=== PATIENT | female | born 1940 | race Caucasian/White ===

== ENCOUNTER → 2016-03-21 | Outpatient (CLI) | payer MEDICARE ==
--- NOTE | 2016-03-22 07:05 | MM ---
Reason for exam: clinical finding. Last mammogram was performed 1 year ago. History: Patient is postmenopausal and has history of other cancer at age 60. Benign excisional biopsy of the right breast, 1988. Took estrogen for 11 years beginning at age 56. Indicated problem(s): large axillary lymph nodes in the left breast. Physical Findings: Nurse Summary: 0.5cm nodule in the left breast at 12:15 (nurse dw). MG 3D Diag Mammo W/Cad SHANTELL Bilateral CC and MLO view(s) were taken. Prior study comparison: March 13, 2015, left breast MG 3d work up w/cad LT. February 23, 2015, bilateral MG screening mammo w CAD. June 14, 2013, bilateral digital screening mammo w/CAD. January 15, 2012, CAD bilateral diagnostic mammogram. November 23, 2010, CAD bilateral diagnostic mammogram. The breast tissue is extremely dense which could obscure a lesion on mammography. Palpable marker posterior upper outer quadrant left breast. No significant new findings when compared with previous films. These results were verbally communicated with the patient and result sheet given to the patient on 03/21/16. ASSESSMENT: Incomplete: need additional imaging evaluation, BI-RAD 0 RECOMMENDATION: Ultrasound of both breasts. As ordered by the clinican.
--- NOTE | 2016-03-22 07:11 | USB ---
Reason for exam: clinical finding. History: Patient is postmenopausal and has history of other cancer at age 60. Benign excisional biopsy of the right breast, 1988. Took estrogen for 11 years beginning at age 56. Indicated problem(s): lump or thickening in the left breast. US Breast BILAT Right breast ultrasound including all four quadrants, the retroareolar region and axilla demonstrates a 0.7 x 0.3 x 0.6cm oval, cystic, benign lesion at 11 o'clock. Left breast ultrasound including all four quadrants, the retroareolar region and axilla demonstrates a 0.4 x 0.3 x 0.4cm oval, cystic, benign lesion at 12 o'clock at palpable, a 0.3 x 0.2 x 0.2cm oval lesion too small to characterize at 10 o'clock and a 0.7 x 0.3 x 0.6cm oval, cystic, benign lesion at 2 o'clock. These results were verbally communicated with the patient and result sheet given to the patient on 03/21/16. ASSESSMENT: Benign, BI-RAD 2 RECOMMENDATION: Routine screening mammogram of both breasts in 1 year. Manage on a clinical basis with regard to any suspicious palpable areas.
== END | disposition home or self-care (01) ==
LOC: RADMAMWWP 13:33
PROVIDERS: ATTEND Internal Medicine Hematology & Oncology
DX: N63 Unspecified lump in breast (principal)
CPT/HCPCS: 76641; G0204; G0279

== ENCOUNTER → 2016-04-11 | Outpatient (CLI) | payer MEDICARE ==
[2016-04-11 15:10] LABS: ALT 84 U/L (9-52); AST 42 U/L (14-36); Alkaline Phosphatase 110 U/L (38-126); Anion Gap 9 mmol/L; Blood Urea Nitrogen 16 mg/dL (7-17); Calcium 8.6 mg/dL (8.4-10.2); Carbon Dioxide 29 mmol/L (22-30); Chloride 103 mmol/L (98-107); Glucose 87 mg/dL (74-99); Non-African American GFR(MDRD) >60 (>60 ml/min/1.73 sqM); Sodium 141 mmol/L (137-145); Total Bilirubin 0.2 mg/dL (0.2-1.3); Total Protein 6.2 g/dL (6.3-8.2)
--- NOTE | 2016-04-11 15:26 | XR ---
EXAMINATION TYPE: XR lumbosacral spine min 4V DATE OF EXAM: 04/11/2016 3:12 PM CLINICAL HISTORY: Low back pain. TECHNIQUE: Frontal, lateral, and oblique images of the lumbar spine are obtained. COMPARISON: Lumbar spine x-ray June 07, 2008. CT abdomen and pelvis April 07, 2015 FINDINGS: Osseous structures are demineralized which is noted to lower radiographic sensitivity. Ther e are 5 lumbar type vertebral bodies identified. The lumbar spine redemonstrates subtle grade 1 ante rolisthesis of L4 on L5 without evidence of acute fracture or dislocation. Vertebral body heights are within normal limits. Metallic disc material lumbosacral junction is redemonstrated. Multilevel fac et arthropathy lower lumbar levels is seen. There is moderate to advanced disc space narrowing with e ndplate sclerosis anteriorly at L1-L2 level redemonstrated. The oblique images appear within normal l imits. Cholecystectomy clips and some vascular calcification is seen overlying soft tissue. IMPRESSION: Overall stable findings, demineralization and degenerative as well as surgical changes as detailed above.
== END | disposition home or self-care (01) ==
LOC: LABWHC1 14:35
PROVIDERS: ATTEND Family Medicine
DX: M47.26 Other spondylosis with radiculopathy, lumbar region (principal); M81.0 Age-related osteoporosis without current pathological fracture; Z98.890 Other specified postprocedural states
CPT/HCPCS: 36415; 72110; 80053

== ENCOUNTER → 2016-08-22 | Outpatient (CLI) | payer MEDICARE ==
--- NOTE | 2016-08-22 23:40 | MR ---
History abdominal pain. Comparison none. TECHNIQUE: Multiplanar multi echo imaging of the abdomen was performed with no contrast. FINDINGS: There is cholecystectomy. There is markedly dilated common bile duct that measures up to 2.2 cm. Ther e is smooth tapering of the distal common bile duct. I see no definite filling defect. There is ectas ia of the pancreatic duct that measures up to 7 mm. There is mild dilation of the intrahepatic bile d ucts. I see no sign of a pancreatic mass. The kidneys show no hydronephrosis. There is some loculated fluid adjacent to the lateral right lobe of the liver that measures 5 x 2.5 cm. Spleen appears wayne l. I see no discrete liver mass. CONCLUSION: Markedly dilated biliary tree. No filling defect seen. This more likely relates to a stricture of the distal common bile duct. The distal common bile duct shows smooth tapering consistent with a strictu re. Dilated pancreatic duct without a filling defect or pancreatic mass seen. This could relate to a stri cture. Distal pancreatic duct shows some tapering consistent with stricture. Irregular fluid signal lesion adjacent to the right lobe of the liver could be some loculated pleural fluid or unusual pericapsular hepatic cyst. I see no significant change compared to old CT scan of 04/07/2015.
== END | disposition home or self-care (01) ==
LOC: RADMRIMAIN 15:58
PROVIDERS: ATTEND Internal Medicine
DX: K83.8 Other specified diseases of biliary tract (principal); K86.89 Other specified diseases of pancreas; K76.89 Other specified diseases of liver
CPT/HCPCS: 74181

== ENCOUNTER → 2017-03-25 | Outpatient (CLI) | payer MEDICARE ==
--- NOTE | 2017-03-25 15:00 | MM ---
Reason for exam: additional evaluation requested from prior study. Last mammogram was performed 1 year ago. History: Patient is postmenopausal and has history of other cancer at age 60. Benign excisional biopsy of the right breast, 1988. Took estrogen for 11 years beginning at age 56. Physical Findings: Nurse Summary: 0.5 x 0.5cm nodule in the left breast at 12 o'clock (nurse ts). MG 3D Diag Mammo W/Cad SHANTELL Bilateral CC and MLO view(s) were taken. Prior study comparison: March 21, 2016, bilateral MG 3d diag mammo w/cad SHANTELL. March 13, 2015, left breast MG 3d work up w/cad LT. The breast tissue is heterogeneously dense. This may lower the sensitivity of mammography. Stable nodular density at left palpable site proven cyst. No significant new findings when compared with previous films. These results were verbally communicated with the patient and result sheet given to the patient on 03/25/17. ASSESSMENT: Benign, BI-RAD 2 RECOMMENDATION: Routine screening mammogram of both breasts in 1 year.
== END | disposition home or self-care (01) ==
LOC: RADMAMWWP 14:09
PROVIDERS: ATTEND Family Medicine
DX: R92.8 Other abnormal and inconclusive findings on diagnostic imaging of breast (principal)
CPT/HCPCS: 77066; G0279

== ENCOUNTER → 2018-01-07 | Outpatient (CLI) | payer MEDICARE ==
[2018-01-07 12:23] LABS: Basophils % (A) 0 %; Eosinophils % (A) 1 %; HCT 34.3 % (34.0-46.0); HGB 10.4 gm/dL (11.4-16.0); Hypochromasia Slight; Lymphocytes # (A) 0.7 k/uL (1.0-4.8); Lymphocytes % (A) 12 %; MCHC 30.3 g/dL (31.0-37.0); MCV 92.6 fL (80.0-100.0); Mean Platelet Volume 7.9; Monocytes # (A) 0.3 k/uL (0-1.0); Monocytes % (A) 5 %; Neutrophils # (A) 4.2 k/uL (1.3-7.7); Neutrophils % (A) 80 %; Platelet Count 180 k/uL (150-450); RBC 3.71 m/uL (3.80-5.40); RDW 13.9 % (11.5-15.5); WBC 5.3 k/uL (3.8-10.6)
[2018-01-07 17:21] LABS: Albumin 4.2 g/dL (3.80-4.90); Albumin/Globulin Ratio 2.63 (1.20-2.10); Anion Gap 8.9 mmol/L (4.00-12.00); Carbon Dioxide 28.1 mmol/L (21.6-31.8); Globulin 1.6 g/dL (2.1-3.7); LDL Cholesterol,Calculated 75.8 mg/dL (0.0-131.0); Potassium 3.5 mmol/L (3.5-5.5); Total Bilirubin 0.3 mg/dL (0.3-1.2); Total Protein 5.8 g/dL (6.2-8.2); VLDL Calculation 22.2 mg/dL (5.00-40.00)
== END ==
LOC: LABWHC1 11:00
PROVIDERS: ATTEND Family Medicine
DX: Z00.00 Encounter for general adult medical examination without abnormal findings (principal); E87.6 Hypokalemia; K75.4 Autoimmune hepatitis; Z79.899 Other long term (current) drug therapy
CPT/HCPCS: 36415; 80053; 80061; 85025

== ENCOUNTER → 2018-03-04 | Outpatient (CLI) | payer MEDICARE ==
--- NOTE | 2018-03-04 17:26 | BD ---
EXAMINATION TYPE: Axial Bone Density DATE OF EXAM: 03/04/2018 CLINICAL HISTORY: 77-year-old female screening for osteoporosis Height: 61 Weight: 96 FRAX RISK QUESTIONS: Alcohol (3 or more units per day): no Family History (Parent hip fracture): yes, mother Glucocorticoids (More than 3mos): no (Ex: prednisone, prednisolone, methylprednisolone, dexamethasone, and hydrocortisone). History of Fracture in Adulthood: shoulder Secondary Osteoporosis: 1. Type 1 Diabetes: no 2. Hyperthyroidism: unsure 3. Menopause before 45: Yes 4. Malnutrition: unsure 5. Chronic liver disease: unsure Rheumatoid Arthritis: no Current Tobacco Use: no RISK FACTORS HISTORY OF: Surgery to Spine: yes, sacrum/L5 area When: 1994 Family History of Osteoporosis: possibly mother Active: yes Diet low in dairy products/other sources of calcium: no Postmenopausal woman: yes Take estrogen and/or progesterone medications: not now How long: ag4 [age] Lost more than 2 inches in height since high school: no Frequent falls: no Poor Health: somewhat Hyperparathyroidism: unsure Adrenal Insufficiency: no MEDICATIONS: Prednisone or other steroids: no Thyroid Medications: yes Which medication: Levothyroxine How Long: over 10 years Osteoporosis Medications: Yes Which medication: Reclast How Long: last year had IV infusion Additional Medications: Budesonide, Clonazepam, Trazodone, Hydromorphone, Fluoxetine, Lansoprazole, C ellcept, Omeprazole, Celebrex, Gabapentin, Meloxicam, Linzess Additional History: osteoarthritis, hx rectal CA, part of thyroid removed; currently has "Hep- C" EXAM MEASUREMENTS: Bone mineral densitometry was performed using the [employer] System. Bone mineral density as measured about the Lumbar spine is: ----- L1-L4(G/cm2): 0.883 T Score Values are as follows: ----- L2: -2.6 ----- L3: -2.8 ----- L4: -3.2 ----- L1-L4: -2.9 Bone mineral density not previously done at this facility; previously done at physician office Bone mineral density about the R hip (g/cm2): 0.651 Bone mineral density about the L hip (g/cm2): 0.688 T Score values are as follows: -----R Neck: -2.8 -----L Neck: -2.5 -----R Total: -2.5 -----L Total: -2.2 Bone mineral density not previously done at this facility; done previously in physician office Bone mineral density about the L Wrist (g/cm2): 0.402 T Score values are as follows: -----Dist. RDU: -5.5 -----Prox. R+U: -3.0 -----Radius total: -4.5 Bone mineral density not previously done at this facility IMPRESSION: Osteoporosis (T Score less than -2.5). There is increased fracture risk and therapy is usually indicated based on age. Re-Screen 1-2 years. NOTE: T-SCORE=SD OF THE YOUNG ADULT MEAN.
== END | disposition home or self-care (01) ==
LOC: RADBDWWP 12:29
PROVIDERS: ATTEND Family Medicine
DX: M81.0 Age-related osteoporosis without current pathological fracture (principal)
CPT/HCPCS: 77080

== ENCOUNTER → 2018-03-31 | Outpatient (CLI) | payer MEDICARE ==
[~2018-03-31] MED LIST: SODIUM CHLORIDE 0.9% 500 ML 500 ML in EMPTY BAG 1 BAG IV PRN; ZOLEDRONIC ACID 5 MG in SODIUM CHLORIDE 0.9% 100 ML IV NR
[2018-03-31 14:07] VITALS: BP 110/63; PULSE 77; RESP 16; TEMP 98.2
== END | disposition home or self-care (01) ==
LOC: PROCWHC3 13:45
PROVIDERS: ATTEND Nurse Practitioner Family
DX: M81.0 Age-related osteoporosis without current pathological fracture (principal)
CPT/HCPCS: 96365; J3489

== ENCOUNTER → 2018-04-30 | Outpatient (CLI) | payer MEDICARE ==
[2018-04-30 16:49] LABS: Basophils % (A) 0 %; Eosinophils % (A) 0 %; HCT 29.8 % (34.0-46.0); HGB 9.4 gm/dL (11.4-16.0); Hypochromasia Moderate; Lymphocytes # (A) 0.4 k/uL (1.0-4.8); Lymphocytes % (A) 5 %; MCH 29.5 pg (25.0-35.0); MCHC 31.5 g/dL (31.0-37.0); MCV 93.5 fL (80.0-100.0); Mean Platelet Volume 9.3; Monocytes # (A) 0.4 k/uL (0-1.0); Monocytes % (A) 6 %; Neutrophils # (A) 6.5 k/uL (1.3-7.7); Neutrophils % (A) 88 %; Platelet Count 173 k/uL (150-450); RBC 3.19 m/uL (3.80-5.40); RDW 14.3 % (11.5-15.5); WBC 7.4 k/uL (3.8-10.6)
--- NOTE | 2018-04-30 17:08 | XR ---
EXAMINATION TYPE: XR chest 2V DATE OF EXAM: 04/30/2018 COMPARISON: 01/07/2013 HISTORY: Short of breath TECHNIQUE: Frontal and lateral views of the chest are obtained. FINDINGS: There is no heart failure nor confluent pneumonic infiltrate. Costophrenic angles are taylor r. Thoracic aorta is atheromatous. Bony thorax is intact. IMPRESSION: No active cardiopulmonary disease. Atheromatous aorta. No change.
[2018-05-01 00:27] LABS: T4, Free (Free Thyroxine) 1.2 ng/dL (0.80-1.80)
[2018-05-01 00:29] LABS: Albumin/Globulin Ratio 2.67 (1.60-3.17); Anion Gap 10.2 mmol/L (4.00-12.00); Calcium 8.2 mg/dL (8.7-10.3); Carbon Dioxide 26.8 mmol/L (21.6-31.8); Globulin 1.5 g/dL (1.6-3.3); Potassium 3.7 mmol/L (3.5-5.5); Total Bilirubin 0.2 mg/dL (0.2-1.2); Total Protein 5.5 g/dL (6.2-8.2)
== END | disposition home or self-care (01) ==
LOC: LABWHC1 16:32
PROVIDERS: ATTEND Family Medicine
DX: I70.0 Atherosclerosis of aorta (principal); R06.02 Shortness of breath; R19.7 Diarrhea, unspecified; R63.4 Abnormal weight loss; R53.83 Other fatigue; Z51.81 Encounter for therapeutic drug level monitoring
CPT/HCPCS: 36415; 71046; 80053; 84134; 84439; 84443; 85025

== ENCOUNTER → 2018-05-12 | Outpatient (CLI) | payer MEDICARE ==
--- NOTE | 2018-05-13 13:30 | MM ---
Reason for exam: screening (asymptomatic). Last mammogram was performed 1 year and 2 months ago. History: Patient is postmenopausal and has history of other cancer at age 60. Benign excisional biopsy of the right breast, 1988. Took estrogen for 11 years beginning at age 56. Physical Findings: A clinical breast exam by your physician is recommended on an annual basis and results should be correlated with mammographic findings. MG Screening Mammo w CAD Bilateral CC and MLO view(s) were taken. Prior study comparison: March 25, 2017, bilateral MG 3d diag mammo w/cad SHANTELL. March 21, 2016, bilateral MG 3d diag mammo w/cad SHANTELL. The breast tissue is extremely dense which could obscure a lesion on mammography. No suspicious abnormality. Diffuse haziness throughout both breasts suggests fluid overload of venous congestion. Correlate to CHF. No significant changes when compared with prior studies. ASSESSMENT: Negative, BI-RAD 1 RECOMMENDATION: Routine screening mammogram of both breasts in 1 year. Manage on a clinical basis. Clinical exam is recommended for left nipple skin change. Left ultrasound and surgical consult could be considered.
== END | disposition home or self-care (01) ==
LOC: RADMAMWWP 12:50
PROVIDERS: ATTEND Family Medicine
DX: Z12.31 Encounter for screening mammogram for malignant neoplasm of breast (principal)
CPT/HCPCS: 77067

== ENCOUNTER 2018-11-06 08:46 | Day surgery (SDC) | payer MEDICARE ==
[2018-11-06 09:13] VITALS: TEMP 98.1
[2018-11-06] MEDS ORDERED: ALPRAZolam 0.25 MG TAB PO ONE (09:19)
[2018-11-06 09:21] LABS: Mean Platelet Volume 7.8; Platelet Count 240 k/uL (150-450)
[2018-11-06 09:28] LABS: INR 0.9 (<1.2)
[2018-11-06 10:21] VITALS: PULSE 65; RESP 18
[2018-11-06 10:43] VITALS: BP 91/41
--- NOTE | 2018-11-06 11:07 | CT ---
EXAMINATION TYPE: CT limited or follow up study DATE OF EXAM: 11/06/2018 COMPARISON: 04/07/2015 HISTORY: Limited exam, d/c liver biopsy CT DLP: 417 mGycm Automated exposure control for dose reduction was used. FINDINGS: The patient presented for liver biopsy. However the patient's blood pressure was 90/40. Referring phy sician consulted. This was a lower blood pressure than the patient normally experiences by a signific ant amount. Due to the low blood pressure and was agreed that the procedure should not be attempted. IMPRESSION: DISCONTINUED CT BIOPSY SECONDARY TO THE PATIENT PRESENTING TO RADIOLOGY WITH A LOW BLOOD PRESSURE.
== END 2018-11-06 11:00 | disposition other institution (70) ==
LOC: RADPROMAIN 08:46
PROVIDERS: ATTEND Internal Medicine Gastroenterology
DX: K75.4 Autoimmune hepatitis (principal); Z53.8 Procedure and treatment not carried out for other reasons; I95.9 Hypotension, unspecified
CPT/HCPCS: 76380; 85049; 85610

== ENCOUNTER 2018-11-06 10:55 | Emergency (ER) | payer MEDICARE ==
[2018-11-06 11:12] VITALS: TEMP 97.7
[2018-11-06] MEDS ORDERED: SODIUM CHLORIDE 0.9% 500 ML 500 ML IV STA (11:48)
[2018-11-06] MEDS ORDERED: SODIUM CHLORIDE 0.9% 1,000 ML IV STA (11:48)
[2018-11-06 12:13] VITALS: RESP 18
[2018-11-06 12:30] LABS: Basophils % (A) 1 %; Eosinophils # (A) 0.1 k/uL (0-0.7); Eosinophils % (A) 2 %; HCT 28.9 % (34.0-46.0); HGB 9.3 gm/dL (11.4-16.0); Lymphocytes # (A) 0.7 k/uL (1.0-4.8); Lymphocytes % (A) 12 %; MCH 29.2 pg (25.0-35.0); MCHC 32.2 g/dL (31.0-37.0); MCV 90.9 fL (80.0-100.0); Mean Platelet Volume 7.9; Monocytes # (A) 0.3 k/uL (0-1.0); Monocytes % (A) 6 %; Neutrophils # (A) 4.3 k/uL (1.3-7.7); Neutrophils % (A) 76 %; Platelet Count 207 k/uL (150-450); RBC 3.18 m/uL (3.80-5.40); RDW 13.8 % (11.5-15.5); WBC 5.7 k/uL (3.8-10.6)
[2018-11-06 12:48] LABS: Albumin 3.1 g/dL (3.5-5.0); Calcium 8.4 mg/dL (8.4-10.2); Magnesium 1.6 mg/dL (1.6-2.3); Potassium 3.3 mmol/L (3.5-5.1); Total Bilirubin 0.2 mg/dL (0.2-1.3); Total Protein 5.4 g/dL (6.3-8.2)
--- NOTE | 2018-11-06 12:49 | ED ---
Recheck HPI - General Chief Complaint: Recheck/Abnormal Lab/Rx Stated Complaint: low blood pressure Time Seen by Provider: 11/06/18 11:10 Source: patient, RN notes reviewed Mode of arrival: wheelchair Limitations: no limitations - History of Present Illness Initial Comments: This is a 78-year-old female who was sent here from CAT scan after she was found have a diastolic blood pressure in the 40s. The patient was to have a liver biopsy today under CT guidance but her blood pressure on repeat examination was low with respective diastolic numbers. She was sent here for further evaluation she denies any fevers chills nausea vomiting sweats she states her pressure normally is higher he has not drank since yesterday. She denies any chest pain or other symptoms at this time. - Related Data Home Medications Medication Instructions Recorded Confirmed Budesonide [Budesonide EC] 9 mg PO DAILY 12/21/13 11/06/18 Levothyroxine Sodium [Synthroid] 125 mcg PO DAILY 12/21/13 11/06/18 Mycophenolate Mofetil [Cellcept] 1,000 mg PO BID 12/21/13 11/06/18 clonazePAM [KlonoPIN] 1 mg PO HS 12/21/13 11/06/18 traZODone HCL [Desyrel] 100 mg PO HS 12/21/13 11/06/18 Escitalopram [Lexapro] 15 mg PO DAILY 10/28/18 11/06/18 Hyoscyamine Sulfate [Levbid] 0.375 mg PO BID 10/28/18 11/06/18 Omeprazole 40 mg PO DAILY 10/28/18 11/06/18 Ondansetron [Zofran] 4 mg PO Q8HR PRN 10/28/18 11/06/18 Previous Rx's Medication Instructions Recorded Potassium Chloride ER [K-Dur 20] 20 meq PO BID #14 tab 11/06/18 Allergies Allergy/AdvReac Type Severity Reaction Status Date / Time No Known Allergies Allergy Verified 11/06/18 11:23 Review of Systems ROS Statement: Those systems with pertinent positive or pertinent negative responses have been documented in the HPI. ROS Other: All systems not noted in ROS Statement are negative. Past Medical History Past Medical History: Cancer, Fibromyalgia, GERD/Reflux, Liver Disease, Osteoarthritis (OA), Pneumonia, Sleep Apnea/CPAP/BIPAP, Thyroid Disorder Additional Past Medical History / Comment(s): hx migraines,elevated liver enzymes and hepatitis c, anemia, "elevated kidney blood tests", hx rectal cancer, IBD. History of Any Multi-Drug Resistant Organisms: None Reported Past Surgical History: Appendectomy, Breast Surgery, Cholecystectomy, Hysterectomy, Orthopedic Surgery, Tonsillectomy Additional Past Surgical History / Comment(s): tatiana arthroscopic knee, liver biopsy, cataracts, partial thyroidectomy,breast biopsy, rectal surgery for cancer, pancreatic biopsy "-" for CA (Oct 2018) 2 pancreatic stents left in at time of biopsy Past Anesthesia/Blood Transfusion Reactions: No Reported Reaction Past Psychological History: Depression Smoking Status: Never smoker Past Alcohol Use History: None Reported Past Drug Use History: None Reported - Past Family History Mother Family Medical History: Cancer, Deep Vein Thrombosis (DVT) General Exam - General Exam Comments Initial Comments: Is a well-developed asthenic appearing female who is awake alert oriented 3 Limitations: no limitations General appearance: alert, in no apparent distress Head exam: Present: atraumatic, normocephalic, normal inspection Eye exam: Present: normal appearance, PERRL, EOMI. Absent: scleral icterus, conjunctival injection, periorbital swelling ENT exam: Present: mucous membranes dry Neck exam: Present: normal inspection. Absent: tenderness, meningismus, lymphadenopathy Respiratory exam: Present: normal lung sounds bilaterally. Absent: respiratory distress, wheezes, rales, rhonchi, stridor Cardiovascular Exam: Present: regular rate, normal rhythm, normal heart sounds. Absent: systolic murmur, diastolic murmur, rubs, gallop, clicks GI/Abdominal exam: Present: soft, normal bowel sounds. Absent: distended, tenderness, guarding, rebound, rigid Extremities exam: Present: normal inspection, full ROM, normal capillary refill. Absent: tenderness, pedal edema, joint swelling, calf tenderness Back exam: Present: normal inspection Neurological exam: Present: alert, oriented X3, CN II-XII intact Psychiatric exam: Present: normal affect, normal mood Skin exam: Present: warm, dry, intact, normal color. Absent: rash Course Vital Signs 11/06/18 11/06/18 11/06/18 11:09 11:25 12:12 Temperature 97.7 F Pulse Rate 66 67 65 Respiratory 20 16 18 Rate Blood Pressure 93/47 110/56 110/56 O2 Sat by Pulse 97 98 96 Oximetry 11/06/18 13:27 Temperature Pulse Rate Respiratory Rate Blood Pressure 104/45 O2 Sat by Pulse Oximetry - Reevaluation(s) Reevaluation #1: 11/06/18 12:47 The patient has stated that she was diagnosed with hepatitis C she asked he was diagnosed with autoimmune hepatitis additionally blood pressures in the office for Dr. Umanzor are as follows on different visits: 90/60, 100/78 and 110/60 Medical Decision Making - Medical Decision Making Patient is feeling improved after IV fluids her pressure is improved he is receiving IV magnesium and oral potassium for the relative deficiencies. She wi ll be discharged with follow-up I did discuss the case previously with Dr. Umanzor. - Lab Data Result diagrams: 11/06/18 12:15 11/06/18 12:15 Lab Results 11/06/18 11/06/18 11/06/18 Range/Units 12:15 12:15 12:15 WBC 5.7 (3.8-10.6) k/uL RBC 3.18 L (3.80-5.40) m/uL Hgb 9.3 L (11.4-16.0) gm/dL Hct 28.9 L (34.0-46.0) % MCV 90.9 (80.0-100.0) fL MCH 29.2 (25.0-35.0) pg MCHC 32.2 (31.0-37.0) g/dL RDW 13.8 (11.5-15.5) % Plt Count 207 (150-450) k/uL Neutrophils % 76 % Lymphocytes % 12 % Monocytes % 6 % Eosinophils % 2 % Basophils % 1 % Neutrophils # 4.3 (1.3-7.7) k/uL Lymphocytes # 0.7 L (1.0-4.8) k/uL Monocytes # 0.3 (0-1.0) k/uL Eosinophils # 0.1 (0-0.7) k/uL Basophils # 0.0 (0-0.2) k/uL Sodium 137 (137-145) mmol/L Potassium 3.3 L (3.5-5.1) mmol/L Chloride 102 (98-107) mmol/L Carbon Dioxide 27 (22-30) mmol/L Anion Gap 8 mmol/L BUN 14 (7-17) mg/dL Creatinine 0.80 (0.52-1.04) mg/dL Est GFR (CKD-EPI)AfAm 83 (>60 ml/min/1.73 sqM) Est GFR (CKD-EPI)NonAf 72 (>60 ml/min/1.73 sqM) Glucose 89 (74-99) mg/dL Calcium 8.4 (8.4-10.2) mg/dL Magnesium 1.6 (1.6-2.3) mg/dL Total Bilirubin 0.2 (0.2-1.3) mg/dL AST 27 (14-36) U/L ALT 24 (9-52) U/L Alkaline Phosphatase 133 H (38-126) U/L Creatine Kinase 47 (30-135) U/L Troponin I <0.012 (0.000-0.034) ng/mL Total Protein 5.4 L (6.3-8.2) g/dL Albumin 3.1 L (3.5-5.0) g/dL - Radiology Data Radiology results: image reviewed Disposition Clinical Impression: Hypotensive episode, Hypokalemia, Dehydration Disposition: HOME SELF-CARE Condition: Good Instructions (If sedation given, give patient instructions): Hypotension (ED), Dehydration (ED), Hypomagnesemia (ED), Hypokalemia (ED) Additional Instructions: Prescription sent to [facility] pharmacy choice Prescriptions: Potassium Chloride ER [K-Dur 20] 20 meq PO BID #14 tab Is patient prescribed a controlled substance at d/c from ED?: No Referrals: Yash Umanzor MD [Primary Care Provider] - 1-2 days
[2018-11-06] MEDS ORDERED: MAGNESIUM SULFATE-D5W PMX 1 GM in DEXTROSE/WATER 1 100ML.BAG IVPB ONE (13:36)
[2018-11-06] MEDS ORDERED: POTASSIUM CHLORIDE ER 20 MEQ TAB.ER PO STA (13:37)
[2018-11-06] MEDS ORDERED: SODIUM CHLORIDE 0.9% 500 ML 500 ML IV ONE (15:42)
[2018-11-06 17:07] VITALS: BP 105/54; PULSE 82
== END 2018-11-06 17:09 | disposition home or self-care (01) ==
LOC: EC 10:55
DX: I95.9 Hypotension, unspecified (principal); E87.6 Hypokalemia; E86.0 Dehydration; K21.9 Gastro-esophageal reflux disease without esophagitis; E07.9 Disorder of thyroid, unspecified; F32.9 Major depressive disorder, single episode, unspecified; G47.30 Sleep apnea, unspecified; Z99.89 Dependence on other enabling machines and devices; Z85.048 Personal history of other malignant neoplasm of rectum, rectosigmoid junction, and anus; Z79.52 Long term (current) use of systemic steroids; Z79.890 Hormone replacement therapy; Z79.899 Other long term (current) drug therapy
CPT/HCPCS: 36415; 93005; 80053; 82550; 83735; 84484; 85025; 99285; 96365; 96361 ×4; J3475

== ENCOUNTER 2018-11-08 00:46 | Inpatient (IN) | payer MEDICARE ==
[2018-11-08 01:50] LABS: Basophils % (A) 0 %; Eosinophils % (A) 0 %; HCT 29.3 % (34.0-46.0); HGB 9.9 gm/dL (11.4-16.0); Lymphocytes # (A) 0.2 k/uL (1.0-4.8); Lymphocytes % (A) 2 %; MCH 30.2 pg (25.0-35.0); MCHC 33.9 g/dL (31.0-37.0); MCV 89.3 fL (80.0-100.0); Mean Platelet Volume 7.4; Monocytes # (A) 0.3 k/uL (0-1.0); Monocytes % (A) 4 %; Neutrophils # (A) 8.5 k/uL (1.3-7.7); Neutrophils % (A) 93 %; Platelet Count 188 k/uL (150-450); RBC 3.28 m/uL (3.80-5.40); RDW 13.4 % (11.5-15.5); WBC 9.2 k/uL (3.8-10.6)
--- NOTE | 2018-11-08 01:51 | XR ---
EXAM: XR Chest, 2 Views CLINICAL HISTORY: ITS.REASON XR Reason: Fever TECHNIQUE: Frontal and lateral views of the chest. COMPARISON: Chest radiograph on 04/30/2018 FINDINGS: Hardware: None. Lungs/pleura: Hyperinflation of the lungs is suggestive of COPD changes. No focal consolidation. No pleural effusion or pneumothorax. Heart/mediastinum: Atherosclerotic calcifications of the aorta. No cardiomegaly. Soft tissues: Unremarkable. Bones: No acute fracture. Resection changes of the distal right clavicle. Degenerative changes of the left acromioclavicular joint. Upper abdomen: Normal. IMPRESSION: No acute disease identified.
[2018-11-08 02:02] LABS: ALT 27 U/L (9-52); AST 22 U/L (14-36); African American GFR (CKD) >90 (>60 ml/min/1.73 sqM); Albumin 2.9 g/dL (3.5-5.0); Alkaline Phosphatase 156 U/L (38-126); Anion Gap 7 mmol/L; Blood Urea Nitrogen 12 mg/dL (7-17); Calcium 8.2 mg/dL (8.4-10.2); Carbon Dioxide 26 mmol/L (22-30); Chloride 99 mmol/L (98-107); Glucose 125 mg/dL (74-99); Potassium 3.3 mmol/L (3.5-5.1); Sodium 132 mmol/L (137-145); Total Bilirubin 0.4 mg/dL (0.2-1.3); Total Protein 5.1 g/dL (6.3-8.2)
[2018-11-08 02:09] LABS: INR 0.9 (<1.2); Partial Thromboplastin Time 22.2 sec (22.0-30.0); Prothrombin Time 10.1 sec (9.0-12.0)
[2018-11-08 02:23] LABS: Appearance,Urine Clear (Clear); Bilirubin,Urine Negative (Negative); Blood,Urine Negative (Negative); Color,Urine Light Yellow; Glucose,Urine (UA) Negative (Negative); Ketones,Urine Negative (Negative); Leukocyte Esterase,Urine Negative (Negative); Nitrite,Urine Negative (Negative); Protein,Urine Negative (Negative); Specific Gravity,Urine 1.005 (1.001-1.035); Urobilinogen,Urine <2.0 mg/dL (<2.0)
[2018-11-08] MEDS ORDERED: MORPHINE SULFATE 4 MG/ML SYRINGE IV STA ×2 (02:25→06:49)
--- NOTE | 2018-11-08 02:41 | ED ---
Abdominal Pain HPI - General Chief Complaint: Abdominal Pain Stated Complaint: weakness/abdominal pain Time Seen by Provider: 11/08/18 01:08 Source: patient, EMS Mode of arrival: EMS Limitations: no limitations - History of Present Illness MD Complaint: abdominal pain -: days(s) Location: diffuse Radiation: none Migration to: no migration Severity: severe Quality: aching Consistency: constant Improves With: nothing Worsens With: nothing Associated Symptoms: denies other symptoms - Related Data Home Medications Medication Instructions Recorded Confirmed Budesonide [Budesonide EC] 9 mg PO DAILY 12/21/13 11/08/18 Levothyroxine Sodium [Synthroid] 125 mcg PO DAILY 12/21/13 11/08/18 Mycophenolate Mofetil [Cellcept] 1,000 mg PO BID 12/21/13 11/08/18 clonazePAM [KlonoPIN] 1 mg PO HS 12/21/13 11/08/18 traZODone HCL [Desyrel] 100 mg PO HS 12/21/13 11/08/18 Escitalopram [Lexapro] 15 mg PO DAILY 10/28/18 11/08/18 Hyoscyamine Sulfate [Levbid] 0.375 mg PO BID 10/28/18 11/08/18 Omeprazole 40 mg PO DAILY 10/28/18 11/08/18 Ondansetron [Zofran] 4 mg PO Q8HR PRN 10/28/18 11/08/18 Previous Rx's Medication Instructions Recorded Potassium Chloride ER [K-Dur 20] 20 meq PO BID #14 tab 11/06/18 cefTRIAXone [Rocephin] 1 gm IVPB DAILY vial 11/08/18 Allergies Allergy/AdvReac Type Severity Reaction Status Date / Time No Known Allergies Allergy Verified 11/08/18 07:03 Review of Systems ROS Statement: Those systems with pertinent positive or pertinent negative responses have been documented in the HPI. ROS Other: All systems not noted in ROS Statement are negative. Constitutional: Reports: weakness. Denies: fever, chills Respiratory: Denies: cough, dyspnea Cardiovascular: Denies: chest pain, palpitations, edema Gastrointestinal: Reports: as per HPI, abdominal pain. Denies: vomiting, diarrhea, constipation, melena, hematochezia Genitourinary: Denies: dysuria, hematuria Musculoskeletal: Denies: back pain Skin: Denies: rash Neurological: Denies: headache, weakness, numbness Past Medical History Past Medical History: Cancer, Fibromyalgia, GERD/Reflux, Liver Disease, Osteoarthritis (OA), Pneumonia, Sleep Apnea/CPAP/BIPAP, Thyroid Disorder Additional Past Medical History / Comment(s): hx migraines,elevated liver enzymes and hepatitis c, anemia, "elevated kidney blood tests", hx rectal cancer, IBD. History of Any Multi-Drug Resistant Organisms: None Reported Past Surgical History: Appendectomy, Breast Surgery, Cholecystectomy, Hysterectomy, Orthopedic Surgery, Tonsillectomy Additional Past Surgical History / Comment(s): tatiana arthroscopic knee, liver biopsy, cataracts, partial thyroidectomy,breast biopsy, rectal surgery for cancer, pancreatic biopsy "-" for CA (Oct 2018) 2 pancreatic stents left in at time of biopsy Past Anesthesia/Blood Transfusion Reactions: No Reported Reaction Past Psychological History: Depression Smoking Status: Never smoker Past Alcohol Use History: None Reported Past Drug Use History: None Reported - Past Family History Mother Family Medical History: Cancer, Deep Vein Thrombosis (DVT) General Exam Limitations: no limitations General appearance: alert, in distress Head exam: Present: atraumatic, normocephalic Eye exam: Present: normal appearance. Absent: scleral icterus, conjunctival injection ENT exam: Present: mucous membranes dry Neck exam: Present: normal inspection Respiratory exam: Present: normal lung sounds bilaterally. Absent: respiratory distress, wheezes, rales, rhonchi, stridor Cardiovascular Exam: Present: regular rate, normal rhythm, normal heart sounds. Absent: systolic murmur, diastolic murmur, rubs, gallop GI/Abdominal exam: Present: soft, tenderness (Moderate diffuse abdominal tenderness without rebound or guarding). Absent: distended, guarding, rebound, rigid, mass, pulsatile mass, hernia Extremities exam: Present: normal inspection, normal capillary refill. Absent: pedal edema, calf tenderness Back exam: Present: normal inspection. Absent: CVA tenderness (R), CVA tenderness (L) Neurological exam: Present: alert Skin exam: Present: warm, dry, intact, normal color. Absent: rash Course Vital Signs 11/08/18 11/08/18 11/08/18 00:55 02:00 04:00 Temperature 103.3 F H 101.2 F H Pulse Rate 112 H 72 71 Pulse Rate [ Right Lateral] Respiratory 20 16 18 Rate Blood Pressure 124/55 116/59 94/72 Blood Pressure [Left Arm] O2 Sat by Pulse 97 98 97 Oximetry 11/08/18 11/08/18 11/08/18 06:22 07:00 07:11 Temperature 99.4 F 98.6 F Pulse Rate 73 Pulse Rate [ 76 Right Lateral] Respiratory 16 17 Rate Blood Pressure 95/41 Blood Pressure 103/57 [Left Arm] O2 Sat by Pulse 96 98 Oximetry - Reevaluation(s) Reevaluation #1: 11/08/18 06:32 Please note that the patient had refused antibiotic administration initially. This may have led to delivery outside of the target window. Medical Decision Making - Medical Decision Making This patient is 78-year-old woman with history of autoimmune hepatitis. The patient is having considerable abdominal pain and has not had much symptomatic improvement following medications. The patient be admitted for further evaluation and treatment to rule out peritonitis. - Lab Data Result diagrams: 11/08/18 01:16 11/08/18 01:16 Lab Results 11/08/18 11/08/18 11/08/18 Range/Units 01:16 01:16 01:16 WBC 9.2 (3.8-10.6) k/uL RBC 3.28 L (3.80-5.40) m/uL Hgb 9.9 L (11.4-16.0) gm/dL Hct 29.3 L (34.0-46.0) % MCV 89.3 (80.0-100.0) fL MCH 30.2 (25.0-35.0) pg MCHC 33.9 (31.0-37.0) g/dL RDW 13.4 (11.5-15.5) % Plt Count 188 (150-450) k/uL Neutrophils % 93 % Lymphocytes % 2 % Monocytes % 4 % Eosinophils % 0 % Basophils % 0 % Neutrophils # 8.5 H (1.3-7.7) k/uL Lymphocytes # 0.2 L (1.0-4.8) k/uL Monocytes # 0.3 (0-1.0) k/uL Eosinophils # 0.0 (0-0.7) k/uL Basophils # 0.0 (0-0.2) k/uL PT (9.0-12.0) sec INR (<1.2) APTT (22.0-30.0) sec Sodium 132 L (137-145) mmol/L Potassium 3.3 L (3.5-5.1) mmol/L Chloride 99 (98-107) mmol/L Carbon Dioxide 26 (22-30) mmol/L Anion Gap 7 mmol/L BUN 12 (7-17) mg/dL Creatinine 0.74 (0.52-1.04) mg/dL Est GFR (CKD-EPI)AfAm >90 (>60 ml/min/1.73 sqM) Est GFR (CKD-EPI)NonAf 80 (>60 ml/min/1.73 sqM) Glucose 125 H (74-99) mg/dL Plasma Lactic Acid Mason 0.8 (0.7-2.0) mmol/L Calcium 8.2 L (8.4-10.2) mg/dL Total Bilirubin 0.4 (0.2-1.3) mg/dL AST 22 (14-36) U/L ALT 27 (9-52) U/L Alkaline Phosphatase 156 H (38-126) U/L Troponin I (0.000-0.034) ng/mL Total Protein 5.1 L (6.3-8.2) g/dL Albumin 2.9 L (3.5-5.0) g/dL Amylase (30-110) U/L Lipase (23-300) U/L Urine Color Urine Appearance (Clear) Urine pH (5.0-8.0) Ur Specific [place] (1.001-1.035) Urine Protein (Negative) Urine Glucose (UA) (Negative) Urine Ketones (Negative) Urine Blood (Negative) Urine Nitrite (Negative) Urine Bilirubin (Negative) Urine Urobilinogen (<2.0) mg/dL Ur Leukocyte Esterase (Negative) 11/08/18 11/08/18 11/08/18 Range/Units 01:16 01:16 01:16 WBC (3.8-10.6) k/uL RBC (3.80-5.40) m/uL Hgb (11.4-16.0) gm/dL Hct (34.0-46.0) % MCV (80.0-100.0) fL MCH (25.0-35.0) pg MCHC (31.0-37.0) g/dL RDW (11.5-15.5) % Plt Count (150-450) k/uL Neutrophils % % Lymphocytes % % Monocytes % % Eosinophils % % Basophils % % Neutrophils # (1.3-7.7) k/uL Lymphocytes # (1.0-4.8) k/uL Monocytes # (0-1.0) k/uL Eosinophils # (0-0.7) k/uL Basophils # (0-0.2) k/uL PT 10.1 (9.0-12.0) sec INR 0.9 (<1.2) APTT 22.2 (22.0-30.0) sec Sodium (137-145) mmol/L Potassium (3.5-5.1) mmol/L Chloride (98-107) mmol/L Carbon Dioxide (22-30) mmol/L Anion Gap mmol/L BUN (7-17) mg/dL Creatinine (0.52-1.04) mg/dL Est GFR (CKD-EPI)AfAm (>60 ml/min/1.73 sqM) Est GFR (CKD-EPI)NonAf (>60 ml/min/1.73 sqM) Glucose (74-99) mg/dL Plasma Lactic Acid Mason (0.7-2.0) mmol/L Calcium (8.4-10.2) mg/dL Total Bilirubin (0.2-1.3) mg/dL AST (14-36) U/L ALT (9-52) U/L Alkaline Phosphatase (38-126) U/L Troponin I <0.012 (0.000-0.034) ng/mL Total Protein (6.3-8.2) g/dL Albumin (3.5-5.0) g/dL Amylase <30 L (30-110) U/L Lipase 11 L (23-300) U/L Urine Color Urine Appearance (Clear) Urine pH (5.0-8.0) Ur Specific [place] (1.001-1.035) Urine Protein (Negative) Urine Glucose (UA) (Negative) Urine Ketones (Negative) Urine Blood (Negative) Urine Nitrite (Negative) Urine Bilirubin (Negative) Urine Urobilinogen (<2.0) mg/dL Ur Leukocyte Esterase (Negative) 11/08/18 Range/Units 02:10 WBC (3.8-10.6) k/uL RBC (3.80-5.40) m/uL Hgb (11.4-16.0) gm/dL Hct (34.0-46.0) % MCV (80.0-100.0) fL MCH (25.0-35.0) pg MCHC (31.0-37.0) g/dL RDW (11.5-15.5) % Plt Count (150-450) k/uL Neutrophils % % Lymphocytes % % Monocytes % % Eosinophils % % Basophils % % Neutrophils # (1.3-7.7) k/uL Lymphocytes # (1.0-4.8) k/uL Monocytes # (0-1.0) k/uL Eosinophils # (0-0.7) k/uL Basophils # (0-0.2) k/uL PT (9.0-12.0) sec INR (<1.2) APTT (22.0-30.0) sec Sodium (137-145) mmol/L Potassium (3.5-5.1) mmol/L Chloride (98-107) mmol/L Carbon Dioxide (22-30) mmol/L Anion Gap mmol/L BUN (7-17) mg/dL Creatinine (0.52-1.04) mg/dL Est GFR (CKD-EPI)AfAm (>60 ml/min/1.73 sqM) Est GFR (CKD-EPI)NonAf (>60 ml/min/1.73 sqM) Glucose (74-99) mg/dL Plasma Lactic Acid Mason (0.7-2.0) mmol/L Calcium (8.4-10.2) mg/dL Total Bilirubin (0.2-1.3) mg/dL AST (14-36) U/L ALT (9-52) U/L Alkaline Phosphatase (38-126) U/L Troponin I (0.000-0.034) ng/mL Total Protein (6.3-8.2) g/dL Albumin (3.5-5.0) g/dL Amylase (30-110) U/L Lipase (23-300) U/L Urine Color Light Yellow Urine Appearance Clear (Clear) Urine pH 5.0 (5.0-8.0) Ur Specific [place] 1.005 (1.001-1.035) Urine Protein Negative (Negative) Urine Glucose (UA) Negative (Negative) Urine Ketones Negative (Negative) Urine Blood Negative (Negative) Urine Nitrite Negative (Negative) Urine Bilirubin Negative (Negative) Urine Urobilinogen <2.0 (<2.0) mg/dL Ur Leukocyte Esterase Negative (Negative) - EKG Data -: EKG Interpreted by Md EKG shows normal: sinus rhythm, axis (Normal), intervals (VA interval is 222 ms, prolonged consistent with first-degree AV block. QRS duration 94 ms, QTC 459 ms), QRS complexes (Incomplete right bundle branch block), ST-T waves (Normal) Rate: tachycardia (Rate 101 bpm) Interpretation: other (Similar to the previous ECG from 11/06/2018) Disposition Clinical Impression: Abdominal pain, Sepsis, Peritonitis (acute) generalized Disposition: ADMITTED IP TO THIS HOSP Condition: Serious
--- NOTE | 2018-11-08 04:56 | CT ---
EXAM: CT Abdomen and Pelvis Without Intravenous Contrast CLINICAL HISTORY: Abdominal pain. TECHNIQUE: Axial computed tomography images of the abdomen and pelvis without intravenous contrast. CTDI is 5.3 mGy and DLP is 255.1 mGy-cm. This CT exam was performed using one or more of the following dose reduction techniques: automated exposure control, adjustment of the mA and/or kV according to patient size, and/or use of iterative reconstruction technique. COMPARISON: 04/07/2015. 08/22/2016. FINDINGS: Limitations: Markedly limited study due to lack of intravenous contrast administration. Lung bases: Subsegmental atelectasis posteriorly at the lung bases, right more so than left. ABDOMEN: Liver: Best seen on series 201 was 26 is a 4.4 x 2.7 cm ovoid lesion at the periphery of the right lobe of the liver. Differential etiologies include metastatic lesion versus chronic hematoma. Gallbladder and bile ducts: Biliary stent is noted in place. There is pneumobilia. No calcified stones. No ductal dilation. Pancreas: Unremarkable. No ductal dilation. Spleen: Unremarkable. No splenomegaly. Adrenals: Unremarkable. No mass. Kidneys and ureters: No hydronephrosis is noted. 0.3 cm nonobstructing right renal calculus. Evaluation of the adrenal glands and the pancreas is markedly limited but grossly unremarkable. No hydronephrosis Stomach and bowel: There is marked diffuse thickening of the stomach wall of uncertain etiology. Clinical correlation is advised. Nonspecific bowel gas pattern. No obstruction. PELVIS: Appendix: No findings to suggest acute appendicitis. Bladder: Mild distention of the bladder. No stones. Reproductive: Unremarkable as visualized. ABDOMEN and PELVIS: Intraperitoneal space: Unremarkable. No free air. No significant fluid collection. Bones/joints: Moderate degenerative disc disease. Moderate osteoarthritic changes about the sacroiliac joints. Intervertebral disc spacer at the L5-S1 level. Dextroscoliosis of the lumbar spine. No acute fracture. No dislocation. Soft tissues: Mild edema of the mesentery in the subcutaneous tissue suggestive of anasarca. Vasculature: Atherosclerotic disease of the abdominal aorta is noted without aneurysmal dilatation Lymph nodes: Unremarkable. No enlarged lymph nodes. IMPRESSION: Markedly limited study due to lack of intravenous and oral contrast. Haziness of the mesentery in the sub-cutaneous tissue suggestive of anasarca. Biliary stent noted in place. Pneumobilia. Marked diffuse thickening of the stomach wall of uncertain etiology. Clinical correlation is necessary. Mildly distended bladder. There is a lesion at the periphery of the right lobe of the liver of uncertain etiology. Please see above discussion. 0.3 cm nonobstructing right renal calculus. Due to the limited nature of the current study, etiologies such as early bowel ischemia cannot be excluded based on the current study.
[2018-11-08] MEDS ORDERED: LEVOFLOXACIN 750MG-D5W PMX 750 MG in DEXTROSE/WATER 1 150ML.BAG IVPB STA (05:45)
[2018-11-08] MEDS ORDERED: metroNIDAZOLE 500 MG TAB PO STA (05:47)
[2018-11-08] MEDS ORDERED: ONDANSETRON 4 MG TAB PO PRN (06:39)
[2018-11-08] MEDS ORDERED: SODIUM CHLORIDE 0.9% 1,200 ML IV ONE (06:45)
[2018-11-08] MEDS ORDERED: LEVOTHYROXINE 125 MCG TAB PO SCH (07:00)
[2018-11-08 07:12] VITALS: RESP 17
[2018-11-08] MEDS ORDERED: PANTOPRAZOLE 40 MG TABLET PO SCH (07:30)
[2018-11-08 07:37] VITALS: BMI 15.7
[2018-11-08 08:35] LABS: Amylase <30 U/L (30-110)
[2018-11-08] MEDS ORDERED: FAMOTIDINE 20 MG/2 ML VIAL IV SCH (09:00)
[2018-11-08] MEDS ORDERED: ESCITALOPRAM 5 MG TAB PO SCH (09:00)
[2018-11-08] MEDS ORDERED: BUDESONIDE 9 MG PO SCH (09:00)
[2018-11-08] MEDS ORDERED: MYCOPHENOLATE MOFETIL 500 MG TAB PO SCH (09:00)
[2018-11-08] MEDS ORDERED: HYOSCYAMINE SULFATE 0.375 MG TAB.ER.12H PO SCH (09:00)
[2018-11-08] MEDS ORDERED: POTASSIUM CHLORIDE ER 20 MEQ TAB.ER PO SCH (09:00)
[2018-11-08] MEDS ORDERED: MORPHINE SULFATE 4 MG/ML SYRINGE IVP STA (13:10)
[2018-11-08] MEDS ORDERED: ONDANSETRON 4 MG/2 ML VIAL IVP PRN (13:14)
[2018-11-08 15:44] VITALS: BP 107/52; PULSE 74; TEMP 99.2
--- NOTE | 2018-11-08 16:37 | P.HPIM ---
History of Present Illness H&P Date: 11/08/18 Chief Complaint: Abdominal pain This is a 78-year-old white female well-known to me from the practice. She is autoimmune hepatitis controlled with desonide and CellCept. She's been experiencing abdominal pain or discomfort for lungs have increasing symptoms and failing to thrive, weight loss over the past 6 months. Last month she saw gastroenterology Escobar Pillai and underwent a pancreatic biopsy and biliary stents. She presented to [facility] increasing abdominal pain and nausea vomiting. She denies any fever or chills headaches, shortness breath, chest pain or pressure. Emergency room she was found to be febrile. She is ordinarily a low on her blood pressure due to her body habitus, pain medications, and recently lost her She is resting somewhat comfortably in hospital floor continue to complain of abdominal pain. Review of Systems All systems: negative Past Medical History Past Medical History: Cancer, Fibromyalgia, GERD/Reflux, Liver Disease, Osteoarthritis (OA), Pneumonia, Sleep Apnea/CPAP/BIPAP, Thyroid Disorder Additional Past Medical History / Comment(s): hx migraines, autoimmune hepatitis, anemia, "elevated kidney blood tests", hx rectal cancer, IBD. History of Any Multi-Drug Resistant Organisms: None Reported Past Surgical History: Appendectomy, Breast Surgery, Cholecystectomy, Hysterectomy, Orthopedic Surgery, Tonsillectomy Additional Past Surgical History / Comment(s): tatiana arthroscopic knee, liver biopsy, cataracts, partial thyroidectomy,breast biopsy, rectal surgery for cancer, pancreatic biopsy "-" for CA (Oct 2018) 2 pancreatic stents left in at time of biopsy, pancreatic biopsies negative for cancer, since biopsies patient has been having abdominal pain, n/v Past Anesthesia/Blood Transfusion Reactions: No Reported Reaction Past Psychological History: Depression Additional Psychological History / Comment(s): "on medication for it" Smoking Status: Never smoker Past Alcohol Use History: None Reported Past Drug Use History: None Reported - Past Family History Mother Family Medical History: Cancer, Deep Vein Thrombosis (DVT) Medications and Allergies Home Medications Medication Instructions Recorded Confirmed Type Budesonide [Budesonide EC] 9 mg PO DAILY 12/21/13 11/08/18 History Levothyroxine Sodium [Synthroid] 125 mcg PO DAILY 12/21/13 11/08/18 History Mycophenolate Mofetil [Cellcept] 1,000 mg PO BID 12/21/13 11/08/18 History clonazePAM [KlonoPIN] 1 mg PO HS 12/21/13 11/08/18 History traZODone HCL [Desyrel] 100 mg PO HS 12/21/13 11/08/18 History Escitalopram [Lexapro] 15 mg PO DAILY 10/28/18 11/08/18 History Hyoscyamine Sulfate [Levbid] 0.375 mg PO BID 10/28/18 11/08/18 History Omeprazole 40 mg PO DAILY 10/28/18 11/08/18 History Ondansetron [Zofran] 4 mg PO Q8HR PRN 10/28/18 11/08/18 History Potassium Chloride ER [K-Dur 20] 20 meq PO BID #14 tab 11/06/18 11/08/18 Rx Allergies Allergy/AdvReac Type Severity Reaction Status Date / Time No Known Allergies Allergy Verified 11/08/18 07:03 Physical Exam Vitals: Vital Signs Temp Pulse Pulse Resp BP BP Pulse Ox 11/08/18 15:00 99.2 F 74 17 107/52 96 11/08/18 07:11 73 17 95/41 98 11/08/18 07:00 98.6 F 76 16 103/57 96 11/08/18 06:22 99.4 F 11/08/18 04:00 71 18 94/72 97 11/08/18 02:00 101.2 F H 72 16 116/59 98 11/08/18 00:55 103.3 F H 112 H 20 124/55 97 Intake and Output 11/08/18 11/08/18 11/08/18 06:59 14:59 22:59 Intake Total 1200 Output Total 450 Balance 750 Intake: IV 1200 Sodium Chloride 0.9% 1, 1200 200 ml @ 999 mls/hr IV . Q1H13M ONE Rx#:[id number] Output: Urine 300 Urine/Stool Mix 150 Other: # Voids 1 Weight 37.648 kg 37.648 kg GENERAL: Fatigue, thin, somewhat distress from pain. HEAD: Atraumatic, normocephalic. EYES: Pupils equal round and reactive to light, extraocular movements intact, sclera anicteric, conjunctiva are normal. ENT:nares patent, oropharynx clear without exudates. Moist mucous membranes. NECK: Normal range of motion, supple without lymphadenopathy or JVD, no thyromegaly LUNGS: Breath sounds clear to auscultation bilaterally and equal. No wheezes rales or rhonchi. HEART: Regular rate and rhythm without murmurs, rubs or gallops.S1S2 Normal ABDOMEN: Soft, normoactive bowel sounds. No guarding, no rebound. No masses appreciated. There is abdominal pain greatest in the left upper quadrant with somewhat less the right upper quadrant. EXTREMITIES: Normal range of motion, no pitting or edema. No clubbing or cyanosis. NEUROLOGICAL: Cranial nerves II through XII grossly intact. Normal speech, normal gait. PSYCH: Normal mood, normal affect. SKIN: Warm, Dry, normal turgor, no rashes or lesions noted. Results CBC & Chem 7: 11/08/18 01:16 11/08/18 01:16 Labs: Abnormal Lab Results - Last 24 Hours (Table) 11/08/18 11/08/18 11/08/18 Range/Units 01:16 01:16 01:16 RBC 3.28 L (3.80-5.40) m/uL Hgb 9.9 L (11.4-16.0) gm/dL Hct 29.3 L (34.0-46.0) % Neutrophils # 8.5 H (1.3-7.7) k/uL Lymphocytes # 0.2 L (1.0-4.8) k/uL Sodium 132 L (137-145) mmol/L Potassium 3.3 L (3.5-5.1) mmol/L Glucose 125 H (74-99) mg/dL Calcium 8.2 L (8.4-10.2) mg/dL Alkaline Phosphatase 156 H (38-126) U/L Total Protein 5.1 L (6.3-8.2) g/dL Albumin 2.9 L (3.5-5.0) g/dL Amylase <30 L (30-110) U/L Lipase 11 L (23-300) U/L Microbiology - Last 24 Hours (Table) 11/08/18 01:16 Blood Culture Gram Stain - Preliminary Blood 11/08/18 01:16 Blood Culture - Final Blood 11/08/18 02:10 Urine Culture - Preliminary Urine,Clean Catch CT scan - abdomen: report reviewed Thrombosis Risk Factor Assmnt - DVT/VTE Prophylaxis DVT/VTE Prophylaxis: Mechanical Prophylaxis ordered - Choose All That Apply Any of the Below Risk Factors Present?: Yes Each Factor Represents 1 point: Hx of IBD Other Risk Factors: Yes Each Risk Factor Represents 3 Points: Age 75 years or older Other congenital or acquired thrombophilia - If yes, enter type in comment: Yes Thrombosis Risk Factor Assessment Total Risk Factor Score: 4 Thrombosis Risk Factor Assessment Level: Moderate Risk Assessment and Plan (1) Hyponatremia Current Visit: Yes Status: Acute Code(s): E87.1 - HYPO-OSMOLALITY AND HYPONATREMIA SNOMED Code(s): 44450773 (2) Immunosuppression due to drug therapy Current Visit: Yes Status: Acute Code(s): Z79.899 - OTHER PENITENTIARY (CURRENT) DRUG THERAPY SNOMED Code(s): 06111577 (3) Chronic use of opiate drug for therapeutic purpose Current Visit: Yes Status: Acute Code(s): Z79.891 - PENITENTIARY (CURRENT) USE OF OPIATE ANALGESIC SNOMED Code(s): 529870017 (4) Weight loss Current Visit: Yes Status: Acute Code(s): R63.4 - ABNORMAL WEIGHT LOSS SNOMED Code(s): 27156839 (5) Fatigue Current Visit: Yes Status: Acute Code(s): R53.83 - OTHER FATIGUE SNOMED Code(s): 14830444 (6) Abnormal liver diagnostic imaging Current Visit: Yes Status: Acute Code(s): R93.2 - ABNORMAL FINDINGS ON DX IMAGING OF LIVER AND BILIARY TRACT SNOMED Code(s): 526588019 (7) Abdominal pain Current Visit: Yes Status: Acute Code(s): R10.9 - UNSPECIFIED ABDOMINAL PAIN SNOMED Code(s): 79044499 (8) Dehydration Current Visit: No Status: Acute Code(s): E86.0 - DEHYDRATION SNOMED Code(s): 40067804 (9) Hypokalemia Current Visit: No Status: Acute Code(s): E87.6 - HYPOKALEMIA SNOMED Code(s): 53249835 (10) Hypotensive episode Current Visit: No Status: Acute Code(s): I95.9 - HYPOTENSION, UNSPECIFIED SNOMED Code(s): 23136218 Plan: She'll be admitted placed on her pain medications, GI be consult it for further evaluation. We'll order labs in a.m. reevaluate next 24 hours.
--- NOTE | 2018-11-08 16:43 | P.DS ---
Providers Date of admission: 11/08/18 06:35 Expected date of discharge: 11/08/18 Attending physician: Yash Umanzor Consults: 11/08/18 06:35 Consult Physician Stat Consulting Provider: Denilson Schulte Reason/Comments: Hepatitis Do you want consulting provider notified?: Yes Primary care physician: Yash Umanzor - Discharge Diagnosis(es) (1) Hyponatremia Current Visit: Yes Status: Acute (2) Immunosuppression due to drug therapy Current Visit: Yes Status: Acute (3) Chronic use of opiate drug for therapeutic purpose Current Visit: Yes Status: Acute (4) Weight loss Current Visit: Yes Status: Acute (5) Fatigue Current Visit: Yes Status: Acute (6) Abnormal liver diagnostic imaging Current Visit: Yes Status: Acute (7) Abdominal pain Current Visit: Yes Status: Acute (8) Dehydration Current Visit: No Status: Acute (9) Hypokalemia Current Visit: No Status: Acute (10) Hypotensive episode Current Visit: No Status: Acute Hospital Course: This is a 78-year-old white female well-known to me from the practice. She is autoimmune hepatitis controlled with desonide and CellCept. She's been experiencing abdominal pain or discomfort for lungs have increasing symptoms and failing to thrive, weight loss over the past 6 months. Last month she saw gastroenterology Escobar Pillai and underwent a pancreatic biopsy and biliary stents. She presented to [facility] increasing abdominal pain and nausea vomiting. She denies any fever or chills headaches, shortness breath, chest pain or pressure. Emergency room she was found to be febrile. She is ordinarily a low on her blood pressure due to her body habitus, pain medications, and recently lost her She is resting somewhat comfortably in hospital floor continue to complain of abdominal pain. Gastroenterology had seen the patient and recommended transfer to [facility] where most her workup for the autoimmune hepatitis been going on.. A a bed was obtained and I discussed her case with the on-call Dr. Escobar Pillai. She will be transferred there for further care. Before discharge, blood cultures 1 reported positive for gram-negative bacilli. She has had 1 dose of Rocephin. He is medically stable this time. She received Dilaudid for pain and be transferred there once arrangements can be made. Patient Condition at Discharge: Serious Plan - Discharge Summary New Discharge Prescriptions: New cefTRIAXone [Rocephin] 1 gm IVPB DAILY vial Continue Levothyroxine Sodium [Synthroid] 125 mcg PO DAILY Mycophenolate Mofetil [Cellcept] 1,000 mg PO BID traZODone HCL [Desyrel] 100 mg PO HS clonazePAM [KlonoPIN] 1 mg PO HS Budesonide [Budesonide EC] 9 mg PO DAILY Escitalopram [Lexapro] 15 mg PO DAILY Omeprazole 40 mg PO DAILY Hyoscyamine Sulfate [Levbid] 0.375 mg PO BID Ondansetron [Zofran] 4 mg PO Q8HR PRN PRN Reason: Nausea Potassium Chloride ER [K-Dur 20] 20 meq PO BID #14 tab Discharge Medication List Budesonide [Budesonide EC] 9 mg PO DAILY 12/21/13 [History] Levothyroxine Sodium [Synthroid] 125 mcg PO DAILY 12/21/13 [History] Mycophenolate Mofetil [Cellcept] 1,000 mg PO BID 12/21/13 [History] clonazePAM [KlonoPIN] 1 mg PO HS 12/21/13 [History] traZODone HCL [Desyrel] 100 mg PO HS 12/21/13 [History] Escitalopram [Lexapro] 15 mg PO DAILY 10/28/18 [History] Hyoscyamine Sulfate [Levbid] 0.375 mg PO BID 10/28/18 [History] Omeprazole 40 mg PO DAILY 10/28/18 [History] Ondansetron [Zofran] 4 mg PO Q8HR PRN 10/28/18 [History] Potassium Chloride ER [K-Dur 20] 20 meq PO BID #14 tab 11/06/18 [Rx] cefTRIAXone [Rocephin] 1 gm IVPB DAILY vial 11/08/18 [Rx] Follow up Appointment(s)/Referral(s): [facility] Vis[facility] Nurse, [NON-STAFF] - Yash Umanzor MD [Primary Care Provider] - 1 Week Discharge Disposition: OTHER INSTITUTION NOT DEFINED
[2018-11-08] MEDS ORDERED: HYDROmorphone 1 MG/ML 1 ML SYRINGE IVP PRN (17:49)
[2018-11-08] MEDS ORDERED: traZODone HCL 100 MG TAB PO SCH (21:00)
[2018-11-08] MEDS ORDERED: clonazePAM 1 MG TAB PO SCH (21:00)
--- NOTE | 2018-11-11 12:00 | CDI ---
Documentation Clarification Form Date: 11/11/18 From: Blanca Tran Phone: If you have a question regarding this query, please contact Lien Melo at [phone] between 8am and 5pm. Admit Date: 11/08/2018 6:35:00 AM Patient Name: Luba Kerr Visit Number: [id number] Discharge Date: 11/08/2018 6:50:00 PM ATTENTION: The Clinical Documentation Specialists (CDI) and [facility] Coding Staff appreciate your assistance in clarifying documentation. Please respond to the clarification below the line at the bottom and electronically sign. The CDI & [facility] Coding staff will review the response and follow-up if needed. Please note: Queries are made part of the Legal Health Record. If you have any questions, please contact the author of this message via ITS. Dr. Yash Umanzor The patient presented with abdominal pain and weakness. Documentation in the ED note states sepsis and acute generalized peritonitis. History/Risk Factors: Autoimmune hepatitis controlled with desonide and cellcept, failure to thrive, weight loss Clinical Indicators: Fever WBC: 9.2 Lactic acid: 0.8 Blood cultures: E. coli Vitals signs on admission: T. 103.3, P. 112, R. 20, BP 124/55 Treatment: Antibiotics: IV Ceftriaxone Sodium, IV Bolus: Sodium Chloride 1200 mls In your professional opinion, please clarify if these findings signify one of the following conditions, whether the condition is POA, and cause, if known: Condition Sepsis ruled out SIRS, without underlying infectious process Sepsis Severe Sepsis Septic Shock Other, please specify Unable to determine Identify the (suspected) organism Link or clarify if there is associated (due to/with): Organ failure Shock Sepsis organism unkown MTDD
--- NOTE | 2018-11-11 12:37 | CDI ---
Documentation Clarification Form Date: 11/11/18 From: Blanca Tran Phone: If you have a question regarding this query, please contact Lien Melo at [phone] between 8am and 5pm. Admit Date: 11/08/2018 6:35:00 AM Patient Name: Luba Kerr Visit Number: [id number] Discharge Date: 11/08/2018 6:50:00 PM ATTENTION: The Clinical Documentation Specialists (CDI) and [facility] Coding Staff appreciate your assistance in clarifying documentation. The CDI & [facility] Coding staff will review the response and follow-up if needed. Please note: Queries are made part of the Legal Health Record. If you have any questions, please contact the author of this message via ITS. Dr. Yash Umanzor Malnutrition is documented in the Dietary Consult note. 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 Mild Protein-Calorie Malnutrition --->Moderate Protein-Calorie Malnutrition Severe Protein-Calorie Malnutrition Malnutrition, unspecified Malnutrition following GI surgery Other condition, please specify Unable to determine MTDD
--- NOTE | 2018-11-11 12:49 | CDI ---
Documentation Clarification Form Date: 11/11/18 From: Blanca Tran Phone: If you have a question regarding this query, please contact Lien Melo at [phone] between 8am and 5pm. Admit Date: 11/08/2018 6:35:00 AM Patient Name: Luba Kerr Visit Number: [id number] Discharge Date: 11/08/2018 6:50:00 PM ATTENTION: The Clinical Documentation Specialists (CDI) and [facility] Coding Staff appreciate your assistance in clarifying documentation. Please respond to the clarification below the line at the bottom and electronically sign. The CDI & [facility] Coding staff will review the response and follow-up if needed. Please note: Queries are made part of the Legal Health Record. If you have any questions, please contact the author of this message via ITS. Dr. Yash Umanzor The patient presented with abdominal pain, nausea and vomiting. Acute peritonitis generalized was documented in the ED note but not continued throughout the rest of the chart. History/Risk Factors: Autoimmune hepatitis, IBD Clinical Indicators: abdominal pain Lab findings: WBC 9.2 Radiology findings: Limited study due to lack of IV and oral contrast. Haziness of the mesentery in the subcutaneous tissue suggestive of anasarca. Pneumobilia. Marked diffuse thickening of the stomach wall of uncertain etiology. Due to the limited nature of the current study, etiologies such as early bowel ischemia cannot be excluded base on the current study. Vital Signs: T. 103.3, P. 112, R. 20, Bp 124/55 Treatment: IV Ceftriaxone Sodium In your professional opinion, can you please clarify if acute generalized peritonitis was? Ruled In Ruled Out Other, please specify ---->Unable to determine MTDD
== END 2018-11-08 18:50 | disposition short-term general hospital (02) | DRG 872 ==
LOC: EC 00:46 → 4SSUR 06:35
PROVIDERS: ADMIT Family Medicine; ATTEND Family Medicine
DX: A41.9 Sepsis, unspecified organism (principal); E87.1 Hypo-osmolality and hyponatremia; Z68.1 Body mass index [BMI] 19.9 or less, adult; E44.0 Moderate protein-calorie malnutrition; E86.0 Dehydration; I95.9 Hypotension, unspecified; K75.4 Autoimmune hepatitis; E87.6 Hypokalemia; F32.9 Major depressive disorder, single episode, unspecified; G47.30 Sleep apnea, unspecified; K21.9 Gastro-esophageal reflux disease without esophagitis; M79.7 Fibromyalgia; R62.7 Adult failure to thrive; G43.909 Migraine, unspecified, not intractable, without status migrainosus; R63.4 Abnormal weight loss; B19.20 Unspecified viral hepatitis C without hepatic coma; M19.90 Unspecified osteoarthritis, unspecified site; K58.9 Irritable bowel syndrome, unspecified; E89.0 Postprocedural hypothyroidism; Z79.51 Long term (current) use of inhaled steroids; Z79.890 Hormone replacement therapy; Z79.899 Other long term (current) drug therapy; Z85.048 Personal history of other malignant neoplasm of rectum, rectosigmoid junction, and anus; Z90.710 Acquired absence of both cervix and uterus; Z90.49 Acquired absence of other specified parts of digestive tract; Z98.42 Cataract extraction status, left eye; Z98.41 Cataract extraction status, right eye; Z96.1 Presence of intraocular lens; Z87.01 Personal history of pneumonia (recurrent); Z80.9 Family history of malignant neoplasm, unspecified; Z82.49 Family history of ischemic heart disease and other diseases of the circulatory system
CPT/HCPCS: 36415; 71046; 74176; 76380; 80053; 81003; 82150; 82550; 83605; 83690; 83735; 84484; 85025; 85049; 85610; 85730; 87040; 87077; 87086; 87186; 93005; 96361; 96365; 96374; 96375; 99285

== ENCOUNTER 2018-12-02 08:39 | Day surgery (SDC) | payer MEDICARE ==
[2018-12-02 09:17] VITALS: TEMP 98.5
[2018-12-02 09:17] LABS: Mean Platelet Volume 7.2; Platelet Count 212 k/uL (150-450)
[2018-12-02 09:23] LABS: INR 0.9 (<1.2)
[2018-12-02] MEDS ORDERED: HYDROmorphone 4 MG TABLET PO ONE (11:00)
[2018-12-02 11:23] VITALS: RESP 16
--- NOTE | 2018-12-02 11:36 | US ---
Limited ultrasound right upper quadrant DATE OF EXAM: 12/02/2018 CLINICAL HISTORY: Right perihepatic fluid collection Preliminary ultrasound demonstrated a fluid collection corresponding to the CT abnormality. However a rtifact limits complete assessment and therefore biopsy or FNA was to be performed with CT scan. IMPRESSION: 1. See above.
--- NOTE | 2018-12-02 11:50 | CT ---
EXAMINATION TYPE: CT guided FNA right perihepatic mass or fluid collection DATE OF EXAM: 12/02/2018 COMPARISON: CT 11/08/2018 HISTORY: Right perihepatic fluid collection CT DLP: 534 mGycm The procedure is discussed with the patient, the risks, complications, benefits and alternatives, wer e discussed and any questions were answered. Informed consent was obtained. The patient is placed p briana on the CT table, prepped and draped in the usual sterile fashion. Utilizing a 22-gauge Chiba needle access into the right perihepatic fluid collection was achieved and there is aspiration approximately 10 cc of cloudy serous fluid. Pathology pending. All elements of maximal barrier and sterile technique were utilized. The patient remained stable throughout the pro cedure with no immediate postprocedural complication. IMPRESSION: 1. Successful CT guided fine needle aspiration of perihepatic fluid collection as requested.
[2018-12-02 13:08] VITALS: BP 132/72; PULSE 72
[2018-12-02 13:56] LABS: Appearance,BF Cloudy; Nucleated Cells, Body Fluid 3500 /uL; RBC, Body Fluid 500 /uL
[2018-12-02 14:03] LABS: Mononuclear WBC,Body Fluid 90 %; Polynuclear WBC,Body Fluid 10 %; Total Cells Counted,Body Fluid 100
== END 2018-12-02 13:08 | disposition home or self-care (01) ==
LOC: RADPROMAIN 08:39
PROVIDERS: ATTEND Internal Medicine Gastroenterology
DX: K86.89 Other specified diseases of pancreas (principal)
CPT/HCPCS: 10009; 76705; 77012; 85049; 85610; 87070; 87075; 87205; 88173; 88305; 89050

== ENCOUNTER → 2019-03-04 | Outpatient (CLI) | payer MEDICARE ==
[2019-03-04 14:33] LABS: Basophils % (A) 0 %; Eosinophils % (A) 1 %; HCT 27.7 % (34.0-46.0); HGB 8.8 gm/dL (11.4-16.0); Hypochromasia Moderate; Lymphocytes # (A) 0.6 k/uL (1.0-4.8); Lymphocytes % (A) 14 %; MCH 30.7 pg (25.0-35.0); MCHC 31.8 g/dL (31.0-37.0); MCV 96.4 fL (80.0-100.0); Mean Platelet Volume 8.3; Monocytes # (A) 0.2 k/uL (0-1.0); Monocytes % (A) 5 %; Neutrophils # (A) 3.2 k/uL (1.3-7.7); Neutrophils % (A) 78 %; Platelet Count 197 k/uL (150-450); RBC 2.88 m/uL (3.80-5.40); RDW 14.3 % (11.5-15.5); WBC 4.1 k/uL (3.8-10.6)
[2019-03-04 16:42] LABS: Erythrocyte Sedimentation Rate 56 mm/hr (0-20)
== END | disposition home or self-care (01) ==
LOC: LABWHC1 13:33
PROVIDERS: ATTEND Physical Medicine & Rehabilitation
DX: M54.5 Low back pain (principal); M51.17 Intervertebral disc disorders with radiculopathy, lumbosacral region; M96.1 Postlaminectomy syndrome, not elsewhere classified; M48.062 Spinal stenosis, lumbar region with neurogenic claudication; M70.61 Trochanteric bursitis, right hip; M70.62 Trochanteric bursitis, left hip; R07.82 Intercostal pain; M47.814 Spondylosis without myelopathy or radiculopathy, thoracic region; M54.2 Cervicalgia; M25.512 Pain in left shoulder; M19.012 Primary osteoarthritis, left shoulder; M43.26 Fusion of spine, lumbar region; M43.28 Fusion of spine, sacral and sacrococcygeal region; M47.27 Other spondylosis with radiculopathy, lumbosacral region; M43.16 Spondylolisthesis, lumbar region; Z87.39 Personal history of other diseases of the musculoskeletal system and connective tissue
CPT/HCPCS: 36415; 85025; 85652; 86140

== ENCOUNTER → 2019-03-12 | Outpatient (CLI) | payer MEDICARE ==
--- NOTE | 2019-03-13 15:05 | XR ---
EXAMINATION TYPE: XR cervical spine comp DATE OF EXAM: 03/12/2019 TECHNIQUE: Frontal, lateral, oblique, swimmers, and open mouth view of the cervical spine are obtaine d. HISTORY: M54.2 neck pain COMPARISON: None FINDINGS: The cervical spine is visualized in its entirety from C1 thru the top of T1 level. There i s grade 1 anterolisthesis of C4 on C5, likely on a degenerative basis. Moderate multilevel degenerati ve changes of the cervical spine are seen with multilevel intervertebral disc space narrowing and ant erior osteophytes as well as uncovertebral hypertrophy and facet arthropathy. Oblique images demonstr ate mild neural foraminal narrowing at C5-6 and C6-7 on the right and at C3-4, C4-5, C5-6 and C6-7 on the left. The pre-vertebral soft tissue appears within normal limits. IMPRESSION: 1. No acute fracture of the cervical spine. 2. Grade 1 anterolisthesis of C4 and C5, likely on a degenerative basis. 3. Multilevel neural foraminal narrowing as detailed above. Overall moderate multilevel degenerative disc disease of the cervical spine.
== END | disposition home or self-care (01) ==
LOC: RADXRMAIN 16:25
PROVIDERS: ATTEND Family Medicine
DX: M48.02 Spinal stenosis, cervical region (principal); M43.12 Spondylolisthesis, cervical region; M50.30 Other cervical disc degeneration, unspecified cervical region
CPT/HCPCS: 72050

== ENCOUNTER → 2019-03-12 | Outpatient (CLI) | payer MEDICARE ==
[2019-03-12 16:52] LABS: Basophils % (A) 0 %; Eosinophils % (A) 0 %; HCT 31.4 % (34.0-46.0); HGB 9.9 gm/dL (11.4-16.0); Hypochromasia Moderate; Lymphocytes # (A) 0.3 k/uL (1.0-4.8); Lymphocytes % (A) 3 %; MCH 30.7 pg (25.0-35.0); MCHC 31.5 g/dL (31.0-37.0); MCV 97.3 fL (80.0-100.0); Mean Platelet Volume 8.5; Monocytes # (A) 0.3 k/uL (0-1.0); Monocytes % (A) 3 %; Neutrophils # (A) 8.8 k/uL (1.3-7.7); Neutrophils % (A) 93 %; Platelet Count 204 k/uL (150-450); RBC 3.23 m/uL (3.80-5.40); RDW 14.3 % (11.5-15.5); WBC 9.5 k/uL (3.8-10.6)
[2019-03-12 17:39] LABS: Erythrocyte Sedimentation Rate 31 mm/hr (0-20)
[2019-03-12 23:24] LABS: ALT 20 U/L (8-44); AST 24 U/L (13-35); Albumin/Globulin Ratio 2.73 (1.60-3.17); Alkaline Phosphatase 100 U/L (41-126); Bilirubin, Conjugated <0.20 mg/dL (0.20-0.40); C Reactive Protein 1.3 mg/dL (0.0-0.8); Globulin 1.5 g/dL (1.6-3.3); Rheumatoid Factor, Qnt 8 IU/mL (0-15); Total Bilirubin 0.2 mg/dL (0.3-1.2); Total Protein 5.6 g/dL (6.2-8.2)
[2019-03-13 13:27] LABS: HLA B27 POSITIVE
== END | disposition home or self-care (01) ==
LOC: LABWHC1 16:00
PROVIDERS: ATTEND Family Medicine
DX: R64 Cachexia (principal); K75.4 Autoimmune hepatitis; M13.0 Polyarthritis, unspecified; Z79.891 Long term (current) use of opiate analgesic
CPT/HCPCS: 36415; 80076; 85025; 85652; 86038; 86140; 86431; 86812

== ENCOUNTER 2019-04-26 14:00 | Observation (INO) | payer MEDICARE ==
[2019-04-26] MEDS ORDERED: SODIUM CHLORIDE 0.9% 1,000 ML IV STA ×2 (14:46→18:31)
[2019-04-26] MEDS ORDERED: MORPHINE SULFATE 4 MG/ML SYRINGE IV STA (14:46)
[2019-04-26] MEDS ORDERED: ONDANSETRON 4 MG/2 ML VIAL IVP STA (14:46)
[2019-04-26] MEDS ORDERED: ACETAMINOPHEN TAB 500 MG TAB PO STA (14:48)
[2019-04-26] MEDS: SODIUM CHLORIDE 0.9% 1,000 ML IV STA ×2 (15:30→22:41)
[2019-04-26 15:43] LABS: Basophils % (A) 0 %; Eosinophils % (A) 0 %; HCT 29.9 % (34.0-46.0); HGB 9.3 gm/dL (11.4-16.0); Lymphocytes # (A) 0.4 k/uL (1.0-4.8); Lymphocytes % (A) 3 %; MCH 29.1 pg (25.0-35.0); MCHC 31.3 g/dL (31.0-37.0); MCV 93.1 fL (80.0-100.0); Mean Platelet Volume 8.8; Monocytes # (A) 0.5 k/uL (0-1.0); Monocytes % (A) 4 %; Neutrophils % (A) 91 %; Platelet Count 135 k/uL (150-450); RBC 3.21 m/uL (3.80-5.40); RDW 13.7 % (11.5-15.5)
[2019-04-26 15:46] LABS: Albumin 3.3 g/dL (3.5-5.0); Calcium 8.2 mg/dL (8.4-10.2); Potassium 3.6 mmol/L (3.5-5.1); Total Bilirubin 0.4 mg/dL (0.2-1.3); Total Protein 5.6 g/dL (6.3-8.2)
[2019-04-26 15:48] LABS: INR 0.9 (<1.2); Partial Thromboplastin Time 22.4 sec (22.0-30.0); Prothrombin Time 9.8 sec (9.0-12.0)
--- NOTE | 2019-04-26 16:22 | ED ---
Abdominal Pain HPI - General Chief Complaint: Abdominal Pain Stated Complaint: rectal prolapse/fever Time Seen by Provider: 04/26/19 14:34 Source: patient Mode of arrival: wheelchair Limitations: no limitations - History of Present Illness Initial Comments: This 78-year-old white female presents with a complaint of some abdominal pain and rectal prolapse. She states that her rectum has been prolapsing for the past couple of weeks. She also has had the abdominal pain for the past week. It is primarily into the bilateral lower abdomen. She apparently has been feverish at home. She denies any measured temperature at home. She's had nausea and one episode of vomiting earlier today. She denies any blood in her stools and has been passing bowel movements but does state that she has had some slight bleeding from her prolapsed rectum. She states that her rectum has been out of her anal opening for the past one week however upon my examination it is not currently prolapsed. She denies any urinary symptoms. There has been no diarrhea. She was sent to the ER from her doctor's office. She apparently did have a slight fever there as well. No other complaints or modifying factors. Upon discussing disposition, and the patient now informs me that she has some midsternal chest pain which is described as a pressure-like sensation and is n onradiating. She denies any history of cardiac problems previously. - Related Data Home Medications Medication Instructions Recorded Confirmed Budesonide [Budesonide EC] 9 mg PO DAILY 12/21/13 12/02/18 Levothyroxine Sodium [Synthroid] 125 mcg PO DAILY 12/21/13 12/02/18 Mycophenolate Mofetil [Cellcept] 1,000 mg PO BID 12/21/13 12/02/18 clonazePAM [KlonoPIN] 1 mg PO HS 12/21/13 12/02/18 traZODone HCL [Desyrel] 100 mg PO HS 12/21/13 12/02/18 Escitalopram [Lexapro] 15 mg PO DAILY 10/28/18 12/02/18 Hyoscyamine Sulfate [Levbid] 0.375 mg PO BID 10/28/18 12/02/18 Omeprazole 40 mg PO DAILY 10/28/18 12/02/18 HYDROmorphone HCL [Hydromorphone 8 mg PO Q6HR 11/24/18 12/02/18 ER] Previous Rx's Medication Instructions Recorded Potassium Chloride ER [K-Dur 20] 20 meq PO BID #14 tab 11/06/18 Allergies Allergy/AdvReac Type Severity Reaction Status Date / Time No Known Allergies Allergy Verified 04/26/19 20:32 Review of Systems ROS Statement: Those systems with pertinent positive or pertinent negative responses have been documented in the HPI. ROS Other: All systems not noted in ROS Statement are negative. Past Medical History Past Medical History: Cancer, Fibromyalgia, GERD/Reflux, Liver Disease, Osteoarthritis (OA), Pneumonia, Sleep Apnea/CPAP/BIPAP, Thyroid Disorder Additional Past Medical History / Comment(s): hx migraines,elevated liver enzymes and hepatitis c, anemia, "elevated kidney blood tests", hx rectal cancer (in remission,) IBD. History of Any Multi-Drug Resistant Organisms: None Reported Past Surgical History: Appendectomy, Breast Surgery, Cholecystectomy, Hysterect blanca, Orthopedic Surgery, Tonsillectomy Additional Past Surgical History / Comment(s): tatiana arthroscopic knee, liver biopsy, cataracts, partial thyroidectomy,breast biopsy, rectal surgery for cancer, pancreatic biopsy "-" for CA (Oct 2018) 2 pancreatic stents left in at time of biopsy Past Anesthesia/Blood Transfusion Reactions: No Reported Reaction Past Psychological History: Depression Smoking Status: Never smoker Past Alcohol Use History: None Reported Past Drug Use History: None Reported - Past Family History Mother Family Medical History: Cancer, Deep Vein Thrombosis (DVT) General Exam - General Exam Comments Initial Comments: GENERAL: The patient is well nourished and well hydrated. VITAL SIGNS: Heart rate, blood pressure, respiratory rate reviewed as recorded in nurse's notes. EYES: Pupils are round and reactive. Extraocular movements are intact. No conjunctival / lid redness or swelling. ENT: No external evidence of injury, swelling, or ecchymosis. Airway is patent. Throat is clear. NECK: Nontender. No swelling or evidence of injury. No subcutaneous emphysema. Trachea is midline. No thyroid mass. HEART: Regular rate and rhythm. Good peripheral pulses. LUNGS/CHEST: Breath sounds clear and equal bilaterally. No rales, rhonchi, or wheezes. No ecchymosis, subcutaneous emphysema, or tenderness. ABDOMEN: Moderate tenderness noted to the bilateral lower abdomen. No palpable masses or organomegaly. No peritoneal signs. No abdominal wall swelling or ecchymosis. EXTREMITIES: No extremity tenderness. Normal muscle tone and function. No thoracolumbar tenderness. NEUROLOGIC: Sensation is grossly intact. Cranial nerve exam reveals face is symmetrical, tongue is midline, speech is clear. SKIN: No abrasions or ecchymosis is noted. No induration or masses noted. PSYCHIATRIC: Alert and oriented. Appropriate behavior and judgment. Rectal exam: There is no current rectal prolapse identified. Patient does have tenderness upon digital insertion. No gross blood is identified. Limitations: no limitations Course Vital Signs 04/26/19 04/26/19 04/26/19 14:05 18:32 20:00 Temperature 100.2 F H Pulse Rate 82 65 63 Respiratory 18 18 17 Rate Blood Pressure 115/56 88/37 96/45 O2 Sat by Pulse 95 97 97 Oximetry Medical Decision Making - Medical Decision Making The patient was seen and examined. All diagnostics are reviewed. The patient does have a slight temperature in the ER of 100.2. She does receive some Tylenol orally. She also receives morphine 4 mg IV. She is a chronic pain patient and she states that she has arthritis in her shoulders and knees. She receives some Zofran intravenously as well as some fluid hydration. The patient is placed on a monitor technician and no ectopy is identified. The laboratory is reviewed. There is mild leukocytosis noted. The patient also had a computed tomography scan of the abdomen and pelvis. There are multiple loops of fluid- filled bowels. There is dilation of the hepatobiliary system, please see report for details. The chest x-ray does not show any acute process. The patient initially does not relate any chest pain but does tell us this on recheck states that it has been there since the morning. Her disposition is delayed for additional testing. The patient is primarily concerned about her rectal prolapse although her rectum is not currently prolapsed. It doesn't sound as t nan this is a recurrent problem. She has seen Dr. Espinosa in the past and would like to see him again. The case is discussed with Dr. Umanzor and he is agreeable with admission with surgery to consult. The patient does receive morphine intravenously again and is in no significant distress. Her blood pressure does drop slightly and she is given additional fluid hydration. Additional pain medicine and nitro were held due to her blood pressure being low. It does come up with fluid hydration. The patient seems to keep changing her story in regard to her complaints. - Lab Data Result diagrams: 04/26/19 15:31 04/26/19 15:31 Lab Results 04/26/19 04/26/19 04/26/19 Range/Units 14:53 15:30 15:31 WBC (3.8-10.6) k/uL RBC (3.80-5.40) m/uL Hgb (11.4-16.0) gm/dL Hct (34.0-46.0) % MCV (80.0-100.0) fL MCH (25.0-35.0) pg MCHC (31.0-37.0) g/dL RDW (11.5-15.5) % Plt Count (150-450) k/uL Neutrophils % % Lymphocytes % % Monocytes % % Eosinophils % % Basophils % % Neutrophils # (1.3-7.7) k/uL Lymphocytes # (1.0-4.8) k/uL Monocytes # (0-1.0) k/uL Eosinophils # (0-0.7) k/uL Basophils # (0-0.2) k/uL PT (9.0-12.0) sec INR (<1.2) APTT (22.0-30.0) sec Sodium 130 L (137-145) mmol/L Potassium 3.6 (3.5-5.1) mmol/L Chloride 93 L (98-107) mmol/L Carbon Dioxide 32 H (22-30) mmol/L Anion Gap 5 mmol/L BUN 20 H (7-17) mg/dL Creatinine 0.75 (0.52-1.04) mg/dL Est GFR (CKD-EPI)AfAm 90 (>60 ml/min/1.73 sqM) Est GFR (CKD-EPI)NonAf 78 (>60 ml/min/1.73 sqM) Glucose 113 H (74-99) mg/dL Plasma Lactic Acid Mason (0.7-2.0) mmol/L Calcium 8.2 L (8.4-10.2) mg/dL Total Bilirubin 0.4 (0.2-1.3) mg/dL AST 24 (14-36) U/L ALT 15 (4-34) U/L Alkaline Phosphatase 90 (38-126) U/L Troponin I <0.012 (0.000-0.034) ng/mL Total Protein 5.6 L (6.3-8.2) g/dL Albumin 3.3 L (3.5-5.0) g/dL Amylase 45 (30-110) U/L Lipase 13 L (23-300) U/L Urine Color Urine Appearance (Clear) Urine pH (5.0-8.0) Ur Specific Hackberry (1.001-1.035) Urine Protein (Negative) Urine Glucose (UA) (Negative) Urine Ketones (Negative) Urine Blood (Negative) Urine Nitrite (Negative) Urine Bilirubin (Negative) Urine Urobilinogen (<2.0) mg/dL Ur Leukocyte Esterase (Negative) Stool Occult Blood Negative (Negative) 04/26/19 04/26/19 04/26/19 Range/Units 15:31 15:31 15:31 WBC 11.0 H (3.8-10.6) k/uL RBC 3.21 L (3.80-5.40) m/uL Hgb 9.3 L (11.4-16.0) gm/dL Hct 29.9 L (34.0-46.0) % MCV 93.1 (80.0-100.0) fL MCH 29.1 (25.0-35.0) pg MCHC 31.3 (31.0-37.0) g/dL RDW 13.7 (11.5-15.5) % Plt Count 135 L (150-450) k/uL Neutrophils % 91 % Lymphocytes % 3 % Monocytes % 4 % Eosinophils % 0 % Basophils % 0 % Neutrophils # 10.0 H (1.3-7.7) k/uL Lymphocytes # 0.4 L (1.0-4.8) k/uL Monocytes # 0.5 (0-1.0) k/uL Eosinophils # 0.0 (0-0.7) k/uL Basophils # 0.0 (0-0.2) k/uL PT 9.8 (9.0-12.0) sec INR 0.9 (<1.2) APTT 22.4 (22.0-30.0) sec Sodium (137-145) mmol/L Potassium (3.5-5.1) mmol/L Chloride (98-107) mmol/L Carbon Dioxide (22-30) mmol/L Anion Gap mmol/L BUN (7-17) mg/dL Creatinine (0.52-1.04) mg/dL Est GFR (CKD-EPI)AfAm (>60 ml/min/1.73 sqM) Est GFR (CKD-EPI)NonAf (>60 ml/min/1.73 sqM) Glucose (74-99) mg/dL Plasma Lactic Acid Mason 0.6 L (0.7-2.0) mmol/L Calcium (8.4-10.2) mg/dL Total Bilirubin (0.2-1.3) mg/dL AST (14-36) U/L ALT (4-34) U/L Alkaline Phosphatase (38-126) U/L Troponin I (0.000-0.034) ng/mL Total Protein (6.3-8.2) g/dL Albumin (3.5-5.0) g/dL Amylase (30-110) U/L Lipase (23-300) U/L Urine Color Urine Appearance (Clear) Urine pH (5.0-8.0) Ur Specific Hackberry (1.001-1.035) Urine Protein (Negative) Urine Glucose (UA) (Negative) Urine Ketones (Negative) Urine Blood (Negative) Urine Nitrite (Negative) Urine Bilirubin (Negative) Urine Urobilinogen (<2.0) mg/dL Ur Leukocyte Esterase (Negative) Stool Occult Blood (Negative) 04/26/19 Range/Units 16:30 WBC (3.8-10.6) k/uL RBC (3.80-5.40) m/uL Hgb (11.4-16.0) gm/dL Hct (34.0-46.0) % MCV (80.0-100.0) fL MCH (25.0-35.0) pg MCHC (31.0-37.0) g/dL RDW (11.5-15.5) % Plt Count (150-450) k/uL Neutrophils % % Lymphocytes % % Monocytes % % Eosinophils % % Basophils % % Neutrophils # (1.3-7.7) k/uL Lymphocytes # (1.0-4.8) k/uL Monocytes # (0-1.0) k/uL Eosinophils # (0-0.7) k/uL Basophils # (0-0.2) k/uL PT (9.0-12.0) sec INR (<1.2) APTT (22.0-30.0) sec Sodium (137-145) mmol/L Potassium (3.5-5.1) mmol/L Chloride (98-107) mmol/L Carbon Dioxide (22-30) mmol/L Anion Gap mmol/L BUN (7-17) mg/dL Creatinine (0.52-1.04) mg/dL Est GFR (CKD-EPI)AfAm (>60 ml/min/1.73 sqM) Est GFR (CKD-EPI)NonAf (>60 ml/min/1.73 sqM) Glucose (74-99) mg/dL Plasma Lactic Acid Mason (0.7-2.0) mmol/L Calcium (8.4-10.2) mg/dL Total Bilirubin (0.2-1.3) mg/dL AST (14-36) U/L ALT (4-34) U/L Alkaline Phosphatase (38-126) U/L Troponin I (0.000-0.034) ng/mL Total Protein (6.3-8.2) g/dL Albumin (3.5-5.0) g/dL Amylase (30-110) U/L Lipase (23-300) U/L Urine Color Light Yellow Urine Appearance Clear (Clear) Urine pH 5.5 (5.0-8.0) Ur Specific Hackberry 1.006 (1.001-1.035) Urine Protein Negative (Negative) Urine Glucose (UA) Negative (Negative) Urine Ketones Negative (Negative) Urine Blood Negative (Negative) Urine Nitrite Negative (Negative) Urine Bilirubin Negative (Negative) Urine Urobilinogen <2.0 (<2.0) mg/dL Ur Leukocyte Esterase Negative (Negative) Stool Occult Blood (Negative) Disposition Clinical Impression: Acute abdominal pain, Anemia, Rectal prolapse, Fever, Chest pain, Hypotension, Chronic pain, Dilated intrahepatic bile duct, Nausea and vomiting, Leukocytosis, Autoimmune hepatitis Disposition: ADMITTED IP TO THIS [facility] Condition: Fair Is patient prescribed a controlled substance at d/c from ED?: No Time of Disposition: 19:31 Decision Date: 04/26/19 Decision Time: 19:31
[2019-04-26 16:39] LABS: Appearance,Urine Clear (Clear); Bilirubin,Urine Negative (Negative); Blood,Urine Negative (Negative); Color,Urine Light Yellow; Glucose,Urine (UA) Negative (Negative); Ketones,Urine Negative (Negative); Leukocyte Esterase,Urine Negative (Negative); Nitrite,Urine Negative (Negative); PH, Urine 5.5 (5.0-8.0); Protein,Urine Negative (Negative); Specific Gravity,Urine 1.006 (1.001-1.035); Urobilinogen,Urine <2.0 mg/dL (<2.0)
--- NOTE | 2019-04-26 18:00 | CT ---
EXAMINATION TYPE: CT abdomen pelvis w con DATE OF EXAM: 04/26/2019 COMPARISON: 11/08/2018 HISTORY: 78-year-old female Prolapsed rectum, hx of rectal CA TECHNIQUE: Contiguous axial scanning of the abdomen and pelvis following administration of 100 ml Iso ignacia 300 IV contrast. Delayed images through the kidneys and coronal/sagittal reconstructions perform ed. CT DLP: 504.5 mGycm Automated exposure control for dose reduction was used. FINDINGS: Heart upper limits of normal in size without pericardial effusion. Lung bases clear without pleural e ffusion. Marked dilatation of the bile duct 2.0 cm with intrahepatic biliary ductal dilatation as well. Interv al removal of the patient's previous biliary stent. Portal venous system is patent. Cholecystectomy clips. 1.7 cm hypodense lesion inferior right liver lobe not clearly seen on the noncontrast 11/08/2018 CT. El liptical 3.1 x 1.0 cm hypodense area along the periphery of the right liver lobe has decreased in siz e from prior, possible chronic subcapsular collection slowly involuting. Adrenal glands and right kidney appear within normal limits. Dilatation of the main pancreatic duct u p to 5 mm. Extra renal pelvis on the left. Prominent fluid-filled small bowel loops in the central abdomen with stool within the cecum and lower ascending colon. Moderate to large stool throughout the remainder of the colon. Paucity of intra-abdominal fat limits evaluation for lymph nodes. No dilated small bowel, free fluid, or free air. The bladder is urine distended. No abnormal fluid collection in pelvis or pelvic lymphadenopathy seen . Bones: Interbody device at L5-S1. Grade 1 anterolisthesis at L4-L5. Degenerative disc disease lower t horacic and upper lumbar spine. Facet arthropathy throughout. IMPRESSION: 1. PROMINENT FLUID-FILLED SMALL BOWEL LOOPS IN THE CENTRAL ABDOMEN WITH LIQUID STOOL IN THE RIGHT ARIANA E OF THE COLON. CORRELATE FOR POSSIBLE ENTERITIS. THE REMAINDER OF THE COLON HAS A MODERATE TO LARGE STOOL BURDEN. 2. INTERVAL REMOVAL OF BILIARY STENT. THERE IS PRONOUNCED INTRAHEPATIC AND EXTRAHEPATIC BILIARY DUCTA L DILATATION WITH A BILE DUCT MEASURING 2 CM. CORRELATE TO ETIOLOGY, SUCH AMPULLARY STENOSIS OR DISLOCATION. NO DISCRETE MASS IS IDENTIFIED. THERE IS CORRESPONDING DILATATION OF THE MAIN PANCREATI C DUCT UP TO 5 MM. 3. MILD ANASARCA CHANGE.
[2019-04-26] MEDS ORDERED: MORPHINE SULFATE 4 MG/ML SYRINGE IVP STA (18:21)
[2019-04-26] MEDS ORDERED: NITROGLYCERIN OINT 1 INCH/GM PACKET TOPICAL STA (18:31)
[2019-04-26] MEDS ORDERED: ASPIRIN 81 MG PO STA (18:31)
--- NOTE | 2019-04-26 19:19 | XR ---
EXAMINATION TYPE: XR chest 1V portable DATE OF EXAM: 04/26/2019 COMPARISON: 11/08/2018 HISTORY: Chest pain TECHNIQUE: FINDINGS: IMPRESSION: There is no heart failure nor confluent pneumonic infiltrate. Thoracic aorta is atheromatous. There i s no pleural effusion. Bony thorax is intact. There is osteoarthritis left shoulder joint. IMPRESSION: No active cardiac pulmonary disease. No change.
[2019-04-26] MEDS ORDERED: ACETAMINOPHEN TAB 325 MG TAB PO PRN (20:42)
[2019-04-26] MEDS ORDERED: MORPHINE SULFATE 2 MG/ML SYRINGE IVP PRN (20:46)
[2019-04-26] MEDS ORDERED: FLUTICASONE 50MCG/SPRAY NASAL 16GM EA NOSTRIL PRN (21:12)
[2019-04-26 21:33] VITALS: RESP 18
[2019-04-26] MEDS ORDERED: clonazePAM 0.5 MG TAB PO SCH (22:32)
[2019-04-26] MEDS ORDERED: traZODone HCL 100 MG TAB PO SCH (22:45)
[2019-04-27] MEDS: HYDROmorphone 4 MG TABLET PO SCH ×2 (00:01→06:34)
[2019-04-27 04:06] LABS: Cholesterol 119 mg/dL (<200); HDL Cholesterol 48 mg/dL (40-60); LDL Cholesterol,Calculated 58 mg/dL (0-99); Triglycerides 65 mg/dL (<150)
[2019-04-27] MEDS ORDERED: HYDROmorphone 4 MG TABLET PO PRN (06:30)
[2019-04-27] MEDS ORDERED: LEVOTHYROXINE 125 MCG TAB PO SCH (06:30)
[2019-04-27] MEDS ORDERED: PANTOPRAZOLE 40 MG TABLET PO SCH (07:30)
--- NOTE | 2019-04-27 08:58 | P.CRDCN ---
History of Present Illness Consult date: 04/27/19 Requesting physician: Yash Umanzor Consult reason: chest pain Chief complaint: Abdominal pain and rectal prolapse History of present illness: This is a pleasant 78-year-old female who is presenting to the hospital with abdominal discomfort which she states that she's been having for the past one week or so. She also has been having episodes of nausea and vomiting. Patient came to the emergency room with abdominal discomfort, she also states that she had a rectal prolapse. While in the emergency room patient was experiencing some midepigastric discomfort for which a cardiology consultation was requested. Patient has a history of autoimmune hepatitis, GERD, sleep apnea, hypothyroidism, irritable bowel syndrome. Chest x-ray on presentation here did not reveal any active cardiopulmonary disease. EKG shows sinus bradycardia with no acute changes. CAT scan of the abdomen shows prominent fluid-filled small bowel loops in the central abdomen possible enteritis interval removal of biliary stent. Blood pressure 108/50 with a heart rate of 60, 98% on room air. White blood cell count 11.0, hemoglobin 9.3, platelet count 135. Sodium 1:30, potassium 3.6, BUN 20, creatinine 0.75. Troponins 0.0123. At the time of my examination this morning, patient is quite comfortable, she denies any chest discomfort at present. Past Medical History Past Medical History: Cancer, Fibromyalgia, GERD/Reflux, Liver Disease, Osteoarthritis (OA), Pneumonia, Sleep Apnea/CPAP/BIPAP, Thyroid Disorder Additional Past Medical History / Comment(s): hx migraines,elevated liver enzymes and hepatitis c, anemia, "elevated kidney blood tests", hx rectal cancer (in remission,) IBsD. History of Any Multi-Drug Resistant Organisms: None Reported Past Surgical History: Appendectomy, Breast Surgery, Cholecystectomy, Hysterectomy, Orthopedic Surgery, Tonsillectomy Additional Past Surgical History / Comment(s): tatiana arthroscopic knee, liver biopsy, cataracts, partial thyroidectomy,breast biopsy, rectal surgery for cancer, pancreatic biopsy "-" for CA (Oct 2018) 2 pancreatic stents left in at time of biopsy with removal Past Anesthesia/Blood Transfusion Reactions: No Reported Reaction Past Psychological History: Depression Additional Psychological History / Comment(s): "on medication for it" Smoking Status: Never smoker Past Alcohol Use History: None Reported Past Drug Use History: None Reported - Past Family History Mother Family Medical History: Cancer, Deep Vein Thrombosis (DVT) Medications and Allergies Home Medications Medication Instructions Recorded Confirmed Type Budesonide [Budesonide EC] 9 mg PO DAILY 12/21/13 04/26/19 History Levothyroxine Sodium [Synthroid] 125 mcg PO DAILY 12/21/13 04/26/19 History Mycophenolate Mofetil [Cellcept] 1,000 mg PO BID 12/21/13 04/26/19 History traZODone HCL [Desyrel] 100 mg PO HS 12/21/13 04/26/19 History Omeprazole 40 mg PO DAILY 10/28/18 04/26/19 History HYDROmorphone HCL [Hydromorphone 8 mg PO Q6HR 11/24/18 04/26/19 History ER] Escitalopram Oxalate [Lexapro] 20 mg PO DAILY 04/26/19 04/26/19 History Fluticasone Nasal [place] [Flonase 1 spray EA NOSTRIL DAILY PRN 04/26/19 04/26/19 History Nasal [place]] Propylene Glycol/Peg 400 [Systane 1 drop BOTH EYES BID 04/26/19 04/26/19 History Ultra 0.4-0.3% Eye Drp] clonazePAM [KlonoPIN] 0.5 mg PO HS 04/26/19 04/26/19 History Allergies Allergy/AdvReac Type Severity Reaction Status Date / Time No Known Allergies Allergy Verified 04/26/19 20:32 Physical Exam Vitals: Vital Signs Temp Pulse Pulse Resp BP BP Pulse Ox 04/27/19 04:00 97.7 F 60 18 107/53 98 04/26/19 23:33 72 18 04/26/19 23:22 98.0 F 72 18 116/54 98 04/26/19 22:20 98.2 F 70 18 113/54 98 04/26/19 22:15 72 18 04/26/19 21:32 97.9 F 69 18 103/54 97 04/26/19 20:00 63 17 96/45 97 04/26/19 18:32 65 18 88/37 97 04/26/19 14:05 100.2 F H 82 18 115/56 95 Intake and Output 04/26/19 04/27/19 04/27/19 22:59 06:59 14:59 Other: Voiding Method Toilet Toilet # Voids 2 Weight 41.277 kg 41 kg PHYSICAL EXAMINATION: GENERAL: 78-year-old female in no acute distress at the time of my exam HEENT: Head is atraumatic, normocephalic. Pupils equal, round. Sclera ani cteric. Conjunctiva are clear. Mucous membranes of the mouth are moist. Neck is supple. There is no elevated jugular venous pressure. No carotid bruit is heard. HEART EXAMINATION: Heart S1 and S2 systolic murmur. CHEST EXAMINATION: Lungs are clear to auscultation and precussion. No chest wall tenderness is noted on palpation or with deep breathing. ABDOMEN: Soft, mild generalized tenderness .Bowel sounds are heard. No organomegaly noted. EXTREMITIES: 2+ peripheral pulses with no evidence of peripheral edema and no calf tenderness noted. NEUROLOGIC patient is awake, alert and oriented 3 . . Results 04/26/19 15:31 04/26/19 15:31 Cardiac Enzymes 04/26/19 04/26/19 04/26/19 Range/Units 15:30 15:31 20:59 AST 24 (14-36) U/L Troponin I <0.012 <0.012 (0.000-0.034) ng/mL 04/27/19 Range/Units 03:20 AST (14-36) U/L Troponin I <0.012 (0.000-0.034) ng/mL Coagulation 04/26/19 Range/Units 15:31 PT 9.8 (9.0-12.0) sec APTT 22.4 (22.0-30.0) sec Lipids 04/27/19 Range/Units 03:20 Triglycerides 65 (<150) mg/dL Cholesterol 119 (<200) mg/dL HDL Cholesterol 48 (40-60) mg/dL CBC 04/26/19 Range/Units 15:31 WBC 11.0 H (3.8-10.6) k/uL RBC 3.21 L (3.80-5.40) m/uL Hgb 9.3 L (11.4-16.0) gm/dL Hct 29.9 L (34.0-46.0) % Plt Count 135 L (150-450) k/uL Comprehensive Metabolic Panel 04/26/19 Range/Units 15:31 Sodium 130 L (137-145) mmol/L Potassium 3.6 (3.5-5.1) mmol/L Chloride 93 L (98-107) mmol/L Carbon Dioxide 32 H (22-30) mmol/L BUN 20 H (7-17) mg/dL Creatinine 0.75 (0.52-1.04) mg/dL Glucose 113 H (74-99) mg/dL Calcium 8.2 L (8.4-10.2) mg/dL AST 24 (14-36) U/L ALT 15 (4-34) U/L Alkaline Phosphatase 90 (38-126) U/L Total Protein 5.6 L (6.3-8.2) g/dL Albumin 3.3 L (3.5-5.0) g/dL Current Medications Generic Name Dose Route Start Last Admin Trade Name Freq PRN Reason Stop Dose Admin Acetaminophen 650 mg 04/26/19 20:42 Tylenol Tab PO Q4HR PRN Pain Aspirin 325 mg 04/27/19 09:00 Aspirin PO DAILY [facility] Clonazepam 0.5 mg 04/26/19 22:32 04/26/19 22:40 Klonopin PO 0.5 mg HS [facility] Administration Enoxaparin Sodium 40 mg 04/27/19 09:00 Lovenox SQ DAILY [facility] Escitalopram Oxalate 20 mg 04/27/19 09:00 Lexapro PO DAILY [facility] Fluticasone Propionate 1 spray 04/26/19 21:12 Flonase Nasal [place] EA NOSTRIL DAILY PRN Allergy Symptoms Hydromorphone HCl 8 mg 04/27/19 06:30 Dilaudid PO Q6HR PRN Mild to Moderate Pain Levothyroxine Sodium 125 mcg 04/27/19 06:30 04/27/19 06:28 Synthroid PO 125 mcg DAILY@0630 [facility] Administration Morphine Sulfate 2 mg 04/26/19 20:46 Morphine Sulfate (Inj) IVP Q3H PRN Pain Mycophenolate Mofetil 1,000 mg 04/27/19 09:00 Cellcept PO BID [facility] Budesonide [ 9 mg 04/27/19 09:00 Budesonide Ec] 9 Mg PO DAILY [facility] Pantoprazole Sodium 40 mg 04/27/19 07:30 04/27/19 06:28 Protonix PO 40 mg DAILY@0730 [facility] Administration Trazodone HCl 100 mg 04/26/19 22:45 04/26/19 22:39 Desyrel PO 100 mg HS MELANIE Administration Intake and Output 04/26/19 04/27/19 04/27/19 22:59 06:59 14:59 Other: Voiding Method Toilet Toilet # Voids 2 Weight 41.277 kg 41 kg 04/26/19 15:31 04/26/19 15:31 EKG Interpretations (text) EKG shows sinus bradycardia with no acute changes. Assessment and Plan Plan: Assessment and plan #1 abdominal pain with possible rectal prolapse #2 chest pain, atypical for acute coronary syndrome. Troponins negative 3. EKG shows sinus bradycardia with no acute changes. #3 autoimmune hepatitis #4 GERD #5 sleep apnea #6 hypothyroidism Plan We will request an echocardiogram with Doppler study be performed. Once the patient is stable from a GI perspective we will recommend stress testing, p ossibly as an outpatient. Further recommendations to follow. DNP note has been reviewed, I agree with a documented findings and plan of care. Patient was seen and examined.
[2019-04-27] MEDS ORDERED: ESCITALOPRAM 20 MG TAB PO SCH (09:00)
[2019-04-27] MEDS ORDERED: BUDESONIDE 9 MG PO SCH (09:00)
[2019-04-27] MEDS ORDERED: PROPYLENE GLYCOL BOTH EYES SCH (09:00)
[2019-04-27] MEDS ORDERED: PEG BOTH EYES SCH (09:00)
[2019-04-27] MEDS ORDERED: ASPIRIN 325 MG TAB PO SCH (09:00)
[2019-04-27] MEDS ORDERED: MYCOPHENOLATE MOFETIL 500 MG TAB PO SCH (09:00)
[2019-04-27] MEDS ORDERED: ENOXAPARIN 40 MG/0.4 ML SYRINGE SQ SCH (09:00)
[2019-04-27 10:39] VITALS: BMI 17.0
[2019-04-27 12:17] VITALS: PULSE 61; TEMP 98
--- NOTE | 2019-04-27 13:31 | P.GSCN ---
History of Present Illness Consult date: 04/27/19 Reason for Consult: rectal prolapse Requesting physician: Jeet Moreno History of present illness: CHIEF COMPLAINT: Rectal prolapse HISTORY OF PRESENT ILLNESS: 78 year old female with a known history of rectal prolapse. Patient states this has been present for 2-3 months. She reports rectal bleeding occasionally as well. She denies abdominal pain at the time of examination. PAST MEDICAL HISTORY: See list. PAST SURGICAL HISTORY: See list. SOCIAL HISTORY: No illicit drug use. REVIEW OF SYSTEMS: CONSTITUTIONAL: Denies fever or chills. HEENT: Denies blurred vision, vision changes, or eye pain. Denies hemoptysis CARDIOVASCULAR: Denies chest pain or pressure. RESPIRATORY: No shortness of breath. GASTROINTESTINAL: Refer to HPI for pertinent findings HEMATOLOGIC: Denies bleeding disorders. GENITOURINARY: Denies any blood in urine. SKIN: Denies pruitis. Denies rash. PHYSICAL EXAM: VITAL SIGNS: Reviewed. GENERAL: Well-developed in no acute distress. HEENT: No sclera icterus. Extraocular movements grossly intact. Moist buccal mucosa. Head is atraumatic, normocephalic. ABDOMEN: Soft. Nondistended. Nontender. RECTAL EXAM: Evidence of rectal prolapse noted NEUROLOGIC: Alert and oriented. Cranial nerves II through XII grossly intact. LABORATORY DATA: WBC 11.0. Hemoglobin 9.3. Potassium 3.6. BUN 20. Creatinine 0.76. Lactic acid 0.6. IMAGING: CT abdomen and pelvis: Prominent fluid-filled small bowel loops in the central abdomen with liquid stool in the right side of the colon. Possible enteritis. Remainder of the colon is a moderate to large stool burden. ASSESSMENT: 1. Rectal prolapse PLAN: No inpatient intervention recommended. Patient may be discharged home from a surgical standpoint. She is to follow up with Dr. Espinosa outpatient for possible repair of rectal prolapse. Nurse practitioner note has been reviewed by physician. Signing provider agrees with the documented findings, assessment, and plan of care. Past Medical History Past Medical History: Cancer, Fibromyalgia, GERD/Reflux, Liver Disease, Osteoarthritis (OA), Pneumonia, Sleep Apnea/CPAP/BIPAP, Thyroid Disorder Additional Past Medical History / Comment(s): hx migraines,elevated liver enzymes and hepatitis c, anemia, "elevated kidney blood tests", hx rectal cancer (in remission,) IBsD. History of Any Multi-Drug Resistant Organisms: None Reported Past Surgical History: Appendectomy, Breast Surgery, Cholecystectomy, Hysterectomy, Orthopedic Surgery, Tonsillectomy Additional Past Surgical History / Comment(s): tatiana arthroscopic knee, liver biopsy, cataracts, partial thyroidectomy,breast biopsy, rectal surgery for cancer, pancreatic biopsy "-" for CA (Oct 2018) 2 pancreatic stents left in at time of biopsy with removal Past Anesthesia/Blood Transfusion Reactions: No Reported Reaction Past Psychological History: Depression Additional Psychological History / Comment(s): "on medication for it" Smoking Status: Never smoker Past Alcohol Use History: None Reported Past Drug Use History: None Reported - Past Family History Mother Family Medical History: Cancer, Deep Vein Thrombosis (DVT) Medications and Allergies Home Medications Medication Instructions Recorded Confirmed Type Budesonide [Budesonide EC] 9 mg PO DAILY 12/21/13 04/26/19 History Levothyroxine Sodium [Synthroid] 125 mcg PO DAILY 12/21/13 04/26/19 History Mycophenolate Mofetil [Cellcept] 1,000 mg PO BID 12/21/13 04/26/19 History traZODone HCL [Desyrel] 100 mg PO HS 12/21/13 04/26/19 History Omeprazole 40 mg PO DAILY 10/28/18 04/26/19 History HYDROmorphone HCL [Hydromorphone 8 mg PO Q6HR 11/24/18 04/26/19 History ER] Escitalopram Oxalate [Lexapro] 20 mg PO DAILY 04/26/19 04/26/19 History Fluticasone Nasal [place] [Flonase 1 spray EA NOSTRIL DAILY PRN 04/26/19 04/26/19 History Nasal [place]] Propylene Glycol/Peg 400 [Systane 1 drop BOTH EYES BID 04/26/19 04/26/19 History Ultra 0.4-0.3% Eye Drp] clonazePAM [KlonoPIN] 0.5 mg PO HS 04/26/19 04/26/19 History Allergies Allergy/AdvReac Type Severity Reaction Status Date / Time No Known Allergies Allergy Verified 04/26/19 20:32 Surgical - Exam Vital Signs Temp Pulse Resp BP Pulse Ox 100.2 F H 82 18 115/56 95 04/26/19 14:05 04/26/19 14:05 04/26/19 14:05 04/26/19 14:05 04/26/19 14:05 Results - Labs 04/26/19 15:31 04/26/19 15:31 Abnormal Lab Results - Last 24 Hours (Table) 04/26/19 04/26/19 04/26/19 Range/Units 15:31 15:31 15:31 WBC 11.0 H (3.8-10.6) k/uL RBC 3.21 L (3.80-5.40) m/uL Hgb 9.3 L (11.4-16.0) gm/dL Hct 29.9 L (34.0-46.0) % Plt Count 135 L (150-450) k/uL Neutrophils # 10.0 H (1.3-7.7) k/uL Lymphocytes # 0.4 L (1.0-4.8) k/uL Sodium 130 L (137-145) mmol/L Chloride 93 L (98-107) mmol/L Carbon Dioxide 32 H (22-30) mmol/L BUN 20 H (7-17) mg/dL Glucose 113 H (74-99) mg/dL Plasma Lactic Acid [place] 0.6 L (0.7-2.0) mmol/L Calcium 8.2 L (8.4-10.2) mg/dL Total Protein 5.6 L (6.3-8.2) g/dL Albumin 3.3 L (3.5-5.0) g/dL Lipase 13 L (23-300) U/L Diabetes panel 04/26/19 04/27/19 Range/Units 15:31 03:20 Sodium 130 L (137-145) mmol/L Potassium 3.6 (3.5-5.1) mmol/L Chloride 93 L (98-107) mmol/L Carbon Dioxide 32 H (22-30) mmol/L BUN 20 H (7-17) mg/dL Creatinine 0.75 (0.52-1.04) mg/dL Glucose 113 H (74-99) mg/dL Calcium 8.2 L (8.4-10.2) mg/dL AST 24 (14-36) U/L ALT 15 (4-34) U/L Alkaline Phosphatase 90 (38-126) U/L Total Protein 5.6 L (6.3-8.2) g/dL Albumin 3.3 L (3.5-5.0) g/dL Triglycerides 65 (<150) mg/dL HDL Cholesterol 48 (40-60) mg/dL Calcium panel 04/26/19 Range/Units 15:31 Calcium 8.2 L (8.4-10.2) mg/dL Albumin 3.3 L (3.5-5.0) g/dL Pituitary panel 04/26/19 Range/Units 15:31 Sodium 130 L (137-145) mmol/L Potassium 3.6 (3.5-5.1) mmol/L Chloride 93 L (98-107) mmol/L Carbon Dioxide 32 H (22-30) mmol/L BUN 20 H (7-17) mg/dL Creatinine 0.75 (0.52-1.04) mg/dL Glucose 113 H (74-99) mg/dL Calcium 8.2 L (8.4-10.2) mg/dL Adrenal panel 04/26/19 Range/Units 15:31 Sodium 130 L (137-145) mmol/L Potassium 3.6 (3.5-5.1) mmol/L Chloride 93 L (98-107) mmol/L Carbon Dioxide 32 H (22-30) mmol/L BUN 20 H (7-17) mg/dL Creatinine 0.75 (0.52-1.04) mg/dL Glucose 113 H (74-99) mg/dL Calcium 8.2 L (8.4-10.2) mg/dL Total Bilirubin 0.4 (0.2-1.3) mg/dL AST 24 (14-36) U/L ALT 15 (4-34) U/L Alkaline Phosphatase 90 (38-126) U/L Total Protein 5.6 L (6.3-8.2) g/dL Albumin 3.3 L (3.5-5.0) g/dL
[2019-04-27 15:20] VITALS: BP 112/70
--- NOTE | 2019-04-27 15:22 | ECHOF ---
Referral Reason:cp MEASUREMENTS -------- HEIGHT: 154.9 cm WEIGHT: 40.8 kg BP: 107/53 IVSd: 1.1 cm (0.6 - 1.1) LVIDd: 4.2 cm (3.9 - 5.3) LVPWd: 0.9 cm (0.6 - 1.1) IVSs: 1.3 cm LVIDs: 2.6 cm LVPWs: 1.3 cm RVIDd: 4.7 cm (< 3.3) LAESV Index (A-L): 38.30 ml/m Ao Diam: 3.1 cm (2.0 - 3.7) AV Cusp: 2.2 cm (1.5 - 2.6) EPSS: 0.2 cm MV E Misael: 1.25 m/s MV DecT: 95 ms MV A Misael: 0.56 m/s MV E/A Ratio: 2.25 RAP: 5.00 mmHg RVSP: 34.56 mmHg MV EF SLOPE: 192.21 mm/s (70 - 150) MV EXCURSION: 18.67 mm (> 18.000) FINDINGS -------- Sinus rhythm. This was a technically adequate study. The left ventricular size is normal. Left ventricular wall thickness is normal. Overall left vent ricular systolic function is normal with, an EF between 55 - 60 %. The diastolic filling pattern is normal for the age of the patient 10.42. The right ventricle is moderate to severely enlarged. LA is moderately dilated 34-39 ml/m2 The right atrium is mildly enlarged. Interatrial and interventricular septum intact. The aortic valve is trileaflet and appears structurally normal. There is mild aortic valve sclerosi s. There is no evidence of aortic regurgitation. There is no evidence of aortic stenosis. Moderate mitral regurgitation is present. Mild tricuspid regurgitation present. There is borderline pulmonary artery hypertension. The righ t ventricular systolic pressure, as measured by Doppler, is 34.56mmHg. There is no pulmonic regurgitation present. The aortic root size is normal. IVC Not well visulized. There is no pericardial effusion. CONCLUSIONS -------- 1. Sinus rhythm. 2. This was a technically adequate study. 3. The left ventricular size is normal. 4. Left ventricular wall thickness is normal. 5. Overall left ventricular systolic function is normal with, an EF between 55 - 60 %. 6. The diastolic filling pattern is normal for the age of the patient 10.42 7. The right ventricle is moderate to severely enlarged. 8. LA is moderately dilated 34-39 ml/m2 9. The right atrium is mildly enlarged. 10. Interatrial and interventricular septum intact. 11. The aortic valve is trileaflet and appears structurally normal. 12. There is mild aortic valve sclerosis. 13. There is no evidence of aortic regurgitation. 14. There is no evidence of aortic stenosis. 15. Moderate mitral regurgitation is present. 16. Mild tricuspid regurgitation present. 17. There is borderline pulmonary artery hypertension. 18. The right ventricular systolic pressure, as measured by Doppler, is 34.56mmHg. 19. There is no pulmonic regurgitation present. 20. The aortic root size is normal. 21. IVC Not well visulized. 22. There is no pericardial effusion. PROOF READER: Tameka Zapien RDCS
--- NOTE | 2019-04-27 18:24 | P.HPIM ---
History of Present Illness H&P Date: 04/27/19 Chief Complaint: Abdominal pain and rectal prolapse Early 8-year-old female presents to the emergency room last night with the complaint of abdominal pain and rectal prolapse she related to the emergency room that the rectal prolapse was new in fact a she had episodic rectal prolapse about 20 years ago and the abdominal pain was consistent with her ongoing histor y and issues with noninfectious diverticular disease as well as past history of laxative abuse. Patient has otherwise been experiencing relatively normal bowel movements normally urinating. She states that occasionally she has mild blood on the toilet tissue. No diarrhea, patient does state that she was experiencing her rectum projecting outside the anus and well and she stated this was new I c an't attest to the fact that this patient has had a rectal prolapse off and on for several years. Review of Systems Constitutional: Reports as per HPI Ears, nose, mouth and throat: Reports as per HPI Cardiovascular: Reports as per HPI Respiratory: Reports as per HPI Gastrointestinal: Reports abdominal pain Genitourinary: Reports as per HPI Menstruation: Reports postmenopausal Musculoskeletal: Reports as per HPI Integumentary: Reports as per HPI Neurological: Reports as per HPI Psychiatric: Reports anhedonia, Reports anxiety, Reports depression, Reports sadness/tearfulness, Reports sleep disturbances Endocrine: Reports as per HPI Hematologic/Lymphatic: Reports as per HPI Past Medical History Past Medical History: Cancer, Fibromyalgia, GERD/Reflux, Liver Disease, Osteoarthritis (OA), Pneumonia, Sleep Apnea/CPAP/BIPAP, Thyroid Disorder Additional Past Medical History / Comment(s): hx migraines,elevated liver enzymes and hepatitis c, anemia, "elevated kidney blood tests", hx rectal cancer (in remission,) IBsD. History of Any Multi-Drug Resistant Organisms: None Reported Past Surgical History: Appendectomy, Breast Surgery, Cholecystectomy, Hysterectomy, Orthopedic Surgery, Tonsillectomy Additional Past Surgical History / Comment(s): tatiana arthroscopic knee, liver biopsy, cataracts, partial thyroidectomy,breast biopsy, rectal surgery for cancer, pancreatic biopsy "-" for CA (Oct 2018) 2 pancreatic stents left in at time of biopsy with removal Past Anesthesia/Blood Transfusion Reactions: No Reported Reaction Past Psychological History: Depression Additional Psychological History / Comment(s): "on medication for it" Smoking Status: Never smoker Past Alcohol Use History: None Reported Past Drug Use History: None Reported - Past Family History Mother Family Medical History: Cancer, Deep Vein Thrombosis (DVT) Medications and Allergies Home Medications Medication Instructions Recorded Confirmed Type Budesonide [Budesonide EC] 9 mg PO DAILY 12/21/13 04/26/19 History Levothyroxine Sodium [Synthroid] 125 mcg PO DAILY 12/21/13 04/26/19 History Mycophenolate Mofetil [Cellcept] 1,000 mg PO BID 12/21/13 04/26/19 History traZODone HCL [Desyrel] 100 mg PO HS 12/21/13 04/26/19 History Omeprazole 40 mg PO DAILY 10/28/18 04/26/19 History HYDROmorphone HCL [Hydromorphone 8 mg PO Q6HR 11/24/18 04/26/19 History ER] Escitalopram Oxalate [Lexapro] 20 mg PO DAILY 04/26/19 04/26/19 History Fluticasone Nasal [place] [Flonase 1 spray EA NOSTRIL DAILY PRN 04/26/19 04/26/19 History Nasal [place]] Propylene Glycol/Peg 400 [Systane 1 drop BOTH EYES BID 04/26/19 04/26/19 History Ultra 0.4-0.3% Eye Drp] clonazePAM [KlonoPIN] 0.5 mg PO HS 04/26/19 04/26/19 History Allergies Allergy/AdvReac Type Severity Reaction Status Date / Time No Known Allergies Allergy Verified 04/26/19 20:32 Physical Exam Osteopathic Statement: *. No significant issues noted on an osteopathic structural exam other than those noted in the History and Physical/Consult. Vitals: Vital Signs Temp Pulse Pulse Resp BP BP Pulse Ox 04/27/19 15:16 98 F 61 18 112/70 97 04/27/19 12:00 98 F 61 18 107/53 95 04/27/19 08:00 98.3 F 70 18 124/66 97 04/27/19 04:00 97.7 F 60 18 107/53 98 04/26/19 23:33 72 18 04/26/19 23:22 98.0 F 72 18 116/54 98 04/26/19 22:20 98.2 F 70 18 113/54 98 04/26/19 22:15 72 18 04/26/19 21:32 97.9 F 69 18 103/54 97 04/26/19 20:00 63 17 96/45 97 04/26/19 18:32 65 18 88/37 97 Intake and Output 04/27/19 04/27/19 04/27/19 06:59 14:59 22:59 Intake Total 640 Balance 640 Intake: IV 160 Sodium Chloride 0.9% 1, 160 000 ml @ 100 mls/hr IV . Q10H STA Rx#:[id number] Oral 480 Other: Voiding Method Toilet Toilet # Voids 2 Weight 41 kg 41 kg General: [Patient awake, alert and oriented times 3. Patient in no acute d istress.] HEENT: [PERRL. EOMI. No pharyngeal erythema or exudate.] Neck: [No adenopathy.] Cardiac: [Heart regular in rate and rhythm. No S3. No S4. No clicks, rubs. No murmur.] Lungs: [Clear to auscultation bilaterally.] Abdomen: [No mass. No organomegaly. Bowel sounds presnt and normoactive in all 4 quadrants.] Extremes: [No edema no cyanosis no claudication normal pulses] : Normal female genitalia with mild or minimal rectal prolapse Musculoskeletal: [No joint erythema, edema or tenderness.] Skin: [No rash.] Neurologic: [No lateralizing deficits. CN II - XII grossly intact.] Lymphatic: [No adenopathy.] Results CBC & Chem 7: 04/26/19 15:31 04/26/19 15:31 Labs: Microbiology - Last 24 Hours (Table) 04/26/19 15:03 Blood Culture - Preliminary Blood No Growth after 24 hours Assessment and Plan (1) Acute abdominal pain Current Visit: Yes Status: Acute Code(s): R10.9 - UNSPECIFIED ABDOMINAL PAIN SNOMED Code(s): 569496786 (2) Rectal prolapse Narrative/Plan: Known history of rectal prolapse patient evaluated by general surgery will schedule up a minute appointment with Dr. Jose De La Rosa MD for outpatient follow-up Current Visit: Yes Status: Acute Code(s): K62.3 - RECTAL PROLAPSE SNOMED Code(s): 24987491 Plan: Patient has appointment with Dr. Umanzor tomorrow No evidence of cardiac-related chest pain troponins normal Patient wishes to go home Will discharge home now Time with Patient: Greater than 30
--- NOTE | 2019-04-27 18:33 | P.DS ---
Providers Date of admission: 04/26/19 20:42 Expected date of discharge: 04/27/19 Attending physician: Yash Umanzor Consults: 04/26/19 20:42 Consult Physician Routine Consulting Provider: Jose Espinosa Consult Reason/Comments: Abd pain, rectal prolapse Do you want consulting provider notified?: Yes Consult Physician Urgent Consulting Provider: Martha Freire Consult Reason/Comments: cp Do you want consulting provider notified?: Yes Primary care physician: Yash Umanzor - Discharge Diagnosis(es) (1) Acute abdominal pain Current Visit: Yes Status: Acute (2) Rectal prolapse Current Visit: Yes Status: Acute Hospital Course: Patient was admitted last night Evaluated by a general surgery today not a surgical candidate will be evaluated as outpatient Patient has appointment with Dr. Umanzor tomorrow See H&P from today Assessment: Discharge home in alert stable condition Patient Condition at Discharge: Fair Plan - Discharge Summary New Discharge Prescriptions: No Action Levothyroxine Sodium [Synthroid] 125 mcg PO DAILY Mycophenolate Mofetil [Cellcept] 1,000 mg PO BID traZODone HCL [Desyrel] 100 mg PO HS Budesonide [Budesonide EC] 9 mg PO DAILY Omeprazole 40 mg PO DAILY HYDROmorphone HCL [Hydromorphone ER] 8 mg PO Q6HR Fluticasone Nasal [place] [Flonase Nasal [place]] 1 spray EA NOSTRIL DAILY PRN PRN Reason: Allergy Symptoms clonazePAM [KlonoPIN] 0.5 mg PO HS Escitalopram Oxalate [Lexapro] 20 mg PO DAILY Propylene Glycol/Peg 400 [Systane Ultra 0.4-0.3% Eye Drp] 1 drop BOTH EYES BID Discharge Medication List Budesonide [Budesonide EC] 9 mg PO DAILY 12/21/13 [History] Levothyroxine Sodium [Synthroid] 125 mcg PO DAILY 12/21/13 [History] Mycophenolate Mofetil [Cellcept] 1,000 mg PO BID 12/21/13 [History] traZODone HCL [Desyrel] 100 mg PO HS 12/21/13 [History] Omeprazole 40 mg PO DAILY 10/28/18 [History] HYDROmorphone HCL [Hydromorphone ER] 8 mg PO Q6HR 11/24/18 [History] Escitalopram Oxalate [Lexapro] 20 mg PO DAILY 04/26/19 [History] Fluticasone Nasal [place] [Flonase Nasal [place]] 1 spray EA NOSTRIL DAILY PRN 04/26/19 [History] Propylene Glycol/Peg 400 [Systane Ultra 0.4-0.3% Eye Drp] 1 drop BOTH EYES BID 04/26/19 [History] clonazePAM [KlonoPIN] 0.5 mg PO HS 04/26/19 [History] Follow up Appointment(s)/Referral(s): [facility] [Provider Group] - 2 Weeks (Office is closed. Please call to schedule a follow up appointment) Yash Umanzor MD [Primary Care Provider] - 04/30/19 10:30 am (Friday with Rosalinda MARTEL ) Jose Espinosa MD [STAFF PHYSICIAN] - 05/04/19 2:45 pm (Friday) Patient Instructions/Handouts: Chest Pain (DC), Rectal Prolapse (GEN)
[2019-04-27] MEDS ORDERED: clonazePAM 0.5 MG TAB PO SCH (21:00)
[2019-04-27] MEDS ORDERED: traZODone HCL 100 MG TAB PO SCH (21:00)
== END 2019-04-27 19:12 | disposition home or self-care (01) ==
LOC: EC 14:00 → 3SCARD 20:42
PROVIDERS: ADMIT Family Medicine; ATTEND Family Medicine
DX: R10.13 Epigastric pain (principal); K62.3 Rectal prolapse; D64.9 Anemia, unspecified; R50.9 Fever, unspecified; R07.9 Chest pain, unspecified; I95.9 Hypotension, unspecified; G89.29 Other chronic pain; K83.8 Other specified diseases of biliary tract; R11.2 Nausea with vomiting, unspecified; D72.829 Elevated white blood cell count, unspecified; K75.4 Autoimmune hepatitis; M79.7 Fibromyalgia; R00.1 Bradycardia, unspecified; K21.9 Gastro-esophageal reflux disease without esophagitis; G47.30 Sleep apnea, unspecified; E89.0 Postprocedural hypothyroidism; F32.9 Major depressive disorder, single episode, unspecified; M19.012 Primary osteoarthritis, left shoulder; M19.011 Primary osteoarthritis, right shoulder; M17.0 Bilateral primary osteoarthritis of knee; K57.90 Diverticulosis of intestine, part unspecified, without perforation or abscess without bleeding; K58.0 Irritable bowel syndrome with diarrhea; R93.3 Abnormal findings on diagnostic imaging of other parts of digestive tract; R19.5 Other fecal abnormalities; R60.1 Generalized edema; I08.3 Combined rheumatic disorders of mitral, aortic and tricuspid valves; Z79.52 Long term (current) use of systemic steroids; Z79.899 Other long term (current) drug therapy; Z79.890 Hormone replacement therapy; Z79.891 Long term (current) use of opiate analgesic; Z85.048 Personal history of other malignant neoplasm of rectum, rectosigmoid junction, and anus; Z86.19 Personal history of other infectious and parasitic diseases; Z87.01 Personal history of pneumonia (recurrent); Z99.89 Dependence on other enabling machines and devices; Z86.69 Personal history of other diseases of the nervous system and sense organs; Z86.2 Personal history of diseases of the blood and blood-forming organs and certain disorders involving the immune mechanism; Z90.49 Acquired absence of other specified parts of digestive tract; Z98.890 Other specified postprocedural states; Z90.710 Acquired absence of both cervix and uterus; Z90.89 Acquired absence of other organs; Z98.41 Cataract extraction status, right eye; Z98.42 Cataract extraction status, left eye; Z96.89 Presence of other specified functional implants; Z86.59 Personal history of other mental and behavioral disorders; Z82.49 Family history of ischemic heart disease and other diseases of the circulatory system
CPT/HCPCS: 96361 ×3; 96374; 96375; 99285; 36415; 93005; 93306; 80061; 80053; 82150; 83605; 83690; 84484 ×2; 85025; 85610; 85730; 82272; 81003; 87040; 71045; 74177; G0378 ×2; J2270; J2405; J7517; Q9967

== ENCOUNTER → 2019-08-09 | Outpatient (CLI) | payer MEDICARE ==
--- NOTE | 2019-08-09 16:36 | US ---
EXAMINATION TYPE: US venous doppler duplex LE RT DATE OF EXAM: 08/09/2019 4:25 PM COMPARISON: NONE CLINICAL HISTORY: I80.9 Phlebitis and thrombophlebitis of Rt leg. Leg swelling. No redness. No hx DV T. Not on blood thinners. SIDE PERFORMED: Right TECHNIQUE: The lower extremity deep venous system is examined utilizing real time linear array sonog bryan with graded compression, doppler sonography and color-flow sonography. VESSELS IMAGED: External Iliac Vein (EIV) Common Femoral Vein Deep Femoral Vein Greater Saphenous Vein * Femoral Vein Popliteal Vein Small Saphenous Vein * Proximal Calf Veins (* superficial vessels) There is normal flow, compressibility, vascular waveforms. Right Leg: Negative for DVT IMPRESSION: No evident deep venous thrombosis at or above the right knee.
== END | disposition home or self-care (01) ==
LOC: RADUSWWP 16:03
PROVIDERS: ATTEND Physical Medicine & Rehabilitation
DX: M70.61 Trochanteric bursitis, right hip (principal); M19.012 Primary osteoarthritis, left shoulder; M19.011 Primary osteoarthritis, right shoulder; M51.17 Intervertebral disc disorders with radiculopathy, lumbosacral region; M43.16 Spondylolisthesis, lumbar region; M47.814 Spondylosis without myelopathy or radiculopathy, thoracic region; M47.817 Spondylosis without myelopathy or radiculopathy, lumbosacral region; M41.86 Other forms of scoliosis, lumbar region; R07.82 Intercostal pain; Z85.048 Personal history of other malignant neoplasm of rectum, rectosigmoid junction, and anus; Z87.891 Personal history of nicotine dependence

== ENCOUNTER → 2019-12-08 | Outpatient (CLI) | payer MEDICARE ==
[2019-12-08 14:18] VITALS: BP 123/67; PULSE 89; RESP 16; TEMP 99.1
== END | disposition home or self-care (01) ==
LOC: PROCWHC3 14:09
PROVIDERS: ATTEND Family Medicine
DX: M81.0 Age-related osteoporosis without current pathological fracture (principal)
CPT/HCPCS: 96365; J3489

== ENCOUNTER 2020-01-13 14:30 | Emergency (ER) | payer MEDICARE ==
[2020-01-13 14:38] VITALS: BP 135/63; PULSE 67; RESP 18
[2020-01-13 14:39] VITALS: TEMP 98
[2020-01-13] MEDS ORDERED: HYDROmorphone 1 MG/ML 1 ML SYRINGE IM STA (15:10)
--- NOTE | 2020-01-13 15:14 | ED ---
Fall HPI - General Chief Complaint: Fall Stated Complaint: Fall, Head Injury Time Seen by Provider: 01/13/20 14:53 Source: patient, EMS, RN notes reviewed Mode of arrival: EMS Limitations: no limitations - History of Present Illness Initial Comments: [id number] presents emergency Department chief of fall. Patient was going into her ENTs office states that she cut her foot on the rug and fell back striking her head. Patient did not lose consciousness does not take any blood thinners. Patient went of posterior head, neck discomfort. Patient was placed in a c-collar by EMS. patientn does have some mild low back pain but states she has chronic back pain which she's had surgery. She has some radicular symptoms in her right leg she denies any current bowel bladder incontinence or retention. No saddle anesthesias or lower extremity paresthesias. - Related Data Home Medications Medication Instructions Recorded Confirmed Budesonide [Budesonide EC] 9 mg PO DAILY 12/21/13 01/13/20 Levothyroxine Sodium [Synthroid] 125 mcg PO DAILY 12/21/13 01/13/20 mycophenolate mofetiL [Cellcept] 1,000 mg PO BID 12/21/13 01/13/20 Omeprazole 40 mg PO DAILY 10/28/18 01/13/20 Escitalopram Oxalate [Lexapro] 20 mg PO DAILY 04/26/19 01/13/20 Dicyclomine [Bentyl] 20 mg PO ACHS 01/13/20 01/13/20 HYDROmorphone HCL [Dilaudid] 8 mg PO Q6H PRN 01/13/20 01/13/20 clonazePAM [KlonoPIN] 1 mg PO HS 01/13/20 01/13/20 Allergies Allergy/AdvReac Type Severity Reaction Status Date / Time No Known Allergies Allergy Verified 01/13/20 16:50 Review of Systems ROS Statement: Those systems with pertinent positive or pertinent negative responses have been documented in the HPI. ROS Other: All systems not noted in ROS Statement are negative. Past Medical History Past Medical History: Cancer, Fibromyalgia, GERD/Reflux, Liver Disease, Osteoarthritis (OA), Pneumonia, Sleep Apnea/CPAP/BIPAP, Thyroid Disorder Additional Past Medical History / Comment(s): hx migraines,elevated liver enzymes and hepatitis c, anemia, "elevated kidney blood tests", hx rectal cancer (in remission,) IBsD. History of Any Multi-Drug Resistant Organisms: None Reported Past Surgical History: Appendectomy, Breast Surgery, Cholecystectomy, Hysterectomy, Orthopedic Surgery, Tonsillectomy Additional Past Surgical History / Comment(s): tatiana arthroscopic knee, liver biopsy, cataracts, partial thyroidectomy,breast biopsy, rectal surgery for cancer, pancreatic biopsy "-" for CA (Oct 2018) 2 pancreatic stents left in at time of biopsy with removal, dec 2019 surgery for prolasped large intestine. Past Anesthesia/Blood Transfusion Reactions: No Reported Reaction Past Psychological History: Depression Smoking Status: Never smoker - Past Family History Mother Family Medical History: Cancer, Deep Vein Thrombosis (DVT) General Exam Limitations: no limitations General appearance: alert, in no apparent distress Head exam: Present: atraumatic, normocephalic, normal inspection Eye exam: Present: normal appearance, PERRL, EOMI. Absent: scleral icterus, conjunctival injection, periorbital swelling ENT exam: Present: normal exam, normal oropharynx, mucous membranes moist Neck exam: Present: tenderness. Absent: normal inspection, meningismus, full ROM (in C-collar), lymphadenopathy Respiratory exam: Present: normal lung sounds bilaterally. Absent: respiratory distress, wheezes, rales, rhonchi, stridor Cardiovascular Exam: Present: regular rate, normal rhythm, normal heart sounds. Absent: systolic murmur, diastolic murmur, rubs, gallop, clicks Extremities exam: Present: normal inspection, full ROM, normal capillary refill. Absent: tenderness, pedal edema, joint swelling, calf tenderness Back exam: Present: full ROM, tenderness, vertebral tenderness. Absent: paraspinal tenderness Neurological exam: Present: alert, oriented X3, CN II-XII intact, reflexes normal. Absent: motor sensory deficit Skin exam: Present: warm, dry, intact, normal color. Absent: rash Course Vital Signs 01/13/20 14:33 Temperature 98.0 F Pulse Rate 67 Respiratory 18 Rate Blood Pressure 135/63 O2 Sat by Pulse 99 Oximetry Medical Decision Making - Medical Decision Making CT x-rays are unremarkable. Patient had mechanical fall. Patient will be discharged in stable condition patient has pain medication at home return parameters were discussed. Disposition Clinical Impression: Fall, Head injury Disposition: HOME SELF-CARE Condition: Stable Instructions (If sedation given, give patient instructions): Head Injury (ED) Additional Instructions: Please return to the Emergency Department if symptoms worsen or any other concerns. Is patient prescribed a controlled substance at d/c from ED?: No Referrals: Yash Umanzor MD [Primary Care Provider] - 1-2 days Time of Disposition: 17:30
--- NOTE | 2020-01-13 16:11 | CT ---
EXAMINATION TYPE: CT brain cspine wo con DATE OF EXAM: 01/13/2020 COMPARISON: MRI cervical spine August 19, 2012 HISTORY: Fall injury with headache and neck pain . CT DLP: 1187.8 mGycm. Automated Exposure Control for Dose Reduction was Utilized. TECHNIQUE: CT scan of the head and cervical spine are performed without contrast. FINDINGS: There is no acute intracranial hemorrhage or midline shift identified. Mild ventricular a nd sulcal prominence. Dependent air-fluid level in the left maxillary sinus. The calvarium is intact. Osseous structures are demineralized. Grade 1 anterolisthesis C4 on C5 and C7 on T1. Cervical spine i s visualized in its entirety from C1 through upper thoracic levels and shows no evidence of acute fra cture or dislocation. Prevertebral soft tissue appears within normal limits. The C1-C2 articulation is within normal limits on the coronal images. Vertebral body heights are maintained. Moderate to ad vanced disc space narrowing C5-C6 and C6-C7 level along with moderate disc space narrowing C7-T1 leve l. Moderate anterior spurring at these levels. Spinal canal grossly preserved. Axial images show mult ilevel uncovertebral facet degenerative changes greater on the left contributing to multilevel neural foraminal narrowing. No pneumothorax is noted in the lung apices. Small-sized left thyroid remnant i s present. Correlate clinically. IMPRESSION: 1. There is no acute fracture or dislocation evident in the cervical spine. 2. No acute intracranial hemorrhage or midline shift is seen.
--- NOTE | 2020-01-13 17:01 | XR ---
EXAMINATION TYPE: XR pelvis AP view DATE OF EXAM: 01/13/2020 COMPARISON: NONE HISTORY: Pain TECHNIQUE: Single view FINDINGS: The pelvic ring is intact. Proximal femurs are intact. Sacroiliac joints appear normal. The re is no evidence of a fracture. IMPRESSION: Negative pelvis exam.
--- NOTE | 2020-01-13 17:04 | XR ---
EXAMINATION TYPE: XR lumbosacral spine min 4V DATE OF EXAM: 01/13/2020 COMPARISON: 04/11/2016 HISTORY: Back pain TECHNIQUE: 04/11/2016 FINDINGS: The lumbar vertebra have fairly normal alignment. There is osteopenia. There is a few sam meter anterior subluxation of L4 in relation L5. There is disc prosthesis at L5-S1. There is narrowin g and spur formation at L1-2. There is no compression fracture. Sacroiliac joints are intact. IMPRESSION: There is a mild degenerative first-degree L4-5 spondylolisthesis unchanged. No fracture s een.
== END 2020-01-13 17:59 | disposition home or self-care (01) ==
LOC: EC 14:30
DX: S09.90XA Unspecified injury of head, initial encounter (principal); E07.9 Disorder of thyroid, unspecified; K21.9 Gastro-esophageal reflux disease without esophagitis; M79.7 Fibromyalgia; G47.30 Sleep apnea, unspecified; F32.9 Major depressive disorder, single episode, unspecified; Z79.899 Other long term (current) drug therapy; Z79.890 Hormone replacement therapy; Z99.89 Dependence on other enabling machines and devices; Z85.048 Personal history of other malignant neoplasm of rectum, rectosigmoid junction, and anus; Z86.19 Personal history of other infectious and parasitic diseases; W18.00XA Striking against unspecified object with subsequent fall, initial encounter; Y92.89 Other specified places as the place of occurrence of the external cause
CPT/HCPCS: 72110; 72170; 72125; 70450; 99284; 96372; J1170

== ENCOUNTER → 2020-05-09 | Outpatient (CLI) | payer MEDICARE ==
--- NOTE | 2020-05-09 15:49 | US ---
EXAMINATION TYPE: US kidneys/renal and bladder DATE OF EXAM: 05/09/2020 COMPARISON: CT abdomen and pelvis April 26, 2019 CLINICAL HISTORY: left flank pain. left flank pain EXAM MEASUREMENTS: Right Kidney: 9.1 x 3.3 x 3.4 cm Left Kidney: 10.1 x 4.5 x 3.3 cm Right Kidney: no evidence of hydronephrosis Left Kidney: no evidence of hydronephrosis Bladder: not fully distended Bilateral Jets seen: no There is no evidence for hydronephrosis at this point in time. The 2 mm tiny calculus lower pole righ t kidney on CT coronal image 46 not clearly seen on ultrasound images today. No masses are identifie d. The urinary bladder is collapsed and thuS cannot be evaluated. Bilateral ureteral jets are not s een. IMPRESSION: No hydronephrosis seen bilaterally on current study.
== END ==
LOC: RADUSWWP 14:58
PROVIDERS: ATTEND Urology
DX: R10.9 Unspecified abdominal pain (principal)
CPT/HCPCS: 76770

== ENCOUNTER 2020-08-21 12:51 | Inpatient (IN) | payer MEDICARE ==
[2020-08-21] MEDS ORDERED: SODIUM CHLORIDE 0.9% 1,000 ML IV STA ×2 (12:58)
--- NOTE | 2020-08-21 13:07 | ED ---
Abdominal Pain HPI - General Stated Complaint: Abd Pain Time Seen by Provider: 08/21/20 12:51 Source: patient, EMS, RN notes reviewed Mode of arrival: EMS - History of Present Illness Initial Comments: This is a 80-year-old female who was brought in by EMS today because of persistent nausea and vomiting decreased oral intake over last several days he purely is had intermittent episodes of black stool for about a week none today. He states the pain was rather severe she was given IV ketamine and route and does feel improved at this time. She does feel weak no overt chest pain no overt fevers chills or sweats reported this time no dysuria. MD Complaint: abdominal pain - Related Data Home Medications Medication Instructions Recorded Confirmed Budesonide [Budesonide EC] 9 mg PO DAILY 08/21/20 08/21/20 HYDROmorphone HCL 8 mg PO Q6H PRN 08/21/20 08/21/20 Mycophenolate Mofetil [Cellcept] 1,000 mg PO BID 08/21/20 08/21/20 Omeprazole 40 mg PO DAILY 08/21/20 08/21/20 Tamsulosin HCl [Flomax] 0.4 mg PO W/SUPPER 08/21/20 08/21/20 clonazePAM [KlonoPIN] 1 mg PO HS 08/21/20 08/21/20 traZODone HCL 100 mg PO HS 08/21/20 08/21/20 Allergies Allergy/AdvReac Type Severity Reaction Status Date / Time No Known Drug Allergies Allergy Unknown Verified 08/21/20 16:30 Review of Systems ROS Statement: Those systems with pertinent positive or pertinent negative responses have been documented in the HPI. ROS Other: All systems not noted in ROS Statement are negative. General Exam - General Exam Comments Initial Comments: This is a well-developed asthenic appearing female who is awake alert oriented 3 General appearance: alert, in no apparent distress Head exam: Present: atraumatic, normocephalic, normal inspection Eye exam: Present: normal appearance, PERRL, EOMI. Absent: scleral icterus, conjunctival injection, periorbital swelling ENT exam: Present: mucous membranes dry Neck exam: Present: normal inspection. Absent: tenderness, meningismus, lymphadenopathy Respiratory exam: Present: normal lung sounds bilaterally. Absent: respiratory distress, wheezes, rales, rhonchi, stridor Cardiovascular Exam: Present: regular rate, normal rhythm, normal heart sounds. Absent: systolic murmur, diastolic murmur, rubs, gallop, clicks GI/Abdominal exam: Present: soft, tenderness (Mild tenderness palpation no guarding rebound masses or bruitsspecific area of tenderness at this time), normal bowel sounds. Absent: distended, guarding, rebound, rigid Extremities exam: Present: normal inspection, full ROM, normal capillary refill. Absent: tenderness, pedal edema, joint swelling, calf tenderness Back exam: Present: normal inspection Neurological exam: Present: alert, oriented X3, CN II-XII intact Psychiatric exam: Present: normal affect, normal mood Skin exam: Present: warm, dry, intact, normal color. Absent: rash Course Vital Signs 08/21/20 08/21/20 08/21/20 13:04 14:52 15:34 Temperature 98.7 F Pulse Rate 62 89 60 Respiratory 18 18 18 Rate Blood Pressure 141/68 144/65 119/59 O2 Sat by Pulse 96 98 96 Oximetry 08/21/20 08/21/20 16:16 17:25 Temperature 98.3 F Pulse Rate 65 60 Respiratory 18 16 Rate Blood Pressure 115/46 131/70 O2 Sat by Pulse 98 98 Oximetry Medical Decision Making - Medical Decision Making I did discuss findings with the patient she has had chills and sweats recently along with a cough nonproductive in nature. He has chronic pain otherwise. I did discuss case Dr. Umanzor patient be admitted place an IV antibiotics and fluids - Lab Data Result diagrams: 08/21/20 13:22 08/21/20 13:22 Lab Results 08/21/20 08/21/20 08/21/20 Range/Units 13:22 13:22 13:22 WBC 15.7 H (3.8-10.6) k/uL RBC 3.71 L (3.80-5.40) m/uL Hgb 11.1 L (11.4-16.0) gm/dL Hct 32.6 L (34.0-46.0) % MCV 87.8 (80.0-100.0) fL MCH 29.9 (25.0-35.0) pg MCHC 34.1 (31.0-37.0) g/dL RDW 13.1 (11.5-15.5) % Plt Count 148 L (150-450) k/uL MPV 8.3 Neutrophils % 94 % Lymphocytes % 2 % Monocytes % 3 % Eosinophils % 1 % Basophils % 0 % Neutrophils # 14.8 H (1.3-7.7) k/uL Lymphocytes # 0.4 L (1.0-4.8) k/uL Monocytes # 0.5 (0-1.0) k/uL Eosinophils # 0.1 (0-0.7) k/uL Basophils # 0.0 (0-0.2) k/uL Sodium 131 L (137-145) mmol/L Potassium 3.1 L (3.5-5.1) mmol/L Chloride 99 (98-107) mmol/L Carbon Dioxide 26 (22-30) mmol/L Anion Gap 6 mmol/L BUN 15 (7-17) mg/dL Creatinine 0.45 L (0.52-1.04) mg/dL Est GFR (CKD-EPI)AfAm >90 (>60 ml/min/1.73 sqM) Est GFR (CKD-EPI)NonAf >90 (>60 ml/min/1.73 sqM) Glucose 112 H (74-99) mg/dL Plasma Lactic Acid Mason (0.7-2.0) mmol/L Calcium 8.0 L (8.4-10.2) mg/dL Total Bilirubin 0.5 (0.2-1.3) mg/dL AST 23 (14-36) U/L ALT 12 (4-34) U/L Alkaline Phosphatase 68 (38-126) U/L Creatine Kinase 52 (30-135) U/L Troponin I (0.000-0.034) ng/mL Total Protein 5.4 L (6.3-8.2) g/dL Albumin 3.2 L (3.5-5.0) g/dL Amylase 64 (30-110) U/L Lipase 101 (23-300) U/L Urine Color Colorless Urine Appearance Clear (Clear) Urine pH 7.5 (5.0-8.0) Ur Specific [place] 1.006 (1.001-1.035) Urine Protein Negative (Negative) Urine Glucose (UA) Negative (Negative) Urine Ketones Negative (Negative) Urine Blood Trace H (Negative) Urine Nitrite Negative (Negative) Urine Bilirubin Negative (Negative) Urine Urobilinogen <2.0 (<2.0) mg/dL Ur Leukocyte Esterase Negative (Negative) Urine RBC 2 (0-5) /hpf Urine WBC 1 (0-5) /hpf Stool Occult Blood (Negative) Coronavirus (PCR) (Not Detectd) 08/21/20 08/21/20 08/21/20 Range/Units 13:22 13:22 17:25 WBC (3.8-10.6) k/uL RBC (3.80-5.40) m/uL Hgb (11.4-16.0) gm/dL Hct (34.0-46.0) % MCV (80.0-100.0) fL MCH (25.0-35.0) pg MCHC (31.0-37.0) g/dL RDW (11.5-15.5) % Plt Count (150-450) k/uL MPV Neutrophils % % Lymphocytes % % Monocytes % % Eosinophils % % Basophils % % Neutrophils # (1.3-7.7) k/uL Lymphocytes # (1.0-4.8) k/uL Monocytes # (0-1.0) k/uL Eosinophils # (0-0.7) k/uL Basophils # (0-0.2) k/uL Sodium (137-145) mmol/L Potassium (3.5-5.1) mmol/L Chloride (98-107) mmol/L Carbon Dioxide (22-30) mmol/L Anion Gap mmol/L BUN (7-17) mg/dL Creatinine (0.52-1.04) mg/dL Est GFR (CKD-EPI)AfAm (>60 ml/min/1.73 sqM) Est GFR (CKD-EPI)NonAf (>60 ml/min/1.73 sqM) Glucose (74-99) mg/dL Plasma Lactic Acid Mason 1.4 (0.7-2.0) mmol/L Calcium (8.4-10.2) mg/dL Total Bilirubin (0.2-1.3) mg/dL AST (14-36) U/L ALT (4-34) U/L Alkaline Phosphatase (38-126) U/L Creatine Kinase (30-135) U/L Troponin I <0.012 (0.000-0.034) ng/mL Total Protein (6.3-8.2) g/dL Albumin (3.5-5.0) g/dL Amylase (30-110) U/L Lipase (23-300) U/L Urine Color Urine Appearance (Clear) Urine pH (5.0-8.0) Ur Specific [place] (1.001-1.035) Urine Protein (Negative) Urine Glucose (UA) (Negative) Urine Ketones (Negative) Urine Blood (Negative) Urine Nitrite (Negative) Urine Bilirubin (Negative) Urine Urobilinogen (<2.0) mg/dL Ur Leukocyte Esterase (Negative) Urine RBC (0-5) /hpf Urine WBC (0-5) /hpf Stool Occult Blood (Negative) Coronavirus (PCR) Not Detected (Not Detectd) 08/21/20 Range/Units 17:40 WBC (3.8-10.6) k/uL RBC (3.80-5.40) m/uL Hgb (11.4-16.0) gm/dL Hct (34.0-46.0) % MCV (80.0-100.0) fL MCH (25.0-35.0) pg MCHC (31.0-37.0) g/dL RDW (11.5-15.5) % Plt Count (150-450) k/uL MPV Neutrophils % % Lymphocytes % % Monocytes % % Eosinophils % % Basophils % % Neutrophils # (1.3-7.7) k/uL Lymphocytes # (1.0-4.8) k/uL Monocytes # (0-1.0) k/uL Eosinophils # (0-0.7) k/uL Basophils # (0-0.2) k/uL Sodium (137-145) mmol/L Potassium (3.5-5.1) mmol/L Chloride (98-107) mmol/L Carbon Dioxide (22-30) mmol/L Anion Gap mmol/L BUN (7-17) mg/dL Creatinine (0.52-1.04) mg/dL Est GFR (CKD-EPI)AfAm (>60 ml/min/1.73 sqM) Est GFR (CKD-EPI)NonAf (>60 ml/min/1.73 sqM) Glucose (74-99) mg/dL Plasma Lactic Acid Mason (0.7-2.0) mmol/L Calcium (8.4-10.2) mg/dL Total Bilirubin (0.2-1.3) mg/dL AST (14-36) U/L ALT (4-34) U/L Alkaline Phosphatase (38-126) U/L Creatine Kinase (30-135) U/L Troponin I (0.000-0.034) ng/mL Total Protein (6.3-8.2) g/dL Albumin (3.5-5.0) g/dL Amylase (30-110) U/L Lipase (23-300) U/L Urine Color Urine Appearance (Clear) Urine pH (5.0-8.0) Ur Specific [place] (1.001-1.035) Urine Protein (Negative) Urine Glucose (UA) (Negative) Urine Ketones (Negative) Urine Blood (Negative) Urine Nitrite (Negative) Urine Bilirubin (Negative) Urine Urobilinogen (<2.0) mg/dL Ur Leukocyte Esterase (Negative) Urine RBC (0-5) /hpf Urine WBC (0-5) /hpf Stool Occult Blood Negative (Negative) Coronavirus (PCR) (Not Detectd) - Radiology Data Radiology results: report reviewed (Is reviewed evidence of right-sided pneumonia), image reviewed Disposition Clinical Impression: Pneumonia, Dehydration, Chronic abdominal pain, Failure to thrive, Leukocytosis Disposition: ADMITTED IP TO THIS [facility] Condition: Fair Referrals: Yash Umanzor MD [Primary Care Provider] - 1-2 days
[2020-08-21 13:36] LABS: Basophils % (A) 0 %; Eosinophils # (A) 0.1 k/uL (0-0.7); Eosinophils % (A) 1 %; HCT 32.6 % (34.0-46.0); HGB 11.1 gm/dL (11.4-16.0); Lymphocytes # (A) 0.4 k/uL (1.0-4.8); Lymphocytes % (A) 2 %; MCH 29.9 pg (25.0-35.0); MCHC 34.1 g/dL (31.0-37.0); MCV 87.8 fL (80.0-100.0); Mean Platelet Volume 8.3; Monocytes # (A) 0.5 k/uL (0-1.0); Monocytes % (A) 3 %; Neutrophils # (A) 14.8 k/uL (1.3-7.7); Neutrophils % (A) 94 %; Platelet Count 148 k/uL (150-450); RBC 3.71 m/uL (3.80-5.40); RDW 13.1 % (11.5-15.5); WBC 15.7 k/uL (3.8-10.6)
--- NOTE | 2020-08-21 13:47 | XR ---
EXAMINATION TYPE: XR chest 2V DATE OF EXAM: 08/21/2020 COMPARISON: NONE HISTORY: Epigastric pain, nausea and vomiting TECHNIQUE: Frontal and lateral views of the chest are obtained. FINDINGS: Patchy airspace disease is seen throughout the right mid and lower lung zones. Left lung is grossly c lear. Cardiac silhouette is enlarged. IMPRESSION: Patchy airspace disease is seen throughout the right mid and lower lung zones. Left lung is grossly c lear.
[2020-08-21 13:48] LABS: ALT 12 U/L (4-34); AST 23 U/L (14-36); African American GFR (CKD) >90 (>60 ml/min/1.73 sqM); Albumin 3.2 g/dL (3.5-5.0); Alkaline Phosphatase 68 U/L (38-126); Amylase 64 U/L (30-110); Anion Gap 6 mmol/L; Blood Urea Nitrogen 15 mg/dL (7-17); Carbon Dioxide 26 mmol/L (22-30); Chloride 99 mmol/L (98-107); Creatine Kinase 52 U/L (30-135); Glucose 112 mg/dL (74-99); Lipase 101 U/L (23-300); Non-African American GFR(CKD) >90 (>60 ml/min/1.73 sqM); Potassium 3.1 mmol/L (3.5-5.1); Sodium 131 mmol/L (137-145); Total Bilirubin 0.5 mg/dL (0.2-1.3); Total Protein 5.4 g/dL (6.3-8.2)
--- NOTE | 2020-08-21 13:49 | XR ---
EXAMINATION TYPE: XR KUB DATE OF EXAM: 08/21/2020 1:43 PM CLINICAL HISTORY: Epigastric pain, nausea and vomiting TECHNIQUE: Single supine KUB image of the abdomen is obtained. COMPARISON: None. FINDINGS: Scattered gas is seen in non-distended small bowel loops. Gas and fecal material is seen in non-distended colon. There are surgical clips in the right upper abdomen. Degenerative changes are n oted in the bones. IMPRESSION: Overall nonobstructive bowel gas pattern.
[2020-08-21] MEDS ORDERED: fentaNYL (PF) 50 MCG/ML 2 ML AMP IVP STA (14:21)
[2020-08-21 14:49] LABS: Appearance,Urine Clear (Clear); Bilirubin,Urine Negative (Negative); Blood,Urine Trace (Negative); Color,Urine Colorless; Glucose,Urine (UA) Negative (Negative); Ketones,Urine Negative (Negative); Leukocyte Esterase,Urine Negative (Negative); Nitrite,Urine Negative (Negative); PH, Urine 7.5 (5.0-8.0); Protein,Urine Negative (Negative); RBC,Urine 2 /hpf (0-5); Specific Gravity,Urine 1.006 (1.001-1.035); Urobilinogen,Urine <2.0 mg/dL (<2.0); WBC,Urine 1 /hpf (0-5)
[2020-08-21] MEDS ORDERED: cefTRIAXone IN SWFI 1,000 MG/10 ML SYRINGE IVP STA (16:47)
[2020-08-21] MEDS ORDERED: HYDROmorphone 1 MG/ML 1 ML SYRINGE IVP STA (17:22)
[2020-08-21] MEDS ORDERED: PNEUMONIA PROTOCOL UTILIZED 1 EACH MISC PO PRN (19:02)
[2020-08-21] MEDS ORDERED: AZITHROMYCIN 500 MG in SODIUM CHLORIDE 0.9% 250 ML IVPB STA (19:02)
[2020-08-21] MEDS: SODIUM CHLORIDE 0.9% 1,000 ML IV SCH (19:25)
[2020-08-21] MEDS: ONDANSETRON 4 MG/2 ML VIAL IVP PRN (22:27)
[2020-08-21] MEDS: clonazePAM 1 MG TAB PO SCH (22:58)
[2020-08-21] MEDS: traZODone HCL 100 MG TAB PO SCH ×2 (22:58→22:59)
[2020-08-21] MEDS: HYDROmorphone 2 MG TAB PO PRN (22:58)
[2020-08-22] MEDS: SODIUM CHLORIDE 0.9% 1,000 ML IV SCH ×2 (05:44→19:37)
[2020-08-22] MEDS ORDERED: Potassium Replacement Protocol 1 EACH MISC MISCELLANE PRN ×2 (07:38→11:48)
[2020-08-22] MEDS: HYDROmorphone 2 MG TAB PO PRN ×3 (08:00→22:25)
[2020-08-22] MEDS: PANTOPRAZOLE 40 MG TABLET PO SCH (08:01)
[2020-08-22] MEDS: POTASSIUM CHLORIDE ER 20 MEQ TAB.ER PO SCH ×2 (08:01→11:35)
[2020-08-22] MEDS: AZITHROMYCIN 500 MG TAB PO SCH (08:01)
[2020-08-22] MEDS ORDERED: RX INFO: IV CONTRAST WAS GIVEN 1 EACH MISC MISCELLANE PRN (09:51)
--- NOTE | 2020-08-22 10:10 | XR ---
EXAMINATION TYPE: XR chest 1V portable DATE OF EXAM: 08/22/2020 COMPARISON: 08/21/2020 HISTORY: Pneumonia TECHNIQUE: Single frontal view of the chest is obtained. FINDINGS: Right-sided patchy airspace disease appears similar to the prior exam. Cardiac silhouette is unchanged. IMPRESSION: No significant change since the prior exam.
--- NOTE | 2020-08-22 10:53 | CT ---
EXAMINATION TYPE: CT chest w con DATE OF EXAM: 08/22/2020 COMPARISON: 01-13 HISTORY: pneumonia CT DLP: 182.8 mGycm Automated exposure control for dose reduction was used. CONTRAST: CT scan of the chest is performed with IV Contrast, patient injected with 85 mL of Isovue 300. FINDINGS: LUNGS: There is nodular infiltrate within the right upper lobe and more confluent infiltrate within t he right lower lobe and right middle lobe. Right-sided pleural effusion is noted measuring 1.3 cm AP dimension. No left-sided infiltrates are seen. Mild dependent right basilar atelectasis is noted. MEDIASTINUM: There are no greater than 1 cm hilar or mediastinal lymph nodes. No pericardial effusi on is seen. Thoracic aorta is of normal caliber. The heart is not enlarged. UPPER ABDOMEN: There is a subcapsular hepatic collection seen adjacent to the right hepatic lobe melissa uring approximately 3.6 x 2.8 cm. OTHER: No additional significant abnormality is seen. IMPRESSION: 1. Scattered areas of nodular and more confluent areas of infiltrate throughout the right upper and r ight lower lobes with small pleural effusion. Correlate for pneumonia. 2. Nonspecific subcapsular hepatic collection as discussed.
[2020-08-22] MEDS: guaiFENesin 600 MG TABLET.ER PO SCH ×2 (11:35→22:26)
[2020-08-22] MEDS: BUDESONIDE 3 MG PO SCH (11:39)
[2020-08-22 12:06] LABS: Basophils % (A) 0 %; Eosinophils # (A) 0.1 k/uL (0-0.7); Eosinophils % (A) 1 %; HCT 34.3 % (34.0-46.0); HGB 11.3 gm/dL (11.4-16.0); Lymphocytes # (A) 0.6 k/uL (1.0-4.8); Lymphocytes % (A) 5 %; MCH 29.9 pg (25.0-35.0); MCHC 32.9 g/dL (31.0-37.0); MCV 90.9 fL (80.0-100.0); Mean Platelet Volume 8.5; Monocytes # (A) 0.3 k/uL (0-1.0); Monocytes % (A) 3 %; Neutrophils # (A) 10.1 k/uL (1.3-7.7); Neutrophils % (A) 91 %; Platelet Count 139 k/uL (150-450); RBC 3.77 m/uL (3.80-5.40); RDW 13.2 % (11.5-15.5); WBC 11.2 k/uL (3.8-10.6)
[2020-08-22 12:25] LABS: African American GFR (CKD) >90 (>60 ml/min/1.73 sqM); Anion Gap 5 mmol/L; Blood Urea Nitrogen 10 mg/dL (7-17); Carbon Dioxide 29 mmol/L (22-30); Chloride 103 mmol/L (98-107); Glucose 91 mg/dL (74-99); Non-African American GFR(CKD) >90 (>60 ml/min/1.73 sqM); Potassium 3.2 mmol/L (3.5-5.1); Sodium 137 mmol/L (137-145)
--- NOTE | 2020-08-22 13:33 | P.HPIM ---
History of Present Illness H&P Date: 08/22/20 Chief Complaint: nausea/ vomiting/black stool This is a 80-year-old female with past medical history of autoimmune hepatitis C, IBS, follows regularly with Dr. Gianna Sanchez, presented to the ER with nausea, vomiting, occasional black stools 1 week. Reports decreased appetite, chronic left upper quadrant pain that radiates to right upper quadrant. Increased burping following food ingestion over the last 4 weeks. Denies fever, reports chills. KUB reported overall nonobstructive bowel gas pattern chest x- ray reporting patchy airspace disease throughout the right mid and lower lung zones. Repeat chest x-ray reported no significant change. Chest CT reported scattered areas of nodular more confluent areas of infiltrates of the right upper and right lower lobes with small pleural effusion, nonspecific subcapsular hepatic collection 3.6 x 2.8-adjacent to right hepatic lobe. LFTs within normal limits. Afebrile, WBC 15.7,hemoglobin 11.1, platelets 148. Stool for occult blood negative .Sodium 131, potassium 3.1. BUN 15, creatinine 0.45. Review of Systems ROS Statement: Those systems with pertinent positive or pertinent negative responses have been documented in the HPI. ROS Other: All systems not noted in ROS Statement are negative. Past Medical History Additional Past Medical History / Comment(s): Hepatitis C, Immune disorder, IBS History of Any Multi-Drug Resistant Organisms: None Reported Past Surgical History: No Surgical Hx Reported Additional Past Surgical History / Comment(s): Rectal prolapse Past Anesthesia/Blood Transfusion Reactions: No Reported Reaction Past Psychological History: No Psychological Hx Reported Smoking Status: Never smoker Past Alcohol Use History: None Reported Past Drug Use History: None Reported Medications and Allergies Home Medications Medication Instructions Recorded Confirmed Type Budesonide [Budesonide EC] 9 mg PO DAILY 08/21/20 08/21/20 History HYDROmorphone HCL 8 mg PO Q6H PRN 08/21/20 08/21/20 History Mycophenolate Mofetil [Cellcept] 1,000 mg PO BID 08/21/20 08/21/20 History Omeprazole 40 mg PO DAILY 08/21/20 08/21/20 History Tamsulosin HCl [Flomax] 0.4 mg PO W/SUPPER 08/21/20 08/21/20 History clonazePAM [KlonoPIN] 1 mg PO HS 08/21/20 08/21/20 History traZODone HCL 100 mg PO HS 08/21/20 08/21/20 History Allergies Allergy/AdvReac Type Severity Reaction Status Date / Time No Known Drug Allergies Allergy Unknown Verified 08/21/20 16:30 Physical Exam Vitals: Vital Signs Temp Pulse Pulse Resp BP BP Pulse Ox 08/22/20 08:05 62 17 08/22/20 07:35 98.4 F 62 17 120/61 96 08/22/20 02:31 98.4 F 68 14 112/51 96 08/21/20 21:10 98.7 F 59 L 18 132/57 96 08/21/20 19:58 98.6 F 83 18 134/59 96 08/21/20 17:25 98.3 F 60 16 131/70 98 08/21/20 16:16 65 18 115/46 98 08/21/20 15:34 60 18 119/59 96 08/21/20 14:52 89 18 144/65 98 08/21/20 13:04 98.7 F 62 18 141/68 96 Intake and Output 08/21/20 08/22/20 08/22/20 22:59 06:59 14:59 Other: Voiding Method External Catheter External Catheter # Voids 2 Weight 38.555 kg PHYSICAL EXAM: VITAL SIGNS: As above GENERAL: Cachectic,Sitting up in bed, no acute distress HEENT: Conjunctivae normal. eyes normal. NECK: No JVD. No thyroid enlargement. No LNs CARDIOVASCULAR: S1, S2 regular.. No murmur RESPIRATION: Breath sounds diminished in the bases. No rhonchi or crackles. No bronchial breathing. ABDOMEN: Soft, nondistended, bilateral upper quadrant tenderness, No guarding. no masses palpable. No ascites, No hepatosplenomegaly.Bowel sounds heard. LEGS: No edema. no swelling PSYCHIATRY: Alert and oriented X3, mood and affect normal. NERVOUS SYSTEM: Cranial N 2-12 grossly normal. Moves all 4 limbs. Diffuse weakness, No focal deficits. Strength and sensation grossly intact. Skin: Warm and dry, no rash Lymphatic system. No LN neck axilla. Results CBC & Chem 7: 08/22/20 11:52 08/22/20 11:52 Labs: Abnormal Lab Results - Last 24 Hours (Table) 08/21/20 08/21/20 08/21/20 Range/Units 13:22 13:22 13:22 WBC 15.7 H (3.8-10.6) k/uL RBC 3.71 L (3.80-5.40) m/uL Hgb 11.1 L (11.4-16.0) gm/dL Hct 32.6 L (34.0-46.0) % Plt Count 148 L (150-450) k/uL Neutrophils # 14.8 H (1.3-7.7) k/uL Lymphocytes # 0.4 L (1.0-4.8) k/uL Sodium 131 L (137-145) mmol/L Potassium 3.1 L (3.5-5.1) mmol/L Creatinine 0.45 L (0.52-1.04) mg/dL Glucose 112 H (74-99) mg/dL Calcium 8.0 L (8.4-10.2) mg/dL Total Protein 5.4 L (6.3-8.2) g/dL Albumin 3.2 L (3.5-5.0) g/dL Urine Blood Trace H (Negative) Thrombosis Risk Factor Assmnt - Choose All That Apply Any of the Below Risk Factors Present?: No Other Risk Factors: Yes Each Risk Factor Represents 3 Points: Age 75 years or older Other congenital or acquired thrombophilia - If yes, enter type in comment: No Thrombosis Risk Factor Assessment Total Risk Factor Score: 3 Thrombosis Risk Factor Assessment Level: Moderate Risk Assessment and Plan Assessment: Nausea and vomiting, black stools 1 week, negative stool for occult blood. Chronic left upper quadrant pain radiates to right upper quadrant,accompanied by increased burping after food ingested 4 weeks. Subcapsular hepatic collection 3.6 x 2.8-adjacent to right hepatic lobe. LFTs within normal limits. Acute Right mid and lower pneumonia, possibly atypical in a patient on CellCept Small right pleural effusion Autoimmune Hepatitis C Leukocytosis Hyponatremia Hypokalemia Dehydration History of IBS Plan: Continue on current medication regime ,monitoring and symptomatic treatment. Follow up labs pending. Maintain IV fluids, IV antibiotics. GI consulted. Close monitoring of hemoglobin, platelets, electrolytes, renal function with repeat labs ordered for a.m. prognosis guarded given multiple complex medical issues. The impression and plan of care has been dictated as directed. : I performed a history and examination of this patient, discussed the same with the dictator. I agree with the dictator's note ,documented as a scribe. Any additional findings or plans will be noted.
[2020-08-22 15:58] VITALS: BMI 16.0
[2020-08-22] MEDS: TAMSULOSIN 0.4 MG CAP.ER.24H PO SCH (16:10)
[2020-08-22] MEDS: ONDANSETRON 4 MG/2 ML VIAL IVP PRN (21:29)
[2020-08-22] MEDS: traZODone HCL 100 MG TAB PO SCH (22:20)
[2020-08-22] MEDS: clonazePAM 1 MG TAB PO SCH (22:59)
[2020-08-23] MEDS: traZODone HCL 100 MG TAB PO SCH ×2 (01:01→20:58)
[2020-08-23] MEDS: SODIUM CHLORIDE 0.9% 1,000 ML IV SCH ×3 (04:56→20:59)
[2020-08-23] MEDS ORDERED: bisacodyL 10 MG SUPP RECTAL STA (08:34)
--- NOTE | 2020-08-23 08:50 | P.PN ---
Subjective Progress Note Date: 08/23/20 Principal diagnosis: Subcapsular hepatic collection Seen and examined lying in bed. She states she did not eat her breakfast because she was nauseated. States she has not had a good bowel movement in over a week. States her last bowel movement was a couple days ago that was very small amounts and hard. States she has issues with constipation. She denies any diarrhea, vomiting, or abdominal pain at this time. States though she does get some abdominal pain after eating. Stool for occult blood was negative, ammonia level less than 9, and alpha-fetoprotein marker negative. Objective - Vital Signs Vital signs: Vital Signs Temp 98.0 F 08/23/20 07:41 Pulse 70 08/23/20 07:41 Resp 16 08/23/20 07:41 BP 118/70 08/23/20 07:41 Pulse Ox 95 08/23/20 07:41 Intake & Output 08/22/20 08/23/20 08/23/20 18:59 06:59 18:59 Intake Total 650 Output Total 1600 600 Balance -950 -600 Weight 38.555 kg Intake: Intake, IV Titration 650 Amount Sodium Chloride 0.9% 1, 600 000 ml @ 130 mls/hr IV . Q7H42M [facility] Rx#:[id number] cefTRIAXone 2 gm In 50 Sodium Chloride 0.9% 50 ml @ 100 mls/hr IVPB Q24HR [facility] Rx#:[id number] Output: Urine 1600 600 Other: Voiding Method External Catheter Incontinent External Catheter - Exam General appearance: The patient is alert, oriented, appears in no acute distress. HET: Head is normocephalic and atraumatic. Conjunctiva pink. Sclera anicteric. Neck: Supple without lymphadenopathy. Abdomen: Soft, left lower quadrant tenderness, nondistended with bowel sounds. No guarding or rigidity. Extremities: Normal skin color and turgor. No pedal edema Skin: No rashes, no jaundice Neurological: No focal deficits. Alert and oriented 3. - Labs CBC & Chem 7: 08/22/20 11:52 08/22/20 14:14 Labs: Abnormal Lab Results - Last 24 Hours (Table) 08/22/20 08/22/20 Range/Units 11:52 11:52 WBC 11.2 H (3.8-10.6) k/uL RBC 3.77 L (3.80-5.40) m/uL Hgb 11.3 L (11.4-16.0) gm/dL Plt Count 139 L (150-450) k/uL Neutrophils # 10.1 H (1.3-7.7) k/uL Lymphocytes # 0.6 L (1.0-4.8) k/uL Potassium 3.2 L (3.5-5.1) mmol/L Calcium 8.0 L (8.4-10.2) mg/dL Microbiology - Last 24 Hours (Table) 08/21/20 19:00 Blood Culture - Preliminary Blood No Growth after 24 hours Assessment and Plan (1) Abnormal CT of the abdomen Narrative/Plan: 80-year-old female with a history of autoimmune hepatitis currently on budesonide and CellCept who follows withDr. Sanchez who presented to the emergency department with complaints of nausea vomiting and decreased intake. Also reported intermittent black stools, denies any use of NSAIDs, or anticoagulation. Patient states she has become more confused recently, ammonia level less than 9. She is alert and oriented 3. She is not sure when he last had imaging of the abdomen. She has been seen at the [facility] approximately 5 years ago where she underwent a biopsy for diagnosis. She's also been seen at [facility] but continues to follow-up with Dr. Sanchez monthly. Patient underwent a CT of the chest which showed subcapsular hepatic collection seen adjacent to the right hepatic lobe measuring approximately 3.6 x 2.8 cm. At this point unsure what the collection consists of, therefore MRI of the liver has been ordered. Alpha-fetoprotein marker was ordered and negative. Current Visit: Yes Status: Acute Code(s): R93.5 - ABN FINDINGS ON DX IMAGING OF ABD REGIONS, INC RETROPERITON SNOMED Code(s): 29411038631413530 (2) Constipation Narrative/Plan: Patient has a history of constipation, last good bowel movement over a week ago. States his bowel movements have been small and hard. Dulcolax suppository and MiraLAX will be added. Current Visit: Yes Status: Acute Code(s): K59.00 - CONSTIPATION, UNSPECIFIED SNOMED Code(s): 23731490 (3) Nausea and vomiting Current Visit: Yes Status: Acute Code(s): R11.2 - NAUSEA WITH VOMITING, UNSPECIFIED SNOMED Code(s): 44805960 (4) Abdominal pain Narrative/Plan: KUB x-ray shows nonspecific gas pattern and fecal matter in the colon, nondistended colon. Current Visit: Yes Status: Acute Code(s): R10.9 - UNSPECIFIED ABDOMINAL PAIN SNOMED Code(s): 91202863 Plan: 1. Continue symptomatic and supportive care 2. Continue medical management 3. Await MRI of liver 4. Ammonia level ordered, less than 9 5. AFP tumor marker ordered, negative 6. Will add Dulcolax suppository 1 and MiraLAX daily for constipation 7. Continue Protonix daily Thank you for this consultation, we will continue to follow Dr. Schulte I agree with the dictator's note, documented as a scribe by Viv Boucher.
[2020-08-23] MEDS: BUDESONIDE 3 MG PO SCH (08:55)
[2020-08-23] MEDS: guaiFENesin 600 MG TABLET.ER PO SCH ×2 (09:05→20:58)
[2020-08-23] MEDS: polyethylene glycoL 3350 17 GM POWD.PACK PO SCH (09:05)
[2020-08-23] MEDS: PANTOPRAZOLE 40 MG TABLET PO SCH (09:05)
[2020-08-23] MEDS: AZITHROMYCIN 500 MG TAB PO SCH (09:06)
[2020-08-23 10:03] LABS: Basophils # (A) 0.05 X 10*3/uL (0.00-0.10); Basophils % (A) 0.8 %; Eosinophils # (A) 0.25 X 10*3/uL (0.04-0.35); Eosinophils % (A) 3.9 %; HCT 34.6 % (37.2-46.3); HGB 10.3 g/dL (12.0-15.0); Lymphocytes # (A) 0.65 X 10*3/uL (0.90-5.00); Lymphocytes % (A) 10.1 %; MCH 28.9 pg (27.0-32.0); MCHC 29.8 g/dL (32.0-37.0); MCV 96.9 fL (80.0-97.0); Monocytes # (A) 0.45 X 10*3/uL (0.20-1.00); Neutrophils # (A) 5.03 X 10*3/uL (1.80-7.70); Neutrophils % (A) 77.9 %; Platelet Count 140 X 10*3/uL (140-440); RBC 3.57 X 10*6/uL (4.10-5.20); RDW 13.2 % (11.5-14.5); WBC 6.45 X 10*3/uL (4.50-10.00)
[2020-08-23] MEDS: HYDROmorphone 2 MG TAB PO PRN ×3 (12:35→20:57)
[2020-08-23] MEDS ORDERED: NA PHOS,M-B/NA PHOS,DI-BA 133 ML ENEMA RECTAL ONE (13:30)
[2020-08-23] MEDS: LEVOTHYROXINE 125 MCG TAB PO SCH (14:51)
[2020-08-23] MEDS ORDERED: MAGNESIUM CITRATE 296 ML BOTTLE PO ONE (16:00)
[2020-08-23] MEDS: TAMSULOSIN 0.4 MG CAP.ER.24H PO SCH (16:01)
[2020-08-23 16:10] LABS: African American GFR (CKD) 107.4 (60.0-200.0); Anion Gap 8.6 mmol/L (4.00-12.00); Carbon Dioxide 22.4 mmol/L (21.6-31.8); Non-African American GFR(CKD) 92.7 (60.0-200.0); Potassium 3.5 mmol/L (3.5-5.5)
--- NOTE | 2020-08-23 16:19 | P.PN ---
Subjective Progress Note Date: 08/23/20 This is a 80-year-old female with past medical history of autoimmune hepatitis C, IBS, follows regularly with Dr. Gianna Sanchez, presented to the ER with nausea, vomiting, occasional black stools 1 week. Reports decreased appetite, chronic left upper quadrant pain that radiates to right upper quadrant. I ncreased burping following food ingestion over the last 4 weeks. Denies fever, reports chills. KUB reported overall nonobstructive bowel gas pattern chest x- ray reporting patchy airspace disease throughout the right mid and lower lung zones. Repeat chest x-ray reported no significant change. Chest CT reported scattered areas of nodular more confluent areas of infiltrates of the right upper and right lower lobes with small pleural effusion, nonspecific subcapsular hepatic collection 3.6 x 2.8-adjacent to right hepatic lobe. LFTs within normal limits. Afebrile, WBC 15.7,hemoglobin 11.1, platelets 148. Stool for occult blood negative .Sodium 131, potassium 3.1. BUN 15, creatinine 0.45. 08/23/2020 evaluated by GI with recommendations noted and appreciated. MRI of liver pending. Ammonia level less than 9. Alpha-fetoprotein marker negative. Reporting no bowel movement after Dulcolax suppository and MiraLAX. Complains of "food feeling stuck midepigastric, even with her boost supplements". Denies nausea or vomiting. Objective - Vital Signs Vital signs: Vital Signs Temp 98.0 F 08/23/20 07:41 Pulse 70 08/23/20 07:41 Resp 16 08/23/20 08:00 BP 118/70 08/23/20 07:41 Pulse Ox 95 08/23/20 07:41 Intake & Output 08/22/20 08/23/20 08/23/20 18:59 06:59 18:59 Intake Total 650 Output Total 1600 600 Balance -950 -600 Weight 38.555 kg Intake: Intake, IV Titration 650 Amount Sodium Chloride 0.9% 1, 600 000 ml @ 130 mls/hr IV . Q7H42M [facility] Rx#:[id number] cefTRIAXone 2 gm In 50 Sodium Chloride 0.9% 50 ml @ 100 mls/hr IVPB Q24HR [facility] Rx#:[id number] Output: Urine 1600 600 Other: Voiding Method External Catheter Incontinent Incontinent External Catheter External Catheter - Exam PHYSICAL EXAM: VITAL SIGNS: As above GENERAL: Cachectic,Sitting up in bed, no acute distress HEENT: Conjunctivae normal. eyes normal. Oral mucosa moist. NECK: No JVD. No thyroid enlargement. No LNs CARDIOVASCULAR: S1, S2 regular. No murmur RESPIRATION: Breath sounds diminished in the bases. No rhonchi or crackles. ABDOMEN: Soft, nondistended, mid epigastric, left lower quadrant tenderness, No guarding. no masses palpable.Bowel sounds heard. LEGS: No edema. no swelling PSYCHIATRY: Alert and oriented X3, mood and affect normal. NERVOUS SYSTEM: Cranial N 2-12 grossly normal. Moves all 4 limbs. No focal deficits. Strength and sensation grossly intact. Skin: Warm and dry, no rash - Labs CBC & Chem 7: 08/23/20 06:44 08/23/20 06:44 Labs: Abnormal Lab Results - Last 24 Hours (Table) 08/22/20 08/22/20 08/23/20 Range/Units 11:52 11:52 06:44 WBC 11.2 H (3.8-10.6) k/uL RBC 3.77 L 3.57 L (3.80-5.40) m/uL Hgb 11.3 L 10.3 L (11.4-16.0) gm/dL Hct 34.6 L (37.2-46.3) % MCHC 29.8 L (32.0-37.0) g/dL Plt Count 139 L (150-450) k/uL Neutrophils # 10.1 H (1.3-7.7) k/uL Lymphocytes # 0.6 L 0.65 L (1.0-4.8) k/uL Potassium 3.2 L (3.5-5.1) mmol/L Calcium 8.0 L (8.4-10.2) mg/dL Microbiology - Last 24 Hours (Table) 08/21/20 19:00 Blood Culture - Preliminary Blood No Growth after 24 hours Assessment and Plan Assessment: Nausea and vomiting, black stools 1 week, negative stool for occult blood. Chronic left upper quadrant pain radiates to right upper quadrant,accompanied by increased burping after food ingested 4 weeks. Subcapsular hepatic collection 3.6 x 2.8-adjacent to right hepatic lobe. LFTs within normal limits. Acute Right mid and lower pneumonia, possibly atypical in a patient on CellCept Small right pleural effusion Autoimmune Hepatitis C Leukocytosis Hyponatremia Hypokalemia Dehydration History of IBS Plan: Continue on current medication regime ,monitoring and symptomatic treatment. Liver MRI pending. Fleets enema ordered. Continue IV fluids, IV antibiotics. Close monitoring of hemoglobin, electrolytes with repeat labs ordered for a.m. prognosis guarded given multiple complex medical issues. The impression and plan of care has been dictated as directed. : I performed a history and examination of this patient, discussed the same with the dictator. I agree with the dictator's note ,documented as a scribe. Any additional findings or plans will be noted.
--- NOTE | 2020-08-23 17:25 | P.CONS ---
History of Present Illness - Reason for Consult Consult date: 08/22/[address] liver, Requesting physician: Yash Umanzor - Chief Complaint Nausea, vomiting, constipation - History of Present Illness 80-year-old female with a medical history significant for autoimmune hepatitis, irritable bowel syndrome with constipation who presents to the hospital with a constellation of symptoms including, nausea and vomiting, constipation and abd ominal discomfort. The patient reports that her last bowel movement was over one week ago. She does report using Senokot at home as needed for constipation. She reports symptoms of decreased oral intake, nausea and vomiting. No overt signs or symptoms of GI bleeding with the patient did report that some of her bowel movements appear darker than normal. The patient has known history of autoimmune hepatitis for which she is currently on oral therapy. She states this was diagnosed at the [facility] and she has also previously followed up at [facility] is currently being seen locally. She denies any history of cirrhosis, or any signs or symptoms of decompensated liver disease including encephalopathy, GI bleed or ascites, however on questioning she states that previously she does believe she has had a paracentesis. On presentation patient has computed tomography scan of the abdomen with finding of infiltrates in the right upper and lower lobes, as well as a nonspecific subcapsular hepatic collection in the right hepatic lobe. Hemoglobin 11.1 on presentation with stool for occult blood negative and normal liver enzymes. Review of Systems REVIEW OF SYSTEMS: CONSTITUTIONAL: Denies any fevers, chills, weight change or fatigue. CARDIOVASCULAR: Denies any chest pain, palpitations high or low blood pressures RESPIRATORY: Denies any shortness of breath, hemoptysis or cough. GENITOURINARY: No dysuria or hematuria. MUSCULOSKELETAL: No weakness reported. SKIN: Denies any new rashes or lesions, jaundice or pallor. PSYCHIATRIC: Denies any depression or anxiety. NEUROLOGY: Denies headache, denies any new focal deficits. EARS/NOSE/THROAT: No recent hearing change, congestion, nasal discharge or sore throat. EYES: No pain in eyes, discharge or change in vision. GASTROINTESTINAL: As per HPI. Past Medical History Additional Past Medical History / Comment(s): Hepatitis C, Immune disorder, IBS History of Any Multi-Drug Resistant Organisms: None Reported Past Surgical History: No Surgical Hx Reported Additional Past Surgical History / Comment(s): Rectal prolapse Past Anesthesia/Blood Transfusion Reactions: No Reported Reaction Past Psychological History: No Psychological Hx Reported Smoking Status: Never smoker Past Alcohol Use History: None Reported Past Drug Use History: None Reported Additional History: Family history: Reviewed with the patient reports her to per medical presentation. Medications and Allergies Home Medications Medication Instructions Recorded Confirmed Type Budesonide [Budesonide EC] 9 mg PO DAILY 08/21/20 08/21/20 History HYDROmorphone HCL 8 mg PO Q6H PRN 08/21/20 08/21/20 History Mycophenolate Mofetil [Cellcept] 1,000 mg PO BID 08/21/20 08/21/20 History Omeprazole 40 mg PO DAILY 08/21/20 08/21/20 History Tamsulosin HCl [Flomax] 0.4 mg PO W/SUPPER 08/21/20 08/21/20 History clonazePAM [KlonoPIN] 1 mg PO HS 08/21/20 08/21/20 History traZODone HCL 100 mg PO HS 08/21/20 08/21/20 History Allergies Allergy/AdvReac Type Severity Reaction Status Date / Time No Known Drug Allergies Allergy Unknown Verified 08/21/20 16:30 Physical Exam Vitals: Vital Signs Temp Pulse Pulse Resp BP BP Pulse Ox 08/22/20 08:05 62 17 08/22/20 07:35 98.4 F 62 17 120/61 96 08/22/20 02:31 98.4 F 68 14 112/51 96 08/21/20 21:10 98.7 F 59 L 18 132/57 96 08/21/20 19:58 98.6 F 83 18 134/59 96 08/21/20 17:25 98.3 F 60 16 131/70 98 08/21/20 16:16 65 18 115/46 98 08/21/20 15:34 60 18 119/59 96 08/21/20 14:52 89 18 144/65 98 Intake and Output 08/21/20 08/22/20 08/22/20 22:59 06:59 14:59 Other: Voiding Method External Catheter External Catheter # Voids 2 Weight 38.555 kg On physical examination, patient appears comfortable in no apparent distress. HEAD: Normocephalic, atraumatic. EYES: No scleral icterus. No conjunctival injection. MOUTH: No lesions, tongue midline. NECK: Trachea midline, no gross abnormalities. CHEST: Decreased air entry in all lung junior. HEART: S1-S2 appreciated. ABDOMEN: Soft, thin and nontender. Bowel sounds are positive. No organomegaly. No guarding or rigidity. EXTREMITIES: No pedal edema. SKIN: No rashes, no jaundice. NEUROLOGIC: Alert and oriented x3. No focal deficits. Results CBC & Chem 7: 08/23/20 06:44 08/23/20 06:44 Labs: Abnormal Lab Results - Last 24 Hours (Table) 08/21/20 08/21/20 08/22/20 Range/Units 13:22 13:22 11:52 WBC 11.2 H (3.8-10.6) k/uL RBC 3.77 L (3.80-5.40) m/uL Hgb 11.3 L (11.4-16.0) gm/dL Plt Count 139 L (150-450) k/uL Neutrophils # 10.1 H (1.3-7.7) k/uL Lymphocytes # 0.6 L (1.0-4.8) k/uL Sodium 131 L (137-145) mmol/L Potassium 3.1 L (3.5-5.1) mmol/L Creatinine 0.45 L (0.52-1.04) mg/dL Glucose 112 H (74-99) mg/dL Calcium 8.0 L (8.4-10.2) mg/dL Total Protein 5.4 L (6.3-8.2) g/dL Albumin 3.2 L (3.5-5.0) g/dL Urine Blood Trace H (Negative) 08/22/20 Range/Units 11:52 WBC (3.8-10.6) k/uL RBC (3.80-5.40) m/uL Hgb (11.4-16.0) gm/dL Plt Count (150-450) k/uL Neutrophils # (1.3-7.7) k/uL Lymphocytes # (1.0-4.8) k/uL Sodium (137-145) mmol/L Potassium 3.2 L (3.5-5.1) mmol/L Creatinine (0.52-1.04) mg/dL Glucose (74-99) mg/dL Calcium 8.0 L (8.4-10.2) mg/dL Total Protein (6.3-8.2) g/dL Albumin (3.5-5.0) g/dL Urine Blood (Negative) CT scan - abdomen: report reviewed (computed tomography scan of the abdomen with finding of infiltrates in the right upper and lower lobes, as well as a nonspecific subcapsular hepatic collection in the right hepatic lobe.) Assessment and Plan (1) Abnormal CT of the abdomen Narrative/Plan: 80-year-old female presenting with a constellation of symptoms including decreased oral intake, abdominal discomfort, nausea and vomiting and constipation. Currently the patient is receiving treatments for constipation which is chronic at baseline and currently she is reporting that she has not had a good bowel movement in 1 week. She denies any overt signs or symptoms of bleeding. She has a known history of autoimmune hepatitis but denies any history of decompensated liver disease. She is currently on immunosuppressive therapy for her autoimmune hepatitis. On presentation she had computed tomography scan of the abdomen with finding of infiltrates in the right upper and lower lobes, as well as a nonspecific subcapsular hepatic collection in the right hepatic lobe. Unclear etiology of hepatic collection at this time may be related to fluid collection, no distinct features of hepatocellular carcinoma however further evaluation with MRI will be performed Current Visit: Yes Status: Acute Code(s): R93.5 - ABN FINDINGS ON DX IMAGING OF ABD REGIONS, INC RETROPERITON SNOMED Code(s): 93115325348111856 (2) Abdominal pain Current Visit: Yes Status: Acute Code(s): R10.9 - UNSPECIFIED ABDOMINAL PAIN SNOMED Code(s): 86201850 (3) Chronic abdominal pain Current Visit: Yes Status: Acute Code(s): R10.9 - UNSPECIFIED ABDOMINAL PAIN; G89.29 - OTHER CHRONIC PAIN SNOMED Code(s): 188731722 (4) Constipation Current Visit: Yes Status: Acute Code(s): K59.00 - CONSTIPATION, UNSPECIFIED SNOMED Code(s): 18247353 (5) Nausea and vomiting Current Visit: Yes Status: Acute Code(s): R11.2 - NAUSEA WITH VOMITING, UNSPECIFIED SNOMED Code(s): 27274365 (6) Autoimmune hepatitis Current Visit: Yes Status: Acute Code(s): K75.4 - AUTOIMMUNE HEPATITIS SNOMED Code(s): 122825670 Plan: Supportive care Okay for diet as tolerated Bowel regimen ordered Alpha-fetoprotein level ordered MRI of the abdomen ordered for further characterization of liver lesion Okay to continue other chronic medications We will continue to follow patient's labs and clinically Thank you for allowing us dysphagia in the care of the patient
[2020-08-23] MEDS: clonazePAM 1 MG TAB PO SCH (20:58)
[2020-08-24] MEDS: SODIUM CHLORIDE 0.9% 1,000 ML IV SCH ×2 (04:27→17:43)
--- NOTE | 2020-08-24 05:05 | MR ---
EXAMINATION TYPE: MR liver wo/w con DATE OF EXAM: 08/23/2020 COMPARISON: 08/22/2016 HISTORY: Subcapsular hepatic collection to R lobe. CONTRAST: Standard multiplanar, multisequence MRI departmental protocol utilizing 4 mL intravenous Gadavist araceli olinium contrast. Liver has normal size and contour. There is elongated high signal fluid collection adjacent to the la teral right lobe of the liver. This is close to the diaphragm. This is probably extracapsular fluid a nd could BE a pseudocyst. The fluid measures 3.4 x 4.4 x 1.3 cm. There is dilation of the biliary deondre e and more notably in the common hepatic duct and common bile duct. I see no filling defect. The comm on hepatic duct measures 1.4 cm. There is also some mild ectasia of the pancreatic duct. No filling d efect seen. No evidence of pancreatic mass. The pancreatic duct measures 6 mm. The spleen is intact. The stomach is intact. Kidneys have normal size. There is no hydronephrosis. There is normal enhancement of the kidneys with contrast. There is no sign of retroperitoneal adenopathy. There is normal enhancement of the portal venous system. There is no evidence of thrombosis. There is normal enhancement of the inferior vena c vilma and the renal veins. There is right pleural effusion. There is evidence of right lower lobe infiltrate. IMPRESSION: Compared to old exam there is development of new right pleural effusion and right lower lobe pulmonar y infiltrate. There is septated fluid collection adjacent to the right lobe of the liver which appear s slightly smaller than exam yesterday. This could BE a pseudocyst or unusual hepatic cyst. There is significant dilation of the biliary tree without evidence of a filling defect. This could re late to a stricture of the distal common bile duct. The size of the common bile duct is decreased sli ghtly compared to yesterday exam. Mildly dilated pancreatic duct unchanged.
[2020-08-24] MEDS: LEVOTHYROXINE 125 MCG TAB PO SCH (06:30)
[2020-08-24] MEDS: BUDESONIDE 3 MG PO SCH (08:13)
[2020-08-24] MEDS: AZITHROMYCIN 500 MG TAB PO SCH (08:13)
[2020-08-24] MEDS: guaiFENesin 600 MG TABLET.ER PO SCH ×2 (08:14→21:01)
[2020-08-24] MEDS: PANTOPRAZOLE 40 MG TABLET PO SCH (08:14)
[2020-08-24] MEDS: polyethylene glycoL 3350 17 GM POWD.PACK PO SCH (08:14)
--- NOTE | 2020-08-24 09:28 | P.PN ---
Subjective Progress Note Date: 08/24/20 Principal diagnosis: Subcapsular hepatic collection She was seen and examined lying in bed. Patient just finished rest of magnesium citrate, has not had a bowel movement yet. States having some low abominalcramping, no vomiting, slight nausea. MRI completed showing septated f luid adjacent to right lobe of liver, smaller than yesterday's. Pseudocyst or unusual hepatic cyst. Significant dilation of biliary tree without filling defect. Objective - Vital Signs Vital signs: Vital Signs Temp 100.0 F H 08/24/20 08:00 Pulse 81 08/24/20 08:00 Resp 16 08/24/20 08:00 BP 125/56 08/24/20 08:00 Pulse Ox 95 08/24/20 08:00 Intake & Output 08/23/20 08/24/20 08/24/20 18:59 06:59 18:59 Intake Total 1200 Output Total 1000 975 Balance 200 -975 Intake: IV 1200 Sodium Chloride 0.9% 1, 1200 000 ml @ 100 mls/hr IV . Q10H [facility] Rx#:[id number] Output: Urine 1000 975 Other: Voiding Method Incontinent Incontinent External Catheter External Catheter - Exam General appearance: The patient is alert, oriented, appears in no acute distress. HET: Head is normocephalic and atraumatic. Conjunctiva pink. Sclera anicteric. Neck: Supple without lymphadenopathy. Abdomen: Soft, lower abdominal tenderness,, nondistended with bowel sounds. No guarding or rigidity. Extremities: Normal skin color and turgor. No pedal edema Skin: No rashes, no jaundice Neurological: No focal deficits. Alert and oriented 3. - Labs CBC & Chem 7: 08/24/20 06:34 08/24/20 06:34 Labs: Abnormal Lab Results - Last 24 Hours (Table) 08/23/20 08/23/20 Range/Units 06:44 06:44 RBC 3.57 L (4.10-5.20) X 10*6/uL Hgb 10.3 L (12.0-15.0) g/dL Hct 34.6 L (37.2-46.3) % MCHC 29.8 L (32.0-37.0) g/dL Lymphocytes # 0.65 L (0.90-5.00) X 10*3/uL Chloride 112 H (96-109) mmol/L Creatinine 0.5 L (0.6-1.5) mg/dL Calcium 8.0 L (8.7-10.3) mg/dL Microbiology - Last 24 Hours (Table) 08/23/20 19:32 Gram Stain - Preliminary Sputum Sputum Culture - Preliminary 08/21/20 19:00 Blood Culture - Preliminary Blood No Growth after 48 hours Assessment and Plan (1) Abnormal CT of the abdomen Narrative/Plan: 80-year-old female with a history of autoimmune hepatitis currently on budeso nide and CellCept who follows withDr. Sanchez who presented to the emergency department with complaints of nausea vomiting and decreased intake. Also reported intermittent black stools, denies any use of NSAIDs, or anticoagulation. Patient states she has become more confused recently, ammonia level less than 9. She is alert and oriented 3. She is not sure when he last had imaging of the abdomen. She has been seen at the [facility] approximately 5 years ago where she underwent a biopsy for diagnosis. She's also been seen at [facility] but continues to follow-up with Dr. Sanchez monthly. Patient underwent a CT of the chest which showed subcapsular hepatic collection seen adjacent to the right hepatic lobe measuring approximately 3.6 x 2.8 cm. At this point unsure what the collection consists of, therefore MRI of the liver has been ordered. Alpha-fetoprotein marker was ordered and negative. MRI of the liver ordered showing septated fluid adjacent to right lobe of liver, smaller than yesterday's. Pseudocyst or unusual hepatic cyst. Current Visit: Yes Status: Acute Code(s): R93.5 - ABN FINDINGS ON DX IMAGING OF ABD REGIONS, INC RETROPERITON SNOMED Code(s): 56690939379709077 (2) Constipation Narrative/Plan: Patient has a history of constipation, last good bowel movement over a week ago. States his bowel movements have been small and hard. Dulcolax suppository and MiraLAX will be added. No bowel movement status post magnesium citrate. Repeat x-ray showing air-fluid levels. Current Visit: Yes Status: Acute Code(s): K59.00 - CONSTIPATION, UNSPECIFIED SNOMED Code(s): 36308525 (3) Nausea and vomiting Narrative/Plan: Improved Current Visit: Yes Status: Acute Code(s): R11.2 - NAUSEA WITH VOMITING, UNSPECIFIED SNOMED Code(s): 12546502 (4) Abdominal pain Narrative/Plan: KUB x-ray shows nonspecific gas pattern and fecal matter in the colon, nondistended colon. Current Visit: Yes Status: Acute Code(s): R10.9 - UNSPECIFIED ABDOMINAL PAIN SNOMED Code(s): 36736246 Plan: 1. Continue symptomatic and supportive care 2. Continue medical management 3. MRI of the liver ordered and reviewed 4. Ammonia level ordered, less than 9 5. AFP tumor marker ordered, negative 6. Continue MiraLAX daily 7. Continue Protonix daily 8. If no bowel movement will need abdominal x-ray 9. Consult surgery for possible bowel obstruction 10. Thank you for this consultation, we will continue to follow Dr. Schulte I agree with the dictator's note, documented as a scribe by Viv Boucher.
[2020-08-24 10:55] LABS: Basophils # (A) 0.03 X 10*3/uL (0.00-0.10); Basophils % (A) 0.5 %; Eosinophils # (A) 0.28 X 10*3/uL (0.04-0.35); Eosinophils % (A) 4.3 %; HCT 33.2 % (37.2-46.3); HGB 10.1 g/dL (12.0-15.0); Lymphocytes # (A) 0.65 X 10*3/uL (0.90-5.00); MCH 28.5 pg (27.0-32.0); MCHC 30.4 g/dL (32.0-37.0); MCV 93.8 fL (80.0-97.0); Mean Platelet Volume 11.9 fL (9.5-12.2); Monocytes % (A) 7.7 %; Neutrophils # (A) 5.04 X 10*3/uL (1.80-7.70); Neutrophils % (A) 77.2 %; Platelet Count 153 X 10*3/uL (140-440); RBC 3.54 X 10*6/uL (4.10-5.20); RDW 13.2 % (11.5-14.5); WBC 6.52 X 10*3/uL (4.50-10.00)
[2020-08-24] MEDS: POTASSIUM CHLORIDE ER 20 MEQ TAB.ER PO SCH ×2 (11:35→12:52)
[2020-08-24] MEDS: LIDOCAINE 5% PATCH TOPICAL SCH (11:42)
--- NOTE | 2020-08-24 11:50 | XR ---
EXAMINATION TYPE: XR chest 2V, XR abdomen 1V DATE OF EXAM: 08/24/2020 COMPARISON: Chest x-ray 08/22/2020 KUB 08/21/2020, pelvis 01/13/2020 HISTORY: Pneumonia, abdominal pain, nausea and vomiting TECHNIQUE: Frontal and lateral views of the chest are obtained. Single frontal view of the abdomen FINDINGS: Chest x-ray show similar appearance, there is interval blunting the right costophrenic ang le. Heart is stable, aorta is dense. No pneumothorax. Patchy airspace disease persists on the right. Abdomen shows surgical clips in the right upper quadrant. There are air-fluid levels present. Postop changes are noted at the lumbosacral spine, there is a spinal curvature. Bone mineralization is reduc ed. Distortion of the pubic rami on the left consistent with previous fracture of indeterminate age, noted on prior KUB but not on prior pelvis. IMPRESSION: Right upper and lower lobe pneumonia with parapneumonic effusion. Correlate for enteriti s, follow-up as indicated if obstruction is suspected clinically. Indeterminate age pubic rami fractu res with
[2020-08-24 11:57] LABS: African American GFR (CKD) 107.4 (60.0-200.0); Anion Gap 6.5 mmol/L (4.00-12.00); Calcium 7.9 mg/dL (8.7-10.3); Carbon Dioxide 26.5 mmol/L (21.6-31.8); Non-African American GFR(CKD) 92.7 (60.0-200.0); Potassium 3.6 mmol/L (3.5-5.5)
[2020-08-24] MEDS: HYDROmorphone 2 MG TAB PO PRN (16:31)
[2020-08-24] MEDS: TAMSULOSIN 0.4 MG CAP.ER.24H PO SCH (16:32)
[2020-08-24] MEDS ORDERED: Magnesium Replacement Protocol 1 EACH MISC MISCELLANE PRN (16:42)
--- NOTE | 2020-08-24 16:47 | P.PN ---
Subjective Progress Note Date: 08/24/20 This is a 80-year-old female with past medical history of autoimmune hepatitis C, IBS, follows regularly with Dr. Gianna Sanchze, presented to the ER with nausea, vomiting, occasional black stools 1 week. Reports decreased appetite, chronic left upper quadrant pain that radiates to right upper quadrant. I ncreased burping following food ingestion over the last 4 weeks. Denies fever, reports chills. KUB reported overall nonobstructive bowel gas pattern chest x- ray reporting patchy airspace disease throughout the right mid and lower lung zones. Repeat chest x-ray reported no significant change. Chest CT reported scattered areas of nodular more confluent areas of infiltrates of the right upper and right lower lobes with small pleural effusion, nonspecific subcapsular hepatic collection 3.6 x 2.8-adjacent to right hepatic lobe. LFTs within normal limits. Afebrile, WBC 15.7,hemoglobin 11.1, platelets 148. Stool for occult blood negative .Sodium 131, potassium 3.1. BUN 15, creatinine 0.45. 08/23/2020 evaluated by GI with recommendations noted and appreciated. MRI of liver pending. Ammonia level less than 9. Alpha-fetoprotein marker negative. Reporting no bowel movement after Dulcolax suppository and MiraLAX. Complains of "food feeling stuck midepigastric, even with her boost supplements". Denies nausea or vomiting. 08/24/2020 Liver MRI reported new right pleural effusion, right lower lobe pulmonary infiltrate, septated fluid collection adjacent to the right lobe of the liver, smaller than yesterday, possible pseudocyst or unusual hepatic cyst, significant dilation of the biliary tree without filling defect, possibly related to stricture of the distal common bile duct, decreased common bile duct size. No bowel movement, complaining of chills, weakness, abdominal cramping, occasional nausea and sore back. Denies chest pain, palpitations or shortness of breath. Eating O2 sats in the 90s on room air. T-max 100, WBC within normal limits. Objective - Vital Signs Vital signs: Vital Signs Temp 100.0 F H 08/24/20 08:00 Pulse 81 08/24/20 08:00 Resp 16 08/24/20 08:00 BP 125/56 08/24/20 08:00 Pulse Ox 95 08/24/20 08:00 Intake & Output 08/23/20 08/24/20 08/24/20 18:59 06:59 18:59 Intake Total 1200 Output Total 1000 975 Balance 200 -975 Intake: IV 1200 Sodium Chloride 0.9% 1, 1200 000 ml @ 100 mls/hr IV . Q10H [facility] Rx#:[id number] Output: Urine 1000 975 Other: Voiding Method Incontinent Incontinent Incontinent External Catheter External Catheter External Catheter - Exam PHYSICAL EXAM: VITAL SIGNS: As above GENERAL: Cachectic,Sitting up in bed, no acute distress, weak appearing HEENT: Conjunctivae normal. eyes normal. Oral mucosa moist. NECK: No JVD. No thyroid enlargement. No LNs CARDIOVASCULAR: S1, S2 regular. No murmur RESPIRATION: Breath sounds diminished in the bases. No rhonchi or crackles. ABDOMEN: Soft, nondistended, mid epigastric, bilateral lower quadrant tenderness, No guarding. no masses palpable.Bowel sounds heard. LEGS: No edema. no swelling PSYCHIATRY: Alert and oriented X3, mood and affect normal. NERVOUS SYSTEM: Cranial N 2-12 grossly normal. Moves all 4 limbs. No focal deficits. Strength and sensation grossly intact. Skin: Warm and dry, no rash - Labs CBC & Chem 7: 08/24/20 06:34 08/24/20 06:34 Labs: Abnormal Lab Results - Last 24 Hours (Table) 08/23/20 08/24/20 Range/Units 06:44 06:34 RBC 3.54 L (4.10-5.20) X 10*6/uL Hgb 10.1 L (12.0-15.0) g/dL Hct 33.2 L (37.2-46.3) % MCHC 30.4 L (32.0-37.0) g/dL Lymphocytes # 0.65 L (0.90-5.00) X 10*3/uL Chloride 112 H (96-109) mmol/L Creatinine 0.5 L (0.6-1.5) mg/dL Calcium 8.0 L (8.7-10.3) mg/dL Microbiology - Last 24 Hours (Table) 08/23/20 19:32 Gram Stain - Preliminary Sputum Sputum Culture - Preliminary 08/21/20 19:00 Blood Culture - Preliminary Blood No Growth after 48 hours Assessment and Plan Assessment: Nausea and vomiting, black stools 1 week, negative stool for occult blood. Acute on chronic severe protein calorie malnutrition, BMI 16.1 Chronic left upper quadrant pain radiates to right upper quadrant,accompanied by increased burping after food ingested 4 weeks. Subcapsular hepatic collection 3.6 x 2.8-adjacent to right hepatic lobe. LFTs within normal limits. Liver MRI reporting septated fluid collection adjacent to the right lobe of the liver, smaller than yesterday, possible pseudocyst or unusual hepatic cyst, significant dilation of the biliary tree without filling defect, possibly related to stricture of the distal common bile duct, decreased common bile duct size. Acute Right sided pneumonia, possibly atypical in a patient on CellCept, parapneumonic effusion Small right pleural effusion Autoimmune Hepatitis C Leukocytosis Hyponatremia Hypokalemia Dehydration History of IBS Plan: Continue on current medication regime ,monitoring and symptomatic treatment. Chest x-ray, abdominal x-ray ordered.Surgery consulted. Maintain IV fluids, IV antibiotics-Rocephin added to antibiotic med regimen. Lidocaine patch order for back pain. Close monitoring of hemoglobin, electrolytes with repeat labs ordered for a.m. prognosis guarded given multiple complex medical issues. The impression and plan of care has been dictated as directed. : I performed a history and examination of this patient, discussed the same with the dictator. I agree with the dictator's note ,documented as a scribe. Any additional findings or plans will be noted.
--- NOTE | 2020-08-24 17:52 | P.GSCN ---
History of Present Illness Consult date: 08/24/20 History of present illness: CHIEF COMPLAINT: Nausea/vomiting/constipation Reason for consult: Possible bowel obstruction HISTORY OF PRESENT ILLNESS: This is a 80-year-old female with a history of autoimmune hepatitis C, and IBS. She presented to the hospital nausea and vomiting. Patient is complaining of epigastric pain for about 5 days. She's also been having issues with constipation and it has been several days since her last bowel movement. She's been followed by GI service during this admission regarding fluid by her liver which could be a possible pseudocyst or unusual hepatic cyst per MRI of the liver. She is also being treated for a possible pneumonia. As far as her constipation she has been given stool softeners, mag citrate and Fleet enemas with no results. Abdominal x-ray was ordered which showed a right upper and lower lobe pneumonia with parapneumonic effusion. Correlate for enteritis. Follow-up is indicated if obstruction is suspected clinically. Surgical service has been consult in regards to possible bowel obstruction. PAST MEDICAL HISTORY: See list. PAST SURGICAL HISTORY: See list. MEDICATIONS: See list. ALLERGIES: See list. SOCIAL HISTORY: No illicit drug use. REVIEW OF SYSTEMS: CONSTITUTIONAL: Denies fever or chills. HEENT: Denies blurred vision, vision changes, or eye pain. Denies hemoptysis ENDOCRINE: Denies heat or cold intolerance. CARDIOVASCULAR: Denies chest pain or pressure. RESPIRATORY: No shortness of breath. GASTROINTESTINAL: Refer to HPI NEURO: Denies history of seizures. PSYCH: No depression or suicidal ideation HEMATOLOGIC: Denies bleeding disorders. LYMPHATIC: The patient denies any lumps and bumps around the neck. GENITOURINARY: Denies any blood in urine or increased urinary frequency. MUSCULOSKELETAL: Denies myalgias. Denies joint swelling. Denies decreased range of motion beyond patients baseline. SKIN: Denies pruitis. Denies rash. PHYSICAL EXAM: VITAL SIGNS: Reviewed GENERAL: Well-developed in no acute distress. HEENT: No sclera icterus. Extraocular movements grossly intact. Moist buccal mucosa. Head is atraumatic, normocephalic. Hears conversational speech. No nasal drainage. NECK: Supple without lymphadenopathy. CHEST: Non-labored respirations and equal bilateral excursions. CARDIOVASCULAR: Palpable 2+ radial pulses. ABDOMEN: Soft. Nondistended. Tenderness epigastric area MUSCULOSKELETAL: No clubbing or cyanosis. NEUROLOGIC: No focal or lateralizing signs. Cranial nerves II through XII grossly intact. PSYCH: Appropriate affect. Alert and oriented to person, place and time. SKIN: Well perfused. Good skin turgor. LABORATORY DATA: WBC 6.5 to him on 10.1 platelets 153 sodium 140 potassium 3.6 creatinine 0.5 IMAGING: Abdominal x-ray was ordered which showed a right upper and lower lobe pneumonia with parapneumonic effusion. Correlate for enteritis. Follow-up is indicated if obstruction is suspected clinically. ASSESSMENT: 1. Epigastric Abdominal pain 2. Constipation 3. History of autoimmune hepatitis C 4. History of IBS PLAN: - Computed tomography scan of the abdomen and pelvis with IV contrast has been ordered for further evaluation patient's abdominal pain and constipation - We'll possibly give enemas after CAT scan if no significant findings on CAT scan - Continue supportive care Thank you for this consultation Physician Pharm Tech note has been reviewed by physician. Signing provider agrees with the documented findings, assessment, and plan of care. Past Medical History Additional Past Medical History / Comment(s): Hepatitis C, Immune disorder, IBS History of Any Multi-Drug Resistant Organisms: None Reported Past Surgical History: No Surgical Hx Reported Additional Past Surgical History / Comment(s): Rectal prolapse Past Anesthesia/Blood Transfusion Reactions: No Reported Reaction Past Psychological History: No Psychological Hx Reported Smoking Status: Never smoker Past Alcohol Use History: None Reported Past Drug Use History: None Reported Medications and Allergies Home Medications Medication Instructions Recorded Confirmed Type Budesonide [Budesonide EC] 9 mg PO DAILY 08/21/20 08/21/20 History HYDROmorphone HCL 8 mg PO Q6H PRN 08/21/20 08/21/20 History Mycophenolate Mofetil [Cellcept] 1,000 mg PO BID 08/21/20 08/21/20 History Omeprazole 40 mg PO DAILY 08/21/20 08/21/20 History Tamsulosin HCl [Flomax] 0.4 mg PO W/SUPPER 08/21/20 08/21/20 History clonazePAM [KlonoPIN] 1 mg PO HS 08/21/20 08/21/20 History traZODone HCL 100 mg PO HS 08/21/20 08/21/20 History Allergies Allergy/AdvReac Type Severity Reaction Status Date / Time No Known Drug Allergies Allergy Unknown Verified 08/21/20 16:30 Surgical - Exam Vital Signs Temp Pulse Resp BP Pulse Ox 98.7 F 62 18 141/68 96 08/21/20 13:04 08/21/20 13:04 08/21/20 13:04 08/21/20 13:04 08/21/20 13:04 Results - Labs 08/24/20 06:34 08/24/20 06:34 Abnormal Lab Results - Last 24 Hours (Table) 08/24/20 08/24/20 Range/Units 06:34 06:34 RBC 3.54 L (4.10-5.20) X 10*6/uL Hgb 10.1 L (12.0-15.0) g/dL Hct 33.2 L (37.2-46.3) % MCHC 30.4 L (32.0-37.0) g/dL Lymphocytes # 0.65 L (0.90-5.00) X 10*3/uL BUN 8.0 L (9.0-27.0) mg/dL Creatinine 0.5 L (0.6-1.5) mg/dL Calcium 7.9 L (8.7-10.3) mg/dL Microbiology - Last 24 Hours (Table) 08/23/20 19:32 Gram Stain - Preliminary Sputum Sputum Culture - Preliminary 08/21/20 19:00 Blood Culture - Preliminary Blood No Growth after 48 hours Diabetes panel 08/24/20 Range/Units 06:34 Sodium 140 (135-145) mmol/L Potassium 3.6 (3.5-5.5) mmol/L Chloride 107 (96-109) mmol/L Carbon Dioxide 26.5 (21.6-31.8) mmol/L BUN 8.0 L (9.0-27.0) mg/dL Creatinine 0.5 L (0.6-1.5) mg/dL Glucose 85 (70-110) mg/dL Calcium 7.9 L (8.7-10.3) mg/dL Calcium panel 08/24/20 Range/Units 06:34 Calcium 7.9 L (8.7-10.3) mg/dL Pituitary panel 08/24/20 Range/Units 06:34 Sodium 140 (135-145) mmol/L Potassium 3.6 (3.5-5.5) mmol/L Chloride 107 (96-109) mmol/L Carbon Dioxide 26.5 (21.6-31.8) mmol/L BUN 8.0 L (9.0-27.0) mg/dL Creatinine 0.5 L (0.6-1.5) mg/dL Glucose 85 (70-110) mg/dL Calcium 7.9 L (8.7-10.3) mg/dL Adrenal panel 08/24/20 Range/Units 06:34 Sodium 140 (135-145) mmol/L Potassium 3.6 (3.5-5.5) mmol/L Chloride 107 (96-109) mmol/L Carbon Dioxide 26.5 (21.6-31.8) mmol/L BUN 8.0 L (9.0-27.0) mg/dL Creatinine 0.5 L (0.6-1.5) mg/dL Glucose 85 (70-110) mg/dL Calcium 7.9 L (8.7-10.3) mg/dL
[2020-08-24] MEDS: MAGNESIUM SULFATE-D5W PMX 1 GM in DEXTROSE/WATER 1 100ML.BAG IVPB SCH (21:00)
[2020-08-24] MEDS: traZODone HCL 100 MG TAB PO SCH (21:01)
[2020-08-24] MEDS: clonazePAM 1 MG TAB PO SCH (21:01)
--- NOTE | 2020-08-24 22:10 | CT ---
EXAMINATION TYPE: CT abdomen pelvis w con DATE OF EXAM: 08/24/2020 COMPARISON: 04/26/2019 HISTORY: Constipation and general abd pain CT DLP: 452.6 mGycm Automated exposure control for dose reduction was used. TECHNIQUE: Helical acquisition of images was performed from the lung bases through the pelvis. CONTRAST: Performed without Oral Contrast and with IV Contrast, patient injected with 100 mL of Isovu e 300. FINDINGS: LUNG BASES: Multifocal ill-defined added opacities at the right lung base noted, with a small pleural effusion. LIVER/GB/PANCREAS: Previously seen pronounced intrahepatic and extrahepatic biliary and pancreatic du ctal dilation is redemonstrated SPLEEN: No significant abnormality is seen. ADRENALS: No significant abnormality is seen. KIDNEYS: No significant abnormality is seen. PERITONEAL CAVITY: No pneumoperitoneum or peritoneal fluid. RETROPERITONEAL ADENOPATHY: None visualized REPRODUCTIVE ORGANS: No significant abnormality is seen URINARY BLADDER: There is moderate-marked urinary bladder distention. PELVIC ADENOPATHY: None visualized. OSSEOUS STRUCTURES: New since the previous CT is comminuted left pubic fracture at the symphysis pubi s, which appears chronic. Also new since the prior CT is a right sacral james fracture, which appears chronic. BOWEL: No pneumoperitoneum or pneumatosis, and no bowel obstruction. Extensive volume of pancolonic stool noted. OTHER: No acute vascular findings. IMPRESSION: 1. EXCESSIVE VOLUME OF PANCOLONIC STOOL. 2. RIGHT LUNG BASE PLEURAL/PARENCHYMAL CHANGES. 3. MODERATE-MARKED URINARY BLADDER DISTENTION.
[2020-08-25] MEDS: MAGNESIUM SULFATE-D5W PMX 1 GM in DEXTROSE/WATER 1 100ML.BAG IVPB SCH (02:13)
[2020-08-25] MEDS: LEVOTHYROXINE 125 MCG TAB PO SCH (06:14)
[2020-08-25] MEDS: SODIUM CHLORIDE 0.9% 1,000 ML IV SCH ×3 (06:14→22:09)
[2020-08-25] MEDS: PANTOPRAZOLE 40 MG TABLET PO SCH (08:18)
[2020-08-25] MEDS: guaiFENesin 600 MG TABLET.ER PO SCH ×2 (08:18→21:57)
[2020-08-25] MEDS: AZITHROMYCIN 500 MG TAB PO SCH (08:18)
[2020-08-25] MEDS: LIDOCAINE 5% PATCH TOPICAL SCH (08:19)
[2020-08-25] MEDS: BUDESONIDE 3 MG PO SCH (08:21)
--- NOTE | 2020-08-25 09:02 | P.PN ---
Subjective Progress Note Date: 08/25/20 Principal diagnosis: Subcapsular hepatic collection Patient is seen and examined lying in bed. Reports no bowel movement. Having some abdominal pain still, no nausea or vomiting. She remains nothing by mouth. Surgery is on consult and ordered a CT of the abdomen and pelvis which shows excessive volume of pancolonic stool. Objective - Vital Signs Vital signs: Vital Signs Temp 98.8 F 08/25/20 07:35 Pulse 69 08/25/20 07:35 Resp 16 08/25/20 07:35 BP 109/59 08/25/20 07:35 Pulse Ox 95 08/25/20 07:35 Intake & Output 08/24/20 08/25/20 08/25/20 18:59 06:59 18:59 Output Total 400 400 Balance -400 -400 Weight 38.555 kg Output: Urine 400 400 Other: Voiding Method Incontinent Incontinent External Catheter External Catheter - Exam General appearance: The patient is alert, oriented, appears in no acute distress. HET: Head is normocephalic and atraumatic. Conjunctiva pink. Sclera anicteric. Neck: Supple without lymphadenopathy. Abdomen: Soft, lower abdominal tenderness,, nondistended with bowel sounds. No guarding or rigidity. Extremities: Normal skin color and turgor. No pedal edema Skin: No rashes, no jaundice Neurological: No focal deficits. Alert and oriented 3. - Labs CBC & Chem 7: 08/25/20 05:32 08/25/20 05:32 Labs: Abnormal Lab Results - Last 24 Hours (Table) 08/24/20 08/24/20 Range/Units 06:34 06:34 RBC 3.54 L (4.10-5.20) X 10*6/uL Hgb 10.1 L (12.0-15.0) g/dL Hct 33.2 L (37.2-46.3) % MCHC 30.4 L (32.0-37.0) g/dL Lymphocytes # 0.65 L (0.90-5.00) X 10*3/uL BUN 8.0 L (9.0-27.0) mg/dL Creatinine 0.5 L (0.6-1.5) mg/dL Calcium 7.9 L (8.7-10.3) mg/dL Microbiology - Last 24 Hours (Table) 08/21/20 19:00 Blood Culture - Preliminary Blood No Growth after 72 hours 08/23/20 19:32 Gram Stain - Preliminary Sputum Sputum Culture - Preliminary Assessment and Plan (1) Abnormal CT of the abdomen Narrative/Plan: 80-year-old female with a history of autoimmune hepatitis currently on budesonide and CellCept who follows withDr. Sanchez who presented to the emergency department with complaints of nausea vomiting and decreased intake. Also r eported intermittent black stools, denies any use of NSAIDs, or anticoagulation. Patient states she has become more confused recently, ammonia level less than 9. She is alert and oriented 3. She is not sure when he last had imaging of the abdomen. She has been seen at the [facility] approximately 5 years ago where she underwent a biopsy for diagnosis. She's also been seen at [facility] but continues to follow-up with Dr. Sanchez monthly. Patient underwent a CT of the chest which showed subcapsular hepatic collection seen adjacent to the right hepatic lobe measuring approximately 3.6 x 2.8 cm. At this point unsure what the collection consists of, therefore MRI of the liver has been ordered. Alpha-fetoprotein marker was ordered and negative. MRI of the liver ordered showing septated fluid adjacent to right lobe of liver, smaller than yesterday's. Pseudocyst or unusual hepatic cyst. Current Visit: Yes Status: Acute Code(s): R93.5 - ABN FINDINGS ON DX IMAGING OF ABD REGIONS, INC RETROPERITON SNOMED Code(s): 35508816041588901 (2) Constipation Narrative/Plan: Patient has a history of constipation, last good bowel movement over a week ago. States his bowel movements have been small and hard. Dulcolax suppository and MiraLAX will be added. No bowel movement status post magnesium citrate. Repeat x-ray showing air-fluid levels. Gen. surgery on consult. Current Visit: Yes Status: Acute Code(s): K59.00 - CONSTIPATION, UNSPECIFIED SNOMED Code(s): 73217142 (3) Nausea and vomiting Narrative/Plan: Improved Current Visit: Yes Status: Acute Code(s): R11.2 - NAUSEA WITH VOMITING, UNSPECIFIED SNOMED Code(s): 36062160 (4) Abdominal pain Narrative/Plan: KUB x-ray shows nonspecific gas pattern and fecal matter in the colon, nondistended colon. Current Visit: Yes Status: Acute Code(s): R10.9 - UNSPECIFIED ABDOMINAL PAIN SNOMED Code(s): 09306596 Plan: 1. Continue symptomatic and supportive care 2. Continue medical management 3. MRI of the liver ordered and reviewed 4. Ammonia level ordered, less than 9 5. AFP tumor marker ordered, negative 6. Continue MiraLAX daily 7. Continue Protonix daily 8. Surgery on consult, will await their recommendations 9. CT abdomen and pelvis reviewed, showing excessive volume of and colonic stool 10. Keep nothing by mouth Thank you for this consultation, we will remain on standby Dr. Schulte I agree with the dictator's note, documented as a scribe by Viv Boucher.
[2020-08-25 09:48] LABS: Basophils # (A) 0.03 X 10*3/uL (0.00-0.10); Basophils % (A) 0.6 %; Eosinophils # (A) 0.13 X 10*3/uL (0.04-0.35); Eosinophils % (A) 2.4 %; HCT 29.8 % (37.2-46.3); HGB 9.4 g/dL (12.0-15.0); Lymphocytes # (A) 0.68 X 10*3/uL (0.90-5.00); Lymphocytes % (A) 12.5 %; MCH 29.2 pg (27.0-32.0); MCHC 31.5 g/dL (32.0-37.0); MCV 92.5 fL (80.0-97.0); Mean Platelet Volume 11.9 fL (9.5-12.2); Monocytes # (A) 0.56 X 10*3/uL (0.20-1.00); Monocytes % (A) 10.3 %; Neutrophils # (A) 4.03 X 10*3/uL (1.80-7.70); Neutrophils % (A) 73.8 %; Platelet Count 173 X 10*3/uL (140-440); RBC 3.22 X 10*6/uL (4.10-5.20); RDW 13.1 % (11.5-14.5); WBC 5.45 X 10*3/uL (4.50-10.00)
[2020-08-25] MEDS: polyethylene glycoL 3350 17 GM POWD.PACK PO SCH (10:19)
[2020-08-25 10:59] LABS: African American GFR (CKD) 107.4 (60.0-200.0); Anion Gap 1.1 mmol/L (4.00-12.00); Carbon Dioxide 32.9 mmol/L (21.6-31.8); Magnesium 2.7 mg/dL (1.5-2.4); Non-African American GFR(CKD) 92.7 (60.0-200.0); Potassium 3.8 mmol/L (3.5-5.5)
[2020-08-25] MEDS: PIPERACILLIN-TAZOBACTAM 3.375 GM in SODIUM CHLORIDE 0.9% 100 ML IVPB SCH ×2 (11:11→21:57)
[2020-08-25] MEDS: HYDROmorphone 2 MG TAB PO PRN ×2 (11:12→21:56)
--- NOTE | 2020-08-25 11:48 | P.CNPUL ---
History of Present Illness Consult date: 08/25/20 Requesting physician: Estephania Velarde Reason for consult: pneumonia, abnormal CXR/CT Chief complaint: Right lower lobe pneumonia History of present illness: 80-year-old white female patient with past medical history of IBS with constipation, autoimmune hepatitis see, who presented to the hospital on 08/21/2020 for evaluation of nausea, vomiting, constipation and abdominal discomfort. She reported decreased appetite, she does have left upper quadrant pain that was radiating to her right upper quadrant, reportedly chronic. She's been having increased burping following food ingestion over the last 4 weeks. She reports not having a bowel movement for over one week despite using Senokot at home for constipation. She denied any fever, didn't have some night sweats. KUB reported overall nonobstructive bowel pattern, chest x-ray showed patchy airspace disease throughout the right mid and lower lung zones. Repeat chest x- ray reported no significant change. Patient was started on antibiotics in the form of azithromycin and Rocephin possibility of right mid and lower lobe pneumonia. CT chest showed scattered areas of nodular and more confluent areas of infiltrate throughout the right upper and right lower lobes with small pleural effusion. And nonspecific subcapsular hepatic fluid collection. GI service is following in regards to abnormal liver findings. MRI of the liver sh owed septated fluid collection adjacent to the right lobe of the liver with the possibility of a pseudocyst or unusual hepatic cyst. And there was significant dilation of the biliary tree without evidence of a filling defect. Patient was given stool softeners, makes titrating Fleet enemas with no results. Surgical services were consulted for possibility of bowel obstruction. In the meantime patient is on room air, she's been afebrile, her breathing seems to be fairly comfortable, no altered mentation, we were asked to see the patient in evaluation for right lung pneumonia which is likely related to aspiration Review of Systems All systems: negative Constitutional: Denies chills, Denies fever Eyes: denies blurred vision, denies pain Ears, nose, mouth and throat: Denies headache, Denies sore throat Cardiovascular: Denies chest pain, Denies shortness of breath Respiratory: Reports dyspnea, Denies cough Gastrointestinal: Reports abdominal pain, Reports belching, Reports bloating, Denies diarrhea, Denies nausea, Denies vomiting Genitourinary: Denies dysuria, Denies hematuria Musculoskeletal: Denies myalgias Integumentary: Denies pruritus, Denies rash Neurological: Denies numbness, Denies weakness Psychiatric: Denies anxiety, Denies depression Endocrine: Denies fatigue, Denies weight change Past Medical History Additional Past Medical History / Comment(s): Hepatitis C, Immune disorder, IBS History of Any Multi-Drug Resistant Organisms: None Reported Past Surgical History: No Surgical Hx Reported Additional Past Surgical History / Comment(s): Rectal prolapse Past Anesthesia/Blood Transfusion Reactions: No Reported Reaction Past Psychological History: No Psychological Hx Reported Smoking Status: Never smoker Past Alcohol Use History: None Reported Past Drug Use History: None Reported Medications and Allergies Home Medications Medication Instructions Recorded Confirmed Type Budesonide [Budesonide EC] 9 mg PO DAILY 08/21/20 08/21/20 History HYDROmorphone HCL 8 mg PO Q6H PRN 08/21/20 08/21/20 History Mycophenolate Mofetil [Cellcept] 1,000 mg PO BID 08/21/20 08/21/20 History Omeprazole 40 mg PO DAILY 08/21/20 08/21/20 History Tamsulosin HCl [Flomax] 0.4 mg PO W/SUPPER 08/21/20 08/21/20 History clonazePAM [KlonoPIN] 1 mg PO HS 08/21/20 08/21/20 History traZODone HCL 100 mg PO HS 08/21/20 08/21/20 History Allergies Allergy/AdvReac Type Severity Reaction Status Date / Time No Known Drug Allergies Allergy Unknown Verified 08/21/20 16:30 Physical Exam Vitals: Vital Signs Temp Pulse Resp BP Pulse Ox 08/25/20 08:00 16 08/25/20 07:35 98.8 F 69 16 109/59 95 08/25/20 02:30 98.7 F 74 15 104/65 94 L 08/24/20 20:00 82 17 08/24/20 19:40 99.2 F 82 17 100/50 97 08/24/20 14:14 100.0 F H 78 17 106/54 95 Intake and Output 08/24/20 08/25/20 08/25/20 22:59 06:59 14:59 Output Total 400 400 Balance -400 -400 Output: Urine 400 400 Other: Voiding Method Incontinent Incontinent External Catheter External Catheter GENERAL EXAM: Alert, very pleasant, cachectic-looking 80-year-old white female, on room air with a pulse ox of 95%, comfortable in no apparent distress. HEAD: Normocephalic/atraumatic. EYES: Normal reaction of pupils, equal size. Conjunctiva pink, sclera white. NOSE: Clear with pink turbinates. THROAT: No erythema or exudates. NECK: No masses, no JVD, no thyroid enlargement, no adenopathy. CHEST: No chest wall deformity. Symmetrical expansion. LUNGS: Equal air entry with diminished breath sounds and crackles over right mid and lower lobe CVS: Regular rate and rhythm, normal S1 and S2, no gallops, no murmurs, no rubs ABDOMEN: Soft, nontender. No hepatosplenomegaly, normal bowel sounds, no guarding or rigidity. EXTREMITIES: No clubbing, no edema, no cyanosis, 2+ pulses and upper and lower extremities. MUSCULOSKELETAL: Muscle strength and tone normal. SPINE: No scoliosis or deformity SKIN: No rashes CENTRAL NERVOUS SYSTEM: Alert and oriented -3. No focal deficits, tone is normal in all 4 extremities. PSYCHIATRIC: Alert and oriented -3. Appropriate affect. Intact judgment and insight. Results - Laboratory Findings CBC and BMP: 08/25/20 05:32 08/25/20 05:32 Abnormal lab findings: Abnormal Labs 08/21/20 08/21/20 08/21/20 13:22 13:22 13:22 WBC 15.7 H RBC 3.71 L Hgb 11.1 L Hct 32.6 L MCHC Plt Count 148 L Neutrophils # 14.8 H Lymphocytes # 0.4 L Sodium 131 L Potassium 3.1 L Chloride Carbon Dioxide Anion Gap BUN Creatinine 0.45 L Glucose 112 H Calcium 8.0 L Magnesium Total Protein 5.4 L Albumin 3.2 L Urine Blood Trace H 08/22/20 08/22/20 08/23/20 11:52 11:52 06:44 WBC 11.2 H RBC 3.77 L 3.57 L Hgb 11.3 L 10.3 L Hct 34.6 L MCHC 29.8 L Plt Count 139 L Neutrophils # 10.1 H Lymphocytes # 0.6 L 0.65 L Sodium Potassium 3.2 L Chloride Carbon Dioxide Anion Gap BUN Creatinine Glucose Calcium 8.0 L Magnesium Total Protein Albumin Urine Blood 08/23/20 08/24/20 08/24/20 06:44 06:34 06:34 WBC RBC 3.54 L Hgb 10.1 L Hct 33.2 L MCHC 30.4 L Plt Count Neutrophils # Lymphocytes # 0.65 L Sodium Potassium Chloride 112 H Carbon Dioxide Anion Gap BUN 8.0 L Creatinine 0.5 L 0.5 L Glucose Calcium 8.0 L 7.9 L Magnesium Total Protein Albumin Urine Blood 08/25/20 08/25/20 05:32 05:32 WBC RBC 3.22 L Hgb 9.4 L Hct 29.8 L MCHC 31.5 L Plt Count Neutrophils # Lymphocytes # 0.68 L Sodium Potassium Chloride Carbon Dioxide 32.9 H Anion Gap 1.10 L BUN 8.0 L Creatinine 0.5 L Glucose Calcium 8.0 L Magnesium 2.7 H Total Protein Albumin Urine Blood - Diagnostic Findings Chest x-ray: report reviewed, image reviewed CT scan - chest: report reviewed, image reviewed Additional studies: Results of the KUB x-ray, chest CT, liver MRI, CT of the abdomen and pelvis reviewed Assessment and Plan Plan: Assessment: #1. Acute right lung pneumonia, and CT chest showed scattered areas of nodular and confluent areas of airspace disease throughout the right upper and right lower lobes with small pleural effusion. Consider aspiration pneumonia #2. Epigastric abdominal pain, related to constipation. KUB of the abdomen on admission showed nonspecific bowel gas pattern, CT of the abdomen and pelvis with oral contrast showed excessive volume of pancolonic stool, and moderate to marked urinary bladder distention #3. History of IBS with constipation with chronic constipation issues #4. Hepatic fluid collection as seen on MRI of the liver possibly related to a pseudocyst or unusual hepatic cyst, GI service is following #5. History of autoimmune hepatitis C #6. Patient is underweight, BMI is 16.1 kg/m #7. Consider chronic protein calorie malnutrition, unspecified Plan: We'll switch the antibiotic coverage to Zosyn for possibility of aspiration pneumonia Continue IV fluids Patient is on room air Breathing fairly comfortably Vital signs are stable Maintain aspiration precautions Constipation management per surgery We'll continue to follow I performed a history & physical examination of the patient and discussed their management with my nurse practitioner, Robina Brooke. I reviewed the nurse practitioner's note and agree with the documented findings and plan of care. Lung sounds are positive for diminished breath sounds. The findings and the impression was discussed with the patient. I attest to the documentation by the nurse practitioner. Time with Patient: Greater than 30
--- NOTE | 2020-08-25 13:41 | P.PN ---
Subjective Progress Note Date: 08/25/20 Patient seen and evaluated. She reported epigastric abdominal pain. CT of the abdomen and pelvis independently reviewed by me demonstrated moderate intrahepatic dilation. Otherwise moderate stool in the entire colon. No evidence of small bowel obstruction. Recommend milk of molasses enemas. May have clear liquid diet in the interim. May need repeat enemas with oral cathartics. We'll continue to follow. Objective - Vital Signs Vital signs: Vital Signs Temp 98.8 F 08/25/20 07:35 Pulse 69 08/25/20 07:35 Resp 16 08/25/20 08:00 BP 109/59 08/25/20 07:35 Pulse Ox 95 08/25/20 07:35 Intake & Output 08/24/20 08/25/20 08/25/20 18:59 06:59 18:59 Output Total 400 400 Balance -400 -400 Weight 38.555 kg Output: Urine 400 400 Other: Voiding Method Incontinent Incontinent Incontinent External Catheter External Catheter External Catheter - Labs CBC & Chem 7: 08/25/20 05:32 08/25/20 05:32 Labs: Abnormal Lab Results - Last 24 Hours (Table) 08/25/20 08/25/20 Range/Units 05:32 05:32 RBC 3.22 L (4.10-5.20) X 10*6/uL Hgb 9.4 L (12.0-15.0) g/dL Hct 29.8 L (37.2-46.3) % MCHC 31.5 L (32.0-37.0) g/dL Lymphocytes # 0.68 L (0.90-5.00) X 10*3/uL Carbon Dioxide 32.9 H (21.6-31.8) mmol/L Anion Gap 1.10 L (4.00-12.00) mmol/L BUN 8.0 L (9.0-27.0) mg/dL Creatinine 0.5 L (0.6-1.5) mg/dL Calcium 8.0 L (8.7-10.3) mg/dL Magnesium 2.7 H (1.5-2.4) mg/dL Microbiology - Last 24 Hours (Table) 08/23/20 19:32 Gram Stain - Final Sputum Sputum Culture - Final 08/21/20 19:00 Blood Culture - Preliminary Blood No Growth after 72 hours
--- NOTE | 2020-08-25 15:07 | P.PN ---
Subjective Progress Note Date: 08/25/20 This is a 80-year-old female with past medical history of autoimmune hepatitis C, IBS, follows regularly with Dr. Gianna Sanchez, presented to the ER with nausea, vomiting, occasional black stools 1 week. Reports decreased appetite, chronic left upper quadrant pain that radiates to right upper quadrant. I ncreased burping following food ingestion over the last 4 weeks. Denies fever, reports chills. KUB reported overall nonobstructive bowel gas pattern chest x- ray reporting patchy airspace disease throughout the right mid and lower lung zones. Repeat chest x-ray reported no significant change. Chest CT reported scattered areas of nodular more confluent areas of infiltrates of the right upper and right lower lobes with small pleural effusion, nonspecific subcapsular hepatic collection 3.6 x 2.8-adjacent to right hepatic lobe. LFTs within normal limits. Afebrile, WBC 15.7,hemoglobin 11.1, platelets 148. Stool for occult blood negative .Sodium 131, potassium 3.1. BUN 15, creatinine 0.45. 08/23/2020 evaluated by GI with recommendations noted and appreciated. MRI of liver pending. Ammonia level less than 9. Alpha-fetoprotein marker negative. Reporting no bowel movement after Dulcolax suppository and MiraLAX. Complains of "food feeling stuck midepigastric, even with her boost supplements". Denies nausea or vomiting. 08/24/2020 Liver MRI reported new right pleural effusion, right lower lobe pulmonary infiltrate, septated fluid collection adjacent to the right lobe of the liver, smaller than yesterday, possible pseudocyst or unusual hepatic cyst, significant dilation of the biliary tree without filling defect, possibly related to stricture of the distal common bile duct, decreased common bile duct size. No bowel movement, complaining of chills, weakness, abdominal cramping, occasional nausea and sore back. Denies chest pain, palpitations or shortness of breath. Eating O2 sats in the 90s on room air. T-max 100, WBC within normal limits. 08/25/2020 Remains NPO,continues to report no bowel movement, denies nausea, vomiting. Reports bilateral lower quadrant pressure. Abdominal x-ray reported air-fluid levels present in his abdomen , correlate for enteritis, possible obstruction . Surgery consult in place .CT of abdomen/pelvis completed reporting excessive volume of pancolonic stool, moderate marked urinary bladder distention. Afebrile, T-max 100, normal WBC. Hemoglobin 9.4, platelets 173. Bicarb 32.9 . Maintaining O2 sats in the 90s on room air. Chest x-ray yesterday afternoon reporting right upper and lower lobe pneumonia with parapneumonic effusion, air-fluid levels present in abdomen -correlate for enteritis, distorted pubic rami on the left consistent with previous fracture of indeterminate age. Objective - Vital Signs Vital signs: Vital Signs Temp 98.8 F 08/25/20 07:35 Pulse 69 08/25/20 07:35 Resp 16 08/25/20 08:00 BP 109/59 08/25/20 07:35 Pulse Ox 95 08/25/20 07:35 Intake & Output 08/24/20 08/25/20 08/25/20 18:59 06:59 18:59 Output Total 400 400 Balance -400 -400 Weight 38.555 kg Output: Urine 400 400 Other: Voiding Method Incontinent Incontinent Incontinent External Catheter External Catheter External Catheter - Exam PHYSICAL EXAM: VITAL SIGNS: As above GENERAL: Cachectic,Sitting up in bed, no acute distress, weak appearing HEENT: Conjunctivae normal. eyes normal. Oral mucosa moist. NECK: No JVD. No thyroid enlargement. No LNs CARDIOVASCULAR: S1, S2 regular. No murmur RESPIRATION: Breath sounds diminished in the bases. No rhonchi. Right basilar and mid lobe crackles. ABDOMEN: Soft, nondistended, bilateral lower quadrant tenderness, No guarding. no masses palpable.Bowel sounds heard. LEGS: No edema. no swelling PSYCHIATRY: Alert and oriented X3, mood and affect normal. NERVOUS SYSTEM: Cranial N 2-12 grossly normal. Moves all 4 limbs. No focal d eficits. Strength and sensation grossly intact. Skin: Warm and dry, no rash - Labs CBC & Chem 7: 08/25/20 05:32 08/25/20 05:32 Labs: Abnormal Lab Results - Last 24 Hours (Table) 08/24/20 08/25/20 08/25/20 Range/Units 06:34 05:32 05:32 RBC 3.22 L (4.10-5.20) X 10*6/uL Hgb 9.4 L (12.0-15.0) g/dL Hct 29.8 L (37.2-46.3) % MCHC 31.5 L (32.0-37.0) g/dL Lymphocytes # 0.68 L (0.90-5.00) X 10*3/uL Carbon Dioxide 32.9 H (21.6-31.8) mmol/L Anion Gap 1.10 L (4.00-12.00) mmol/L BUN 8.0 L 8.0 L (9.0-27.0) mg/dL Creatinine 0.5 L 0.5 L (0.6-1.5) mg/dL Calcium 7.9 L 8.0 L (8.7-10.3) mg/dL Magnesium 2.7 H (1.5-2.4) mg/dL Microbiology - Last 24 Hours (Table) 08/23/20 19:32 Gram Stain - Final Sputum Sputum Culture - Final 08/21/20 19:00 Blood Culture - Preliminary Blood No Growth after 72 hours Assessment and Plan Assessment: Nausea and vomiting, black stools 1 week, negative stool for occult blood. Acute on chronic severe protein calorie malnutrition, BMI 16.1 Chronic left upper quadrant pain radiates to right upper quadrant,accompanied by increased burping after food ingested 4 weeks. Subcapsular hepatic collection 3.6 x 2.8-adjacent to right hepatic lobe. LFTs within normal limits. Liver MRI reporting septated fluid collection adjacent to the right lobe of the liver, smaller than yesterday, possible pseudocyst or unusual hepatic cyst, significant dilation of the biliary tree without filling defect, possibly related to stricture of the distal common bile duct, decreased common bile duct size. Repeat x-ray reporting air-fluid levels. Acute Right sided pneumonia, possibly atypical in a patient on CellCept, parapneumonic effusion, possibly aspiration pneumonia. Small right pleural effusion Autoimmune Hepatitis C Leukocytosis Hyponatremia Hypokalemia Dehydration History of IBS Pubic [place] fractures ,Indeterminate age Plan: Continue on current medication regime ,monitoring and symptomatic treatment. Speech therapy consulted for swallow evaluation. IV antibiotics adjusted for potential aspiration pneumonia. Pulmonary recommendations noted and appreciated. Surgery consult in place, recommendations pending. Maintain IV fluids. Close monitoring of hemoglobin with repeat labs ordered for a.m. prognosis guarded given multiple complex medical issues. The impression and plan of care has been dictated as directed. : I performed a history and examination of this patient, discussed the same with the dictator. I agree with the dictator's note ,documented as a scribe. Any additional findings or plans will be noted.
[2020-08-25] MEDS: TAMSULOSIN 0.4 MG CAP.ER.24H PO SCH (17:04)
[2020-08-25] MEDS: traZODone HCL 100 MG TAB PO SCH (21:57)
[2020-08-25] MEDS: clonazePAM 1 MG TAB PO SCH (21:57)
[2020-08-26] MEDS: PIPERACILLIN-TAZOBACTAM 3.375 GM in SODIUM CHLORIDE 0.9% 100 ML IVPB SCH ×3 (05:59→21:56)
[2020-08-26] MEDS: LEVOTHYROXINE 125 MCG TAB PO SCH (06:00)
[2020-08-26] MEDS: BUDESONIDE 3 MG PO SCH (09:17)
[2020-08-26] MEDS: guaiFENesin 600 MG TABLET.ER PO SCH ×2 (09:18→22:03)
[2020-08-26] MEDS: PANTOPRAZOLE 40 MG TABLET PO SCH (09:18)
[2020-08-26] MEDS: LIDOCAINE 5% PATCH TOPICAL SCH (09:19)
[2020-08-26] MEDS: polyethylene glycoL 3350 17 GM POWD.PACK PO SCH (09:20)
[2020-08-26] MEDS: SODIUM CHLORIDE 0.9% 1,000 ML IV SCH ×3 (11:53→21:59)
--- NOTE | 2020-08-26 12:07 | P.PN ---
Subjective Progress Note Date: 08/26/20 Principal diagnosis: Abdominal pain, nausea, pneumonia, chest x-ray and CT chest and abdomen Patient 80-year-old white female well-known to practice past history of irritable bowel autoimmune hepatitis C, presents the hospital on 08/21/2020 provide a short nausea vomiting constipation all discomfort. Decreased appetite is to have left upper quadrant pain radiating to her right upper quadrant which is chronic patient having increased belching with food ingestion over the past 4 weeks. Reports not having a bowel movement for over 1 week using Senokot at home for constipation denied fever and no night sweats. KUB reports overall nonobstructive bowel pattern chest x-ray shows patchy airspace disease mid lower lung zones. Patient started on antibiotics azithromycin and Rocephin for possible community acquired pneumonia, please note that patient is on CELL-cept for systemic lupus which suppresses immune system and can result in many of the side effects this patient is experiencing including, constipation nausea headache diarrhea vomiting started pain or upset loss of appetite gas tremor difficulty sleeping, weakness swelling in the hands and feet numbness and tin gling anxiety, fatigue, muscle weakness easy bleeding or bruising, swelling of the ankles or feet, mental status mood changes, weakness on one side of the body or the other and unusual change in urinary output. JUST to name a few. She has been on this medication for a significant length of time. This however does not explain the unusual finding on the MRI of the abdomen and pelvis Objective - Vital Signs Vital signs: Vital Signs Temp 98.5 F 08/26/20 07:04 Pulse 61 08/26/20 08:00 Resp 16 08/26/20 08:00 BP 112/62 08/26/20 07:04 Pulse Ox 95 08/26/20 07:04 Intake & Output 08/25/20 08/26/20 08/26/20 18:59 06:59 18:59 Output Total 150 Balance -150 Output: Urine 150 Other: Voiding Method Incontinent Incontinent External Catheter External Catheter # Bowel Movements 2 - Exam General: [Patient awake, alert and oriented times 3. Patient in no acute distress.] In fact patient was sleeping when I came in the room HEENT: [PERRL. EOMI. No pharyngeal erythema or exudate.] Neck: [No adenopathy.] Cardiac: [Heart regular in rate and rhythm. No S3. No S4. No clicks, rubs. No murmur.] Lungs: Diminished breath sounds bilaterally Abdomen: [No mass. No organomegaly. Bowel sounds presnt and normoactive in all 4 quadrants.] Extremes: [No edema no cyanosis no claudication normal pulses] : [] Musculoskeletal: [No joint erythema, edema or tenderness.] Skin: [No rash.] Neurologic: [No lateralizing deficits. CN II - XII grossly intact.] Lymphatic: [No adenopathy.] - Labs CBC & Chem 7: 08/25/20 05:32 08/25/20 05:32 Labs: Microbiology - Last 24 Hours (Table) 08/21/20 19:00 Blood Culture - Preliminary Blood No Growth after 96 hours 08/23/20 19:32 Gram Stain - Final Sputum Sputum Culture - Final Assessment and Plan (1) Side effect of medication Current Visit: Yes Status: Acute Code(s): T88.7XXA - UNSP ADVERSE EFFECT OF DRUG OR MEDICAMENT, INIT ENCNTR SNOMED Code(s): 833900823 (2) Abdominal pain Current Visit: Yes Status: Acute Code(s): R10.9 - UNSPECIFIED ABDOMINAL PAIN SNOMED Code(s): 37271763 (3) Abnormal CT of the abdomen Current Visit: Yes Status: Acute Code(s): R93.5 - ABN FINDINGS ON DX IMAGING OF ABD REGIONS, INC RETROPERITON SNOMED Code(s): 10075504636408835 (4) Autoimmune hepatitis Current Visit: Yes Status: Acute Code(s): K75.4 - AUTOIMMUNE HEPATITIS SNOMED Code(s): 933977878 (5) Chronic abdominal pain Current Visit: Yes Status: Acute Code(s): R10.9 - UNSPECIFIED ABDOMINAL PAIN; G89.29 - OTHER CHRONIC PAIN SNOMED Code(s): 288477465 (6) Constipation Current Visit: Yes Status: Acute Code(s): K59.00 - CONSTIPATION, UNSPECIFIED SNOMED Code(s): 63232442 (7) Dehydration Current Visit: Yes Status: Acute Code(s): E86.0 - DEHYDRATION SNOMED Code(s): 02071752 (8) Failure to thrive Current Visit: Yes Status: Acute Code(s): KUN9588 - SNOMED Code(s): 60564830 (9) Leukocytosis Current Visit: Yes Status: Acute Code(s): D72.829 - ELEVATED WHITE BLOOD CELL COUNT, UNSPECIFIED SNOMED Code(s): 935959782 (10) Nausea and vomiting Current Visit: Yes Status: Acute Code(s): R11.2 - NAUSEA WITH VOMITING, UNSPECIFIED SNOMED Code(s): 34961141 (11) Pneumonia Current Visit: Yes Status: Acute Code(s): J18.9 - PNEUMONIA, UNSPECIFIED ORGANISM SNOMED Code(s): 438996990 Plan: Acute right lung pneumonia Epigastric abdominal pain related to constipation possibly secondary to side effect of cell cept(med) History of IBS with constipation chronic constipation could be side effect of CellCept Lymphatic fluid collection is seen in MRI of liver History of autoimmune hepatitis C History of SLE History of significant chronic weight loss, protein calorie malnutrition, also side effect of CellCept Questionable immune deficiency also side effect of CellCept Plan: Continue IV fluids Continue IV antibiotics Zosyn Constipation management or surgery at this time Will discuss with patient's desktop support consultant and specialist at the [facility] regarding changing CellCept We will continue to follow Time with Patient: Greater than 30
--- NOTE | 2020-08-26 12:18 | P.PN ---
Subjective Progress Note Date: 08/26/20 Principal diagnosis: Right lower lobe pneumonia 80-year-old white female patient with past medical history of IBS with constipation, autoimmune hepatitis see, who presented to the hospital on 08/21/2020 for evaluation of nausea, vomiting, constipation and abdominal discomfort. She reported decreased appetite, she does have left upper quadrant pain that was radiating to her right upper quadrant, reportedly chronic. She's been having increased burping following food ingestion over the last 4 weeks. She reports not having a bowel movement for over one week despite using Senokot at home for constipation. She denied any fever, didn't have some night sweats. KUB reported overall nonobstructive bowel pattern, chest x-ray showed patchy airspace disease throughout the right mid and lower lung zones. Repeat chest x- ray reported no significant change. Patient was started on antibiotics in the form of azithromycin and Rocephin possibility of right mid and lower lobe pne umonia. CT chest showed scattered areas of nodular and more confluent areas of infiltrate throughout the right upper and right lower lobes with small pleural effusion. And nonspecific subcapsular hepatic fluid collection. GI service is following in regards to abnormal liver findings. MRI of the liver showed septated fluid collection adjacent to the right lobe of the liver with the possibility of a pseudocyst or unusual hepatic cyst. And there was significant dilation of the biliary tree without evidence of a filling defect. Patient was given stool softeners, makes titrating Fleet enemas with no results. Surgical services were consulted for possibility of bowel obstruction. In the meantime patient is on room air, she's been afebrile, her breathing seems to be fairly comfortable, no altered mentation, we were asked to see the patient in evaluation for right lung pneumonia which is likely related to aspiration. The patient is seen today 08/26/2020 in follow-up on the regular medical floor. She is currently resting quite comfortably in bed. Awake and alert in no acute distress. No worsening shortness of breath, cough or congestion. States she is breathing easier. She is maintaining good O2 saturation in the 90s on room air. No fever, chills or night sweats. Blood cultures reveal no growth. Sputum culture revealed no growth. White count 5.4. Hemoglobin 9.4. Sodium 138. Potassium 3.8. Creatinine 0.5. She remains on Zosyn. Objective - Vital Signs Vital signs: Vital Signs Temp 98.5 F 08/26/20 07:04 Pulse 61 08/26/20 08:00 Resp 16 08/26/20 08:00 BP 112/62 08/26/20 07:04 Pulse Ox 95 08/26/20 07:04 Intake & Output 08/25/20 08/26/20 08/26/20 18:59 06:59 18:59 Output Total 150 Balance -150 Output: Urine 150 Other: Voiding Method Incontinent Incontinent External Catheter External Catheter # Bowel Movements 2 - Exam GENERAL EXAM: Alert, pleasant 80-year-old female patient, on room air, co mfortable in no apparent distress. HEAD: Normocephalic. EYES: Normal reaction of pupils, equal size. NOSE: Clear with pink turbinates. THROAT: No erythema or exudates. NECK: No masses, no JVD. CHEST: No chest wall deformity. LUNGS: Equal air entry with few scattered rhonchi in the right lower lobe. CVS: S1 and S2 normal with no audible murmur, regular rhythm. ABDOMEN: No hepatosplenomegaly, normal bowel sounds, no guarding or rigidity. SPINE: No scoliosis or deformity SKIN: No rashes CENTRAL NERVOUS SYSTEM: No focal deficits, tone is normal in all 4 extremities. EXTREMITIES: There is no peripheral edema. No clubbing, no cyanosis. Peripheral pulses are intact. - Labs CBC & Chem 7: 08/25/20 05:32 08/25/20 05:32 Labs: Microbiology - Last 24 Hours (Table) 08/21/20 19:00 Blood Culture - Preliminary Blood No Growth after 96 hours 08/23/20 19:32 Gram Stain - Final Sputum Sputum Culture - Final Assessment and Plan Assessment: 1 Acute right lung pneumonia, and CT chest showed scattered areas of nodular and confluent areas of airspace disease throughout the right upper and right lower lobes with small pleural effusion. Consider aspiration pneumonia 2 Epigastric abdominal pain, related to constipation. KUB of the abdomen on admission showed nonspecific bowel gas pattern, CT of the abdomen and pelvis with oral contrast showed excessive volume of pancolonic stool, and moderate to marked urinary bladder distention 3 History of IBS with constipation with chronic constipation issues 4 Hepatic fluid collection as seen on MRI of the liver possibly related to a pseudocyst or unusual hepatic cyst, GI service is following 5 History of autoimmune hepatitis C 6 Patient is underweight, BMI is 16.1 kg/m 7 Consider chronic protein calorie malnutrition, unspecified Plan: The patient was seen and evaluated by Dr. Carrie Mascorro Aspiration precautions Increase her activity as tolerated We'll continue to follow I, the cosigning physician, performed a history & physical examination of the patient. Lungs sounds with rhonchi in the right lung base. Maintaining good O2 saturations in the 90s on room air. I discussed the assessment and plan of care with my nurse practitioner, Delmi Samaniego. I attest to the above note as dictated by her.
[2020-08-26] MEDS ORDERED: POTASSIUM CHLORIDE ER 20 MEQ TAB.ER PO STA (12:34)
[2020-08-26] MEDS: HYDROmorphone 2 MG TAB PO PRN ×2 (14:27→22:02)
--- NOTE | 2020-08-26 15:28 | P.PN ---
Subjective Progress Note Date: 08/26/20 Principal diagnosis: Abdominal pain has improved following enemas. Moderate stool evacuated. Recommend bowel regimen. May advance diet. Objective - Vital Signs Vital signs: Vital Signs Temp 97.7 F 08/26/20 13:46 Pulse 82 08/26/20 13:46 Resp 16 08/26/20 13:46 BP 114/54 08/26/20 13:46 Pulse Ox 100 08/26/20 13:46 Intake & Output 08/25/20 08/26/20 08/26/20 18:59 06:59 18:59 Output Total 150 Balance -150 Output: Urine 150 Other: Voiding Method Incontinent Incontinent External Catheter External Catheter # Bowel Movements 2 - Labs CBC & Chem 7: 08/25/20 05:32 08/25/20 05:32 Labs: Microbiology - Last 24 Hours (Table) 08/21/20 19:00 Blood Culture - Preliminary Blood No Growth after 96 hours
[2020-08-26] MEDS: TAMSULOSIN 0.4 MG CAP.ER.24H PO SCH (18:23)
[2020-08-26] MEDS: clonazePAM 1 MG TAB PO SCH (22:03)
[2020-08-26] MEDS: traZODone HCL 100 MG TAB PO SCH (22:03)
[2020-08-26] MEDS: DOCUSATE 100 MG CAP PO SCH (22:03)
[2020-08-27 01:29] VITALS: TEMP 98.2
[2020-08-27] MEDS: LEVOTHYROXINE 125 MCG TAB PO SCH (06:16)
[2020-08-27] MEDS: PIPERACILLIN-TAZOBACTAM 3.375 GM in SODIUM CHLORIDE 0.9% 100 ML IVPB SCH (06:16)
[2020-08-27 07:18] VITALS: BP 132/63; PULSE 71; RESP 16
[2020-08-27] MEDS: guaiFENesin 600 MG TABLET.ER PO SCH (07:46)
[2020-08-27] MEDS: DOCUSATE 100 MG CAP PO SCH (07:46)
[2020-08-27] MEDS: LIDOCAINE 5% PATCH TOPICAL SCH (07:46)
[2020-08-27] MEDS: PANTOPRAZOLE 40 MG TABLET PO SCH (07:46)
[2020-08-27] MEDS: BUDESONIDE 3 MG PO SCH (07:46)
[2020-08-27] MEDS: polyethylene glycoL 3350 17 GM POWD.PACK PO SCH (07:48)
--- NOTE | 2020-08-27 11:22 | P.DS ---
Providers Date of admission: 08/21/20 19:03 Expected date of discharge: 08/27/20 Attending physician: Yash Umanzor Consults: 08/22/20 11:44 Consult Physician Routine Consulting Provider: Gianna Sanchez Consult Reason/Comments: subcapsular hepatic collection adj to R hepatic lobe 3.6x 2.8 Do you want consulting provider notified?: Yes 08/24/20 15:07 Consult Physician Routine Consulting Provider: Zeinab Triplett Consult Reason/Comments: possible bowel obstruction Do you want consulting provider notified?: Already Contacted 08/24/20 16:43 Consult Physician Routine Consulting Provider: Melly Butler Consult Reason/Comments: right lobe pneumonia with parapneumonic effusion Do you want consulting provider notified?: Yes Primary care physician: Yash Umanzor - Discharge Diagnosis(es) (1) Abdominal pain Current Visit: Yes Status: Acute (2) Abnormal CT of the abdomen Current Visit: Yes Status: Acute (3) Autoimmune hepatitis Current Visit: Yes Status: Acute (4) Chronic abdominal pain Current Visit: Yes Status: Acute (5) Constipation Current Visit: Yes Status: Acute (6) Dehydration Current Visit: Yes Status: Acute (7) Failure to thrive Current Visit: Yes Status: Acute (8) Leukocytosis Current Visit: Yes Status: Acute (9) Nausea and vomiting Current Visit: Yes Status: Acute (10) Pneumonia Current Visit: Yes Status: Acute (11) Side effect of medication Current Visit: Yes Status: Acute Hospital Course: 72-year-old female well-known to practice a past medical history of irritable autoimmune hepatitis C presented to the hospital on 08/21/2020 with complaints of nausea vomiting, constipation and abdominal discomfort. Noted the patient was having right upper quadrant pain that is chronic for her. She made mention that over the past month she has increased belching and feeling of indigestion with eating, and had not had a bowel movement in over a week. She did attempt using Senokot but with no results. KUB report showed overall nonobstructive bowel pattern, which x-ray shows patchy airspace disease with mid lower lung. Patient was started on antibiotics including azithromycin and Rocephin for presumed community-acquired pneumonia. She was eventually changed over to Zosyn . There is numerous consults such as surgery for questionable bowel obstruction which was ruled out and GI because of her autoimmune induced hepatitis. CT of the abdomen findings with infiltrates in the right upper and lower lobes as well as nonspecific subscapular hepatic collection in the right hepatic lobe. MRI of the liver was completed and resulted compared to all exam there is development of new right pleural effusion and right lower lobe pulmonary infiltrate. There is septated fluid collection adjacent to the right lobe of the liver which appears significantly smaller than exam yesterday. This could be a pseudocyst are unusual hepatic cyst. There is significant dilatation of the biliary tree without evidence of a filling defect. This can related to a stricture of the distal common bile duct. The size of the common bile duct is decreased slightly compared to yesterday's exam. Mildly dilated pancreatic duct unchanged. Currently patient is resting comfortably in bed and would like to go home. States her abdominal pain has resolved and she had multiple bowel movements through the night. Patient Condition at Discharge: Fair Plan - Discharge Summary Discharge Rx Participant: No New Discharge Prescriptions: New polyethylene glycoL 3350 [Miralax] 17 gm PO DAILY 30 Days #30 packet Cefuroxime Axetil [Ceftin] 500 mg PO BID 7 Days #14 tab No Action Mycophenolate Mofetil [Cellcept] 1,000 mg PO BID Tamsulosin HCl [Flomax] 0.4 mg PO W/SUPPER Omeprazole 40 mg PO DAILY clonazePAM [KlonoPIN] 1 mg PO HS HYDROmorphone HCL 8 mg PO Q6H PRN PRN Reason: Pain Budesonide [Budesonide EC] 9 mg PO DAILY traZODone HCL 100 mg PO HS Discharge Medication List Budesonide [Budesonide EC] 9 mg PO DAILY 08/21/20 [History] HYDROmorphone HCL 8 mg PO Q6H PRN 08/21/20 [History] Mycophenolate Mofetil [Cellcept] 1,000 mg PO BID 08/21/20 [History] Omeprazole 40 mg PO DAILY 08/21/20 [History] Tamsulosin HCl [Flomax] 0.4 mg PO W/SUPPER 08/21/20 [History] clonazePAM [KlonoPIN] 1 mg PO HS 08/21/20 [History] traZODone HCL 100 mg PO HS 08/21/20 [History] Cefuroxime Axetil [Ceftin] 500 mg PO BID 7 Days #14 tab 08/27/20 [Rx] polyethylene glycoL 3350 [Miralax] 17 gm PO DAILY 30 Days #30 packet 08/27/20 [Rx] Follow up Appointment(s)/Referral(s): [facility] Nurse, [NON-STAFF] - As Needed Yash Umanzor MD [Primary Care Provider] - 1-2 days (F/U with Dr Ta or Dameon Cavazos [facility] ) Discharge Disposition: HOME SELF-CARE
[2020-08-27] MEDS: HYDROmorphone 2 MG TAB PO PRN (11:36)
--- NOTE | 2020-08-27 12:22 | P.PN ---
Subjective Progress Note Date: 08/27/20 Principal diagnosis: Right lower lobe pneumonia 80-year-old white female patient with past medical history of IBS with constipation, autoimmune hepatitis see, who presented to the hospital on 08/21/2020 for evaluation of nausea, vomiting, constipation and abdominal discomfort. She reported decreased appetite, she does have left upper quadrant pain that was radiating to her right upper quadrant, reportedly chronic. She's been having increased burping following food ingestion over the last 4 weeks. She reports not having a bowel movement for over one week despite using Senokot at home for constipation. She denied any fever, didn't have some night sweats. KUB reported overall nonobstructive bowel pattern, chest x-ray showed patchy airspace disease throughout the right mid and lower lung zones. Repeat chest x- ray reported no significant change. Patient was started on antibiotics in the form of azithromycin and Rocephin possibility of right mid and lower lobe pne umonia. CT chest showed scattered areas of nodular and more confluent areas of infiltrate throughout the right upper and right lower lobes with small pleural effusion. And nonspecific subcapsular hepatic fluid collection. GI service is following in regards to abnormal liver findings. MRI of the liver showed septated fluid collection adjacent to the right lobe of the liver with the possibility of a pseudocyst or unusual hepatic cyst. And there was significant dilation of the biliary tree without evidence of a filling defect. Patient was given stool softeners, makes titrating Fleet enemas with no results. Surgical services were consulted for possibility of bowel obstruction. In the meantime patient is on room air, she's been afebrile, her breathing seems to be fairly comfortable, no altered mentation, we were asked to see the patient in evaluation for right lung pneumonia which is likely related to aspiration. The patient is seen today 08/26/2020 in follow-up on the regular medical floor. She is currently resting quite comfortably in bed. Awake and alert in no acute distress. No worsening shortness of breath, cough or congestion. States she is breathing easier. She is maintaining good O2 saturation in the 90s on room air. No fever, chills or night sweats. Blood cultures reveal no growth. Sputum culture revealed no growth. White count 5.4. Hemoglobin 9.4. Sodium 138. Potassium 3.8. Creatinine 0.5. She remains on Zosyn. The patient is seen today 08/27/2020 in follow-up on the regular medical floor. Awake and alert in no acute distress. She denies any worsening shortness of breath, cough or congestion. She is maintaining good O2 saturation in the 90s on room air. Afebrile. Sputum culture revealed no growth. Blood culture reveals no growth. She remains on Zosyn. Objective - Vital Signs Vital signs: Vital Signs Temp 98.2 F 08/27/20 06:46 Pulse 71 08/27/20 08:00 Resp 16 08/27/20 08:00 BP 132/63 08/27/20 06:46 Pulse Ox 96 08/27/20 06:46 Intake & Output 08/26/20 08/27/20 08/27/20 18:59 06:59 18:59 Intake Total 2100 Balance 2100 Intake: IV 1000 Sodium Chloride 0.9% 1, 1000 000 ml @ 100 mls/hr IV . Q10H MELANIE Rx#:[id number] Intake, IV Titration 1100 Amount Piperacillin-Tazobactam 3 100 .375 gm In Sodium Chloride 0.9% 100 ml @ 25 mls/hr IVPB Q8H MELANIE Rx#: [id number] Sodium Chloride 0.9% 1, 1000 000 ml @ 100 mls/hr IV . Q10H MELANIE Rx#:[id number] Other: Voiding Method Incontinent Toilet External Catheter # Voids 3 3 # Bowel Movements 3 - Exam GENERAL EXAM: Alert, pleasant 80-year-old female patient, on room air, comfortable in no apparent distress. HEAD: Normocephalic. EYES: Normal reaction of pupils, equal size. NOSE: Clear with pink turbinates. THROAT: No erythema or exudates. NECK: No masses, no JVD. CHEST: No chest wall deformity. LUNGS: Equal air entry with few scattered rhonchi in the right lower lobe. CVS: S1 and S2 normal with no audible murmur, regular rhythm. ABDOMEN: No hepatosplenomegaly, normal bowel sounds, no guarding or rigidity. SPINE: No scoliosis or deformity SKIN: No rashes CENTRAL NERVOUS SYSTEM: No focal deficits, tone is normal in all 4 extremities. EXTREMITIES: There is no peripheral edema. No clubbing, no cyanosis. Peripheral pulses are intact. - Labs CBC & Chem 7: 08/25/20 05:32 08/25/20 05:32 Labs: Microbiology - Last 24 Hours (Table) 08/21/20 19:00 Blood Culture - Preliminary Blood No Growth after 120 hours Assessment and Plan Assessment: 1 Acute right lung pneumonia, and CT chest showed scattered areas of nodular and confluent areas of airspace disease throughout the right upper and right lower lobes with small pleural effusion. Consider aspiration pneumonia 2 Epigastric abdominal pain, related to constipation. KUB of the abdomen on admission showed nonspecific bowel gas pattern, CT of the abdomen and pelvis with oral contrast showed excessive volume of pancolonic stool, and moderate to marked urinary bladder distention 3 History of IBS with constipation with chronic constipation issues 4 Hepatic fluid collection as seen on MRI of the liver possibly related to a pseudocyst or unusual hepatic cyst, GI service is following 5 History of autoimmune hepatitis C 6 Patient is underweight, BMI is 16.1 kg/m 7 Consider chronic protein calorie malnutrition, unspecified Plan: The patient was seen and evaluated by Dr. Butler Cleared for discharge from the pulmonary standpoint Complete a course of antibiotics Follow-up in the office in 1-2 weeks' I, the cosigning physician, performed a history & physical examination of the patient. Lungs sounds with rhonchi in the right lung base. Maintaining good O2 saturations in the 90s on room air. I discussed the assessment and plan of care with my nurse practitioner, Delmi Samaniego. I attest to the above note as dictated by her.
--- NOTE | 2020-08-27 14:38 | P.PN ---
Subjective Progress Note Date: 08/27/20 Principal diagnosis: Prior abdominal pain resolved of the epigastrium. She is having moderate bowel movements. She is ambulating with a walker. PLAN: 1. Stable for discharge when medically stable Objective - Vital Signs Vital signs: Vital Signs Temp 98.2 F 08/27/20 06:46 Pulse 71 08/27/20 08:00 Resp 16 08/27/20 08:00 BP 132/63 08/27/20 06:46 Pulse Ox 96 08/27/20 06:46 Intake & Output 08/26/20 08/27/20 08/27/20 18:59 06:59 18:59 Intake Total 2100 Balance 2100 Intake: IV 1000 Sodium Chloride 0.9% 1, 1000 000 ml @ 100 mls/hr IV . Q10H MELANIE Rx#:[id number] Intake, IV Titration 1100 Amount Piperacillin-Tazobactam 3 100 .375 gm In Sodium Chloride 0.9% 100 ml @ 25 mls/hr IVPB Q8H MELANIE Rx#: [id number] Sodium Chloride 0.9% 1, 1000 000 ml @ 100 mls/hr IV . Q10H MELANIE Rx#:[id number] Other: Voiding Method Incontinent Toilet External Catheter # Voids 3 3 1 # Bowel Movements 3 - Labs CBC & Chem 7: 08/25/20 05:32 08/25/20 05:32 Labs: Microbiology - Last 24 Hours (Table) 08/21/20 19:00 Blood Culture - Preliminary Blood No Growth after 120 hours
== END 2020-08-27 15:25 | disposition home or self-care (01) | DRG 193 ==
LOC: EC 12:51 → EDBD 12:51 → MERGE 19:03 → 4SSUR 19:03
PROVIDERS: ADMIT Family Medicine; ATTEND Family Medicine
DX: J18.9 Pneumonia, unspecified organism (principal); E43 Unspecified severe protein-calorie malnutrition; Z68.1 Body mass index [BMI] 19.9 or less, adult; E87.1 Hypo-osmolality and hyponatremia; J91.8 Pleural effusion in other conditions classified elsewhere; G89.29 Other chronic pain; F41.9 Anxiety disorder, unspecified; E87.6 Hypokalemia; B19.20 Unspecified viral hepatitis C without hepatic coma; E86.0 Dehydration; K58.1 Irritable bowel syndrome with constipation; K75.4 Autoimmune hepatitis; K76.89 Other specified diseases of liver; K86.89 Other specified diseases of pancreas; M32.9 Systemic lupus erythematosus, unspecified; N32.89 Other specified disorders of bladder; R62.7 Adult failure to thrive; Z79.899 Other long term (current) drug therapy; Z20.822 Contact with and (suspected) exposure to COVID-19
CPT/HCPCS: 36415; 71045; 71046; 71260; 74018; 74177; 74183; 80048; 80053; 81001; 82105; 82140; 82150; 82272; 82550; 83605; 83690; 83735; 84132; 84484; 85025; 87040; 87070; 87205; 87635; 96361; 96365; 99285

== ENCOUNTER 2020-12-21 13:41 | Inpatient (IN) | payer MEDICARE ==
[2020-12-21] MEDS ORDERED: SODIUM CHLORIDE 0.9% 1,000 ML IV STA (14:31)
[2020-12-21] MEDS ORDERED: IBUPROFEN 600 MG TAB PO STA (14:31)
[2020-12-21] MEDS ORDERED: ACETAMINOPHEN TAB 500 MG TAB PO STA (14:31)
[2020-12-21 15:22] LABS: Basophils % (A) 0 %; Eosinophils % (A) 0 %; HCT 30.9 % (34.0-46.0); HGB 10.4 gm/dL (11.4-16.0); Lymphocytes # (A) 0.2 k/uL (1.0-4.8); Lymphocytes % (A) 4 %; MCHC 33.6 g/dL (31.0-37.0); MCV 89.3 fL (80.0-100.0); Mean Platelet Volume 8.8; Monocytes # (A) 0.1 k/uL (0-1.0); Monocytes % (A) 2 %; Neutrophils # (A) 3.9 k/uL (1.3-7.7); Neutrophils % (A) 93 %; Platelet Count 140 k/uL (150-450); RBC 3.46 m/uL (3.80-5.40); RDW 14.9 % (11.5-15.5); WBC 4.2 k/uL (3.8-10.6)
--- NOTE | 2020-12-21 15:31 | XR ---
EXAMINATION TYPE: XR chest 2V DATE OF EXAM: 12/21/2020 COMPARISON: 08/24/2020 HISTORY: Shortness of breath TECHNIQUE: Frontal and lateral views of the chest are obtained. FINDINGS: Scattered senescent parenchymal changes noted. Hyperinflation compatible with COPD. Mild patchy density left lower lobe with small effusion. Improved aeration right lung. Heart size is stable. Mediastinal structures are stable and grossly unremarkable. No evidence for hilar prominence. Degenerative changes dorsal spine. IMPRESSION: 1. Mild patchy density left lower lobe with small effusion. Improved aeration right lung.
[2020-12-21 15:32] LABS: Calcium 7.6 mg/dL (8.4-10.2); INR 0.9 (<1.2); Magnesium 1.2 mg/dL (1.6-2.3); Phosphorus 3.4 mg/dL (2.5-4.5); Potassium 3.3 mmol/L (3.5-5.1); Prothrombin Time 10.2 sec (9.0-12.0); Total Bilirubin 0.3 mg/dL (0.2-1.3); Total Protein 5.5 g/dL (6.3-8.2)
--- NOTE | 2020-12-21 16:11 | ED ---
Weakness HPI - General Chief complaint: Weakness Stated complaint: abd pain, weakness Time Seen by Provider: 12/21/20 14:23 Source: patient, family, RN notes reviewed, old records reviewed Mode of arrival: wheelchair Limitations: no limitations - History of Present Illness Initial comments: Patient is a 80-year-old female with history of liver disease, fibromyalgia, thyroid disorder, presenting to the emergency department with complaints of fever, shaking, weakness and decreased appetite. 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 Patient Monitor states that she has been complaining of abdominal pain and nausea over the past few weeks as well. She's had issues with constipation. Patient seems a little bit confused today ac cording to the caregiver. Patient believes she's had a fever over the past couple days. She denies any coughing, no chest pain or shortness of breath. Her main complaint is abdominal pain, centered in her middle of her abdomen. She does admit to some mild nausea. She has not been eating and drinking very much over the past week. She denies any dysuria. She has no further complaints at this time. Upon arrival to the ER, her temperature is 103.5, 94% room air, rest of vitals normal. - Related Data Home Medications Medication Instructions Recorded Confirmed Levothyroxine Sodium [Synthroid] 125 mcg PO DAILY 12/21/13 12/21/20 mycophenolate mofetiL [Cellcept] 1,000 mg PO BID 12/21/13 12/21/20 Escitalopram Oxalate [Lexapro] 20 mg PO DAILY 04/26/19 12/21/20 Dicyclomine [Bentyl] 20 mg PO ACHS 01/13/20 12/21/20 HYDROmorphone HCL [Dilaudid] 8 mg PO Q6H 01/13/20 12/21/20 Budesonide [Budesonide EC] 9 mg PO DAILY 08/21/20 12/21/20 Omeprazole 40 mg PO DAILY 08/21/20 12/21/20 Tamsulosin HCl [Flomax] 0.4 mg PO HS 08/21/20 12/21/20 clonazePAM [KlonoPIN] 1 mg PO DAILY 08/21/20 12/21/20 traZODone HCL 100 mg PO HS 08/21/20 12/21/20 Fluoride (Sodium) [Sodium Fluoride 1 applic DENTAL HS 12/21/20 12/21/20 5000 Plus] Fluticasone Nasal [place] [Flonase 1 spr EA NOSTRIL BID 12/21/20 12/21/20 Nasal [place]] Lidocaine 5% Patch [Lidoderm] 1 patch TRANSDERM DAILY 12/21/20 12/21/20 Nystatin 100,000 Unit/gm Oint 1 applic TOPICAL TID 12/21/20 12/21/20 [Mycostatin Oint] Ondansetron [Zofran] 4 mg PO Q6H PRN 12/21/20 12/21/20 dexAMETHasone [Decadron Elixir] 0.5 mg PO QID 12/21/20 12/21/20 methylPREDNISolone [Medrol Dose See Taper PO DAILY 12/21/20 12/21/20 Pack] valACYclovir HCL [Valtrex] 1,000 mg PO BID PRN 12/21/20 12/21/20 Allergies Allergy/AdvReac Type Severity Reaction Status Date / Time No Known Drug Allergies Allergy Unknown Verified 12/21/20 14:05 Review of Systems ROS Statement: Those systems with pertinent positive or pertinent negative responses have been documented in the HPI. ROS Other: All systems not noted in ROS Statement are negative. Past Medical History Past Medical History: Cancer, Fibromyalgia, GERD/Reflux, Liver Disease, Osteoarthritis (OA), Pneumonia, Sleep Apnea/CPAP/BIPAP, Thyroid Disorder Additional Past Medical History / Comment(s): Hepatitis C, Immune disorder, IBS History of Any Multi-Drug Resistant Organisms: None Reported Past Surgical History: Appendectomy, Breast Surgery, Cholecystectomy, Hysterectomy, No Surgical Hx Reported, Orthopedic Surgery, Tonsillectomy Additional Past Surgical History / Comment(s): Rectal prolapse Past Anesthesia/Blood Transfusion Reactions: No Reported Reaction Past Psychological History: Depression, No Psychological Hx Reported Smoking Status: Never smoker Past Alcohol Use History: None Reported Past Drug Use History: None Reported - Past Family History Mother Family Medical History: Cancer, Deep Vein Thrombosis (DVT) General Exam - General Exam Comments Initial Comments: GENERAL: Patient looks cachectic, fatigued, no acute distress. HEAD: Atraumatic, normocephalic. EYES: Pupils equal round and reactive to light, extraocular movements intact, sclera anicteric, conjunctiva are normal. Eyelids were unremarkable. ENT: TMs normal, nares patent, oropharynx clear without exudates. Moist mucous membranes. NECK: Normal range of motion, supple without lymphadenopathy or JVD. LUNGS: Unlabored respirations. Breath sounds clear to auscultation bilaterally and equal. No wheezes rales or rhonchi. HEART: Tachycardia rate and rhythm without murmurs, rubs or gallops. ABDOMEN: Soft, tender to palpation along the middle of the abdomen, seems mildly distended, normoactive bowel sounds. No guarding, no rebound. No masses appreciated. : Deferred MUSCULOSKELETAL: Normal extremities with adequate strength and normal range of motion, no pitting or edema. No clubbing or cyanosis. NEUROLOGICAL: Patient is alert and oriented x 2-3. Motor and sensory are also intact. Cranial nerves II through XII grossly intact. Symmetrical smile. Normal speech, normal gait. PSYCH: Normal mood, normal affect. SKIN: Warm, Dry, normal turgor, no rashes or lesions noted. Limitations: no limitations Course Vital Signs 12/21/20 12/21/20 14:00 16:43 Temperature 103.5 F H 99.0 F Pulse Rate 94 79 Respiratory 19 18 Rate Blood Pressure 110/60 118/62 O2 Sat by Pulse 94 L 93 L Oximetry EKG Findings - EKG Comments: EKG Findings:: Analysis sinus rhythm, normal ECG, no signs of acute process. Ventricular rate 86, VT interval 200, QT 352. Medical Decision Making - Medical Decision Making Patient is a 80-year-old female presenting for weakness, fever, slight confusion. She arrived febrile 103.5, 94% on room air. She had no specific complaints other than some mild abdominal discomfort. Labs show a normal white count, potassium magnesium are slightly low, troponin is normal, urine shows no evidence of infection. Rapid Covid is positive. Chest x-ray shows mild patchy density in the left lower lobe with small effusion. CT the abdomen and pelvis reveals findings related to enteritis, there is persistent dilation of common bile duct, left lower lobe pneumonia. Patient will be admitted to observation for dehydration, low magnesium. We will give patient monoclonal Antibodies as she is not to being hospitalized specifically for Covid. Her oxygen is stable at this time. She is agreeable to this. Case discussed with Dr. Melton. Patient accepted by Dr. Ta. Patient's close family friend, Eufemia Emery, who cares for the patient, would like updates. [phone] - Lab Data Result diagrams: 12/21/20 14:57 12/21/20 14:57 Lab Results 12/21/20 12/21/20 12/21/20 Range/Units 14:57 14:57 14:57 WBC 4.2 (3.8-10.6) k/uL RBC 3.46 L (3.80-5.40) m/uL Hgb 10.4 L (11.4-16.0) gm/dL Hct 30.9 L (34.0-46.0) % MCV 89.3 (80.0-100.0) fL MCH 30.0 (25.0-35.0) pg MCHC 33.6 (31.0-37.0) g/dL RDW 14.9 (11.5-15.5) % Plt Count 140 L (150-450) k/uL MPV 8.8 Neutrophils % 93 % Lymphocytes % 4 % Monocytes % 2 % Eosinophils % 0 % Basophils % 0 % Neutrophils # 3.9 (1.3-7.7) k/uL Lymphocytes # 0.2 L (1.0-4.8) k/uL Monocytes # 0.1 (0-1.0) k/uL Eosinophils # 0.0 (0-0.7) k/uL Basophils # 0.0 (0-0.2) k/uL PT 10.2 (9.0-12.0) sec INR 0.9 (<1.2) APTT 26.0 (22.0-30.0) sec Sodium (137-145) mmol/L Potassium (3.5-5.1) mmol/L Chloride (98-107) mmol/L Carbon Dioxide (22-30) mmol/L Anion Gap mmol/L BUN (7-17) mg/dL Creatinine (0.52-1.04) mg/dL Est GFR (CKD-EPI)AfAm (>60 ml/min/1.73 sqM) Est GFR (CKD-EPI)NonAf (>60 ml/min/1.73 sqM) Glucose (74-99) mg/dL Plasma Lactic Acid [place] (0.7-2.0) mmol/L Calcium (8.4-10.2) mg/dL Phosphorus (2.5-4.5) mg/dL Magnesium (1.6-2.3) mg/dL Total Bilirubin (0.2-1.3) mg/dL AST (14-36) U/L ALT (4-34) U/L Alkaline Phosphatase (38-126) U/L Troponin I (0.000-0.034) ng/mL NT-Pro-B Natriuret Pep pg/mL Total Protein (6.3-8.2) g/dL Albumin (3.5-5.0) g/dL Urine Color Yellow Urine Appearance Clear (Clear) Urine pH 5.5 (5.0-8.0) Ur Specific [place] 1.015 (1.001-1.035) Urine Protein Trace H (Negative) Urine Glucose (UA) Negative (Negative) Urine Ketones Negative (Negative) Urine Blood Negative (Negative) Urine Nitrite Negative (Negative) Urine Bilirubin Negative (Negative) Urine Urobilinogen <2.0 (<2.0) mg/dL Ur Leukocyte Esterase Negative (Negative) Coronavirus (PCR) (Not Detectd) 12/21/20 12/21/20 12/21/20 Range/Units 14:57 14:57 14:57 WBC (3.8-10.6) k/uL RBC (3.80-5.40) m/uL Hgb (11.4-16.0) gm/dL Hct (34.0-46.0) % MCV (80.0-100.0) fL MCH (25.0-35.0) pg MCHC (31.0-37.0) g/dL RDW (11.5-15.5) % Plt Count (150-450) k/uL MPV Neutrophils % % Lymphocytes % % Monocytes % % Eosinophils % % Basophils % % Neutrophils # (1.3-7.7) k/uL Lymphocytes # (1.0-4.8) k/uL Monocytes # (0-1.0) k/uL Eosinophils # (0-0.7) k/uL Basophils # (0-0.2) k/uL PT (9.0-12.0) sec INR (<1.2) APTT (22.0-30.0) sec Sodium 137 (137-145) mmol/L Potassium 3.3 L (3.5-5.1) mmol/L Chloride 102 (98-107) mmol/L Carbon Dioxide 25 (22-30) mmol/L Anion Gap 10 mmol/L BUN 26 H (7-17) mg/dL Creatinine 0.79 (0.52-1.04) mg/dL Est GFR (CKD-EPI)AfAm 84 (>60 ml/min/1.73 sqM) Est GFR (CKD-EPI)NonAf 73 (>60 ml/min/1.73 sqM) Glucose 99 (74-99) mg/dL Plasma Lactic Acid [place] 0.9 (0.7-2.0) mmol/L Calcium 7.6 L (8.4-10.2) mg/dL Phosphorus 3.4 (2.5-4.5) mg/dL Magnesium 1.2 L (1.6-2.3) mg/dL Total Bilirubin 0.3 (0.2-1.3) mg/dL AST 69 H (14-36) U/L ALT 34 (4-34) U/L Alkaline Phosphatase 72 (38-126) U/L Troponin I 0.017 (0.000-0.034) ng/mL NT-Pro-B Natriuret Pep pg/mL Total Protein 5.5 L (6.3-8.2) g/dL Albumin 3.0 L (3.5-5.0) g/dL Urine Color Urine Appearance (Clear) Urine pH (5.0-8.0) Ur Specific [place] (1.001-1.035) Urine Protein (Negative) Urine Glucose (UA) (Negative) Urine Ketones (Negative) Urine Blood (Negative) Urine Nitrite (Negative) Urine Bilirubin (Negative) Urine Urobilinogen (<2.0) mg/dL Ur Leukocyte Esterase (Negative) Coronavirus (PCR) (Not Detectd) 12/21/20 12/21/20 Range/Units 14:57 14:57 WBC (3.8-10.6) k/uL RBC (3.80-5.40) m/uL Hgb (11.4-16.0) gm/dL Hct (34.0-46.0) % MCV (80.0-100.0) fL MCH (25.0-35.0) pg MCHC (31.0-37.0) g/dL RDW (11.5-15.5) % Plt Count (150-450) k/uL MPV Neutrophils % % Lymphocytes % % Monocytes % % Eosinophils % % Basophils % % Neutrophils # (1.3-7.7) k/uL Lymphocytes # (1.0-4.8) k/uL Monocytes # (0-1.0) k/uL Eosinophils # (0-0.7) k/uL Basophils # (0-0.2) k/uL PT (9.0-12.0) sec INR (<1.2) APTT (22.0-30.0) sec Sodium (137-145) mmol/L Potassium (3.5-5.1) mmol/L Chloride (98-107) mmol/L Carbon Dioxide (22-30) mmol/L Anion Gap mmol/L BUN (7-17) mg/dL Creatinine (0.52-1.04) mg/dL Est GFR (CKD-EPI)AfAm (>60 ml/min/1.73 sqM) Est GFR (CKD-EPI)NonAf (>60 ml/min/1.73 sqM) Glucose (74-99) mg/dL Plasma Lactic Acid [place] (0.7-2.0) mmol/L Calcium (8.4-10.2) mg/dL Phosphorus (2.5-4.5) mg/dL Magnesium (1.6-2.3) mg/dL Total Bilirubin (0.2-1.3) mg/dL AST (14-36) U/L ALT (4-34) U/L Alkaline Phosphatase (38-126) U/L Troponin I (0.000-0.034) ng/mL NT-Pro-B Natriuret Pep 1450 pg/mL Total Protein (6.3-8.2) g/dL Albumin (3.5-5.0) g/dL Urine Color Urine Appearance (Clear) Urine pH (5.0-8.0) Ur Specific [place] (1.001-1.035) Urine Protein (Negative) Urine Glucose (UA) (Negative) Urine Ketones (Negative) Urine Blood (Negative) Urine Nitrite (Negative) Urine Bilirubin (Negative) Urine Urobilinogen (<2.0) mg/dL Ur Leukocyte Esterase (Negative) Coronavirus (PCR) Detected A (Not Detectd) Disposition Clinical Impression: Dehydration, Hypomagnesemia, Constipation, COVID-19 Disposition: ADMITTED IP TO THIS HOSP Condition: Stable Decision Date: 12/21/20 Decision Time: 17:15
--- NOTE | 2020-12-21 16:16 | CT ---
EXAMINATION TYPE: CT abdomen pelvis w con DATE OF EXAM: 12/21/2020 COMPARISON: 08/24/2020 HISTORY: abdominal pain, fever, nausea CT DLP: 458.9 mGycm CONTRAST: CT scan of the abdomen and pelvis is performed without Oral Contrast and with IV Contrast, patient in jected with 100 mL of Isovue 300. FINDINGS: LUNG BASES-: Airspace consolidation left lower lobe correlate for pneumonia. LIVER/GB: No calcified gallstones. Subcapsular hepatic collection redemonstrated measuring up to 3 .8 x 1.8 cm with peripheral calcification. No space occupying hepatic lesion. Common bile duct dilata tion 1.7 cm. Intrahepatic biliary ductal dilatation redemonstrated. PANCREAS: No inflammation. No distinct mass. Dilatation of the pancreatic duct. SPLEEN: No splenic enlargement. No lesion seen. ADRENALS: No nodule. No thickening. KIDNEYS/BLADDER: No hydronephrosis. No nephrolithiasis. No distinct renal mass. Urinary bladder g rossly unremarkable. BOWEL: Fluid distended small bowel. Stool throughout the colon. High density material within the righ t hemicolon likely from ingested products. No evidence for abscess or free air. GENITAL ORGANS: No gross abnormality. LYMPH NODES: No greater than 1cm abdominal or pelvic lymph nodes are appreciated. AORTA: No significant abnormality. OSSEOUS STRUCTURES: No significant abnormality is seen. OTHER: No significant additional abnormality is seen. IMPRESSION: 1. Findings which may reflect enteritis. 2 persistent dilatation of the intrahepatic biliary tree, common bile duct and pancreatic duct. 3. Persistent subcapsular hepatic fluid collection. 4. Left lower lobe pneumonia.
[2020-12-21 16:25] LABS: Appearance,Urine Clear (Clear); Bilirubin,Urine Negative (Negative); Blood,Urine Negative (Negative); Color,Urine Yellow; Glucose,Urine (UA) Negative (Negative); Ketones,Urine Negative (Negative); Leukocyte Esterase,Urine Negative (Negative); Nitrite,Urine Negative (Negative); PH, Urine 5.5 (5.0-8.0); Protein,Urine Trace (Negative); Specific Gravity,Urine 1.015 (1.001-1.035); Urobilinogen,Urine <2.0 mg/dL (<2.0)
[2020-12-21] MEDS ORDERED: MAGNESIUM SULFATE-D5W PMX 1 GM in DEXTROSE/WATER 1 100ML.BAG IVPB ONE (16:54)
[2020-12-21] MEDS ORDERED: NALOXONE 0.4 MG/ML 1 ML VIAL IV PRN (17:03)
[2020-12-21] MEDS ORDERED: bisacodyL 5 MG TABLET.DR PO PRN (17:03)
[2020-12-21] MEDS ORDERED: IBUPROFEN 400 MG TAB PO PRN (17:03)
[2020-12-21] MEDS ORDERED: CASIRIVIMAB (REGN10933) (EUA) 600 MG, IMDEVIMAB (REGN10987) (EUA) 600 MG in SODIUM CHLO... IVPB ONE (17:30)
[2020-12-21] MEDS ORDERED: SODIUM CHLORIDE 0.9% 50 ML IVPB ONE (17:30)
[2020-12-21] MEDS: SODIUM CHLORIDE 0.9% 1,000 ML IV SCH (18:38)
[2020-12-21] MEDS: HYDROcodone/APAP 10-325MG 1 EACH TAB PO PRN (21:11)
[2020-12-22] MEDS: SODIUM CHLORIDE 0.9% 1,000 ML IV SCH ×2 (07:58→22:54)
[2020-12-22] MEDS ORDERED: Magnesium Replacement Protocol 1 EACH MISC MISCELLANE PRN (09:34)
[2020-12-22] MEDS ORDERED: Potassium Replacement Protocol 1 EACH MISC MISCELLANE PRN (09:35)
[2020-12-22 10:21] LABS: ALT 24 U/L (4-34); AST 45 U/L (14-36); African American GFR (CKD) 84 (>60 ml/min/1.73 sqM); Albumin 2.4 g/dL (3.5-5.0); Alkaline Phosphatase 59 U/L (38-126); Anion Gap 7 mmol/L; Blood Urea Nitrogen 24 mg/dL (7-17); Calcium 7.2 mg/dL (8.4-10.2); Carbon Dioxide 25 mmol/L (22-30); Chloride 106 mmol/L (98-107); Globulin 2.3 g/dL; Glucose 109 mg/dL (74-99); Non-African American GFR(CKD) 73 (>60 ml/min/1.73 sqM); Sodium 138 mmol/L (137-145); Total Bilirubin 0.2 mg/dL (0.2-1.3); Total Protein 4.7 g/dL (6.3-8.2)
[2020-12-22] MEDS: LIDOCAINE 5% PATCH TOPICAL SCH (10:52)
[2020-12-22] MEDS: PANTOPRAZOLE 40 MG TABLET PO SCH (10:53)
[2020-12-22] MEDS: DEXAMETHASONE SOD PHOSPHATE 10 MG/ML 1 ML VIAL IVP SCH (10:53)
[2020-12-22] MEDS: DICYCLOMINE 20 MG TAB PO SCH ×3 (10:53→20:39)
[2020-12-22] MEDS: ONDANSETRON 4 MG TAB PO PRN ×2 (10:53→22:42)
[2020-12-22] MEDS: ZINC SULFATE 220 MG CAP PO SCH (10:53)
[2020-12-22] MEDS: FLUTICASONE 50MCG/SPRAY NASAL 16GM EA NOSTRIL SCH (10:53)
[2020-12-22] MEDS: ASCORBIC ACID 500 MG TAB PO SCH ×2 (10:53→20:39)
[2020-12-22] MEDS: LEVOTHYROXINE 125 MCG TAB PO SCH (10:53)
[2020-12-22] MEDS: COLCHICINE 0.6 MG EACH PO SCH (10:54)
[2020-12-22] MEDS: clonazePAM 1 MG TAB PO SCH (10:54)
[2020-12-22] MEDS: ESCITALOPRAM 20 MG TAB PO SCH (10:59)
[2020-12-22] MEDS: CHOLECALCIFEROL 25 MCG (1000 IU) TABLET PO SCH (10:59)
[2020-12-22] MEDS: ENOXAPARIN 40 MG/0.4 ML SYRINGE SQ SCH (11:06)
[2020-12-22] MEDS: BUDESONIDE 3 MG PO SCH (11:09)
[2020-12-22 11:27] LABS: Glucose,Whole Blood 102 mg/dL (75-99)
[2020-12-22] MEDS: INSULIN ASPART (NovoLOG) 100 UNIT/ML VIAL SQ SCH ×3 (11:36→21:16)
--- NOTE | 2020-12-22 13:22 | P.HPIM ---
History of Present Illness H&P Date: 12/22/20 Chief Complaint: Fever, increased weakness, dehydration This is a 80-year-old female with past medical history of autoimmune hepatitis C, IBS, cancers 2 and multiple other medical issues follows regularly with Dr. Gianna Sanchez, presented to the ER with complaints of suspected fevers for the last couple of days, constipation, nausea, abdominal pain and decreased oral intake. 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 On admission temperature 103.5, normal WBC ,maintaining O2 sats of mid 90s on room air. Positive for COVID-19. Received monoclonal antibodies. Chest x-ray reportedly mild patchy density left lower lobe with small effusion, improved aeration of right lung. Abdomen/pelvis CT reported persistent subcapsular hepatic fluid collection, persistent dilatation of the intrahepatic biliary tree, common bile duct and pancreatic duct, possible enteritis, fluid distended small bowel, stool throughout the colon a consistent hematuria within the right; likely from congestive products with no evidence of abscess or free air. EKG reportedly normal sinus rhythm, troponin negative 1. Denies chest pain, palpitations or increasing shortness of breath. The hemoglobin 10.4, platelets 140, sodium 138, potassium 3, bicarb 25, BUN 24, creatinine 0.79, glucose 109, magnesium 1.2. UA negative. IV fluids initiated. Review of Systems ROS Statement: Those systems with pertinent positive or pertinent negative responses have been documented in the HPI. ROS Other: All systems not noted in ROS Statement are negative. Past Medical History Past Medical History: Cancer, Fibromyalgia, GERD/Reflux, Liver Disease, Osteoarthritis (OA), Pneumonia, Sleep Apnea/CPAP/BIPAP, Thyroid Disorder Additional Past Medical History / Comment(s): Hepatitis C, Immune disorder, IBS History of Any Multi-Drug Resistant Organisms: None Reported Past Surgical History: Appendectomy, Breast Surgery, Cholecystectomy, Hysterectomy, No Surgical Hx Reported, Orthopedic Surgery, Tonsillectomy Additional Past Surgical History / Comment(s): Rectal prolapse Past Anesthesia/Blood Transfusion Reactions: No Reported Reaction Past Psychological History: Depression, No Psychological Hx Reported Smoking Status: Never smoker Past Alcohol Use History: None Reported Past Drug Use History: None Reported - Past Family History Mother Family Medical History: Cancer, Deep Vein Thrombosis (DVT) Medications and Allergies Home Medications Medication Instructions Recorded Confirmed Type Levothyroxine Sodium [Synthroid] 125 mcg PO DAILY 12/21/13 12/21/20 History mycophenolate mofetiL [Cellcept] 1,000 mg PO BID 12/21/13 12/21/20 History Escitalopram Oxalate [Lexapro] 20 mg PO DAILY 04/26/19 12/21/20 History Dicyclomine [Bentyl] 20 mg PO ACHS 01/13/20 12/21/20 History HYDROmorphone HCL [Dilaudid] 8 mg PO Q6H 01/13/20 12/21/20 History Budesonide [Budesonide EC] 9 mg PO DAILY 08/21/20 12/21/20 History Omeprazole 40 mg PO DAILY 08/21/20 12/21/20 History Tamsulosin HCl [Flomax] 0.4 mg PO HS 08/21/20 12/21/20 History clonazePAM [KlonoPIN] 1 mg PO DAILY 08/21/20 12/21/20 History traZODone HCL 100 mg PO HS 08/21/20 12/21/20 History Fluoride (Sodium) [Sodium Fluoride 1 applic DENTAL HS 12/21/20 12/21/20 History 5000 Plus] Fluticasone Nasal [place] [Flonase 1 spr EA NOSTRIL BID 12/21/20 12/21/20 History Nasal [place]] Lidocaine 5% Patch [Lidoderm] 1 patch TRANSDERM DAILY 12/21/20 12/21/20 History Nystatin 100,000 Unit/gm Oint 1 applic TOPICAL TID 12/21/20 12/21/20 History [Mycostatin Oint] Ondansetron [Zofran] 4 mg PO Q6H PRN 12/21/20 12/21/20 History dexAMETHasone [Decadron Elixir] 0.5 mg PO QID 12/21/20 12/21/20 History methylPREDNISolone [Medrol Dose See Taper PO DAILY 12/21/20 12/21/20 History Pack] valACYclovir HCL [Valtrex] 1,000 mg PO BID PRN 12/21/20 12/21/20 History Allergies Allergy/AdvReac Type Severity Reaction Status Date / Time No Known Drug Allergies Allergy Unknown Verified 12/21/20 14:05 Physical Exam Vitals: Vital Signs Temp Pulse Pulse Resp BP BP Pulse Ox 12/22/20 10:27 97.7 F 66 18 155/57 97 12/22/20 05:10 97.4 F L 59 L 13 109/63 98 12/22/20 01:42 97.4 F L 53 L 13 115/64 97 12/21/20 22:11 97.8 F 59 L 14 105/59 95 12/21/20 21:09 98 F 70 18 92/53 93 L 12/21/20 16:43 99.0 F 79 18 118/62 93 L 12/21/20 14:00 103.5 F H 94 19 110/60 94 L Intake and Output 12/21/20 12/22/20 12/22/20 22:59 06:59 14:59 Other: # Voids 1 1 Weight 40.823 kg PHYSICAL EXAM: VITAL SIGNS: As above GENERAL: Cachectic,Sitting up in bed, no acute distress, weak appearing HEENT: Conjunctivae normal. eyes normal. Oral mucosa moist. NECK: No JVD. No thyroid enlargement. No LNs CARDIOVASCULAR: S1, S2 regular. Systolic murmur RESPIRATION: Breath sounds diminished in the bases. No rhonchi. ABDOMEN: Soft, nondistended, epigastric tenderness, No guarding. no masses palpable.Bowel sounds heard. LEGS: No edema. no swelling PSYCHIATRY: Alert and oriented X3, mood and affect normal. NERVOUS SYSTEM: Cranial N 2-12 grossly normal. Moves all 4 limbs. No focal deficits. Strength and sensation grossly intact. Skin: Warm and dry, no rash Results CBC & Chem 7: 12/21/20 14:57 12/22/20 09:56 Labs: Abnormal Lab Results - Last 24 Hours (Table) 12/21/20 12/21/20 12/21/20 Range/Units 14:57 14:57 14:57 RBC 3.46 L (3.80-5.40) m/uL Hgb 10.4 L (11.4-16.0) gm/dL Hct 30.9 L (34.0-46.0) % Plt Count 140 L (150-450) k/uL Lymphocytes # 0.2 L (1.0-4.8) k/uL Potassium 3.3 L (3.5-5.1) mmol/L BUN 26 H (7-17) mg/dL Glucose (74-99) mg/dL Calcium 7.6 L (8.4-10.2) mg/dL Magnesium 1.2 L (1.6-2.3) mg/dL AST 69 H (14-36) U/L Total Protein 5.5 L (6.3-8.2) g/dL Albumin 3.0 L (3.5-5.0) g/dL Urine Protein Trace H (Negative) Coronavirus (PCR) (Not Detectd) 12/21/20 12/22/20 Range/Units 14:57 09:56 RBC (3.80-5.40) m/uL Hgb (11.4-16.0) gm/dL Hct (34.0-46.0) % Plt Count (150-450) k/uL Lymphocytes # (1.0-4.8) k/uL Potassium 3.0 L (3.5-5.1) mmol/L BUN 24 H (7-17) mg/dL Glucose 109 H (74-99) mg/dL Calcium 7.2 L (8.4-10.2) mg/dL Magnesium (1.6-2.3) mg/dL AST 45 H (14-36) U/L Total Protein 4.7 L (6.3-8.2) g/dL Albumin 2.4 L (3.5-5.0) g/dL Urine Protein (Negative) Coronavirus (PCR) Detected A (Not Detectd) Thrombosis Risk Factor Assmnt - Choose All That Apply Any of the Below Risk Factors Present?: Yes Each Risk Factor Represents 2 Points: Malignancy Each Risk Factor Represents 3 Points: Age 75 years or older Thrombosis Risk Factor Assessment Total Risk Factor Score: 5 Thrombosis Risk Factor Assessment Level: High Risk Assessment and Plan Assessment: Acute COVID-19 pneumonia, status post monoclonal antibodies in the ER Dehydration Epigastric abdominal pain secondary to constipation Chronic severe protein calorie malnutrition, BMI 16.1 Chronic left upper quadrant pain radiates to right upper quadrant. History of hepatic fluid collection, possibly pseudocyst or hepatic cyst, foll ows with GI outpatient Chronic Autoimmune Hepatitis C, Leukocytosis Hypomagnesemia Hypokalemia Dehydration History of IBS with chronic constipation Pubic Neftali fractures ,Indeterminate age History of rectal prolapse Plan: Continue on current medication regime, monitoring and symptomatically deondre atment. Coded cocktail initiated. PPI for GI prophylaxis, Lovenox for DVT prophylaxis ordered. Potassium and magnesium replacement protocol as ordered. Recheck potassium and magnesium levels post supplementation at 1600. Continue with gentle IV fluid hydration. Maintain supportive care. The impression and plan of care has been dictated as directed. : I performed a history and examination of this patient, discussed the same with the dictator. I agree with the dictator's note ,documented as a scribe. Any additional findings or plans will be noted.
[2020-12-22 17:15] LABS: Glucose,Whole Blood 127 mg/dL (75-99)
[2020-12-22 17:22] LABS: Magnesium 1.6 mg/dL (1.6-2.3); Potassium 3.4 mmol/L (3.5-5.1)
[2020-12-22] MEDS: ONDANSETRON 4 MG/2 ML VIAL IVP PRN (17:55)
[2020-12-22] MEDS: HYDROcodone/APAP 10-325MG 1 EACH TAB PO PRN (19:09)
[2020-12-22] MEDS: traZODone HCL 100 MG TAB PO SCH (20:39)
[2020-12-22] MEDS: TAMSULOSIN 0.4 MG CAP.ER.24H PO SCH (20:39)
[2020-12-22 21:12] LABS: Glucose,Whole Blood 155 mg/dL (75-99)
--- NOTE | 2020-12-22 22:51 | P.CONS ---
History of Present Illness - Reason for Consult Consult date: 12/22/20 covid 19 infection Requesting physician: Estephania Velarde - Chief Complaint weakness x few days - History of Present Illness History of present illness : Patient is 80-year-old female presenting to the ER yesterday afternoon for evaluation of fever shaking chills weakness and decreased appetite patient also complaining of some abdominal pain and nausea for the last 1 week and apparently did have issues with constipation patient was noted to have some confusion with the symptoms the patient was evaluated by the ER physician on arrival to the ER patient did have a fever of 103.5 F patient did have mild hypoxemia initially however is currently on room air satting 96% patient work-up did include a normal white count with lymphopenia patient did have a mildly elevated BUN creatinine was normal AST was mildly elevated urine has been negative prado PCR was positive patient did have a chest x-ray mild patchy density left lower lobe with small effusion also have a CT of abdominal pelvis findings may reflect enteritis dilatation of the intrahepatic biliary tree subcapsular hepatic fluid collection and left lower lobe pneumonia patient has received monoclonal antibody infusion admitted to hospital infectious disease was consulted regarding Covid Review of system: CONSTITUTIONAL: Positive for weakness along with the fever. EYES: No complaint. ENT: No complaint. RESPIRATORY: As per history of present illness CARDIOVASCULAR: No complaint. GENITOURINARY: No complaint. GASTROINTESTINAL: As per history of present illness. MUSCULOSKELETAL: No complaint. INTEGUMENTARY: No complaint. PSYCHOLOGIC: No complaint. ENDOCRINE: No complaint. NEUROLOGIC: No complaint. Past medical history : Reviewed, documented below Past surgical history : Reviewed, documented below Social history: Reviewed, documented below Medications: Reviewed, as documented below EXAMINATION: Vital sigans= Reviewed and documented below GENERAL DESCRIPTION: Elderly female lying in bed, no distress. No tachypnea or accessory muscle of respiration use. HEENT: Shows Pallor , no scleral icterus. Oral mucous membrane is dry. NECK: Trachea central, no thyromegaly. LUNGS: Unlabored breathing. Decrease intensity of breath sounds. No wheeze or crackle. HEART: S1, S2, regular rate and rhythm. ABDOMEN: Soft, no tenderness , guarding or rigidity EXTREMITIES: No edema of feet. SKIN: No rash, no masses palpable. NEUROLOGICAL: The patient is awake, alert, oriented x3, mood and affect normal. LABS AND RADIOLOGY: Reviewed results see below Assessment : Patient presented to hospital with weakness decreased appetite some abdominal pain in this patient who did have a COVID-19 infection with evidence of meaningful infiltrate on the left lower lobe CT abdominal pelvis did not show any acute abnormality patient did not have any elevated white count liver enzymes not significantly elevated and the patient is currently on room air more likely representing mild COVID-19 illness for the patient has received monoclonal antibodies infusion Plan: 1-patient to continue her with the Lovenox zinc ascorbic acid 2-no dexamethasone at the patient not hypoxic 3-we will repeat her inflammatory markers with a.m. labs 4-droplet isolation and respiratory support We will follow on clinical condition and cultures to further adjust medication if needed Thank you for this consultation we will follow the patient along with you Past Medical History Past Medical History: Cancer, Fibromyalgia, GERD/Reflux, Liver Disease, Osteoarthritis (OA), Pneumonia, Sleep Apnea/CPAP/BIPAP, Thyroid Disorder Additional Past Medical History / Comment(s): Hepatitis C, Immune disorder, IBS History of Any Multi-Drug Resistant Organisms: None Reported Past Surgical History: Appendectomy, Breast Surgery, Cholecystectomy, Hysterectomy, No Surgical Hx Reported, Orthopedic Surgery, Tonsillectomy Additional Past Surgical History / Comment(s): Rectal prolapse Past Anesthesia/Blood Transfusion Reactions: No Reported Reaction Past Psychological History: Depression, No Psychological Hx Reported Smoking Status: Never smoker Past Alcohol Use History: None Reported Past Drug Use History: None Reported - Past Family History Mother Family Medical History: Cancer, Deep Vein Thrombosis (DVT) Medications and Allergies Home Medications Medication Instructions Recorded Confirmed Type Levothyroxine Sodium [Synthroid] 125 mcg PO DAILY 12/21/13 12/21/20 History mycophenolate mofetiL [Cellcept] 1,000 mg PO BID 12/21/13 12/21/20 History Escitalopram Oxalate [Lexapro] 20 mg PO DAILY 04/26/19 12/21/20 History Dicyclomine [Bentyl] 20 mg PO ACHS 01/13/20 12/21/20 History HYDROmorphone HCL [Dilaudid] 8 mg PO Q6H 01/13/20 12/21/20 History Budesonide [Budesonide EC] 9 mg PO DAILY 08/21/20 12/21/20 History Omeprazole 40 mg PO DAILY 08/21/20 12/21/20 History Tamsulosin HCl [Flomax] 0.4 mg PO HS 08/21/20 12/21/20 History clonazePAM [KlonoPIN] 1 mg PO DAILY 08/21/20 12/21/20 History traZODone HCL 100 mg PO HS 08/21/20 12/21/20 History Fluoride (Sodium) [Sodium Fluoride 1 applic DENTAL HS 12/21/20 12/21/20 History 5000 Plus] Fluticasone Nasal Duncan [Flonase 1 spr EA NOSTRIL BID 12/21/20 12/21/20 History Nasal Duncan] Lidocaine 5% Patch [Lidoderm] 1 patch TRANSDERM DAILY 12/21/20 12/21/20 History Nystatin 100,000 Unit/gm Oint 1 applic TOPICAL TID 12/21/20 12/21/20 History [Mycostatin Oint] Ondansetron [Zofran] 4 mg PO Q6H PRN 12/21/20 12/21/20 History dexAMETHasone [Decadron Elixir] 0.5 mg PO QID 12/21/20 12/21/20 History methylPREDNISolone [Medrol Dose See Taper PO DAILY 12/21/20 12/21/20 History Pack] valACYclovir HCL [Valtrex] 1,000 mg PO BID PRN 12/21/20 12/21/20 History Allergies Allergy/AdvReac Type Severity Reaction Status Date / Time No Known Drug Allergies Allergy Unknown Verified 12/21/20 14:05 Physical Exam Vitals: Vital Signs Temp Pulse Pulse Resp BP BP Pulse Ox 12/22/20 10:27 97.7 F 66 18 155/57 97 12/22/20 05:10 97.4 F L 59 L 13 109/63 98 12/22/20 01:42 97.4 F L 53 L 13 115/64 97 12/21/20 22:11 97.8 F 59 L 14 105/59 95 12/21/20 21:09 98 F 70 18 92/53 93 L 12/21/20 16:43 99.0 F 79 18 118/62 93 L Intake and Output 12/21/20 12/22/20 12/22/20 22:59 06:59 14:59 Other: # Voids 1 1 Weight 40.823 kg 40.823 kg Results CBC & Chem 7: 12/21/20 14:57 12/22/20 16:37 Labs: Abnormal Lab Results - Last 24 Hours (Table) 12/21/20 12/21/20 12/21/20 Range/Units 14:57 14:57 14:57 RBC 3.46 L (3.80-5.40) m/uL Hgb 10.4 L (11.4-16.0) gm/dL Hct 30.9 L (34.0-46.0) % Plt Count 140 L (150-450) k/uL Lymphocytes # 0.2 L (1.0-4.8) k/uL Potassium 3.3 L (3.5-5.1) mmol/L BUN 26 H (7-17) mg/dL Glucose (74-99) mg/dL POC Glucose (mg/dL) (75-99) mg/dL Calcium 7.6 L (8.4-10.2) mg/dL Magnesium 1.2 L (1.6-2.3) mg/dL AST 69 H (14-36) U/L Total Protein 5.5 L (6.3-8.2) g/dL Albumin 3.0 L (3.5-5.0) g/dL Urine Protein Trace H (Negative) Coronavirus (PCR) (Not Detectd) 12/21/20 12/22/20 12/22/20 Range/Units 14:57 09:56 11:25 RBC (3.80-5.40) m/uL Hgb (11.4-16.0) gm/dL Hct (34.0-46.0) % Plt Count (150-450) k/uL Lymphocytes # (1.0-4.8) k/uL Potassium 3.0 L (3.5-5.1) mmol/L BUN 24 H (7-17) mg/dL Glucose 109 H (74-99) mg/dL POC Glucose (mg/dL) 102 H (75-99) mg/dL Calcium 7.2 L (8.4-10.2) mg/dL Magnesium (1.6-2.3) mg/dL AST 45 H (14-36) U/L Total Protein 4.7 L (6.3-8.2) g/dL Albumin 2.4 L (3.5-5.0) g/dL Urine Protein (Negative) Coronavirus (PCR) Detected A (Not Detectd)
[2020-12-23] MEDS: NYSTATIN 100,000 UNIT/ML SUSP 500,000 UNIT/5 ML CUP PO SCH ×5 (04:41→21:17)
[2020-12-23] MEDS: FLUTICASONE 50MCG/SPRAY NASAL 16GM EA NOSTRIL SCH ×3 (04:41→22:24)
[2020-12-23] MEDS: FLUORIDE MISCELLANE SCH ×2 (04:41→21:14)
[2020-12-23] MEDS: LEVOTHYROXINE 125 MCG TAB PO SCH (06:17)
[2020-12-23 07:09] LABS: Glucose,Whole Blood 119 mg/dL (75-99)
[2020-12-23] MEDS: LIDOCAINE 5% PATCH TOPICAL SCH (08:11)
[2020-12-23] MEDS: ENOXAPARIN 40 MG/0.4 ML SYRINGE SQ SCH (08:11)
[2020-12-23] MEDS: DEXAMETHASONE SOD PHOSPHATE 10 MG/ML 1 ML VIAL IVP SCH (08:11)
[2020-12-23] MEDS: HYDROcodone/APAP 10-325MG 1 EACH TAB PO PRN ×2 (08:12→17:03)
[2020-12-23] MEDS: ONDANSETRON 4 MG TAB PO PRN (08:13)
[2020-12-23] MEDS: ESCITALOPRAM 20 MG TAB PO SCH (08:13)
[2020-12-23] MEDS: DICYCLOMINE 20 MG TAB PO SCH ×4 (08:13→21:18)
[2020-12-23] MEDS: PANTOPRAZOLE 40 MG TABLET PO SCH (08:13)
[2020-12-23] MEDS: CHOLECALCIFEROL 25 MCG (1000 IU) TABLET PO SCH (08:13)
[2020-12-23] MEDS: clonazePAM 1 MG TAB PO SCH (08:13)
[2020-12-23] MEDS: ZINC SULFATE 220 MG CAP PO SCH (08:13)
[2020-12-23] MEDS: ASCORBIC ACID 500 MG TAB PO SCH ×2 (08:13→21:18)
[2020-12-23] MEDS: COLCHICINE 0.6 MG EACH PO SCH (08:13)
[2020-12-23] MEDS: INSULIN ASPART (NovoLOG) 100 UNIT/ML VIAL SQ SCH ×4 (08:14→21:18)
[2020-12-23] MEDS: BUDESONIDE 3 MG PO SCH (08:14)
[2020-12-23] MEDS: SODIUM CHLORIDE 0.9% 1,000 ML IV SCH (09:10)
[2020-12-23 09:50] LABS: LDH 256 U/L (120-246); Magnesium 1.6 mg/dL (1.5-2.4)
[2020-12-23 10:20] LABS: ALT 22 U/L (8-44); AST 38 U/L (13-35); African American GFR (CKD) 81.8 (60.0-200.0); Albumin 2.7 g/dL (3.8-4.9); Alkaline Phosphatase 63 U/L (41-126); BUN/Creat Ratio 24.75 Ratio (12.00-20.00); Blood Urea Nitrogen 19.8 mg/dL (9.0-27.0); Calcium 7.4 mg/dL (8.7-10.3); Carbon Dioxide 19.8 mmol/L (21.6-31.8); Chloride 112 mmol/L (96-109); Globulin 1.8 g/dL (1.6-3.3); Glucose 106 mg/dL (70-110); Non-African American GFR(CKD) 70.6 (60.0-200.0); Potassium 3.7 mmol/L (3.5-5.5); Sodium 144 mmol/L (135-145); Total Bilirubin <0.20 mg/dL (0.30-1.20); Total Protein 4.5 g/dL (6.2-8.2)
[2020-12-23 10:37] LABS: Basophils # (A) 0 X 10*3/uL (0.00-0.10); Basophils % (A) 0 %; Eosinophils # (A) 0 X 10*3/uL (0.04-0.35); Eosinophils % (A) 0 %; HCT 29.9 % (37.2-46.3); HGB 9.3 g/dL (12.0-15.0); Lymphocytes # (A) 0.22 X 10*3/uL (0.90-5.00); Lymphocytes % (A) 6.9 %; MCH 29.2 pg (27.0-32.0); MCHC 31.1 g/dL (32.0-37.0); Mean Platelet Volume 11.8 fL (9.5-12.2); Monocytes # (A) 0.18 X 10*3/uL (0.20-1.00); Monocytes % (A) 5.7 %; Neutrophils # (A) 2.73 X 10*3/uL (1.80-7.70); Neutrophils % (A) 85.8 %; Platelet Count 128 X 10*3/uL (140-440); RBC 3.18 X 10*6/uL (4.10-5.20); RDW 14.2 % (11.5-14.5); WBC 3.18 X 10*3/uL (4.50-10.00)
[2020-12-23 11:51] LABS: Glucose,Whole Blood 132 mg/dL (75-99)
--- NOTE | 2020-12-23 15:30 | P.PN ---
Subjective his is a 80-year-old female with past medical history of autoimmune hepatitis C, IBS, cancers 2 and multiple other medical issues follows regularly with Dr. Gianna Sanchez, presented to the ER with complaints of suspected fevers for the last couple of days, constipation, nausea, abdominal pain and decreased oral intake. 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 On admission temperature 103.5, normal WBC ,maintaining O2 sats of mid 90s on room air. Positive for COVID-19. Received monoclonal antibodies. Chest x-ray reportedly mild patchy density left lower lobe with small effusion, improved aeration of right lung. Abdomen/pelvis CT reported persistent subcapsular hepatic fluid collection, persistent dilatation of the intrahepatic biliary tree, common bile duct and pancreatic duct, possible enteritis, fluid distended small bowel, stool throughout the colon a consistent hematuria within the right; likely from congestive products with no evidence of abscess or free air. EKG reportedly normal sinus rhythm, troponin negative 1. Denies chest pain, palpitations or increasing shortness of breath. The hemoglobin 10.4, platelets 140, sodium 138, potassium 3, bicarb 25, BUN 24, creatinine 0.79, glucose 109, magnesium 1.2. UA negative. IV fluids initiated. 12/23/2020: Patient remains in the high 90s on room air pulse oximetry. Blood pressure stable. Her a slightly bradycardic. MAXIMUM TEMPERATURE is 98.2. Niz[place] she'll 6 bowel movements yesterday, 1 void. Weight is 40.8 EKG. Laboratory studies showed WBC count 3.1 hemoglobin 9.3 platelets are 120 today. GFR is 70.6. Pro-calcitonin 0.18 LDH was 256. CRP was 3.6. These markers of inflammation are elevated. Blood cultures negative 224 hours. She continues on: Cocktail of dexamethasone, colchicine, cholecalciferol, magnesium replacement, vitamin C, zinc, and some of her home meds. She is complaining of some fatigue today. She otherwise has no other complaints this time. She denies any chest pains, pressures, or shortness breath. Denies any nausea or vomiting. Has chronic mild abdominal pain from her autoimmune hepatitis. Infectious disease is following as well. Objective - Vital Signs Vital signs: Vital Signs Temp 98.0 F 12/23/20 11:20 Pulse 58 L 12/23/20 11:20 Resp 18 12/23/20 11:20 BP 127/70 12/23/20 11:20 Pulse Ox 96 12/23/20 11:20 Intake & Output 12/22/20 12/23/20 12/23/20 18:59 06:59 18:59 Intake Total 600 Balance 600 Weight 40.823 kg Intake: Intake, IV Titration 600 Amount Sodium Chloride 0.9% 1, 600 000 ml @ 75 mls/hr IV . [id number] MELANIE Rx#:[id number] Other: Voiding Method Bedside Commode # Voids 1 # Bowel Movements 6 - Exam GENERAL: Chronically Cachectic, lying up in bed, no acute distress, weak appearing NECK: No JVD. No thyroid enlargement. No LNs CARDIOVASCULAR: S1, S2 regular. Systolic murmur RESPIRATION: Breath sounds diminished in the bases. No rhonchi. ABDOMEN: Soft, nondistended, epigastric tenderness, No guarding. no masses palpable.Bowel sounds heard. Extremities: No edema. no swelling PSYCHIATRY: Alert and oriented X3, mood and affect normal. NERVOUS SYSTEM: Cranial N 2-12 grossly normal. Moves all 4 limbs. No focal deficits. Strength and sensation grossly intact. Skin: Warm and dry, no rash - Labs CBC & Chem 7: 12/23/20 06:08 12/23/20 06:08 Labs: Abnormal Lab Results - Last 24 Hours (Table) 12/22/20 12/22/20 12/22/20 Range/Units 16:37 17:10 21:09 WBC (4.50-10.00) X 10*3/uL RBC (4.10-5.20) X 10*6/uL Hgb (12.0-15.0) g/dL Hct (37.2-46.3) % MCHC (32.0-37.0) g/dL Plt Count (140-440) X 10*3/uL Plt Count Comment Immature Gran # (0.00-0.04) X 10*3/uL Lymphocytes # (0.90-5.00) X 10*3/uL Monocytes # (0.20-1.00) X 10*3/uL Eosinophils # (0.04-0.35) X 10*3/uL D-Dimer (<0.60) mg/L FEU Potassium 3.4 L (3.5-5.1) mmol/L Chloride (96-109) mmol/L Carbon Dioxide (21.6-31.8) mmol/L Anion Gap (4.00-12.00) mmol/L BUN/Creatinine Ratio (12.00-20.00) Ratio POC Glucose (mg/dL) 127 H 155 H (75-99) mg/dL Calcium (8.7-10.3) mg/dL Ferritin (10.0-291.0) ng/mL Total Bilirubin (0.30-1.20) mg/dL AST (13-35) U/L Lactate Dehydrogenase (120-246) U/L C-Reactive Protein (0.00-0.80) mg/dL Total Protein (6.2-8.2) g/dL Albumin (3.8-4.9) g/dL Albumin/Globulin Ratio (1.60-3.17) g/dL Procalcitonin (0.02-0.09) ng/mL 12/23/20 12/23/20 12/23/20 Range/Units 06:08 06:08 06:08 WBC 3.18 L (4.50-10.00) X 10*3/uL RBC 3.18 L (4.10-5.20) X 10*6/uL Hgb 9.3 L (12.0-15.0) g/dL Hct 29.9 L (37.2-46.3) % MCHC 31.1 L (32.0-37.0) g/dL Plt Count 128 L (140-440) X 10*3/uL Plt Count Comment DECREASED A Immature Gran # 0.05 H (0.00-0.04) X 10*3/uL Lymphocytes # 0.22 L (0.90-5.00) X 10*3/uL Monocytes # 0.18 L (0.20-1.00) X 10*3/uL Eosinophils # 0 L (0.04-0.35) X 10*3/uL D-Dimer (<0.60) mg/L FEU Potassium (3.5-5.1) mmol/L Chloride 112 H (96-109) mmol/L Carbon Dioxide 19.8 L (21.6-31.8) mmol/L Anion Gap 12.20 H (4.00-12.00) mmol/L BUN/Creatinine Ratio 24.75 H (12.00-20.00) Ratio POC Glucose (mg/dL) (75-99) mg/dL Calcium 7.4 L (8.7-10.3) mg/dL Ferritin 6468.0 H (10.0-291.0) ng/mL Total Bilirubin <0.20 L (0.30-1.20) mg/dL AST 38 H (13-35) U/L Lactate Dehydrogenase 256 H (120-246) U/L C-Reactive Protein 3.60 H (0.00-0.80) mg/dL Total Protein 4.5 L (6.2-8.2) g/dL Albumin 2.7 L (3.8-4.9) g/dL Albumin/Globulin Ratio 1.50 L (1.60-3.17) g/dL Procalcitonin 0.18 H (0.02-0.09) ng/mL 12/23/20 12/23/20 12/23/20 Range/Units 06:08 07:05 11:48 WBC (4.50-10.00) X 10*3/uL RBC (4.10-5.20) X 10*6/uL Hgb (12.0-15.0) g/dL Hct (37.2-46.3) % MCHC (32.0-37.0) g/dL Plt Count (140-440) X 10*3/uL Plt Count Comment Immature Gran # (0.00-0.04) X 10*3/uL Lymphocytes # (0.90-5.00) X 10*3/uL Monocytes # (0.20-1.00) X 10*3/uL Eosinophils # (0.04-0.35) X 10*3/uL D-Dimer 0.72 H (<0.60) mg/L FEU Potassium (3.5-5.1) mmol/L Chloride (96-109) mmol/L Carbon Dioxide (21.6-31.8) mmol/L Anion Gap (4.00-12.00) mmol/L BUN/Creatinine Ratio (12.00-20.00) Ratio POC Glucose (mg/dL) 119 H 132 H (75-99) mg/dL Calcium (8.7-10.3) mg/dL Ferritin (10.0-291.0) ng/mL Total Bilirubin (0.30-1.20) mg/dL AST (13-35) U/L Lactate Dehydrogenase (120-246) U/L C-Reactive Protein (0.00-0.80) mg/dL Total Protein (6.2-8.2) g/dL Albumin (3.8-4.9) g/dL Albumin/Globulin Ratio (1.60-3.17) g/dL Procalcitonin (0.02-0.09) ng/mL Microbiology - Last 24 Hours (Table) 12/21/20 14:57 Blood Culture - Preliminary Blood No Growth after 24 hours 12/21/20 14:57 Blood Culture - Preliminary Blood No Growth after 24 hours Assessment and Plan Plan: Acute COVID-19 pneumonia, status post monoclonal antibodies in the ER, mild Dehydration Epigastric abdominal pain secondary to constipation Chronic severe protein calorie malnutrition, BMI 16.1 Chronic left upper quadrant pain radiates to right upper quadrant. History of hepatic fluid collection, possibly pseudocyst or hepatic cyst, follows with GI outpatient Chronic Autoimmune Hepatitis C, Leukocytosis Hypomagnesemia Hypokalemia Dehydration History of IBS with chronic constipation Pubic Neftali fractures ,Indeterminate age History of rectal prolapse She'll continue her current medications and treatments. Since she's remained stable on oxygen and has received medical advice, we'll evaluate her for discharge in a.m. We'll repeat labs in a.m.
[2020-12-23 16:52] LABS: Glucose,Whole Blood 144 mg/dL (75-99)
[2020-12-23 20:44] LABS: Glucose,Whole Blood 168 mg/dL (75-99)
[2020-12-23] MEDS: traZODone HCL 100 MG TAB PO SCH (21:18)
[2020-12-23] MEDS: TAMSULOSIN 0.4 MG CAP.ER.24H PO SCH (21:18)
--- NOTE | 2020-12-23 22:05 | PN ---
PROGRESS NOTE DATE OF SERVICE: 12/23/2020 REASON FOR FOLLOWUP: COVID-19 pneumonia. INTERVAL HISTORY: The patient is afebrile. The patient is currently breathing comfortably on room air. The patient denies having any chest pain or shortness of breath. Occasional cough, which is dry. No nausea, no vomiting. No abdominal pain or diarrhea. PHYSICAL EXAMINATION: Blood pressure 105/51 with pulse of 56, temperature 97.8. She is 98% on room air. General description is an elderly female lying in bed in no distress. RESPIRATORY SYSTEM: Unlabored breathing. Decreased intensity of breath sounds. No wheeze. HEART: S1, S2. Regular rate and rhythm. ABDOMEN: Soft. No tenderness. LABS: Hemoglobin is 9.3, white count 3.18. D-dimer 0.72, creatinine 0.8. DIAGNOSTIC IMPRESSION AND PLAN: Patient with acute COVID-19 pneumonia in this patient currently with no evidence of any hypoxemia. Treatment is mostly supportive. No need for steroids. Continue on Lovenox, dexamethasone, zinc, ascorbic acid and respiratory support. Monitor clinical course closely. MMODL / IJN: [id number] /
[2020-12-24] MEDS: NYSTATIN 100,000 UNIT/ML SUSP 500,000 UNIT/5 ML CUP PO SCH ×6 (00:24→23:37)
[2020-12-24 01:40] LABS: Glucose,Whole Blood 131 mg/dL (75-99)
[2020-12-24] MEDS ORDERED: ATROPINE SULFATE 0.1 MG/ML 10ML SYRINGE ONE ×2 (01:46→02:09)
[2020-12-24 02:19] LABS: Glucose,Whole Blood 136 mg/dL (75-99)
[2020-12-24 02:29] LABS: ALT 22 U/L (4-34); AST 44 U/L (14-36); African American GFR (CKD) 69 (>60 ml/min/1.73 sqM); Albumin 2.5 g/dL (3.5-5.0); Alkaline Phosphatase 71 U/L (38-126); Blood Urea Nitrogen 25 mg/dL (7-17); Calcium 7.7 mg/dL (8.4-10.2); Carbon Dioxide 21 mmol/L (22-30); Chloride 111 mmol/L (98-107); Globulin 2.4 g/dL; Glucose 116 mg/dL (74-99); Magnesium 1.6 mg/dL (1.6-2.3); Non-African American GFR(CKD) 60 (>60 ml/min/1.73 sqM); Potassium 3.5 mmol/L (3.5-5.1); Total Bilirubin 0.2 mg/dL (0.2-1.3); Total Protein 4.9 g/dL (6.3-8.2)
[2020-12-24] MEDS ORDERED: DOPamine DRIP 0 ML IV ONE (02:29)
[2020-12-24 02:38] LABS: Basophils % (A) 0 %; Eosinophils % (A) 0 %; HCT 34.8 % (34.0-46.0); Lymphocytes # (A) 0.3 k/uL (1.0-4.8); Lymphocytes % (A) 8 %; MCH 29.3 pg (25.0-35.0); MCHC 31.6 g/dL (31.0-37.0); MCV 92.7 fL (80.0-100.0); Mean Platelet Volume 9.3; Monocytes # (A) 0.2 k/uL (0-1.0); Monocytes % (A) 5 %; Neutrophils # (A) 3.5 k/uL (1.3-7.7); Neutrophils % (A) 86 %; Platelet Count 165 k/uL (150-450); RBC 3.76 m/uL (3.80-5.40); RDW 14.1 % (11.5-15.5); WBC 4.1 k/uL (3.8-10.6)
[2020-12-24] MEDS ORDERED: NALOXONE 0.4 MG/ML 1 ML VIAL IV PRN (02:49)
[2020-12-24 02:58] LABS: Anion Gap 6 mmol/L; Sodium 138 mmol/L (137-145)
[2020-12-24] MEDS: SODIUM CHLORIDE 0.9% 1,000 ML IV SCH ×3 (03:02→23:23)
[2020-12-24] MEDS: ONDANSETRON 4 MG/2 ML VIAL IVP PRN ×2 (03:03→12:05)
[2020-12-24] MEDS: HYDROcodone/APAP 10-325MG 1 EACH TAB PO PRN ×3 (03:12→23:27)
--- NOTE | 2020-12-24 04:28 | P.EN ---
A team called on this patient due to symptomatic bradycardia. Tele was showing heart rate as low as 28 bpm, patient feeling nauseous denies chest pain or trouble breathing , no cardiac history , she is admitted for COVID infection and received Regen-Cov during this hospital stay . patient examined, BP 140s/70, oxygen sat 96%, heart rate currently 41-57 bpm repeat EKG shows slow junctional rhythm, irregular . lungs good breath sounds bilaterally patient awake, but confused and looks tired, with repeated vomiting. case discussed with cardiology will transfer to ICU for close monitoring Possible need for dopamine / pacing check electrolytes check trops close monitoring 35 minutes were spent in critical care time in the care of this patient
[2020-12-24 04:45] LABS: Basophils % (A) 0 %; Eosinophils % (A) 0 %; HCT 34.1 % (34.0-46.0); HGB 10.6 gm/dL (11.4-16.0); Hypochromasia Slight; Lymphocytes # (A) 0.3 k/uL (1.0-4.8); Lymphocytes % (A) 7 %; MCH 29.3 pg (25.0-35.0); MCHC 31.2 g/dL (31.0-37.0); Mean Platelet Volume 9.3; Monocytes # (A) 0.2 k/uL (0-1.0); Monocytes % (A) 5 %; Neutrophils # (A) 3.7 k/uL (1.3-7.7); Neutrophils % (A) 86 %; Platelet Count 159 k/uL (150-450); RBC 3.62 m/uL (3.80-5.40); WBC 4.3 k/uL (3.8-10.6)
[2020-12-24 05:21] LABS: Albumin 2.6 g/dL (3.5-5.0); Calcium 7.9 mg/dL (8.4-10.2); Magnesium 1.6 mg/dL (1.6-2.3); Potassium 3.5 mmol/L (3.5-5.1); Total Bilirubin 0.2 mg/dL (0.2-1.3); Total Protein 4.9 g/dL (6.3-8.2)
[2020-12-24] MEDS ORDERED: Magnesium Replacement Protocol 1 EACH MISC MISCELLANE PRN (06:04)
[2020-12-24] MEDS: MAGNESIUM SULFATE-D5W PMX 1 GM in DEXTROSE/WATER 1 100ML.BAG IVPB SCH ×2 (06:14→07:52)
[2020-12-24] MEDS: POTASSIUM CHLORIDE 10 MEQ in WATER FOR INJECTION 1 100ML.BAG IVPB SCH ×8 (06:15→23:22)
[2020-12-24 06:34] LABS: Glucose,Whole Blood 184 mg/dL (75-99)
[2020-12-24] MEDS: INSULIN ASPART (NovoLOG) 100 UNIT/ML VIAL SQ SCH ×4 (06:56→21:14)
[2020-12-24] MEDS: PANTOPRAZOLE 40 MG TABLET PO SCH (06:56)
--- NOTE | 2020-12-24 07:51 | P.CRDCN ---
History of Present Illness Consult date: 12/24/20 Chief complaint: Generalized weakness and fatigue History of present illness: This is a 80-year-old female patient with no significant cardiovascular history who requested to see in the intensive care unit for further evaluation off bradycardia and cardiac arrhythmia. The patient was admitted to the hospital yesterday when she presented with symptoms of not feeling well for the last 2 weeks. She was experiencing generalized weakness and fatigue and low energy and subsequently she developed cough seems to be nonproductive for any sputum. She also was experiencing fever and also was experiencing symptoms of abdominal discomfort as well as nausea. She was hypoxic in the ER and she was saturating only 90% on room air. The patient was admitted to the hospital and she was diagnosed with COVID-19 pneumonia. Infectious disease was following the patient closely. We requested to see the patient because last night an A team was called after the patient went into an atrial fibrillation and then she went to bradycardic with heart rate in the 30s and 40s. The initial EKG when the patient presented to the hospital showed sinus rhythm. Subsequently the EKG just before she was bradycardic showed an atrial fibrillation. This is a new diagnosis the patient she never been diagnosed was atrial fibrillation before. Subsequently the patient went to bradycardic. When she was bradycardic she developed symptoms of feeling nauseated and about to vomit. That happened in the middle of the night and after I spoke with the nurse taking care of the patient I was notified that the nausea and vomiting happened after the bradycardia and was before the bradycardia. Because of that the patient was given 1 mg of atropine and she was transferred to the intensive care unit. In the ICU the patient was initially started on dopamine and then the dopamine was stopped because she was maintaining sinus rhythm with first-degree AV block and heart rate in the 50s. She was not on any AV otis danny agents at home. Currently the patient is hemodynamically stable with heart rate in the 50s. She denies any symptoms of dizziness or lightheadedness before she presented to the hospital and denies any symptoms of chest pain or chest discomfort or shortness of breath. An echocardiogram was performed about a year ago showed normal LV function with moderate mitral regurgitation. Her blood work was reviewed. The rest of the chart was reviewed as well. Past Medical History Past Medical History: Cancer, Fibromyalgia, GERD/Reflux, Liver Disease, Osteoarthritis (OA), Pneumonia, Sleep Apnea/CPAP/BIPAP, Thyroid Disorder Additional Past Medical History / Comment(s): Hepatitis C, Immune disorder, IBS History of Any Multi-Drug Resistant Organisms: None Reported Past Surgical History: Appendectomy, Breast Surgery, Cholecystectomy, Hysterectomy, No Surgical Hx Reported, Orthopedic Surgery, Tonsillectomy Additional Past Surgical History / Comment(s): Rectal prolapse Past Anesthesia/Blood Transfusion Reactions: No Reported Reaction Past Psychological History: Depression, No Psychological Hx Reported Smoking Status: Never smoker Past Alcohol Use History: None Reported Past Drug Use History: None Reported - Past Family History Mother Family Medical History: Cancer, Deep Vein Thrombosis (DVT) Medications and Allergies Home Medications Medication Instructions Recorded Confirmed Type Levothyroxine Sodium [Synthroid] 125 mcg PO DAILY 12/21/13 12/21/20 History mycophenolate mofetiL [Cellcept] 1,000 mg PO BID 12/21/13 12/21/20 History Escitalopram Oxalate [Lexapro] 20 mg PO DAILY 04/26/19 12/21/20 History Dicyclomine [Bentyl] 20 mg PO ACHS 01/13/20 12/21/20 History HYDROmorphone HCL [Dilaudid] 8 mg PO Q6H 01/13/20 12/21/20 History Budesonide [Budesonide EC] 9 mg PO DAILY 08/21/20 12/21/20 History Omeprazole 40 mg PO DAILY 08/21/20 12/21/20 History Tamsulosin HCl [Flomax] 0.4 mg PO HS 08/21/20 12/21/20 History clonazePAM [KlonoPIN] 1 mg PO DAILY 08/21/20 12/21/20 History traZODone HCL 100 mg PO HS 08/21/20 12/21/20 History Fluoride (Sodium) [Sodium Fluoride 1 applic DENTAL HS 12/21/20 12/21/20 History 5000 Plus] Fluticasone Nasal [place] [Flonase 1 spr EA NOSTRIL BID 12/21/20 12/21/20 History Nasal [place]] Lidocaine 5% Patch [Lidoderm] 1 patch TRANSDERM DAILY 12/21/20 12/21/20 History Nystatin 100,000 Unit/gm Oint 1 applic TOPICAL TID 12/21/20 12/21/20 History [Mycostatin Oint] Ondansetron [Zofran] 4 mg PO Q6H PRN 12/21/20 12/21/20 History dexAMETHasone [Decadron Elixir] 0.5 mg PO QID 12/21/20 12/21/20 History methylPREDNISolone [Medrol Dose See Taper PO DAILY 12/21/20 12/21/20 History Pack] valACYclovir HCL [Valtrex] 1,000 mg PO BID PRN 12/21/20 12/21/20 History Allergies Allergy/AdvReac Type Severity Reaction Status Date / Time No Known Drug Allergies Allergy Unknown Verified 12/21/20 14:05 Physical Exam Vitals: Vital Signs Temp Pulse Pulse Resp BP BP Pulse Ox 12/24/20 07:00 57 L 15 110/83 86 L 12/24/20 06:00 63 2 L 121/104 12/24/20 05:00 73 130/76 93 L 12/24/20 04:00 64 135/91 96 12/24/20 03:00 74 24 166/88 95 12/24/20 01:21 97.5 F L 55 L 19 147/70 96 12/23/20 20:00 97.5 F L 42 L 17 115/61 96 12/23/20 17:38 96.9 F L 58 L 19 122/55 97 12/23/20 14:00 97.5 F L 69 18 95/53 96 12/23/20 11:20 98.0 F 58 L 18 127/70 96 Intake and Output 12/23/20 12/24/20 12/24/20 22:59 06:59 14:59 Intake Total 500 75 Output Total 200 0 Balance -200 500 75 Intake: IV 300 75 Sodium Chloride 0.9% 1, 300 75 000 ml @ 75 mls/hr IV . [id number] [facility] Rx#:[id number] Intake, IV Titration 200 Amount Magnesium Sulfate-D5w Pmx 100 1 gm In Dextrose/Water 1 100ml.bag @ 100 mls/hr IVPB Q1H [facility] Rx#: [id number] Potassium Chloride 10 meq 100 In Water For Injection 1 100ml.bag @ 100 mls/hr IVPB Q1HR M[facility]IE Rx#: [id number] Output: Urine 0 Emesis 200 Other: # Voids 2 0 0 # Bowel Movements 1 1 # Emeses 3 2 - Constitutional General appearance: no acute distress - Respiratory Respiratory: bilateral: diminished - Cardiovascular Rhythm: regular Heart sounds: normal: S1, S2 Abnormal Heart Sounds: systolic murmur Results 12/24/20 04:18 12/24/20 04:18 Cardiac Enzymes 12/23/20 12/24/20 12/24/20 Range/Units 06:08 00:58 00:58 AST 38 H 44 H (13-35) U/L Lactate Dehydrogenase 256 H (120-246) U/L Troponin I 0.014 (0.000-0.034) ng/mL 12/24/20 Range/Units 04:18 AST 46 H (13-35) U/L Lactate Dehydrogenase (120-246) U/L Troponin I (0.000-0.034) ng/mL CBC 12/23/20 12/24/20 12/24/20 Range/Units 06:08 00:58 04:18 WBC 3.18 L 4.1 4.3 (4.50-10.00) X 10*3/uL RBC 3.18 L 3.76 L 3.62 L (4.10-5.20) X 10*6/uL Hgb 9.3 L 11.0 L 10.6 L (12.0-15.0) g/dL Hct 29.9 L 34.8 34.1 (37.2-46.3) % Plt Count 128 L 165 159 (140-440) X 10*3/uL Comprehensive Metabolic Panel 12/23/20 12/24/20 12/24/20 Range/Units 06:08 00:58 04:18 Sodium 144 138 141 (135-145) mmol/L Potassium 3.7 3.5 3.5 (3.5-5.5) mmol/L Chloride 112 H 111 H 113 H (96-109) mmol/L Carbon Dioxide 19.8 L 21 L 21 L (21.6-31.8) mmol/L BUN 19.8 25 H 24 H (9.0-27.0) mg/dL Creatinine 0.8 0.93 0.89 (0.6-1.5) mg/dL Glucose 106 116 H 146 H (70-110) mg/dL Calcium 7.4 L 7.7 L 7.9 L (8.7-10.3) mg/dL AST 38 H 44 H 46 H (13-35) U/L ALT 22 22 23 (8-44) U/L Alkaline Phosphatase 63 71 70 (41-126) U/L Total Protein 4.5 L 4.9 L 4.9 L (6.2-8.2) g/dL Albumin 2.7 L 2.5 L 2.6 L (3.8-4.9) g/dL Current Medications Generic Name Dose Route Start Last Admin Trade Name Freq PRN Reason Stop Dose Admin Acetaminophen 650 mg 12/21/20 17:03 Acetaminophen Tab 325 Mg Tab PO Q6HR PRN Mild Pain or Fever > 100.5 Hydrocodone Bitart/Acetaminophen 0 each 12/21/20 20:42 12/24/20 03:12 Hydrocodone/Apap 10-325mg 1 Each Tab PO 1 each Q6HR PRN Administration Moderate to Severe Pain Ascorbic Acid 500 mg 12/22/20 09:45 12/23/20 21:18 Ascorbic Acid 500 Mg Tab PO 500 mg BID MELANIE Administration Bisacodyl 5 mg 12/21/20 17:03 Bisacodyl 5 Mg Tablet.Dr PO DAILY PRN Constipation Cholecalciferol 25 mcg 12/22/20 11:00 12/23/20 08:13 Cholecalciferol 25 Mcg (1000 Iu) Tablet PO 25 mcg DAILY MELANIE Administration Clonazepam 1 mg 12/22/20 09:45 12/23/20 08:13 Clonazepam 1 Mg Tab PO 1 mg DAILY MELANIE Administration Colchicine 0.6 mg 12/22/20 10:15 12/23/20 08:13 Colchicine 0.6 Mg Each PO 12/28/20 10:16 0.6 mg DAILY MELANIE Administration Dexamethasone Sodium Phosphate 6 mg 12/22/20 09:45 12/23/20 08:11 Dexamethasone Sod Phosphate 10 Mg/Ml 1 Ml Vial IVP 6 mg DAILY MELANIE Administration Dicyclomine HCl 20 mg 12/22/20 12:30 12/23/20 21:18 Dicyclomine 20 Mg Tab PO 20 mg ACHS MELANIE Administration Enoxaparin Sodium 40 mg 12/24/20 09:00 Enoxaparin 40 Mg/0.4 Ml Syringe SQ BID MELANIE Escitalopram Oxalate 20 mg 12/22/20 09:45 12/23/20 08:13 Escitalopram 20 Mg Tab PO 20 mg DAILY MELANIE Administration Fluticasone Propionate 1 spray 12/22/20 09:45 12/23/20 22:24 Fluticasone 50mcg/[place] Nasal 16gm EA NOSTRIL Not Given BID MELANIE Sodium Chloride 1,000 mls @ 75 mls/hr 12/21/20 17:15 12/24/20 03:02 Saline 0.9% IV Not Given .[id number] MELANIE Potassium Chloride 10 meq/ IV 100 mls @ 100 mls/hr 12/24/20 07:00 12/24/20 06:15 Solution IVPB 12/24/20 10:59 100 mls/hr Q1HR MELANIE Administration Protocol Magnesium Sulfate/Dextrose 1 100 mls @ 100 mls/hr 12/24/20 06:15 12/24/20 06:14 gm/ IV Solution IVPB 12/24/20 08:14 100 mls/hr Q1H MELANIE Administration Insulin Aspart 0 unit 12/22/20 12:30 12/24/20 06:56 Insulin Aspart (Novolog) 100 Unit/Ml Vial SQ 5 unit ACHS MELANIE Administration Protocol Levothyroxine Sodium 125 mcg 12/22/20 09:45 12/23/20 06:17 Levothyroxine 125 Mcg Tab PO 125 mcg DAILY@0630 MELANIE Administration Lidocaine 1 patch 12/22/20 09:45 12/23/20 08:11 Lidocaine 5% Patch TOPICAL 1 patch DAILY MELANIE Administration Protocol Miscellaneous Information 1 each 12/22/20 09:34 Magnesium Replacement Protocol 1 Each Misc MISCELLANE DAILY PRN Per Protocol Protocol Miscellaneous Information 1 each 12/22/20 09:35 Potassium Replacement Protocol 1 Each Misc MISCELLANE DAILY PRN Per Protocol Protocol Mycophenolate Mofetil 1,000 mg 12/22/20 10:00 12/23/20 21:17 Mycophenolate Mofetil 500 Mg Tab PO 1,000 mg BID MELANIE Administration Naloxone HCl 0.2 mg 12/24/20 02:49 Naloxone 0.4 Mg/Ml 1 Ml Vial IV Q2M PRN Opioid Reversal Non-Formulary Medication 9 mg 12/22/20 09:45 12/23/20 08:14 Budesonide [Budesonide Ec] PO Not Given DAILY MELANIE Non-Formulary Medication 1 applic 12/22/20 21:00 12/23/20 21:14 Fluoride (Sodium) [Sodium Fluoride 5000 Plus] MISCELLANE Not Given HS MELANIE Nystatin 500,000 unit 12/23/20 01:30 12/24/20 06:14 Nystatin 100,000 Unit/Ml Susp 500,000 Unit/5 Ml Cup PO 12/28/20 01:31 500,000 unit 5XD MELANIE Administration Ondansetron HCl 4 mg 12/21/20 17:03 12/24/20 03:03 Ondansetron 4 Mg/2 Ml Vial IVP 4 mg Q8HR PRN Administration Nausea And Vomiting Ondansetron HCl 4 mg 12/22/20 09:47 12/23/20 08:13 Ondansetron 4 Mg Tab PO 4 mg Q6H PRN Administration Nausea Pantoprazole Sodium 40 mg 12/22/20 10:00 12/24/20 06:56 Pantoprazole 40 Mg Tablet PO 40 mg [id number] MELANIE Administration Tamsulosin HCl 0.4 mg 12/22/20 21:00 12/23/20 21:18 Tamsulosin 0.4 Mg Cap.Er.24h PO 0.4 mg HS MELANIE Administration Trazodone HCl 100 mg 12/22/20 21:00 12/23/20 21:18 Trazodone Hcl 100 Mg Tab PO 100 mg HS MELANIE Administration Zinc Sulfate 220 mg 12/22/20 09:45 12/23/20 08:13 Zinc Sulfate 220 Mg Cap PO 220 mg DAILY MELANIE Administration Intake and Output 12/23/20 12/24/20 12/24/20 22:59 06:59 14:59 Intake Total 500 75 Output Total 200 0 Balance -200 500 75 Intake: IV 300 75 Sodium Chloride 0.9% 1, 300 75 000 ml @ 75 mls/hr IV . [id number] [facility] Rx#:[id number] Intake, IV Titration 200 Amount Magnesium Sulfate-D5w Pmx 100 1 gm In Dextrose/Water 1 100ml.bag @ 100 mls/hr IVPB Q1H [facility] Rx#: [id number] Potassium Chloride 10 meq 100 In Water For Injection 1 100ml.bag @ 100 mls/hr IVPB Q1HR [facility] Rx#: [id number] Output: Urine 0 Emesis 200 Other: # Voids 2 0 0 # Bowel Movements 1 1 # Emeses 3 2 12/24/20 04:18 12/24/20 04:18 Assessment and Plan Assessment: Assessment #1 COVID-19 infection #2 paroxysmal atrial fibrillation. This is a new diagnosis the patient #3 bradycardia. This could be vagal but the symptoms of nausea and vomiting started after the bradycardia and not before the bradycardia #4 rule out conduction system abnormalities and the need for permanent pacemaker Plan #1 start the patient on anticoagulation. Currently she is on prophylactic dose of Lovenox which I'm going to increase to a therapeutic dose #2 avoid any AV otis danny agents at this point #3 continue watching the rhythm/heart rate very closely #4 obtain TSH and free T4 #5 obtain an echocardiogram was Doppler #6 acute coronary event was ruled out Follow-up with the patient
[2020-12-24] MEDS: DEXAMETHASONE SOD PHOSPHATE 10 MG/ML 1 ML VIAL IVP SCH (07:58)
[2020-12-24] MEDS: ENOXAPARIN 40 MG/0.4 ML SYRINGE SQ SCH ×2 (07:58→22:02)
[2020-12-24] MEDS: ZINC SULFATE 220 MG CAP PO SCH ×2 (07:59→09:55)
[2020-12-24] MEDS: CHOLECALCIFEROL 25 MCG (1000 IU) TABLET PO SCH ×2 (07:59→09:55)
[2020-12-24] MEDS: clonazePAM 1 MG TAB PO SCH ×2 (07:59→09:55)
[2020-12-24] MEDS: ASCORBIC ACID 500 MG TAB PO SCH ×3 (07:59→21:59)
[2020-12-24] MEDS: COLCHICINE 0.6 MG EACH PO SCH ×2 (08:00→09:55)
[2020-12-24] MEDS: FLUTICASONE 50MCG/SPRAY NASAL 16GM EA NOSTRIL SCH ×2 (08:03→22:02)
[2020-12-24] MEDS: LIDOCAINE 5% PATCH TOPICAL SCH (08:03)
[2020-12-24] MEDS: LEVOTHYROXINE 125 MCG TAB PO SCH (08:22)
[2020-12-24] MEDS: DICYCLOMINE 20 MG TAB PO SCH ×5 (08:22→21:59)
[2020-12-24] MEDS: ESCITALOPRAM 20 MG TAB PO SCH (09:50)
[2020-12-24 10:27] LABS: Appearance,Urine Clear (Clear); Bilirubin,Urine Negative (Negative); Blood,Urine Negative (Negative); Color,Urine Light Yellow; Glucose,Urine (UA) Negative (Negative); Ketones,Urine Negative (Negative); Leukocyte Esterase,Urine Negative (Negative); Nitrite,Urine Negative (Negative); Protein,Urine Trace (Negative); Specific Gravity,Urine 1.011 (1.001-1.035); Urobilinogen,Urine <2.0 mg/dL (<2.0)
[2020-12-24 11:39] LABS: Glucose,Whole Blood 192 mg/dL (75-99)
--- NOTE | 2020-12-24 13:31 | P.PN ---
Subjective his is a 80-year-old female with past medical history of autoimmune hepatitis C, IBS, cancers 2 and multiple other medical issues follows regularly with Dr. Gianna Sanchez, presented to the ER with complaints of suspected fevers for the last couple of days, constipation, nausea, abdominal pain and decreased oral intake. 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 On admission temperature 103.5, normal WBC ,maintaining O2 sats of mid 90s on room air. Positive for COVID-19. Received monoclonal antibodies. Chest x-ray reportedly mild patchy density left lower lobe with small effusion, improved aeration of right lung. Abdomen/pelvis CT reported persistent subcapsular hepatic fluid collection, persistent dilatation of the intrahepatic biliary tree, common bile duct and pancreatic duct, possible enteritis, fluid distended small bowel, stool throughout the colon a consistent hematuria within the right; likely from congestive products with no evidence of abscess or free air. EKG reportedly normal sinus rhythm, troponin negative 1. Denies chest pain, palpitations or increasing shortness of breath. The hemoglobin 10.4, platelets 140, sodium 138, potassium 3, bicarb 25, BUN 24, creatinine 0.79, glucose 109, magnesium 1.2. UA negative. IV fluids initiated. 12/23/2020: Patient remains in the high 90s on room air pulse oximetry. Blood pressure stable. Her a slightly bradycardic. MAXIMUM TEMPERATURE is 98.2. Nizoral she'll 6 bowel movements yesterday, 1 void. Weight is 40.8 EKG. Laboratory studies showed WBC count 3.1 hemoglobin 9.3 platelets are 120 today. GFR is 70.6. Pro-calcitonin 0.18 LDH was 256. CRP was 3.6. These markers of inflammation are elevated. Blood cultures negative 224 hours. She continues on: Cocktail of dexamethasone, colchicine, cholecalciferol, magnesium replacement, vitamin C, zinc, and some of her home meds. She is complaining of some fatigue today. She otherwise has no other complaints this time. She denies any chest pains, pressures, or shortness breath. Denies any nausea or vomiting. Has chronic mild abdominal pain from her autoimmune hepatitis. Infectious disease is following as well. December 24, 2020: overnight patient had significant bradycardia. I was contacted that telemetry showed heart rate in the 30s and 40s. She had some nausea at that point and then Atrial fibrillation was noted. This will be new for her shes never had anything like this before. Shes not take any medications that may induce bradycardia either. Her heart rate went down in the upper 20s and an A team was called. Cardiology was consulted. She was transferred to the intensive care unit where she is now. Currently shes complaining of significant nausea. She has Zofran ordered for this, but it is minmmaly effective. Heart rate has remained in the 50s since transfer the ICU. She did receive one dose of atropine before transfer. She is now requiring oxygen with some a.m. hypoxia 86% shes on 4 L via nasal cannula. Blood pressures remain stable. She has been afebrile. She had emesis times two, and one void.Laboratory studies show hemoglobin 10.6. GFR is 62 glucose is 146. Calcium 7.9 magnesium 1.6 total proteins 4.9 albumin 2.6. TSH was normal troponin was normal.Event note from Dr. Wesley and cardiology consultation Dr. Joseph reviewed. She remains on Covid cocktail,klonopin for anxiety, colchicine and dexamethasone for inflammation, her Lovenox is been increase per Dr. Joseph, she continues on some of her home medication as well. Including Cellcept. bdominal pain minimal today. No chest pain, pressure. No SOB. Objective - Vital Signs Vital signs: Vital Signs Temp 97.6 F 12/24/20 08:00 Pulse 48 L 12/24/20 11:00 Resp 16 12/24/20 11:00 BP 118/65 12/24/20 11:00 Pulse Ox 95 12/24/20 11:00 Intake & Output 12/23/20 12/24/20 12/24/20 18:59 06:59 18:59 Intake Total 500 375 Output Total 200 100 Balance 300 275 Intake: IV 300 375 Sodium Chloride 0.9% 1, 300 375 000 ml @ 75 mls/hr IV . [id number] [facility] Rx#:[id number] Intake, IV Titration 200 Amount Magnesium Sulfate-D5w Pmx 100 1 gm In Dextrose/Water 1 100ml.bag @ 100 mls/hr IVPB Q1H [facility] Rx#: [id number] Potassium Chloride 10 meq 100 In Water For Injection 1 100ml.bag @ 100 mls/hr IVPB Q1HR [facility] Rx#: [id number] Output: Urine 0 100 Emesis 200 Other: Voiding Method Bedside Commode Bedside Commode # Voids 1 0 1 # Bowel Movements 1 # Emeses 2 - Exam GENERAL: Chronically Cachectic, lying up in bed, mild acute distress, weak appearing, holding emesis basin NECK: No JVD. No thyroid enlargement. No LNs CARDIOVASCULAR: S1, S2 regular. Systolic murmur RESPIRATION: Breath sounds diminished in the bases. No rhonchi. ABDOMEN: Soft, nondistended, epigastric tenderness, No guarding. no masses palpable.Bowel sounds heard. Extremities: No edema. no swelling PSYCHIATRY: Alert and oriented X3, mood and affect normal. NERVOUS SYSTEM: Cranial N 2-12 grossly normal. Moves all 4 limbs. No focal deficits. Strength and sensation grossly intact. Skin: Warm and dry, no rash - Labs CBC & Chem 7: 12/24/20 04:18 12/24/20 04:18 Labs: Abnormal Lab Results - Last 24 Hours (Table) 12/23/20 12/23/20 12/24/20 Range/Units 16:39 20:42 00:58 RBC 3.76 L (3.80-5.40) m/uL Hgb 11.0 L (11.4-16.0) gm/dL Lymphocytes # 0.3 L (1.0-4.8) k/uL Chloride (98-107) mmol/L Carbon Dioxide (22-30) mmol/L BUN (7-17) mg/dL Glucose (74-99) mg/dL POC Glucose (mg/dL) 144 H 168 H (75-99) mg/dL Calcium (8.4-10.2) mg/dL AST (14-36) U/L Total Protein (6.3-8.2) g/dL Albumin (3.5-5.0) g/dL Urine Protein (Negative) 12/24/20 12/24/20 12/24/20 Range/Units 00:58 01:38 02:17 RBC (3.80-5.40) m/uL Hgb (11.4-16.0) gm/dL Lymphocytes # (1.0-4.8) k/uL Chloride 111 H (98-107) mmol/L Carbon Dioxide 21 L (22-30) mmol/L BUN 25 H (7-17) mg/dL Glucose 116 H (74-99) mg/dL POC Glucose (mg/dL) 131 H 136 H (75-99) mg/dL Calcium 7.7 L (8.4-10.2) mg/dL AST 44 H (14-36) U/L Total Protein 4.9 L (6.3-8.2) g/dL Albumin 2.5 L (3.5-5.0) g/dL Urine Protein (Negative) 12/24/20 12/24/20 12/24/20 Range/Units 04:18 04:18 06:32 RBC 3.62 L (3.80-5.40) m/uL Hgb 10.6 L (11.4-16.0) gm/dL Lymphocytes # 0.3 L (1.0-4.8) k/uL Chloride 113 H (98-107) mmol/L Carbon Dioxide 21 L (22-30) mmol/L BUN 24 H (7-17) mg/dL Glucose 146 H (74-99) mg/dL POC Glucose (mg/dL) 184 H (75-99) mg/dL Calcium 7.9 L (8.4-10.2) mg/dL AST 46 H (14-36) U/L Total Protein 4.9 L (6.3-8.2) g/dL Albumin 2.6 L (3.5-5.0) g/dL Urine Protein (Negative) 12/24/20 12/24/20 Range/Units 09:45 11:37 RBC (3.80-5.40) m/uL Hgb (11.4-16.0) gm/dL Lymphocytes # (1.0-4.8) k/uL Chloride (98-107) mmol/L Carbon Dioxide (22-30) mmol/L BUN (7-17) mg/dL Glucose (74-99) mg/dL POC Glucose (mg/dL) 192 H (75-99) mg/dL Calcium (8.4-10.2) mg/dL AST (14-36) U/L Total Protein (6.3-8.2) g/dL Albumin (3.5-5.0) g/dL Urine Protein Trace H (Negative) Microbiology - Last 24 Hours (Table) 12/21/20 14:57 Blood Culture - Preliminary Blood No Growth after 48 hours 12/21/20 14:57 Blood Culture - Preliminary Blood No Growth after 48 hours Assessment and Plan Plan: New Onset Atrial fibrillation Symptomatic bradycardia Acute COVID-19 pneumonia, status post monoclonal antibodies in the ER, mild Dehydration Epigastric abdominal pain secondary to constipation Chronic severe protein calorie malnutrition, BMI 16.1 Chronic left upper quadrant pain radiates to right upper quadrant. History of hepatic fluid collection, possibly pseudocyst or hepatic cyst, follows with GI outpatient Chronic Autoimmune Hepatitis C, Leukocytosis Hypomagnesemia Hypokalemia Dehydration History of IBS with chronic constipation Pubic [place] fractures ,Indeterminate age History of rectal prolapse wait on further recommendations from Cardiology and I.D. She'll continue her current medications and treatments. We'll repeat labs in a.m. She will be reevaluated in the next 24 hours
[2020-12-24] MEDS ORDERED: Potassium Replacement Protocol 1 EACH MISC MISCELLANE PRN (16:45)
[2020-12-24 16:48] LABS: Glucose,Whole Blood 127 mg/dL (75-99)
--- NOTE | 2020-12-24 17:02 | PN ---
PROGRESS NOTE DATE OF SERVICE: 12/24/2020 REASON FOR FOLLOWUP: COVID-19 pneumonia. INTERVAL HISTORY: The patient did have significant bradyarrhythmia with a heart rate down to 28. The patient has been transferred down to the ICU. The patient is currently complaining of a cough which is mostly dry; not bringing up any sputum. No nausea, no vomiting. No abdominal pain or diarrhea. PHYSICAL EXAMINATION: Blood pressure 113/63 with a pulse of 56, temperature 97.6. She is 97% on 4 L nasal cannula. General description is an elderly female up in the bed in no distress. RESPIRATORY SYSTEM: Unlabored breathing. Decreased intensity of breath sounds. No wheeze. HEART: S1, S2. Regular rate and rhythm. ABDOMEN: Soft. No tenderness. LABS: Hemoglobin is 10.3, white count 4.3, creatinine 0.89. Urine is negative. DIAGNOSTIC IMPRESSION AND PLAN: Patient admitted to hospital with a fever concerning for a COVID-19 infection in this patient who is status post monoclonal antibody infusion. Patient was doing well on the floor and was on room air; however, did have significant bradyarrhythmia and has been transferred to the ICU. To continue with dexamethasone, Lovenox, zinc, ascorbic acid. She would not be an ideal candidate for remdesivir, as bradyarrhythmia and heart block. Continue with supportive care. MMODL / IJN: [id number] /
[2020-12-24] MEDS: BUDESONIDE 3 MG PO SCH (17:13)
[2020-12-24 21:14] LABS: Glucose,Whole Blood 124 mg/dL (75-99)
[2020-12-24] MEDS: traZODone HCL 100 MG TAB PO SCH (21:59)
[2020-12-24] MEDS: FLUORIDE MISCELLANE SCH (21:59)
[2020-12-24] MEDS: TAMSULOSIN 0.4 MG CAP.ER.24H PO SCH (21:59)
[2020-12-25] MEDS: NYSTATIN 100,000 UNIT/ML SUSP 500,000 UNIT/5 ML CUP PO SCH ×5 (05:03→23:31)
[2020-12-25 05:25] LABS: Basophils % (A) 0 %; Eosinophils % (A) 0 %; HCT 37.2 % (34.0-46.0); HGB 11.6 gm/dL (11.4-16.0); Lymphocytes # (A) 0.2 k/uL (1.0-4.8); Lymphocytes % (A) 2 %; MCH 28.8 pg (25.0-35.0); MCHC 31.2 g/dL (31.0-37.0); MCV 92.3 fL (80.0-100.0); Mean Platelet Volume 8.8; Monocytes # (A) 0.2 k/uL (0-1.0); Monocytes % (A) 2 %; Neutrophils % (A) 96 %; Platelet Count 187 k/uL (150-450); RBC 4.03 m/uL (3.80-5.40); RDW 14.1 % (11.5-15.5); WBC 10.4 k/uL (3.8-10.6)
[2020-12-25 05:40] LABS: Calcium 7.7 mg/dL (8.4-10.2); Magnesium 1.7 mg/dL (1.6-2.3); Potassium 3.4 mmol/L (3.5-5.1)
[2020-12-25] MEDS: ONDANSETRON 4 MG/2 ML VIAL IVP PRN (06:15)
[2020-12-25] MEDS: SODIUM CHLORIDE 0.9% 1,000 ML IV SCH (06:15)
[2020-12-25] MEDS: POTASSIUM CHLORIDE 10 MEQ in WATER FOR INJECTION 1 100ML.BAG IVPB SCH ×4 (06:19→12:41)
[2020-12-25 06:51] LABS: Glucose,Whole Blood 102 mg/dL (75-99)
[2020-12-25] MEDS: LEVOTHYROXINE 125 MCG TAB PO SCH (07:00)
[2020-12-25] MEDS: INSULIN ASPART (NovoLOG) 100 UNIT/ML VIAL SQ SCH ×4 (07:00→20:32)
[2020-12-25] MEDS: PANTOPRAZOLE 40 MG TABLET PO SCH (07:00)
[2020-12-25] MEDS: DICYCLOMINE 20 MG TAB PO SCH ×4 (07:00→20:29)
[2020-12-25] MEDS ORDERED: METOCLOPRAMIDE 5 MG/ML 2 ML VIAL IVP PRN (07:02)
[2020-12-25] MEDS ORDERED: Magnesium Replacement Protocol 1 EACH MISC MISCELLANE PRN (07:02)
--- NOTE | 2020-12-25 07:14 | XR ---
EXAMINATION TYPE: XR chest 1V portable DATE OF EXAM: 12/25/2020 HISTORY: Shortness of breath. COMPARISON: 12/21/2020 TECHNIQUE: Single view of the chest is submitted. FINDINGS: Demonstrated are scattered senescent parenchymal change. Significant interval progression of infiltrates with a large area of airspace consolidation right per ihilar and right lower lobe region as well as the left lower lobe and periphery of the left lung. The heart is stable. Hilar and mediastinal structures are within normal limits. Degenerative changes are seen of the dorsal spine. IMPRESSION: 1. Significant interval progression of infiltrates with a large area of airspace consolidation right perihilar and right lower lobe region as well as the left lower lobe and periphery of the left lung.
[2020-12-25] MEDS: MAGNESIUM SULFATE-D5W PMX 1 GM in DEXTROSE/WATER 1 100ML.BAG IVPB SCH ×2 (07:38→10:22)
[2020-12-25] MEDS: HYDROcodone/APAP 10-325MG 1 EACH TAB PO PRN (07:39)
--- NOTE | 2020-12-25 10:14 | PN ---
PROGRESS NOTE Mrs. Kerr is a 80-year-old female who presented with symptoms of progressive dyspnea. She was diagnosed with COVID-19 pneumonia. She had episode of bradycardia; that is why cardiology consultation was requested. She is in sinus mechanism at this time with no significant bradycardia. She has first-degree AV block. She has no arrhythmia. She is being followed by the ID service. In the past, her left ventricular systolic function was preserved. Her chest x-ray this morning revealed worsening infiltrate. Her medications include colchicine, Lovenox, insulin, Protonix, Flomax. Her blood pressure is 120/60 with a heart rate in the 60s. She is afebrile this morning. No physical examination was done this morning to limit the exposure. Lab data revealed BUN and creatinine of 20 and 0.8, potassium 3.4. IMPRESSION: 1. COVID-19 pneumonia, being followed by the Infectious Disease service. 2. Sinus bradycardia, resolved. No recurrence. 3. History of chronic autoimmune hepatitis C. RECOMMENDATIONS: From the cardiac standpoint, we will review the results of her echocardiogram. At this time no intervention is needed from the cardiac standpoint. Will see her on an as- needed basis. Please feel free to call us for any questions. MMODL / IJN: [id number] /
[2020-12-25] MEDS: ZINC SULFATE 220 MG CAP PO SCH (10:22)
[2020-12-25] MEDS: ASCORBIC ACID 500 MG TAB PO SCH ×2 (10:22→20:29)
[2020-12-25] MEDS: clonazePAM 1 MG TAB PO SCH (10:22)
[2020-12-25] MEDS: CHOLECALCIFEROL 25 MCG (1000 IU) TABLET PO SCH (10:22)
[2020-12-25] MEDS: DEXAMETHASONE SOD PHOSPHATE 10 MG/ML 1 ML VIAL IVP SCH (10:23)
[2020-12-25] MEDS: FLUTICASONE 50MCG/SPRAY NASAL 16GM EA NOSTRIL SCH ×2 (10:23→20:54)
[2020-12-25] MEDS: ENOXAPARIN 40 MG/0.4 ML SYRINGE SQ SCH ×2 (10:23→20:54)
[2020-12-25] MEDS: LIDOCAINE 5% PATCH TOPICAL SCH (10:24)
[2020-12-25] MEDS: COLCHICINE 0.6 MG EACH PO SCH (10:25)
[2020-12-25] MEDS: ESCITALOPRAM 20 MG TAB PO SCH (10:25)
--- NOTE | 2020-12-25 10:54 | ECHOF ---
Referral Reason:cardiac changes MEASUREMENTS -------- HEIGHT: 157.5 cm WEIGHT: 42.6 kg BP: IVSd: 0.5 cm (0.6 - 1.1) LVIDd: 4.6 cm (3.9 - 5.3) LVPWd: 0.7 cm (0.6 - 1.1) EDV(Teich): 97 ml IVSs: 0.6 cm LVIDs: 3.8 cm LVPWs: 1.3 cm LAESV Index (A-L): 33.69 ml/m IVSd: 0.8 cm (0.6 - 1.1) LVIDd: 4.6 cm (3.9 - 5.3) LVPWd: 1.0 cm (0.6 - 1.1) IVSs: 1.0 cm LVIDs: 3.1 cm LVPWs: 1.4 cm EDV(Teich): 97 ml ESV(Teich): 38 ml EF(Teich): 61 % %FS: 33 % SV(Teich): 59 ml Ao Diam: 3.0 cm (2.0 - 3.7) AV Cusp: 1.7 cm (1.5 - 2.6) LA Diam: 3.8 cm (2.7 - 3.8) MV EXCURSION: 12.690 mm (> 18.000) MV EF SLOPE: 147 mm/s (70 - 150) EPSS: 1.2 cm MV E Misael: 1.16 m/s MV DecT: 171 ms MV A Misael: 0.56 m/s MV E/A Ratio: 2.07 RAP: 5.00 mmHg RVSP: 18.36 mmHg FINDINGS -------- This was a technically adequate study. The left ventricular size is normal. Left ventricular wall thickness is normal. Overall left vent ricular systolic function is moderate-severely impaired with, an EF between 30 - 35 %. Normal LAP G rade 1 Diastolic Dysfunction. Apical anterior LV wall motion is hypokinetic. Apical lateral LV w all motion is hypokinetic. Apical inferior LV wall motion is hypokinetic. Apical septum LV wall motion is hypokinetic. The right ventricle is normal in size. LA is midly dilated 29-33ml/m2. The right atrial size is normal. Aortic valve is trileaflet and is mildly thickened. The mitral valve is normal. The mitral valve leaflets are mildly thickened. Mild mitral regurgita tion is present. The tricuspid valve appears structurally normal. Mild tricuspid regurgitation present. Right vent ricular systolic pressure is normal at < 35 mmHg. There is no pulmonic regurgitation present. The aortic root size is normal. Normal inferior vena cava with normal inspiratory collapse consistent with estimated right atrial pre ssure of 5 mmHg. Large Pleural Effusion. CONCLUSIONS -------- 1. The left ventricular size is normal. 2. Left ventricular wall thickness is normal. 3. Overall left ventricular systolic function is moderate-severely impaired with, an EF between 30 - 35 %. 4. Normal LAP Grade 1 Diastolic Dysfunction. 5. Apical anterior LV wall motion is hypokinetic. 6. Apical lateral LV wall motion is hypokinetic. 7. Apical inferior LV wall motion is hypokinetic. 8. Apical septum LV wall motion is hypokinetic. 9. LA is midly dilated 29-33ml/m2. 10. The mitral valve leaflets are mildly thickened. 11. Mild mitral regurgitation is present. 12. Mild tricuspid regurgitation present. 13. Large Pleural Effusion. BRILLIANDEER LOOPER: Nichole Mueller RDCS
[2020-12-25] MEDS: BUDESONIDE 3 MG PO SCH (12:33)
--- NOTE | 2020-12-25 15:31 | P.PN ---
Subjective Progress Note Date: 12/25/20 This is a 80-year-old female with past medical history of autoimmune hepatitis C, IBS, cancers 2 and multiple other medical issues follows regularly with Dr. Gianna Sanchez, presented to the ER with complaints of suspected fevers for the last couple of days, constipation, nausea, abdominal pain and decreased oral intake. 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 On admission temperature 103.5, normal WBC ,maintaining O2 sats of mid 90s on room air. Positive for COVID-19. Received monoclonal antibodies. Chest x-ray reportedly mild patchy density left lower lobe with small effusion, improved aeration of right lung. Abdomen/pelvis CT reported persistent subcapsular hepatic fluid collection, persistent dilatation of the intrahepatic biliary tree, common bile duct and pancreatic duct, possible enteritis, fluid distended small bowel, stool throughout the colon a consistent hematuria within the right; likely from congestive products with no evidence of abscess or free air. EKG reportedly normal sinus rhythm, troponin negative 1. Denies chest pain, palpitations or increasing shortness of breath. The hemoglobin 10.4, platelets 140, sodium 138, potassium 3, bicarb 25, BUN 24, creatinine 0.79, glucose 109, magnesium 1.2. UA negative. IV fluids initiated. 12/23/2020: Patient remains in the high 90s on room air pulse oximetry. Blood pressure stable. Her a slightly bradycardic. MAXIMUM TEMPERATURE is 98.2. Nizoral she'll 6 bowel movements yesterday, 1 void. Weight is 40.8 EKG. La boratory studies showed WBC count 3.1 hemoglobin 9.3 platelets are 120 today. GFR is 70.6. Pro-calcitonin 0.18 LDH was 256. CRP was 3.6. These markers of inflammation are elevated. Blood cultures negative 224 hours. She continues on: Cocktail of dexamethasone, colchicine, cholecalciferol, magnesium replacement, vitamin C, zinc, and some of her home meds. She is complaining of some fatigue today. She otherwise has no other complaints this time. She denies any chest pains, pressures, or shortness breath. Denies any nausea or vomiting. Has chronic mild abdominal pain from her autoimmune hepatitis. Infectious disease is following as well. December 24, 2020: overnight patient had significant bradycardia. I was contacted that telemetry showed heart rate in the 30s and 40s. She had some nausea at that point and then Atrial fibrillation was noted. This will be new for her shes never had anything like this before. Shes not take any medications that may induce bradycardia either. Her heart rate went down in the upper 20s and an A team was called. Cardiology was consulted. She was transferred to the intensive care unit where she is now. Currently shes complaining of significant nausea. She has Zofran ordered for this, but it is minmmaly effective. Heart rate has remained in the 50s since transfer the ICU. She did receive one dose of atropine before transfer. She is now requiring oxygen with some a.m. hypoxia 86% shes on 4 L via nasal cannula. Blood pressures remain stable. She has been afebrile. She had emesis times two, and one void.Laboratory studies show hemoglobin 10.6. GFR is 62 glucose is 146. Calcium 7.9 magnesium 1.6 total proteins 4.9 albumin 2.6. TSH was normal troponin was normal.Event note from Dr. Wesley and cardiology consultation Dr. Joseph reviewed. She remains on Covid cocktail,klonopin for anxiety, colchicine and dexamethasone for inflammation, her Lovenox is been increase per Dr. Joseph, she continues on some of her home medication as well. Including Cellcept. bdominal pain minimal today. No chest pain, pressure. No SOB. 12/25/2020 echo completed, pending. Converted to sinus rhythm with first- degree AV block. Chest x-ray reporting significant interval progression of i nfiltrates with a large area of airspace consolidation right perihilar and right lower lobe as well as the left lower lobe and periphery of the left lung. Maintaining O2 sats in the 90s on 7 L high flow nasal cannula. Reglan initiated yesterday with no further nausea currently reported. Denies chest pain, palpitations. Objective - Vital Signs Vital signs: Vital Signs Temp 98.9 F 12/25/20 12:00 Pulse 65 12/25/20 14:00 Resp 5 L 12/25/20 14:00 BP 127/75 12/25/20 14:00 Pulse Ox 94 L 12/25/20 14:00 Intake & Output 12/24/20 12/25/20 12/25/20 18:59 06:59 18:59 Intake Total 1575 1100 600 Output Total 246 585 400 Balance 1329 515 200 Weight 42.7 kg Intake: IV 975 900 600 Sodium Chloride 0.9% 1, 975 900 600 000 ml @ 75 mls/hr IV . [id number] [facility] Rx#:[id number] Intake, IV Titration 600 200 Amount Magnesium Sulfate-D5w Pmx 100 1 gm In Dextrose/Water 1 100ml.bag @ 100 mls/hr IVPB Q1H [facility] Rx#: [id number] Potassium Chloride 10 meq 400 200 In Water For Injection 1 100ml.bag @ 100 mls/hr IVPB Q1HR [facility] Rx#: [id number] Potassium Chloride 10 meq 100 In Water For Injection 1 100ml.bag @ 100 mls/hr IVPB Q1HR [facility] Rx#: [id number] Output: Urine 246 585 400 Other: Voiding Method Indwelling Catheter Indwelling Catheter # Voids 1 - Exam - Exam GENERAL: Chronically Cachectic, sitting up in bed, NAD,weak appearing NECK: Supple, No JVD. CARDIOVASCULAR: S1, S2 regular. Systolic murmur RESPIRATION: Breath sounds diminished in the bases. No rhonchi. ABDOMEN: Soft, nondistended, epigastric tenderness, No guarding. no masses palpable.Bowel sounds heard. Extremities: No edema. no swelling PSYCHIATRY: Alert and oriented X3, mood and affect normal. NERVOUS SYSTEM: Cranial N 2-12 grossly normal. Moves all 4 limbs. No focal deficits. Strength and sensation grossly intact. Skin: Warm and dry, no rash - Labs CBC & Chem 7: 12/25/20 04:46 12/25/20 04:46 Labs: Abnormal Lab Results - Last 24 Hours (Table) 12/24/20 12/24/20 12/24/20 Range/Units 16:09 16:46 21:12 Neutrophils # (1.3-7.7) k/uL Lymphocytes # (1.0-4.8) k/uL Potassium 3.1 L (3.5-5.1) mmol/L Chloride (98-107) mmol/L BUN (7-17) mg/dL Glucose (74-99) mg/dL POC Glucose (mg/dL) 127 H 124 H (75-99) mg/dL Calcium (8.4-10.2) mg/dL 12/25/20 12/25/20 12/25/20 Range/Units 04:46 04:46 06:50 Neutrophils # 10.0 H (1.3-7.7) k/uL Lymphocytes # 0.2 L (1.0-4.8) k/uL Potassium 3.4 L (3.5-5.1) mmol/L Chloride 110 H (98-107) mmol/L BUN 20 H (7-17) mg/dL Glucose 109 H (74-99) mg/dL POC Glucose (mg/dL) 102 H (75-99) mg/dL Calcium 7.7 L (8.4-10.2) mg/dL Microbiology - Last 24 Hours (Table) 12/21/20 14:57 Blood Culture - Preliminary Blood No Growth after 72 hours 12/21/20 14:57 Blood Culture - Preliminary Blood No Growth after 72 hours Assessment and Plan Assessment: Acute COVID-19 pneumonia, status post monoclonal antibodies in the ER Acute hypoxic respiratory failure secondary to the above Symptomatic bradycardia Dehydration Epigastric abdominal pain secondary to constipation Sinus bradycardia Chronic severe protein calorie malnutrition, BMI 16.1 Chronic left upper quadrant pain radiates to right upper quadrant. History of hepatic fluid collection, possibly pseudocyst or hepatic cyst, follows with GI outpatient Chronic Autoimmune Hepatitis C, Leukocytosis Hypomagnesemia Hypokalemia Dehydration History of IBS with chronic constipation Pubic Neftali fractures ,Indeterminate age History of rectal prolapse Plan: Continue on current medication regime, monitoring and symptomatically treatment. Dr. Butler consulted for ICU management. Inflammatory markers ordered. Echo results pending. Prognosis guarded given multiple complex medical issues. The impression and plan of care has been dictated as directed. : I performed a history and examination of this patient, discussed the same with the dictator. I agree with the dictator's note ,documented as a scribe. Any additional findings or plans will be noted.
--- NOTE | 2020-12-25 17:48 | XR ---
EXAMINATION TYPE: XR KUB portable DATE OF EXAM: 12/25/2020 COMPARISON: 08/24/2020 HISTORY: Nausea and vomiting TECHNIQUE: Single view supine FINDINGS: No evidence of intestinal obstruction or pneumoperitoneum. Fecal pattern is normal. There i s no evidence of a mass. There are clips from cholecystectomy. There is some airspace infiltrate and atelectasis left lower lobe. I see no calcifications over the k idneys. IMPRESSION: Nonacute abdomen. Left lower lobe pneumonia appears new compared to old exam.
--- NOTE | 2020-12-25 17:53 | P.CNPUL ---
History of Present Illness Consult date: 12/25/20 Requesting physician: Yash Umanzor Reason for consult: pneumonia Chief complaint: Weakness fatigue and cough History of present illness: This is a 80-year-old female with history of fibromyalgia, degenerative joint disease, autoimmune hepatitis, irritable bowel syndrome, patient was admitted to the hospital on 12/21/20 mostly with symptoms of weakness for the last couple of weeks prior to presentation. In addition to her weakness, patient was complaining of fever, chills, poor appetite, intermittent episodes of abdominal pain, nausea, and intermittent constipation. Upon her initial presentation she had a temp of 103.5, she was slightly hypoxic, and she was noted to have lymphopenia with normal WBC count. Elevated BUN and creatinine, and she was also noted to have positive PCR for COVID-19 infection. Chest x-ray on her initial admission showed mild patchy infiltrate in the left lower lobe with small pleural effusion, CT of the abdomen showed enteritis, with data titration of the hepatic biliary tree, soft capsular fluid collection in the liver, and there was evidence of left lower lobe pneumonia. Patient received monoclonal antibody infusion admitted to the hospital, and she has been seen by infectious disease on consultation. We were not asked to see the patient until today were in her oxygen requirement has increased from 2 L via nasal cannula up to 7 L today, and the patient is noted to have more and more shortness of breath. Over the last few days, since admission, her chest x-ray has shown worsening bilateral bibasilar infiltrates. Hence this consult was initiated. Patient is known to have history of paroxysmal atrial fibrillation, cardiology saw the felicitas avery on this admission for intermittent episodes of bradycardia and this was felt to be vasovagal. The cardiology recommendation was to start the patient on anticoagulation therapy, she was given prophylactic dose of Lovenox. She had an echocardiogram that showed severe LV dysfunction with ejection fraction of 30- 35%. And global hypokinesia. Again considering the worsening pneumonia we were asked to see this patient on consultation today although she has been admitted almost 4 days ago. Review of Systems CONSTITUTIONAL: Weakness fatigue and fever. EYES: No complaint. ENT: No complaint. RESPIRATORY: Cough and shortness of breath. CARDIOVASCULAR: As noted in HPI. GENITOURINARY: Intermittent episodes of nausea and vague abdominal discomfort. MUSCULOSKELETAL: Steady of fibromyalgia. INTEGUMENTARY: Negative PSYCHOLOGIC: Negative ENDOCRINE: Negative NEUROLOGIC: Negative Past Medical History Past Medical History: Cancer, Fibromyalgia, GERD/Reflux, Liver Disease, Osteoarthritis (OA), Pneumonia, Sleep Apnea/CPAP/BIPAP, Thyroid Disorder Additional Past Medical History / Comment(s): Hepatitis C, Immune disorder, IBS History of Any Multi-Drug Resistant Organisms: None Reported Past Surgical History: Appendectomy, Breast Surgery, Cholecystectomy, Hysterectomy, No Surgical Hx Reported, Orthopedic Surgery, Tonsillectomy Additional Past Surgical History / Comment(s): Rectal prolapse Past Anesthesia/Blood Transfusion Reactions: No Reported Reaction Past Psychological History: Depression, No Psychological Hx Reported Smoking Status: Never smoker Past Alcohol Use History: None Reported Past Drug Use History: None Reported - Past Family History Mother Family Medical History: Cancer, Deep Vein Thrombosis (DVT) Medications and Allergies Home Medications Medication Instructions Recorded Confirmed Type Levothyroxine Sodium [Synthroid] 125 mcg PO DAILY 12/21/13 12/21/20 History mycophenolate mofetiL [Cellcept] 1,000 mg PO BID 12/21/13 12/21/20 History Escitalopram Oxalate [Lexapro] 20 mg PO DAILY 04/26/19 12/21/20 History Dicyclomine [Bentyl] 20 mg PO ACHS 01/13/20 12/21/20 History HYDROmorphone HCL [Dilaudid] 8 mg PO Q6H 01/13/20 12/21/20 History Budesonide [Budesonide EC] 9 mg PO DAILY 08/21/20 12/21/20 History Omeprazole 40 mg PO DAILY 08/21/20 12/21/20 History Tamsulosin HCl [Flomax] 0.4 mg PO HS 08/21/20 12/21/20 History clonazePAM [KlonoPIN] 1 mg PO DAILY 08/21/20 12/21/20 History traZODone HCL 100 mg PO HS 08/21/20 12/21/20 History Fluoride (Sodium) [Sodium Fluoride 1 applic DENTAL HS 12/21/20 12/21/20 History 5000 Plus] Fluticasone Nasal [place] [Flonase 1 spr EA NOSTRIL BID 12/21/20 12/21/20 History Nasal [place]] Lidocaine 5% Patch [Lidoderm] 1 patch TRANSDERM DAILY 12/21/20 12/21/20 History Nystatin 100,000 Unit/gm Oint 1 applic TOPICAL TID 12/21/20 12/21/20 History [Mycostatin Oint] Ondansetron [Zofran] 4 mg PO Q6H PRN 12/21/20 12/21/20 History dexAMETHasone [Decadron Elixir] 0.5 mg PO QID 12/21/20 12/21/20 History methylPREDNISolone [Medrol Dose See Taper PO DAILY 12/21/20 12/21/20 History Pack] valACYclovir HCL [Valtrex] 1,000 mg PO BID PRN 12/21/20 12/21/20 History Allergies Allergy/AdvReac Type Severity Reaction Status Date / Time No Known Drug Allergies Allergy Unknown Verified 12/21/20 14:05 Physical Exam Vitals: Vital Signs Temp Pulse Resp BP Pulse Ox 12/25/20 17:00 87 23 129/76 91 L 12/25/20 16:00 98.6 F 70 21 128/82 91 L 12/25/20 15:00 71 24 131/72 93 L 12/25/20 14:00 65 5 L 127/75 94 L 12/25/20 13:00 68 24 130/70 92 L 12/25/20 12:00 98.9 F 72 22 124/65 93 L 12/25/20 11:00 70 22 120/69 91 L 12/25/20 10:00 79 31 H 120/59 90 L 12/25/20 09:00 80 21 116/59 91 L 12/25/20 08:00 72 31 H 115/67 90 L 12/25/20 07:00 66 18 125/65 90 L 12/25/20 06:00 78 15 121/69 92 L 12/25/20 05:00 70 21 134/79 94 L 12/25/20 04:00 98.5 F 63 14 130/79 91 L 12/25/20 03:00 86 21 128/61 88 L 12/25/20 02:00 71 14 117/61 93 L 12/25/20 01:00 71 19 125/54 88 L 12/25/20 00:29 71 17 117/58 88 L 12/25/20 00:00 98.3 F 73 23 110/62 89 L 12/24/20 23:00 74 21 94/59 90 L 12/24/20 22:00 78 14 123/73 91 L 12/24/20 21:00 63 14 114/77 89 L 12/24/20 20:37 90 L 12/24/20 20:00 98.5 F 78 17 115/56 90 L 12/24/20 19:00 64 12 115/56 92 L 12/24/20 18:00 57 L 10 L 106/66 89 L Intake and Output 12/25/20 12/25/20 12/25/20 06:59 14:59 22:59 Intake Total 600 600 150 Output Total 400 515 200 Balance 200 85 -50 Intake: IV 600 600 150 Sodium Chloride 0.9% 1, 600 600 150 000 ml @ 75 mls/hr IV . [id number] [facility] Rx#:[id number] Output: Urine 400 515 200 Other: Voiding Method Indwelling Catheter Weight 42.7 kg GENERAL DESCRIPTION: Revealed 80-year-old female, frail looking, on 7 L nasal cannula, in mild respiratory distress. HEENT: [place], EOMI, nonicteric, no neck masses. NECK: Trachea central, no JVD, no neck masses, no stridor. LUNGS: Crackles and rhonchi noted bilaterally. Symmetrical chest expansion. HEART: S1, S2, regular rate and rhythm. ABDOMEN: Soft nontender no megaly no rebound no guarding. EXTREMITIES: No clubbing edema or cyanosis. SKIN: No rash NEUROLOGICAL: Alert and oriented 3 focal neurologic deficit Psychiatric: Normal mood, affect and normal mental status examination. Results - Laboratory Findings CBC and BMP: 12/25/20 04:46 12/25/20 04:46 PT/INR, D-dimer PT 10.2 sec (9.0-12.0) 12/21/20 14:57 INR 0.9 (<1.2) 12/21/20 14:57 D-Dimer 0.72 mg/L FEU (<0.60) H 12/23/20 06:08 Abnormal lab findings: Abnormal Labs 12/21/20 12/21/20 12/21/20 14:57 14:57 14:57 WBC RBC 3.46 L Hgb 10.4 L Hct 30.9 L MCHC Plt Count 140 L Plt Count Comment Immature Gran # Neutrophils # Lymphocytes # 0.2 L Monocytes # Eosinophils # D-Dimer Potassium 3.3 L Chloride Carbon Dioxide Anion Gap BUN 26 H BUN/Creatinine Ratio Glucose POC Glucose (mg/dL) Calcium 7.6 L Magnesium 1.2 L Ferritin Total Bilirubin AST 69 H Lactate Dehydrogenase C-Reactive Protein Total Protein 5.5 L Albumin 3.0 L Albumin/Globulin Ratio Procalcitonin Urine Protein Trace H Coronavirus (PCR) 12/21/20 12/22/20 12/22/20 14:57 09:56 11:25 WBC RBC Hgb Hct MCHC Plt Count Plt Count Comment Immature Gran # Neutrophils # Lymphocytes # Monocytes # Eosinophils # D-Dimer Potassium 3.0 L Chloride Carbon Dioxide Anion Gap BUN 24 H BUN/Creatinine Ratio Glucose 109 H POC Glucose (mg/dL) 102 H Calcium 7.2 L Magnesium Ferritin Total Bilirubin AST 45 H Lactate Dehydrogenase C-Reactive Protein Total Protein 4.7 L Albumin 2.4 L Albumin/Globulin Ratio Procalcitonin Urine Protein Coronavirus (PCR) Detected A 12/22/20 12/22/20 12/22/20 16:37 17:10 21:09 WBC RBC Hgb Hct MCHC Plt Count Plt Count Comment Immature Gran # Neutrophils # Lymphocytes # Monocytes # Eosinophils # D-Dimer Potassium 3.4 L Chloride Carbon Dioxide Anion Gap BUN BUN/Creatinine Ratio Glucose POC Glucose (mg/dL) 127 H 155 H Calcium Magnesium Ferritin Total Bilirubin AST Lactate Dehydrogenase C-Reactive Protein Total Protein Albumin Albumin/Globulin Ratio Procalcitonin Urine Protein Coronavirus (PCR) 12/23/20 12/23/20 12/23/20 06:08 06:08 06:08 WBC 3.18 L RBC 3.18 L Hgb 9.3 L Hct 29.9 L MCHC 31.1 L Plt Count 128 L Plt Count Comment DECREASED A Immature Gran # 0.05 H Neutrophils # Lymphocytes # 0.22 L Monocytes # 0.18 L Eosinophils # 0 L D-Dimer Potassium Chloride 112 H Carbon Dioxide 19.8 L Anion Gap 12.20 H BUN BUN/Creatinine Ratio 24.75 H Glucose POC Glucose (mg/dL) Calcium 7.4 L Magnesium Ferritin 6468.0 H Total Bilirubin <0.20 L AST 38 H Lactate Dehydrogenase 256 H C-Reactive Protein 3.60 H Total Protein 4.5 L Albumin 2.7 L Albumin/Globulin Ratio 1.50 L Procalcitonin 0.18 H Urine Protein Coronavirus (PCR) 12/23/20 12/23/20 12/23/20 06:08 07:05 11:48 WBC RBC Hgb Hct MCHC Plt Count Plt Count Comment Immature Gran # Neutrophils # Lymphocytes # Monocytes # Eosinophils # D-Dimer 0.72 H Potassium Chloride Carbon Dioxide Anion Gap BUN BUN/Creatinine Ratio Glucose POC Glucose (mg/dL) 119 H 132 H Calcium Magnesium Ferritin Total Bilirubin AST Lactate Dehydrogenase C-Reactive Protein Total Protein Albumin Albumin/Globulin Ratio Procalcitonin Urine Protein Coronavirus (PCR) 12/23/20 12/23/20 12/24/20 16:39 20:42 00:58 WBC RBC 3.76 L Hgb 11.0 L Hct MCHC Plt Count Plt Count Comment Immature Gran # Neutrophils # Lymphocytes # 0.3 L Monocytes # Eosinophils # D-Dimer Potassium Chloride Carbon Dioxide Anion Gap BUN BUN/Creatinine Ratio Glucose POC Glucose (mg/dL) 144 H 168 H Calcium Magnesium Ferritin Total Bilirubin AST Lactate Dehydrogenase C-Reactive Protein Total Protein Albumin Albumin/Globulin Ratio Procalcitonin Urine Protein Coronavirus (PCR) 12/24/20 12/24/20 12/24/20 00:58 01:38 02:17 WBC RBC Hgb Hct MCHC Plt Count Plt Count Comment Immature Gran # Neutrophils # Lymphocytes # Monocytes # Eosinophils # D-Dimer Potassium Chloride 111 H Carbon Dioxide 21 L Anion Gap BUN 25 H BUN/Creatinine Ratio Glucose 116 H POC Glucose (mg/dL) 131 H 136 H Calcium 7.7 L Magnesium Ferritin Total Bilirubin AST 44 H Lactate Dehydrogenase C-Reactive Protein Total Protein 4.9 L Albumin 2.5 L Albumin/Globulin Ratio Procalcitonin Urine Protein Coronavirus (PCR) 12/24/20 12/24/20 12/24/20 04:18 04:18 06:32 WBC RBC 3.62 L Hgb 10.6 L Hct MCHC Plt Count Plt Count Comment Immature Gran # Neutrophils # Lymphocytes # 0.3 L Monocytes # Eosinophils # D-Dimer Potassium Chloride 113 H Carbon Dioxide 21 L Anion Gap BUN 24 H BUN/Creatinine Ratio Glucose 146 H POC Glucose (mg/dL) 184 H Calcium 7.9 L Magnesium Ferritin Total Bilirubin AST 46 H Lactate Dehydrogenase C-Reactive Protein Total Protein 4.9 L Albumin 2.6 L Albumin/Globulin Ratio Procalcitonin Urine Protein Coronavirus (PCR) 12/24/20 12/24/20 12/24/20 09:45 11:37 16:09 WBC RBC Hgb Hct MCHC Plt Count Plt Count Comment Immature Gran # Neutrophils # Lymphocytes # Monocytes # Eosinophils # D-Dimer Potassium 3.1 L Chloride Carbon Dioxide Anion Gap BUN BUN/Creatinine Ratio Glucose POC Glucose (mg/dL) 192 H Calcium Magnesium Ferritin Total Bilirubin AST Lactate Dehydrogenase C-Reactive Protein Total Protein Albumin Albumin/Globulin Ratio Procalcitonin Urine Protein Trace H Coronavirus (PCR) 12/24/20 12/24/20 12/25/20 16:46 21:12 04:46 WBC RBC Hgb Hct MCHC Plt Count Plt Count Comment Immature Gran # Neutrophils # Lymphocytes # Monocytes # Eosinophils # D-Dimer Potassium 3.4 L Chloride 110 H Carbon Dioxide Anion Gap BUN 20 H BUN/Creatinine Ratio Glucose 109 H POC Glucose (mg/dL) 127 H 124 H Calcium 7.7 L Magnesium Ferritin Total Bilirubin AST Lactate Dehydrogenase C-Reactive Protein Total Protein Albumin Albumin/Globulin Ratio Procalcitonin Urine Protein Coronavirus (PCR) 12/25/20 12/25/20 04:46 06:50 WBC RBC Hgb Hct MCHC Plt Count Plt Count Comment Immature Gran # Neutrophils # 10.0 H Lymphocytes # 0.2 L Monocytes # Eosinophils # D-Dimer Potassium Chloride Carbon Dioxide Anion Gap BUN BUN/Creatinine Ratio Glucose POC Glucose (mg/dL) 102 H Calcium Magnesium Ferritin Total Bilirubin AST Lactate Dehydrogenase C-Reactive Protein Total Protein Albumin Albumin/Globulin Ratio Procalcitonin Urine Protein Coronavirus (PCR) - Diagnostic Findings Chest x-ray: image reviewed (As noted in HPI, worsening bilateral pulmonary infiltrates.) Assessment and Plan Assessment: Impression: Acute hypoxic respiratory failure secondary to COVID-19 pneumonia, patient is status post monoclonal antibody given upon her initial admission. Possible superimposed aspiration pneumonia History of irritable bowel syndrome and intermittent abdominal pain. Chronic autoimmune hepatitis Intermittent bradycardia resolved. Severe LV dysfunction, possible acute systolic congestive heart failure Recommendation: Speech therapy to evaluate for possible aspiration , may need a swallow evaluation. And antibiotics empirically for presumptive aspiration would recommend adding Zosyn. Continue present supportive care measures. Continue COVID-19 cocktail. Patient is out of the window for remdesivir Prognosis is definitely poor and guarded. We'll continue to follow. Follow inflammatory markers. Titrate oxygen accordingly. Cut down her IV fluid to KVO, and try a trial of gentle diuresis. Time with Patient: Greater than 30
[2020-12-25] MEDS: PIPERACILLIN-TAZOBACTAM 3.375 GM in SODIUM CHLORIDE 0.9% 100 ML IVPB SCH (18:32)
[2020-12-25] MEDS: FLUORIDE MISCELLANE SCH (20:29)
[2020-12-25] MEDS: TAMSULOSIN 0.4 MG CAP.ER.24H PO SCH (20:29)
[2020-12-25] MEDS: traZODone HCL 100 MG TAB PO SCH (20:29)
[2020-12-25 20:32] LABS: Glucose,Whole Blood 140 mg/dL (75-99)
--- NOTE | 2020-12-25 23:58 | PN ---
PROGRESS NOTE DATE OF SERVICE: 12/25/2020 REASON FOR FOLLOWUP: COVID-19 infection. INTERVAL HISTORY: The patient is afebrile. The patient is still complaining of shortness of breath and did have a cough; not bringing up any sputum, though. No nausea, no vomiting. No abdominal pain or diarrhea. PHYSICAL EXAMINATION: Her blood pressure 136/72 with a pulse of 73, temperature 97.8. She is 93% on 7 L nasal cannula. General description is an elderly female lying in bed in no distress. RESPIRATORY SYSTEM: Unlabored breathing. Coarse breath sounds bilaterally. No wheeze. HEART: S1, S2. Regular rate and rhythm. ABDOMEN: Soft. No tenderness. LABS: Hemoglobin is 11. , white count 10. 4. BUN of 20, creatinine 0.80. NT proBNP is 24,000. DIAGNOSTIC IMPRESSION AND PLAN: Patient admitted to hospital with COVID infection; has received multiple antibiotics. Patient did have a mild illness; initially not requiring any supplemental oxygen. Subsequently she did have bradyarrhythmia and was transferred to the ICU, now with concern for possible with worsening of her respiratory status. Clinically doubt secondary bacterial pneumonia. Inflammatory markers will be rechecked. Continue with the Lovenox, dexamethasone, zinc and ascorbic acid and continue supportive care. MMODL / IJN: [id number] /
[2020-12-26] MEDS: HYDROcodone/APAP 10-325MG 1 EACH TAB PO PRN ×2 (00:11→18:36)
[2020-12-26] MEDS: PIPERACILLIN-TAZOBACTAM 3.375 GM in SODIUM CHLORIDE 0.9% 100 ML IVPB SCH ×3 (01:28→17:52)
[2020-12-26 05:29] LABS: Basophils % (A) 0 %; Eosinophils % (A) 0 %; HCT 36.1 % (34.0-46.0); HGB 11.5 gm/dL (11.4-16.0); Lymphocytes # (A) 0.3 k/uL (1.0-4.8); Lymphocytes % (A) 2 %; MCH 29.1 pg (25.0-35.0); Mean Platelet Volume 8.8; Monocytes # (A) 0.2 k/uL (0-1.0); Monocytes % (A) 2 %; Neutrophils # (A) 12.3 k/uL (1.3-7.7); Neutrophils % (A) 96 %; Platelet Count 207 k/uL (150-450); RBC 3.96 m/uL (3.80-5.40); RDW 14.1 % (11.5-15.5); WBC 12.9 k/uL (3.8-10.6)
[2020-12-26 05:43] LABS: ALT 52 U/L (4-34); AST 92 U/L (14-36); African American GFR (CKD) >90 (>60 ml/min/1.73 sqM); Albumin 2.5 g/dL (3.5-5.0); Alkaline Phosphatase 81 U/L (38-126); Anion Gap 8 mmol/L; Blood Urea Nitrogen 14 mg/dL (7-17); Calcium 7.5 mg/dL (8.4-10.2); Carbon Dioxide 21 mmol/L (22-30); Chloride 102 mmol/L (98-107); Glucose 84 mg/dL (74-99); LDH 882 U/L (313-618); Non-African American GFR(CKD) 87 (>60 ml/min/1.73 sqM); Potassium 3.1 mmol/L (3.5-5.1); Sodium 131 mmol/L (137-145); Total Bilirubin 0.5 mg/dL (0.2-1.3); Total Protein 4.9 g/dL (6.3-8.2)
[2020-12-26] MEDS: LEVOTHYROXINE 125 MCG TAB PO SCH (06:13)
[2020-12-26] MEDS: NYSTATIN 100,000 UNIT/ML SUSP 500,000 UNIT/5 ML CUP PO SCH ×4 (06:13→20:00)
--- NOTE | 2020-12-26 06:22 | XR ---
EXAMINATION TYPE: XR chest 1V portable DATE OF EXAM: 12/26/2020 CLINICAL HISTORY: Difficulty breathing progress study. COVID. TECHNIQUE: Single AP portable upright view of the chest is obtained. COMPARISON: Chest x-ray from one day earlier and older studies. FINDINGS: Persistent bilateral mid to lower lung multifocal opacities redemonstrated. Cardiac silhou ette size is stable and upper limits of normal with atherosclerotic change aortic knob. Degenerative change left glenohumeral joint. IMPRESSION: Bilateral multifocal mid to lower lung opacities redemonstrated. Findings more prominent in the left midlung from one day earlier. Findings consistent with covid-19 infection progression.
[2020-12-26] MEDS: POTASSIUM CHLORIDE 10 MEQ in WATER FOR INJECTION 1 100ML.BAG IVPB SCH ×4 (06:47→15:02)
[2020-12-26] MEDS: SODIUM CHLORIDE 0.9% 1,000 ML IV SCH (06:47)
[2020-12-26] MEDS: INSULIN ASPART (NovoLOG) 100 UNIT/ML VIAL SQ SCH ×4 (06:48→20:35)
[2020-12-26] MEDS: DICYCLOMINE 20 MG TAB PO SCH ×4 (06:48→19:59)
[2020-12-26] MEDS: PANTOPRAZOLE 40 MG TABLET PO SCH (06:48)
[2020-12-26] MEDS: ENOXAPARIN 40 MG/0.4 ML SYRINGE SQ SCH ×2 (08:44→20:00)
[2020-12-26] MEDS: LIDOCAINE 5% PATCH TOPICAL SCH (08:45)
[2020-12-26] MEDS: DEXAMETHASONE SOD PHOSPHATE 10 MG/ML 1 ML VIAL IVP SCH (08:45)
[2020-12-26] MEDS: FLUTICASONE 50MCG/SPRAY NASAL 16GM EA NOSTRIL SCH ×2 (08:45→20:01)
[2020-12-26] MEDS: ASCORBIC ACID 500 MG TAB PO SCH ×2 (08:54→19:59)
[2020-12-26] MEDS: ASPIRIN 81 MG PO SCH (08:54)
[2020-12-26] MEDS: BUDESONIDE 3 MG PO SCH (08:54)
[2020-12-26] MEDS: clonazePAM 1 MG TAB PO SCH (08:55)
[2020-12-26] MEDS: CHOLECALCIFEROL 25 MCG (1000 IU) TABLET PO SCH (08:55)
[2020-12-26] MEDS: COLCHICINE 0.6 MG EACH PO SCH (08:55)
[2020-12-26] MEDS: ESCITALOPRAM 20 MG TAB PO SCH (08:55)
[2020-12-26] MEDS: ZINC SULFATE 220 MG CAP PO SCH (08:55)
[2020-12-26] MEDS ORDERED: FUROSEMIDE 20 MG TAB PO SCH (09:00)
--- NOTE | 2020-12-26 10:19 | PN ---
PROGRESS NOTE Mrs. Kerr is a 80-year-old female who presented with progressive dyspnea. She had COVID-19 pneumonia. She had episodes of bradycardia and first-degree AV block, but no further bradycardia since her admission. She underwent an echocardiogram with Doppler that revealed an ejection fraction of 30% to 35% with segmental wall motion abnormality. She continues to be in sinus mechanism, and no evidence of malignant arrhythmia. Patient had a normal LV systolic function a year ago. The change in the LV systolic function at this time is new. She was seen by Dr. Butler yesterday. Her chest x-ray shows significant infiltrate bilaterally, consistent with COVID-19 infection. Her medications at this time include colchicine, Decadron, Lovenox subcutaneously. Blood pressure is running in the 120s to 130s with a heart rate in the 70s. No physical examination was done to limit the exposure. Lab data revealed BUN and creatinine of 14 and 0.6, potassium 3.1. Hemoglobin is 11.5. C-reactive protein is 23. Her NT proBNP is 24,300. IMPRESSION: 1. COVID-19 pneumonia. 2. Cardiomyopathy, recent, compared with an echocardiogram performed a year ago. 3. Chronic autoimmune hepatitis. 4. Bradycardia, resolved. RECOMMENDATIONS: I will start the patient on low-dose TRINIDAD inhibitor. I will start her on diuretics. Will follow her renal function closely. Unfortunately, the prognosis remains guarded. MMODL / IJN: [id number] /
[2020-12-26 11:26] LABS: Glucose,Whole Blood 80 mg/dL (75-99)
--- NOTE | 2020-12-26 13:37 | P.PN ---
Subjective Progress Note Date: 12/26/20 Principal diagnosis: Acute hypoxic respiratory failure secondary to COVID-19 pneumonia, This is a 80-year-old female with history of fibromyalgia, degenerative joint disease, autoimmune hepatitis, irritable bowel syndrome, patient was admitted to the hospital on 12/21/20 mostly with symptoms of weakness for the last couple of weeks prior to presentation. In addition to her weakness, patient was complaining of fever, chills, poor appetite, intermittent episodes of abdominal pain, nausea, and intermittent constipation. Upon her initial presentation she had a temp of 103.5, she was slightly hypoxic, and she was noted to have lymphopenia with normal WBC count. Elevated BUN and creatinine, and she was also noted to have positive PCR for COVID-19 infection. Chest x-ray on her initial admission showed mild patchy infiltrate in the left lower lobe with small pleural effusion, CT of the abdomen showed enteritis, with data titration of the hepatic biliary tree, soft capsular fluid collection in the liver, and there was evidence of left lower lobe pneumonia. Patient received monoclonal antibody infusion admitted to the hospital, and she has been seen by infectious disease on consultation. We were not asked to see the patient until today were in her oxygen requirement has increased from 2 L via nasal cannula up to 7 L today, and the patient is noted to have more and more shortness of breath. Over the last few days, since admission, her chest x-ray has shown worsening bilateral bibasilar infiltrates. Hence this consult was initiated. Patient is known to have history of paroxysmal atrial fibrillation, cardiology saw the patient on this admission for intermittent episodes of bradycardia and this was felt to be vasovagal. The cardiology recommendation was to start the patient on anticoagulation therapy, she was given prophylactic dose of Lovenox. She had an echocardiogram that showed severe LV dysfunction with ejection fraction of 30- 35%. And global hypokinesia. Again considering the worsening pneumonia we were asked to see this patient on consultation today although she has been admitted almost 4 days ago. Reevaluated today on 12/26/20, patient remains in the ICU, she is on 6 L nasal cannula, she is being treated for COVID-19 pneumonia possible aspiration pneumonia, and I believe the patient may have some component of acute systolic congestive heart failure. Patient remains on the COVID-19 cocktail treatment, remains on Zosyn, Decadron, and I cut down her IV fluid yesterday to 15 mL/h/KVO. Patient is supposed to undergo speech evaluation today, I suspected that there may be some component of aspiration pneumonia. Chest x-ray continues to show bibasilar infiltrates, clinically the patient is about the same, not much change in the last 24 hours. WBC count is 12.9, hemoglobin 11.5 electrolytes are normal except for low potassium of 3.1. BNP level yesterday was 24,300, and pro-calcitonin was 0.83. LDH is up to 882. And C-reactive protein is 20 Objective - Vital Signs Vital signs: Vital Signs Temp 98.3 F 12/26/20 08:00 Pulse 79 12/26/20 11:00 Resp 18 12/26/20 11:00 BP 124/72 12/26/20 11:00 Pulse Ox 89 L 12/26/20 11:00 Intake & Output 12/25/20 12/26/20 12/26/20 18:59 06:59 18:59 Intake Total 780 280 75 Output Total 915 1185 300 Balance -135 -905 -225 Weight 41.8 kg 41.8 kg Intake: IV 780 180 75 Sodium Chloride 0.9% 1, 780 180 75 000 ml @ 25 mls/hr IV . Q24H [facility] Rx#:[id number] Intake, IV Titration 100 Amount Piperacillin-Tazobactam 3 100 .375 gm In Sodium Chloride 0.9% 100 ml @ 25 mls/hr IVPB Q8H [facility] Rx#: [id number] Output: Urine 915 1185 300 Other: Voiding Method Indwelling Catheter Indwelling Catheter - Exam GENERAL DESCRIPTION: Revealed 80-year-old female, frail looking, on 6 L nasal cannula, in no distress. HEENT: [place], EOMI, nonicteric, no neck masses. NECK: Trachea central, no JVD, no neck masses, no stridor. LUNGS: Crackles and rhonchi noted bilaterally. Symmetrical chest expansion. HEART: S1, S2, regular rate and rhythm. ABDOMEN: Soft nontender no megaly no rebound no guarding. EXTREMITIES: No clubbing edema or cyanosis. SKIN: No rash NEUROLOGICAL: Alert and oriented 3 focal neurologic deficit Psychiatric: Normal mood, affect and normal mental status examination. - Labs CBC & Chem 7: 12/26/20 05:08 10/26/21 05:08 Labs: Abnormal Lab Results - Last 24 Hours (Table) 12/25/20 12/25/20 12/26/20 Range/Units 04:46 20:31 05:08 WBC (3.8-10.6) k/uL Neutrophils # (1.3-7.7) k/uL Lymphocytes # (1.0-4.8) k/uL D-Dimer (<0.60) mg/L FEU Sodium 131 L (137-145) mmol/L Potassium 3.1 L (3.5-5.1) mmol/L Carbon Dioxide 21 L (22-30) mmol/L POC Glucose (mg/dL) 140 H (75-99) mg/dL Calcium 7.5 L (8.4-10.2) mg/dL Ferritin 6467.0 H (10.0-291.0) ng/mL AST 92 H (14-36) U/L ALT 52 H (4-34) U/L Lactate Dehydrogenase 882 H (313-618) U/L C-Reactive Protein 23.0 H (<1.0) mg/dL Total Protein 4.9 L (6.3-8.2) g/dL Albumin 2.5 L (3.5-5.0) g/dL Procalcitonin 0.83 H (0.02-0.09) ng/mL 12/26/20 12/26/20 Range/Units 05:08 05:08 WBC 12.9 H (3.8-10.6) k/uL Neutrophils # 12.3 H (1.3-7.7) k/uL Lymphocytes # 0.3 L (1.0-4.8) k/uL D-Dimer 1.49 H (<0.60) mg/L FEU Sodium (137-145) mmol/L Potassium (3.5-5.1) mmol/L Carbon Dioxide (22-30) mmol/L POC Glucose (mg/dL) (75-99) mg/dL Calcium (8.4-10.2) mg/dL Ferritin (10.0-291.0) ng/mL AST (14-36) U/L ALT (4-34) U/L Lactate Dehydrogenase (313-618) U/L C-Reactive Protein (<1.0) mg/dL Total Protein (6.3-8.2) g/dL Albumin (3.5-5.0) g/dL Procalcitonin (0.02-0.09) ng/mL Microbiology - Last 24 Hours (Table) 12/21/20 14:57 Blood Culture - Preliminary Blood No Growth after 96 hours 12/21/20 14:57 Blood Culture - Preliminary Blood No Growth after 96 hours Assessment and Plan Assessment: Impression: Acute hypoxic respiratory failure secondary to COVID-19 pneumonia, patient is status post monoclonal antibody given upon her initial admission. Possible superimposed aspiration pneumonia History of irritable bowel syndrome and intermittent abdominal pain. Chronic autoimmune hepatitis Intermittent bradycardia resolved. Severe LV dysfunction, possible acute systolic congestive heart failure Recommendation: Speech therapy to evaluate for possible aspiration , this is scheduled to be done today. Continue Zosyn. Continue present supportive care measures. Continue COVID-19 cocktail. Patient is out of the window for remdesivir Prognosis is definitely poor and guarded. Trial of gentle diuresis since her BNP level is significantly elevated, and continue IV fluid at KVO. Follow inflammatory markers. Titrate oxygen accordingly. Will continue to follow. Time with Patient: Less than 30
[2020-12-26] MEDS: FUROSEMIDE 10 MG/ML 2 ML VIAL IV SCH ×2 (15:05→20:08)
--- NOTE | 2020-12-26 16:32 | P.PN ---
Subjective Progress Note Date: 12/26/20 This is a 80-year-old female with past medical history of autoimmune hepatitis C, IBS, cancers 2 and multiple other medical issues follows regularly with Dr. Gianna Sanchez, presented to the ER with complaints of suspected fevers for the last couple of days, constipation, nausea, abdominal pain and decreased oral intake. 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 On admission temperature 103.5, normal WBC ,maintaining O2 sats of mid 90s on room air. Positive for COVID-19. Received monoclonal antibodies. Chest x-ray reportedly mild patchy density left lower lobe with small effusion, improved aeration of right lung. Abdomen/pelvis CT reported persistent subcapsular hepatic fluid collection, persistent dilatation of the intrahepatic biliary tree, common bile duct and pancreatic duct, possible enteritis, fluid distended small bowel, stool throughout the colon a consistent hematuria within the right; likely from congestive products with no evidence of abscess or free air. EKG reportedly normal sinus rhythm, troponin negative 1. Denies chest pain, palpitations or increasing shortness of breath. The hemoglobin 10.4, platelets 140, sodium 138, potassium 3, bicarb 25, BUN 24, creatinine 0.79, glucose 109, magnesium 1.2. UA negative. IV fluids initiated. 12/23/2020: Patient remains in the high 90s on room air pulse oximetry. Blood pressure stable. Her a slightly bradycardic. MAXIMUM TEMPERATURE is 98.2. Nizoral she'll 6 bowel movements yesterday, 1 void. Weight is 40.8 EKG. La boratory studies showed WBC count 3.1 hemoglobin 9.3 platelets are 120 today. GFR is 70.6. Pro-calcitonin 0.18 LDH was 256. CRP was 3.6. These markers of inflammation are elevated. Blood cultures negative 224 hours. She continues on: Cocktail of dexamethasone, colchicine, cholecalciferol, magnesium replacement, vitamin C, zinc, and some of her home meds. She is complaining of some fatigue today. She otherwise has no other complaints this time. She denies any chest pains, pressures, or shortness breath. Denies any nausea or vomiting. Has chronic mild abdominal pain from her autoimmune hepatitis. Infectious disease is following as well. December 24, 2020: overnight patient had significant bradycardia. I was contacted that telemetry showed heart rate in the 30s and 40s. She had some nausea at that point and then Atrial fibrillation was noted. This will be new for her shes never had anything like this before. Shes not take any medications that may induce bradycardia either. Her heart rate went down in the upper 20s and an A team was called. Cardiology was consulted. She was transferred to the intensive care unit where she is now. Currently shes complaining of significant nausea. She has Zofran ordered for this, but it is minmmaly effective. Heart rate has remained in the 50s since transfer the ICU. She did receive one dose of atropine before transfer. She is now requiring oxygen with some a.m. hypoxia 86% shes on 4 L via nasal cannula. Blood pressures remain stable. She has been afebrile. She had emesis times two, and one void.Laboratory studies show hemoglobin 10.6. GFR is 62 glucose is 146. Calcium 7.9 magnesium 1.6 total proteins 4.9 albumin 2.6. TSH was normal troponin was normal.Event note from Dr. Wesley and cardiology consultation Dr. Joseph reviewed. She remains on Covid cocktail,klonopin for anxiety, colchicine and dexamethasone for inflammation, her Lovenox is been increase per Dr. Joseph, she continues on some of her home medication as well. Including Cellcept. bdominal pain minimal today. No chest pain, pressure. No SOB. 12/25/2020 echo completed, pending. Converted to sinus rhythm with first- degree AV block. Chest x-ray reporting significant interval progression of i nfiltrates with a large area of airspace consolidation right perihilar and right lower lobe as well as the left lower lobe and periphery of the left lung. Maintaining O2 sats in the 90s on 7 L high flow nasal cannula. Reglan initiated yesterday with no further nausea currently reported. Denies chest pain, palpitations. 12/26/2020 continues on Covid cocktail ,maintaining O2 sats of 87-90% on 6 L nasal cannula. Chest x-ray reporting bilateral multifocal mid to lower lung opacity is redemonstrated, more prominent in the left midlung compared to one day later, consistent with progression .Swallow evaluation pending.Sitting up in chair. Increasing inflammatory markers with the exception of ferritin, unchanged. Afebrile, WBC 12.9. Sodium decreased to 131, potassium 3.1, bicarb 21, renal function stable. Blood sugars ranging from 80-140. Echo reported EF of 30-35% with hypokinetic LV wall. Possible acute systolic CHF with TRINIDAD inhibitor, IV diuretics initiated. Yesterday afternoon patient had a large bilious emesis as well as bilious liquid diarrhea. KUB reported nonacute abdomen. Objective - Vital Signs Vital signs: Vital Signs Temp 98.3 F 12/26/20 08:00 Pulse 79 12/26/20 11:00 Resp 18 12/26/20 11:00 BP 124/72 12/26/20 11:00 Pulse Ox 89 L 12/26/20 11:00 Intake & Output 12/25/20 12/26/20 12/26/20 18:59 06:59 18:59 Intake Total 780 280 75 Output Total 915 1185 300 Balance -135 905 -225 Weight 41.8 kg Intake: IV 780 180 75 Sodium Chloride 0.9% 1, 780 180 75 000 ml @ 25 mls/hr IV . Q24H [facility] Rx#:[id number] Intake, IV Titration 100 Amount Piperacillin-Tazobactam 3 100 .375 gm In Sodium Chloride 0.9% 100 ml @ 25 mls/hr IVPB Q8H [facility] Rx#: [id number] Output: Urine 915 1185 300 Other: Voiding Method Indwelling Catheter Indwelling Catheter - Exam - Exam GENERAL: Chronically Cachectic, sitting up in chair, NAD,weak appearing NECK: Supple, No JVD. CARDIOVASCULAR: S1, S2 regular. Systolic murmur RESPIRATION: Breath sounds diminished in the bases. Scattered rhonchi, bibasilar crackles. ABDOMEN: Soft, nondistended, epigastric tenderness, No guarding. no masses palpable.Bowel sounds heard. Extremities: No edema. no swelling PSYCHIATRY: Alert and oriented X3, mood and affect normal. NERVOUS SYSTEM: Cranial N 2-12 grossly normal. Moves all 4 limbs. No focal deficits. Strength and sensation grossly intact. Skin: Warm and dry, no rash - Labs CBC & Chem 7: 12/26/20 05:08 12/26/20 05:08 Labs: Abnormal Lab Results - Last 24 Hours (Table) 12/25/20 12/25/20 12/26/20 Range/Units 04:46 20:31 05:08 WBC (3.8-10.6) k/uL Neutrophils # (1.3-7.7) k/uL Lymphocytes # (1.0-4.8) k/uL D-Dimer (<0.60) mg/L FEU Sodium 131 L (137-145) mmol/L Potassium 3.1 L (3.5-5.1) mmol/L Carbon Dioxide 21 L (22-30) mmol/L POC Glucose (mg/dL) 140 H (75-99) mg/dL Calcium 7.5 L (8.4-10.2) mg/dL Ferritin 6467.0 H (10.0-291.0) ng/mL AST 92 H (14-36) U/L ALT 52 H (4-34) U/L Lactate Dehydrogenase 882 H (313-618) U/L C-Reactive Protein 23.0 H (<1.0) mg/dL Total Protein 4.9 L (6.3-8.2) g/dL Albumin 2.5 L (3.5-5.0) g/dL Procalcitonin 0.83 H (0.02-0.09) ng/mL 12/26/20 12/26/20 Range/Units 05:08 05:08 WBC 12.9 H (3.8-10.6) k/uL Neutrophils # 12.3 H (1.3-7.7) k/uL Lymphocytes # 0.3 L (1.0-4.8) k/uL D-Dimer 1.49 H (<0.60) mg/L FEU Sodium (137-145) mmol/L Potassium (3.5-5.1) mmol/L Carbon Dioxide (22-30) mmol/L POC Glucose (mg/dL) (75-99) mg/dL Calcium (8.4-10.2) mg/dL Ferritin (10.0-291.0) ng/mL AST (14-36) U/L ALT (4-34) U/L Lactate Dehydrogenase (313-618) U/L C-Reactive Protein (<1.0) mg/dL Total Protein (6.3-8.2) g/dL Albumin (3.5-5.0) g/dL Procalcitonin (0.02-0.09) ng/mL Microbiology - Last 24 Hours (Table) 12/21/20 14:57 Blood Culture - Preliminary Blood No Growth after 96 hours 12/21/20 14:57 Blood Culture - Preliminary Blood No Growth after 96 hours Assessment and Plan Assessment: Acute COVID-19 pneumonia, status post monoclonal antibodies in the ER Possible aspiration pneumonia, swallow evaluation pending Possible component of acute CHF, systolic dysfunction, EF 30-35%, IV diuretics initiated Acute hypoxic respiratory failure secondary to the above Symptomatic bradycardia, resolved Epigastric abdominal pain secondary to constipation Sinus bradycardia Chronic severe protein calorie malnutrition, BMI 16.1 Chronic left upper quadrant pain radiates to right upper quadrant. History of hepatic fluid collection, possibly pseudocyst or hepatic cyst, follows with GI outpatient Chronic Autoimmune Hepatitis C, Leukocytosis Hypomagnesemia Hypokalemia Dehydration History of IBS with chronic constipation History of rectal prolapse Plan: Continue on current medication regime, monitoring and symptomatically treatment. TRINIDAD inhibitor and IV diuretics initiated, proBNP 24,300. Close monitoring of renal function, BP.potassium supplementation as per replacement protocol previously ordered .Prognosis guarded given multiple complex medical issues. The impression and plan of care has been dictated as directed. : I performed a history and examination of this patient, discussed the same with the dictator. I agree with the dictator's note ,documented as a scribe. Any additional findings or plans will be noted.
--- NOTE | 2020-12-26 17:38 | PN ---
PROGRESS NOTE DATE OF SERVICE: 12/26/2020 REASON FOR FOLLOWUP: COVID-19 pneumonia. INTERVAL HISTORY: The patient is afebrile. Still complaining of shortness of breath. The patient denies having any chest pain, though. Did have a cough, not bringing up any sputum. No abdominal pain and no diarrhea. PHYSICAL EXAMINATION: Blood pressure 124/72 with a pulse of 79, temperature 98. She is 99% on 6 L high-flow oxygen. General description is an elderly female up in the bed in no distress. RESPIRATORY SYSTEM: Unlabored breathing. Coarse breath sounds at the bases. No wheeze. HEART: S1, S2. Regular rate and rhythm. ABDOMEN: Soft. No tenderness. LABS: Hemoglobin is 11.5. White count . is elevated at 0.83. Creatinine 0.61. DIAGNOSTIC IMPRESSION AND PLAN: Patient admitted to hospital with COVID-19 infection in this patient who has shown overall improvement, status post monoclonal antibody therapy. She was doing well but subsequently did have a problem with bradyarrhythmia and possible chest pain and worsening of her respiratory status. Not currently a candidate for remdesivir. The patient is currently being treated with dexamethasone, Lovenox, zinc, ascorbic acid; to continue along with respiratory support. Monitor clinical course closely. MMODL / IJN: [id number] /
[2020-12-26 18:41] LABS: Glucose,Whole Blood 108 mg/dL (75-99)
[2020-12-26] MEDS: TAMSULOSIN 0.4 MG CAP.ER.24H PO SCH (19:59)
[2020-12-26] MEDS: traZODone HCL 100 MG TAB PO SCH (20:01)
[2020-12-26] MEDS: FLUORIDE MISCELLANE SCH (20:01)
[2020-12-27] MEDS: NYSTATIN 100,000 UNIT/ML SUSP 500,000 UNIT/5 ML CUP PO SCH ×5 (00:09→21:03)
[2020-12-27] MEDS: SODIUM CHLORIDE 0.9% 1,000 ML IV SCH (02:31)
[2020-12-27] MEDS: PIPERACILLIN-TAZOBACTAM 3.375 GM in SODIUM CHLORIDE 0.9% 100 ML IVPB SCH ×3 (02:31→17:38)
[2020-12-27 06:48] LABS: African American GFR (CKD) >90 (>60 ml/min/1.73 sqM); Anion Gap 12 mmol/L; Blood Urea Nitrogen 12 mg/dL (7-17); Calcium 7.9 mg/dL (8.4-10.2); Carbon Dioxide 22 mmol/L (22-30); Chloride 98 mmol/L (98-107); Glucose 71 mg/dL (74-99); Non-African American GFR(CKD) 87 (>60 ml/min/1.73 sqM); Sodium 132 mmol/L (137-145)
[2020-12-27 06:50] LABS: Potassium 3.1 mmol/L (3.5-5.1)
[2020-12-27] MEDS ORDERED: Potassium Replacement Protocol 1 EACH MISC MISCELLANE PRN (06:54)
[2020-12-27] MEDS: INSULIN ASPART (NovoLOG) 100 UNIT/ML VIAL SQ SCH ×4 (06:56→21:12)
[2020-12-27] MEDS: DICYCLOMINE 20 MG TAB PO SCH ×5 (06:56→21:04)
[2020-12-27] MEDS: LEVOTHYROXINE 125 MCG TAB PO SCH (06:56)
[2020-12-27] MEDS: PANTOPRAZOLE 40 MG TABLET PO SCH (06:57)
[2020-12-27] MEDS ORDERED: POTASSIUM CHLORIDE 10 MEQ in WATER FOR INJECTION 1 100ML.BAG IVPB SCH (07:00)
[2020-12-27] MEDS: LIDOCAINE 5% PATCH TOPICAL SCH (08:56)
[2020-12-27] MEDS: ENOXAPARIN 40 MG/0.4 ML SYRINGE SQ SCH ×2 (08:56→21:04)
[2020-12-27] MEDS: COLCHICINE 0.6 MG EACH PO SCH (08:57)
[2020-12-27] MEDS: ASCORBIC ACID 500 MG TAB PO SCH ×2 (08:57→21:04)
[2020-12-27] MEDS: lisinopriL 5 MG TAB PO SCH ×2 (08:57→21:14)
[2020-12-27] MEDS: CHOLECALCIFEROL 25 MCG (1000 IU) TABLET PO SCH (08:57)
[2020-12-27] MEDS: ZINC SULFATE 220 MG CAP PO SCH (08:58)
[2020-12-27] MEDS: ESCITALOPRAM 20 MG TAB PO SCH (08:58)
[2020-12-27] MEDS: clonazePAM 1 MG TAB PO SCH (08:58)
[2020-12-27] MEDS: ASPIRIN 81 MG PO SCH (08:59)
[2020-12-27] MEDS: DEXAMETHASONE SOD PHOSPHATE 10 MG/ML 1 ML VIAL IVP SCH (08:59)
[2020-12-27] MEDS: FUROSEMIDE 10 MG/ML 2 ML VIAL IV SCH ×2 (08:59→21:05)
[2020-12-27] MEDS: POTASSIUM CHLORIDE 10 MEQ in WATER FOR INJECTION 1 100ML.BAG IVPB SCH ×9 (09:00→22:15)
[2020-12-27] MEDS: FLUTICASONE 50MCG/SPRAY NASAL 16GM EA NOSTRIL SCH ×2 (10:42→21:05)
[2020-12-27] MEDS: BUDESONIDE 3 MG PO SCH (10:42)
--- NOTE | 2020-12-27 10:56 | PN ---
PROGRESS NOTE Mrs. Kerr is a 80-year-old female who presented with progressive dyspnea secondary to COVID-19 pneumonia. Cardiology consultation was requested because of bradycardia and first-degree AV block. She has no significant bradycardia. Her echocardiogram revealed a severely impaired left ventricular systolic function which is new compared to an echocardiogram done yesterday. She was started on an TRINIDAD inhibitor yesterday and has tolerated that. Hemodynamically she has continued to be stable. She has no significant bradycardia or ventricular ectopic activity. She continues on aspirin once a day, colchicine, dexamethasone, Lovenox subcutaneously, Lasix 20 mg IV q.12 hours, insulin, lisinopril 2.5 mg twice a day, Protonix, Zosyn, Flomax, Desyrel. Blood pressure 122/70 with a heart rate in 70s. No physical examination was performed to limit the exposure. LAB DATA: BUN and creatinine 12 and 0.61, potassium 3.1. Her ferritin is 6467, which is similar to what she had 3 days ago. Her lactate dehydrogenase is 882. IMPRESSION: 1. Respiratory failure with COVID-19 pneumonia. 2. Cardiomyopathy of unclear etiology, new since last year; could be related to the infectious process. No evidence of acute ischemic event. 3. Sinus bradycardia, resolved. No significant pauses. 4. History of irritable bowel syndrome. 5. History of chronic autoimmune hepatitis. RECOMMENDATIONS: I would increase the dose of her TRINIDAD inhibitor at this time. Patient is not a candidate for beta danny because of the bradycardia on admission. Will continue to follow that to see if it can be re-initiated. In the meantime, will continue present therapy and depending on her progress, further recommendations will be made. MMODL / IJN: [id number] /
--- NOTE | 2020-12-27 11:14 | XR ---
EXAMINATION TYPE: XR chest 1V portable DATE OF EXAM: 12/27/2020 COMPARISON: Chest x-ray dated 12/26/2020 HISTORY: Cold with pneumonia TECHNIQUE: Single frontal view of the chest is obtained. FINDINGS: Bilateral confluent airspace disease is present. There is no evident pneumothorax, difficu lt to exclude small effusion. Heart appears enlarged. There is a spinal curvature. Bone mineralizatio n is reduced. Aorta is dense. IMPRESSION: Findings consistent with pneumonia, follow up suggested
--- NOTE | 2020-12-27 12:31 | CT ---
EXAMINATION TYPE: CT brain wo con for TPA DATE OF EXAM: 12/27/2020 COMPARISON: None HISTORY: Fever, dehydration, hypomagnesemia, neuro deficits CT DLP: 1079.[address] of the brain was performed. The ventricles, basal cisterns and sulci overlying the cerebral convexities demonstrate mild enlargem ent. There is no evidence for intracranial hemorrhage or sulcal effacement. There is decreased attenuation about the periventricular white matter and deep white matter of both c erebral hemispheres, compatible with chronic small vessel ischemia. Differential diagnosis does inclu de demyelination. No mass effects are seen.No midline shift. Osseous calvarium is intact. If symptoms persist consider MRI. IMPRESSION: 1. Age related atrophic and chronic small vessel ischemic change without acute intracranial process s een at this time.
[2020-12-27 12:34] LABS: Basophils % (A) 0 %; Eosinophils % (A) 0 %; HCT 33.3 % (34.0-46.0); HGB 10.9 gm/dL (11.4-16.0); Lymphocytes # (A) 0.2 k/uL (1.0-4.8); Lymphocytes % (A) 2 %; MCHC 32.8 g/dL (31.0-37.0); MCV 88.6 fL (80.0-100.0); Mean Platelet Volume 9.4; Monocytes # (A) 0.3 k/uL (0-1.0); Monocytes % (A) 3 %; Neutrophils # (A) 10.5 k/uL (1.3-7.7); Neutrophils % (A) 95 %; Platelet Count 208 k/uL (150-450); RBC 3.76 m/uL (3.80-5.40); RDW 14.6 % (11.5-15.5); WBC 11.1 k/uL (3.8-10.6)
[2020-12-27 12:41] LABS: INR 1.1 (<1.2); Partial Thromboplastin Time 28.3 sec (22.0-30.0); Prothrombin Time 11.2 sec (9.0-12.0)
--- NOTE | 2020-12-27 12:55 | CT ---
EXAMINATION TYPE: CODE STROKE: CTA head neck DATE OF EXAM: 12/27/2020 COMPARISON: None HISTORY: Code stroke CT DLP: 254.9 mGycm CONTRAST: Performed with IV Contrast, patient injected with 65 mL of Isovue 370. Combination Contrast CTA cervical carotids and [place] CTA cervical carotids with 3-D recons truction Contrast CTA of the cervical carotids was performed 3-D reconstruction imaging obtained at a separate workstation. Right carotid system: Mild plaque is seen of the right common carotid artery. There is mild plaque a lso noted at the carotid bulb and proximal ICA. No significant diameter reduction. ECA is patent. Right vertebral artery appears unremarkable. Left carotid system: Mild plaque is seen of the left common carotid artery. There is mild plaque als o noted at the carotid bulb and proximal ICA. No significant diameter reduction. ECA is patent. Lef t vertebral artery appears unremarkable. Upper lobe infiltrates and pleural effusions. IMPRESSION: 1. No significant diameter reduction to account for the patient's symptoms. CTA [place] with 3-D reconstruction Contrast CTA of the [place] was performed 3-D reconstruction imaging obtained at a separate workstation. Vertebrobasilar system as well as intracranial portions of the internal carotid arteries and their ma [place] tributaries are patent. I do not see evidence for sizable aneurysm or vascular malformation. Pl ease note MRI provides greater sensitivity and specificity. Visualized brain appears grossly unremar kable. IMPRESSION: 1. No significant abnormality. NASCET criteria was used in interpretation of this exam?
[2020-12-27 12:58] LABS: ALT 35 U/L (4-34); AST 47 U/L (14-36); African American GFR (CKD) >90 (>60 ml/min/1.73 sqM); Albumin 2.5 g/dL (3.5-5.0); Alkaline Phosphatase 69 U/L (38-126); Anion Gap 8 mmol/L; Blood Urea Nitrogen 12 mg/dL (7-17); Calcium 7.4 mg/dL (8.4-10.2); Carbon Dioxide 28 mmol/L (22-30); Chloride 94 mmol/L (98-107); Glucose 94 mg/dL (74-99); Magnesium 1.5 mg/dL (1.6-2.3); Non-African American GFR(CKD) 84 (>60 ml/min/1.73 sqM); Sodium 130 mmol/L (137-145); Total Bilirubin 0.4 mg/dL (0.2-1.3); Total Protein 4.9 g/dL (6.3-8.2)
[2020-12-27 13:09] LABS: Potassium 2.7 mmol/L (3.5-5.1)
--- NOTE | 2020-12-27 14:08 | P.PN ---
Subjective Progress Note Date: 12/27/20 Principal diagnosis: Acute hypoxic respiratory failure secondary to COVID-19 pneumonia, This is a 80-year-old female with history of fibromyalgia, degenerative joint disease, autoimmune hepatitis, irritable bowel syndrome, patient was admitted to the hospital on 12/21/20 mostly with symptoms of weakness for the last couple of weeks prior to presentation. In addition to her weakness, patient was complaining of fever, chills, poor appetite, intermittent episodes of abdominal pain, nausea, and intermittent constipation. Upon her initial presentation she had a temp of 103.5, she was slightly hypoxic, and she was noted to have lymphopenia with normal WBC count. Elevated BUN and creatinine, and she was also noted to have positive PCR for COVID-19 infection. Chest x-ray on her initial admission showed mild patchy infiltrate in the left lower lobe with small pleural effusion, CT of the abdomen showed enteritis, with data titration of the hepatic biliary tree, soft capsular fluid collection in the liver, and there was evidence of left lower lobe pneumonia. Patient received monoclonal antibody infusion admitted to the hospital, and she has been seen by infectious disease on consultation. We were not asked to see the patient until today were in her oxygen requirement has increased from 2 L via nasal cannula up to 7 L today, and the patient is noted to have more and more shortness of breath. Over the last few days, since admission, her chest x-ray has shown worsening bilateral bibasilar infiltrates. Hence this consult was initiated. Patient is known to have history of paroxysmal atrial fibrillation, cardiology saw the patient on this admission for intermittent episodes of bradycardia and this was felt to be vasovagal. The cardiology recommendation was to start the patient on anticoagulation therapy, she was given prophylactic dose of Lovenox. She had an echocardiogram that showed severe LV dysfunction with ejection fraction of 30- 35%. And global hypokinesia. Again considering the worsening pneumonia we were asked to see this patient on consultation today although she has been admitted almost 4 days ago. Reevaluated today on 12/26/20, patient remains in the ICU, she is on 6 L nasal cannula, she is being treated for COVID-19 pneumonia possible aspiration pneumonia, and I believe the patient may have some component of acute systolic congestive heart failure. Patient remains on the COVID-19 cocktail treatment, remains on Zosyn, Decadron, and I cut down her IV fluid yesterday to 15 mL/h/KVO. Patient is supposed to undergo speech evaluation today, I suspected that there may be some component of aspiration pneumonia. Chest x-ray continues to show bibasilar infiltrates, clinically the patient is about the same, not much change in the last 24 hours. WBC count is 12.9, hemoglobin 11.5 electrolytes are normal except for low potassium of 3.1. BNP level yesterday was 24,300, and pro-calcitonin was 0.83. LDH is up to 882. And C-reactive protein is 20 patient was reevaluated today on 12/27/2020, patient remains in the ICU, remains on 6 L nasal cannula, remains on diuretics, remains on antibiotics, and she remains on the COVID-19 cocktail. Patient again my evaluation was basically unchanged, however later on the patient developed some garbled speech, and code stroke was called, patient underwent CT of the brain and CT angiogram which came back negative and nondiagnostic. During my evaluation, the patient was basically the same and unchanged from the day before. She does seem very frail, she does seem to be a bit tremulous, otherwise I haven't noticed any change in the last 24 hours. She is requiring less oxygen, and she is saturating better. Chest x-ray continues to show evidence of bilateral pneumonia. Possibly minimal improvement compared to the day before. WBC count is 11.1 hemoglobin is 10.9. Potassium is 2.7 being addressed as per protocol. Troponin is 0.464. Objective - Vital Signs Vital signs: Vital Signs Temp 98.0 F 12/27/20 12:00 Pulse 70 12/27/20 13:00 Resp 27 H 12/27/20 13:00 BP 118/62 12/27/20 13:00 Pulse Ox 100 12/27/20 13:00 Intake & Output 12/26/20 12/27/20 12/27/20 18:59 06:59 18:59 Intake Total 180 200 300 Output Total 1124 1994 1199 Balance -312 -8450 -037 Weight 41.8 kg Intake: IV 180 200 200 Potassium [place] 10 meq 100 100ml bag @ 100 ml/hr Sodium Chloride 0.9% 1, 180 200 100 000 ml @ 25 mls/hr IV . Q24H [facility] Rx#:[id number] Oral 100 Output: Urine 1124 1994 1199 Other: Voiding Method Indwelling Catheter Indwelling Catheter Indwelling Catheter - Exam GENERAL DESCRIPTION: Revealed 80-year-old female, frail looking, on 6 L nasal cannula, in no distress. HEENT: [place], EOMI, nonicteric, no neck masses. NECK: Trachea central, no JVD, no neck masses, no stridor. LUNGS: Crackles and rhonchi noted bilaterally. Symmetrical chest expansion. HEART: S1, S2, regular rate and rhythm. ABDOMEN: Soft nontender no megaly no rebound no guarding. EXTREMITIES: No clubbing edema or cyanosis. SKIN: No rash NEUROLOGICAL: Alert and oriented 3 focal neurologic deficit Psychiatric: Normal mood, affect and normal mental status examination. - Labs CBC & Chem 7: 12/27/20 12:13 12/27/20 12:13 Labs: Abnormal Lab Results - Last 24 Hours (Table) 12/26/20 12/27/20 12/27/20 Range/Units 18:40 05:48 12:13 WBC (3.8-10.6) k/uL RBC (3.80-5.40) m/uL Hgb (11.4-16.0) gm/dL Hct (34.0-46.0) % Neutrophils # (1.3-7.7) k/uL Lymphocytes # (1.0-4.8) k/uL Sodium 132 L 130 L (137-145) mmol/L Potassium 3.1 L 2.7 L* (3.5-5.1) mmol/L Chloride 94 L (98-107) mmol/L Glucose 71 L (74-99) mg/dL POC Glucose (mg/dL) 108 H (75-99) mg/dL Calcium 7.9 L 7.4 L (8.4-10.2) mg/dL Magnesium 1.5 L (1.6-2.3) mg/dL AST 47 H (14-36) U/L ALT 35 H (4-34) U/L Troponin I (0.000-0.034) ng/mL Total Protein 4.9 L (6.3-8.2) g/dL Albumin 2.5 L (3.5-5.0) g/dL 12/27/20 12/27/20 Range/Units 12:13 12:13 WBC 11.1 H (3.8-10.6) k/uL RBC 3.76 L (3.80-5.40) m/uL Hgb 10.9 L (11.4-16.0) gm/dL Hct 33.3 L (34.0-46.0) % Neutrophils # 10.5 H (1.3-7.7) k/uL Lymphocytes # 0.2 L (1.0-4.8) k/uL Sodium (137-145) mmol/L Potassium (3.5-5.1) mmol/L Chloride (98-107) mmol/L Glucose (74-99) mg/dL POC Glucose (mg/dL) (75-99) mg/dL Calcium (8.4-10.2) mg/dL Magnesium (1.6-2.3) mg/dL AST (14-36) U/L ALT (4-34) U/L Troponin I 0.464 H* (0.000-0.034) ng/mL Total Protein (6.3-8.2) g/dL Albumin (3.5-5.0) g/dL Microbiology - Last 24 Hours (Table) 12/26/20 05:08 Blood Culture - Preliminary Blood No Growth after 24 hours 12/21/20 14:57 Blood Culture - Preliminary Blood No Growth after 120 hours 12/21/20 14:57 Blood Culture - Preliminary Blood No Growth after 120 hours Assessment and Plan Assessment: Impression: Acute hypoxic respiratory failure secondary to COVID-19 pneumonia, patient is status post monoclonal antibody given upon her initial admission. Possible superimposed aspiration pneumonia History of irritable bowel syndrome and intermittent abdominal pain. Chronic autoimmune hepatitis Intermittent bradycardia resolved. Severe LV dysfunction, possible acute systolic congestive heart failure Recommendation: Continue Zosyn. Continue present supportive care measures. Continue COVID-19 cocktail. Patient is out of the window for remdesivir Prognosis is definitely poor and guarded. Continue diuresis as the chest x-ray is showing slight improvement Follow inflammatory markers. Titrate oxygen accordingly. Consider transferring the patient out of the ICU to a monitor bed on selective/cardiac floor Will continue to follow. Time with Patient: Less than 30
[2020-12-27] MEDS: MAGNESIUM SULFATE-D5W PMX 1 GM in DEXTROSE/WATER 1 100ML.BAG IVPB SCH ×2 (15:08→16:30)
[2020-12-27 16:41] LABS: Glucose,Whole Blood 132 mg/dL (75-99)
[2020-12-27] MEDS: traZODone HCL 100 MG TAB PO SCH (21:03)
[2020-12-27] MEDS: TAMSULOSIN 0.4 MG CAP.ER.24H PO SCH (21:03)
[2020-12-27] MEDS: FLUORIDE MISCELLANE SCH (21:05)
[2020-12-27 21:12] LABS: Glucose,Whole Blood 133 mg/dL (75-99)
--- NOTE | 2020-12-27 23:00 | PN ---
PROGRESS NOTE DATE OF SERVICE: 12/27/2020 REASON FOR FOLLOWUP: COVID-19 pneumonia. INTERVAL HISTORY: The patient is afebrile. The patient is slightly lethargic today; did not provide any history. No vomiting or diarrhea has been reported by the nursing staff. FiO2 is currently down to 3 L. PHYSICAL EXAMINATION: Blood pressure 126/62 with pulse of 80, temperature 97.9. She is 97% on 3 L nasal cannula. General description is an elderly female lying in bed in no distress. RESPIRATORY SYSTEM: Unlabored breathing. Decreased intensity of breath sounds. No wheeze. HEART: S1, S2. Regular rate and rhythm. ABDOMEN: Soft. No tenderness. LABS: Hemoglobin is 10.9, white count 11.1, creatinine 0.68. DIAGNOSTIC IMPRESSION AND PLAN: Patient with acute respiratory failure in this patient who did have COVID-19 pneumonia, currently on dexamethasone, Lovenox, zinc, ascorbic acid; to continue along with respiratory support and monitor clinical course closely. MMODL / IJN: [id number] /
[2020-12-28] MEDS: NYSTATIN 100,000 UNIT/ML SUSP 500,000 UNIT/5 ML CUP PO SCH (00:58)
[2020-12-28] MEDS: PIPERACILLIN-TAZOBACTAM 3.375 GM in SODIUM CHLORIDE 0.9% 100 ML IVPB SCH ×3 (01:41→17:46)
[2020-12-28] MEDS: SODIUM CHLORIDE 0.9% 1,000 ML IV SCH (01:42)
[2020-12-28] MEDS: HYDROcodone/APAP 10-325MG 1 EACH TAB PO PRN ×3 (06:29→20:14)
[2020-12-28] MEDS: PANTOPRAZOLE 40 MG TABLET PO SCH (06:33)
[2020-12-28] MEDS: LEVOTHYROXINE 125 MCG TAB PO SCH (06:33)
[2020-12-28] MEDS: DICYCLOMINE 20 MG TAB PO SCH ×4 (06:33→20:15)
[2020-12-28] MEDS: INSULIN ASPART (NovoLOG) 100 UNIT/ML VIAL SQ SCH ×4 (06:33→20:18)
[2020-12-28 06:34] LABS: Glucose,Whole Blood 97 mg/dL (75-99)
--- NOTE | 2020-12-28 07:24 | XR ---
EXAMINATION TYPE: XR chest 1V portable DATE OF EXAM: 12/28/2020 HISTORY: Shortness of breath. COMPARISON: 12/27/2020 TECHNIQUE: Single view of the chest is submitted. FINDINGS: Demonstrated are scattered senescent parenchymal change. Persistent but improving airspace infiltrates throughout the right lung and left lower lobe. The heart is stable. Hilar and mediastinal structures are within normal limits. Degenerative changes are seen of the dorsal spine. IMPRESSION: 1. Persistent but improving airspace infiltrates throughout the right lung and left lower lobe.
[2020-12-28 08:13] LABS: African American GFR (CKD) >90 (>60 ml/min/1.73 sqM); Anion Gap 8 mmol/L; Blood Urea Nitrogen 13 mg/dL (7-17); Carbon Dioxide 25 mmol/L (22-30); Chloride 99 mmol/L (98-107); Glucose 108 mg/dL (74-99); Non-African American GFR(CKD) 90 (>60 ml/min/1.73 sqM); Potassium 3.4 mmol/L (3.5-5.1); Sodium 132 mmol/L (137-145)
[2020-12-28] MEDS: ESCITALOPRAM 20 MG TAB PO SCH ×2 (10:16→10:17)
[2020-12-28] MEDS: ZINC SULFATE 220 MG CAP PO SCH (10:16)
[2020-12-28] MEDS: lisinopriL 5 MG TAB PO SCH ×2 (10:16→20:15)
[2020-12-28] MEDS: ASPIRIN 81 MG PO SCH (10:16)
[2020-12-28] MEDS: ASCORBIC ACID 500 MG TAB PO SCH ×2 (10:16→20:15)
[2020-12-28] MEDS: CHOLECALCIFEROL 25 MCG (1000 IU) TABLET PO SCH (10:17)
[2020-12-28] MEDS: clonazePAM 1 MG TAB PO SCH (10:17)
[2020-12-28] MEDS: COLCHICINE 0.6 MG EACH PO SCH (10:18)
[2020-12-28] MEDS: ENOXAPARIN 40 MG/0.4 ML SYRINGE SQ SCH ×2 (10:18→20:16)
[2020-12-28] MEDS: FUROSEMIDE 10 MG/ML 2 ML VIAL IV SCH ×2 (10:18→20:18)
[2020-12-28] MEDS: DEXAMETHASONE SOD PHOSPHATE 10 MG/ML 1 ML VIAL IVP SCH (10:19)
[2020-12-28] MEDS: FLUTICASONE 50MCG/SPRAY NASAL 16GM EA NOSTRIL SCH ×2 (10:19→20:18)
[2020-12-28] MEDS: BUDESONIDE 3 MG PO SCH (10:19)
[2020-12-28] MEDS: LIDOCAINE 5% PATCH TOPICAL SCH (10:21)
--- NOTE | 2020-12-28 11:03 | P.CNNES ---
History of Present Illness Consult date: 12/28/20 Requesting physician: Yash Umanzor Reason for Consult: code stroke. altered mental status. History of Present Illness: This is a 80-year-old woman with medical history of autoimmune hepatitis, herbal bowel syndrome, fibromyalgia, degenerative joint disease who presented to the emergency department on 12/21/2020 for generalized weakness for the last couple weeks prior to present to the hospital. Neurology is consulted for code stroke because of altered mental status. Some of the history is obtained from medical record. During this hospital stay it was noted that the patient has acute hypoxic respiratory failure secondary due to COVID-19 ammonia as well as possible superimposed aspiration pneumonia. Per the ICU nurse on 12/27/2020 the patient was last normal and around 12 PM yesterday she was a slurring her speech, confused and was more lethargic but was moving all extremities. As a result of code stroke was activated. She had a CT of the head which is reported as age-related atrophy and chronic small vessel ischemic change without acute intracranial process seen at this time. CT angiography of the head and neck was reported as negative. Per the ICU attending note he mentions that the patien t's unchanged the from the day prior. He did mention that the patient patient seem a bit more tremulous otherwise he didn't notice any change in the last 24 hours. Patient was transferred to the floors. Per the patient's nurse she seems better today compared compared to what was presented to her yesterday. No IV TPA given. Per the patient's she stated that she has generalized pain and weakness throughout. She denies of any focal weakness, numbness, visual disturbance or difficulty getting her words out. She denies of any strokes in the past or seizures in the past. Somewhat workup in the hospital consisted of: Her white blood cell is 11.1 thousand and that the most recent data. Sodium is 132 and prior to that the sodium was 130. Potassium was corrected at 3.4 prior to 0.7. Creatinine is 0.56, glucose most recent is a 108, calcium is 8.0, magnesium is 2.0. TSH is 1.92 which is within normal limits Urinalysis negative for urinary tract infection. Coronavirus PCR is detected on 12/21/2020. I personally reviewed the CT of the head and I do not see any evidence of acute or subacute ischemia. There is no bleed seen on ET. 2-D echo was reported as left ventricular wall thickness is normal. Overall left ventricle systolic function is moderate to severely impaired with ejection fraction of 30-35%. Left atrium is mildly dilated. Left ventricle wall motion is hypokinetic at the anterior lateral inferior septal region. Review of Systems Review of system: The 12 point system was reviewed and apparent positive and negative per HPI. Past Medical History Past Medical History: Cancer, Fibromyalgia, GERD/Reflux, Liver Disease, Osteoarthritis (OA), Pneumonia, Sleep Apnea/CPAP/BIPAP, Thyroid Disorder Additional Past Medical History / Comment(s): Hepatitis C, Immune disorder, IBS History of Any Multi-Drug Resistant Organisms: None Reported Past Surgical History: Appendectomy, Breast Surgery, Cholecystectomy, Hy sterectomy, No Surgical Hx Reported, Orthopedic Surgery, Tonsillectomy Additional Past Surgical History / Comment(s): Rectal prolapse Past Anesthesia/Blood Transfusion Reactions: No Reported Reaction Past Psychological History: Depression, No Psychological Hx Reported Smoking Status: Never smoker Past Alcohol Use History: None Reported Past Drug Use History: None Reported - Past Family History Mother Family Medical History: Cancer, Deep Vein Thrombosis (DVT) Medications and Allergies Home Medications Medication Instructions Recorded Confirmed Type Levothyroxine Sodium [Synthroid] 125 mcg PO DAILY 12/21/13 12/21/20 History mycophenolate mofetiL [Cellcept] 1,000 mg PO BID 12/21/13 12/21/20 History Escitalopram Oxalate [Lexapro] 20 mg PO DAILY 04/26/19 12/21/20 History Dicyclomine [Bentyl] 20 mg PO ACHS 01/13/20 12/21/20 History HYDROmorphone HCL [Dilaudid] 8 mg PO Q6H 01/13/20 12/21/20 History Budesonide [Budesonide EC] 9 mg PO DAILY 08/21/20 12/21/20 History Omeprazole 40 mg PO DAILY 08/21/20 12/21/20 History Tamsulosin HCl [Flomax] 0.4 mg PO HS 08/21/20 12/21/20 History clonazePAM [KlonoPIN] 1 mg PO DAILY 08/21/20 12/21/20 History traZODone HCL 100 mg PO HS 08/21/20 12/21/20 History Fluoride (Sodium) [Sodium Fluoride 1 applic DENTAL HS 12/21/20 12/21/20 History 5000 Plus] Fluticasone Nasal [place] [Flonase 1 spr EA NOSTRIL BID 12/21/20 12/21/20 History Nasal [place]] Lidocaine 5% Patch [Lidoderm] 1 patch TRANSDERM DAILY 12/21/20 12/21/20 History Nystatin 100,000 Unit/gm Oint 1 applic TOPICAL TID 12/21/20 12/21/20 History [Mycostatin Oint] Ondansetron [Zofran] 4 mg PO Q6H PRN 12/21/20 12/21/20 History dexAMETHasone [Decadron Elixir] 0.5 mg PO QID 12/21/20 12/21/20 History methylPREDNISolone [Medrol Dose See Taper PO DAILY 12/21/20 12/21/20 History Pack] valACYclovir HCL [Valtrex] 1,000 mg PO BID PRN 12/21/20 12/21/20 History Allergies Allergy/AdvReac Type Severity Reaction Status Date / Time No Known Drug Allergies Allergy Unknown Verified 12/21/20 14:05 Physical Examination - Vital Signs Vital Signs: Vital Signs Temp Pulse Pulse Resp BP BP Pulse Ox 12/28/20 04:00 98.2 F 78 16 115/66 98 12/28/20 00:00 98.4 F 78 18 119/58 92 L 12/27/20 21:43 97 12/27/20 21:00 80 16 126/62 98 12/27/20 20:00 97.9 F 71 18 121/74 100 12/27/20 19:00 74 24 116/62 100 12/27/20 18:00 80 40 H 132/72 91 L 12/27/20 17:00 76 17 120/69 98 12/27/20 16:00 97.9 F 77 33 H 124/81 99 12/27/20 15:00 80 9 L 123/72 98 12/27/20 14:00 70 26 H 129/70 98 12/27/20 13:00 70 27 H 118/62 100 12/27/20 12:00 98.0 F 125/65 12/27/20 11:00 69 26 H 109/78 100 Intake and Output 12/27/20 12/28/20 12/28/20 22:59 06:59 14:59 Intake Total 1430 Output Total 1500 1520 Balance -70 -1520 Intake: IV 950 Magnesium Sulfate-D5w Pmx 200 1 gm In Dextrose/Water 1 100ml.bag @ 100 mls/hr IVPB Q1H [facility] Rx#: [id number] Piperacillin-Tazobactam 3 100 .375 gm In Sodium Chloride 0.9% 100 ml @ 25 mls/hr IVPB Q8H [facility] Rx#: [id number] Potassium Cloride 10 meq 500 100ml bag @ 100 ml/hr Sodium Chloride 0.9% 1, 150 000 ml @ 25 mls/hr IV . Q24H [facility] Rx#:[id number] Oral 480 Output: Urine 1500 1520 Other: Voiding Method Indwelling Catheter Indwelling Catheter # Bowel Movements 1 GENERAL: The patient is lying in bed is cachectic and is in mild to moderate acute distress. CHEST: The heart rate is regular rate rhythm. No murmurs to auscultation. LUNG: Clear to auscultation bilaterally no wheezing noted throughout. Not labored breathing. ABDOMEN/GI: Bowel sounds present in all 4 quadrants. No tenderness to palpation throughout. NEUROLOGICAL: Higher mental function: The patient is awake, alert, oriented to self, place and time. Patient is able to name objects correctly (pen, watch and glasses). Patient is following simple commands. No aphasia and no neglect. Cranial nerves: The pupils are round, equal and reactive to light. Visual f ields are full to confrontation throughout. Extraocular movement is intact no nystagmus is noted. Facial sensation is normal to touch throughout. The facial strength is normal throughout. Hearing is moderately decreased bilaterally to hand rub. Tongue is midline and moved [id number] without any difficulty. No dysarthria is noted. Shoulder shrug is normal bilaterally. Motor: Gait is deferred. The strength is 5 over 5 throughout uppers while lowers are 4+ to 5- and limited because of her pain. Normal tone. Decrease bulk throughout. Cerebellum: Normal finger to nose bilaterally. Sensation: Sensation is normal to touch throughout. Reflexes (right/left): 2+ throughout except ankles are 1+ bilaterally. Plantars are downgoing bilaterally. Results - Laboratory Findings CBC and BMP: 12/27/20 12:13 12/28/20 07:35 Abnormal Lab Findings: Abnormal Labs 12/21/20 12/21/20 12/21/20 14:57 14:57 14:57 WBC RBC 3.46 L Hgb 10.4 L Hct 30.9 L MCHC Plt Count 140 L Plt Count Comment Immature Gran # Neutrophils # Lymphocytes # 0.2 L Monocytes # Eosinophils # D-Dimer Sodium Potassium 3.3 L Chloride Carbon Dioxide Anion Gap BUN 26 H BUN/Creatinine Ratio Glucose POC Glucose (mg/dL) Calcium 7.6 L Magnesium 1.2 L Ferritin Total Bilirubin AST 69 H ALT Lactate Dehydrogenase Troponin I C-Reactive Protein Total Protein 5.5 L Albumin 3.0 L Albumin/Globulin Ratio Procalcitonin Urine Protein Trace H Coronavirus (PCR) 12/21/20 12/22/20 12/22/20 14:57 09:56 11:25 WBC RBC Hgb Hct MCHC Plt Count Plt Count Comment Immature Gran # Neutrophils # Lymphocytes # Monocytes # Eosinophils # D-Dimer Sodium Potassium 3.0 L Chloride Carbon Dioxide Anion Gap BUN 24 H BUN/Creatinine Ratio Glucose 109 H POC Glucose (mg/dL) 102 H Calcium 7.2 L Magnesium Ferritin Total Bilirubin AST 45 H ALT Lactate Dehydrogenase Troponin I C-Reactive Protein Total Protein 4.7 L Albumin 2.4 L Albumin/Globulin Ratio Procalcitonin Urine Protein Coronavirus (PCR) Detected A 12/22/20 12/22/20 12/22/20 16:37 17:10 21:09 WBC RBC Hgb Hct MCHC Plt Count Plt Count Comment Immature Gran # Neutrophils # Lymphocytes # Monocytes # Eosinophils # D-Dimer Sodium Potassium 3.4 L Chloride Carbon Dioxide Anion Gap BUN BUN/Creatinine Ratio Glucose POC Glucose (mg/dL) 127 H 155 H Calcium Magnesium Ferritin Total Bilirubin AST ALT Lactate Dehydrogenase Troponin I C-Reactive Protein Total Protein Albumin Albumin/Globulin Ratio Procalcitonin Urine Protein Coronavirus (PCR) 12/23/20 12/23/20 12/23/20 06:08 06:08 06:08 WBC 3.18 L RBC 3.18 L Hgb 9.3 L Hct 29.9 L MCHC 31.1 L Plt Count 128 L Plt Count Comment DECREASED A Immature Gran # 0.05 H Neutrophils # Lymphocytes # 0.22 L Monocytes # 0.18 L Eosinophils # 0 L D-Dimer Sodium Potassium Chloride 112 H Carbon Dioxide 19.8 L Anion Gap 12.20 H BUN BUN/Creatinine Ratio 24.75 H Glucose POC Glucose (mg/dL) Calcium 7.4 L Magnesium Ferritin 6468.0 H Total Bilirubin <0.20 L AST 38 H ALT Lactate Dehydrogenase 256 H Troponin I C-Reactive Protein 3.60 H Total Protein 4.5 L Albumin 2.7 L Albumin/Globulin Ratio 1.50 L Procalcitonin 0.18 H Urine Protein Coronavirus (PCR) 12/23/20 12/23/20 12/23/20 06:08 07:05 11:48 WBC RBC Hgb Hct MCHC Plt Count Plt Count Comment Immature Gran # Neutrophils # Lymphocytes # Monocytes # Eosinophils # D-Dimer 0.72 H Sodium Potassium Chloride Carbon Dioxide Anion Gap BUN BUN/Creatinine Ratio Glucose POC Glucose (mg/dL) 119 H 132 H Calcium Magnesium Ferritin Total Bilirubin AST ALT Lactate Dehydrogenase Troponin I C-Reactive Protein Total Protein Albumin Albumin/Globulin Ratio Procalcitonin Urine Protein Coronavirus (PCR) 12/23/20 12/23/20 12/24/20 16:39 20:42 00:58 WBC RBC 3.76 L Hgb 11.0 L Hct MCHC Plt Count Plt Count Comment Immature Gran # Neutrophils # Lymphocytes # 0.3 L Monocytes # Eosinophils # D-Dimer Sodium Potassium Chloride Carbon Dioxide Anion Gap BUN BUN/Creatinine Ratio Glucose POC Glucose (mg/dL) 144 H 168 H Calcium Magnesium Ferritin Total Bilirubin AST ALT Lactate Dehydrogenase Troponin I C-Reactive Protein Total Protein Albumin Albumin/Globulin Ratio Procalcitonin Urine Protein Coronavirus (PCR) 12/24/20 12/24/20 12/24/20 00:58 01:38 02:17 WBC RBC Hgb Hct MCHC Plt Count Plt Count Comment Immature Gran # Neutrophils # Lymphocytes # Monocytes # Eosinophils # D-Dimer Sodium Potassium Chloride 111 H Carbon Dioxide 21 L Anion Gap BUN 25 H BUN/Creatinine Ratio Glucose 116 H POC Glucose (mg/dL) 131 H 136 H Calcium 7.7 L Magnesium Ferritin Total Bilirubin AST 44 H ALT Lactate Dehydrogenase Troponin I C-Reactive Protein Total Protein 4.9 L Albumin 2.5 L Albumin/Globulin Ratio Procalcitonin Urine Protein Coronavirus (PCR) 12/24/20 12/24/20 12/24/20 04:18 04:18 06:32 WBC RBC 3.62 L Hgb 10.6 L Hct MCHC Plt Count Plt Count Comment Immature Gran # Neutrophils # Lymphocytes # 0.3 L Monocytes # Eosinophils # D-Dimer Sodium Potassium Chloride 113 H Carbon Dioxide 21 L Anion Gap BUN 24 H BUN/Creatinine Ratio Glucose 146 H POC Glucose (mg/dL) 184 H Calcium 7.9 L Magnesium Ferritin Total Bilirubin AST 46 H ALT Lactate Dehydrogenase Troponin I C-Reactive Protein Total Protein 4.9 L Albumin 2.6 L Albumin/Globulin Ratio Procalcitonin Urine Protein Coronavirus (PCR) 12/24/20 12/24/20 12/24/20 09:45 11:37 16:09 WBC RBC Hgb Hct MCHC Plt Count Plt Count Comment Immature Gran # Neutrophils # Lymphocytes # Monocytes # Eosinophils # D-Dimer Sodium Potassium 3.1 L Chloride Carbon Dioxide Anion Gap BUN BUN/Creatinine Ratio Glucose POC Glucose (mg/dL) 192 H Calcium Magnesium Ferritin Total Bilirubin AST ALT Lactate Dehydrogenase Troponin I C-Reactive Protein Total Protein Albumin Albumin/Globulin Ratio Procalcitonin Urine Protein Trace H Coronavirus (PCR) 12/24/20 12/24/20 12/25/20 16:46 21:12 04:46 WBC RBC Hgb Hct MCHC Plt Count Plt Count Comment Immature Gran # Neutrophils # Lymphocytes # Monocytes # Eosinophils # D-Dimer Sodium Potassium 3.4 L Chloride 110 H Carbon Dioxide Anion Gap BUN 20 H BUN/Creatinine Ratio Glucose 109 H POC Glucose (mg/dL) 127 H 124 H Calcium 7.7 L Magnesium Ferritin Total Bilirubin AST ALT Lactate Dehydrogenase Troponin I C-Reactive Protein Total Protein Albumin Albumin/Globulin Ratio Procalcitonin Urine Protein Coronavirus (PCR) 12/25/20 12/25/20 12/25/20 04:46 04:46 06:50 WBC RBC Hgb Hct MCHC Plt Count Plt Count Comment Immature Gran # Neutrophils # 10.0 H Lymphocytes # 0.2 L Monocytes # Eosinophils # D-Dimer Sodium Potassium Chloride Carbon Dioxide Anion Gap BUN BUN/Creatinine Ratio Glucose POC Glucose (mg/dL) 102 H Calcium Magnesium Ferritin Total Bilirubin AST ALT Lactate Dehydrogenase Troponin I C-Reactive Protein Total Protein Albumin Albumin/Globulin Ratio Procalcitonin 0.83 H Urine Protein Coronavirus (PCR) 12/25/20 12/26/20 12/26/20 20:31 05:08 05:08 WBC RBC Hgb Hct MCHC Plt Count Plt Count Comment Immature Gran # Neutrophils # Lymphocytes # Monocytes # Eosinophils # D-Dimer 1.49 H Sodium 131 L Potassium 3.1 L Chloride Carbon Dioxide 21 L Anion Gap BUN BUN/Creatinine Ratio Glucose POC Glucose (mg/dL) 140 H Calcium 7.5 L Magnesium Ferritin 6467.0 H Total Bilirubin AST 92 H ALT 52 H Lactate Dehydrogenase 882 H Troponin I C-Reactive Protein 23.0 H Total Protein 4.9 L Albumin 2.5 L Albumin/Globulin Ratio Procalcitonin Urine Protein Coronavirus (PCR) 12/26/20 12/26/20 12/27/20 05:08 18:40 05:48 WBC 12.9 H RBC Hgb Hct MCHC Plt Count Plt Count Comment Immature Gran # Neutrophils # 12.3 H Lymphocytes # 0.3 L Monocytes # Eosinophils # D-Dimer Sodium 132 L Potassium 3.1 L Chloride Carbon Dioxide Anion Gap BUN BUN/Creatinine Ratio Glucose 71 L POC Glucose (mg/dL) 108 H Calcium 7.9 L Magnesium Ferritin Total Bilirubin AST ALT Lactate Dehydrogenase Troponin I C-Reactive Protein Total Protein Albumin Albumin/Globulin Ratio Procalcitonin Urine Protein Coronavirus (PCR) 12/27/20 12/27/20 12/27/20 12:13 12:13 12:13 WBC 11.1 H RBC 3.76 L Hgb 10.9 L Hct 33.3 L MCHC Plt Count Plt Count Comment Immature Gran # Neutrophils # 10.5 H Lymphocytes # 0.2 L Monocytes # Eosinophils # D-Dimer Sodium 130 L Potassium 2.7 L* Chloride 94 L Carbon Dioxide Anion Gap BUN BUN/Creatinine Ratio Glucose POC Glucose (mg/dL) Calcium 7.4 L Magnesium 1.5 L Ferritin Total Bilirubin AST 47 H ALT 35 H Lactate Dehydrogenase Troponin I 0.464 H* C-Reactive Protein Total Protein 4.9 L Albumin 2.5 L Albumin/Globulin Ratio Procalcitonin Urine Protein Coronavirus (PCR) 12/27/20 12/27/20 12/28/20 16:40 21:09 07:35 WBC RBC Hgb Hct MCHC Plt Count Plt Count Comment Immature Gran # Neutrophils # Lymphocytes # Monocytes # Eosinophils # D-Dimer Sodium 132 L Potassium 3.4 L Chloride Carbon Dioxide Anion Gap BUN BUN/Creatinine Ratio Glucose 108 H POC Glucose (mg/dL) 132 H 133 H Calcium 8.0 L Magnesium Ferritin Total Bilirubin AST ALT Lactate Dehydrogenase Troponin I C-Reactive Protein Total Protein Albumin Albumin/Globulin Ratio Procalcitonin Urine Protein Coronavirus (PCR) Assessment and Plan Assessment: Questionable transient slurred speech, lethargy (noticed by nursing staff on 12/27/2020 but per ICU attending did not feel she was different compared to day prior). Does not seem like stroke or TIA. Possible due to her underlying condition of COVID-19 Pneumonia Acute hypoxic respiratory failure secondary to do COVID-19 pneumonia Cardiomyopathy Sinus bradycardia Possible superimposed aspiration pneumonia History of portable bowel syndrome Chronic autoimmune hepatitis Cachectic Plan: Since the patient is back to baseline and her episode was questionable (ICU attending did not feel there was any change compared to prior day), I will hold off on getting any further workup. If there is any further neurological complaints please notify neurology team. Currently she is on aspirin 81 mg daily started by the cardiology team. Infection disease is on board as well as pulmonary team Cardiology team is on board. We'll defer the rest of the medical management to primary team. The plan is discussed with the patient's nurse. Thank you for the consultation. Roque Gonzalez M.D. Neuro-hospitalist Time with Patient: Greater than 30
[2020-12-28 11:35] LABS: Glucose,Whole Blood 150 mg/dL (75-99)
--- NOTE | 2020-12-28 13:43 | P.PN ---
Subjective This is a 80-year-old female with a past medical history of chronic autoimmune hepatitis, irritable bowel syndrome, fibromyalgia, degenerative joint disease. Patient presented to the emergency department with progressive dyspnea secondary to COVID-19 pneumonia. Cardiology was consulted because of bradycardia and first-degree AV block. She has had no significant bradycardia. Echocardiogram revealed severely impaired left ventricular systolic function of 3035 percent, which is new compared to prior echocardiogram. Yesterday, ICUD nurse noted patient was slurring her speech, confused and was more lethargic but was moving all extremities. As a result of code stroke was activated. She had a CT of the head which is reported as age-related atrophy and chronic small vessel ischemic change without acute intracranial process seen at this time. CT angiography of the head and neck was reported as negative. Neurology was consulted. Patient seen and examined at bedside, no acute distress. She is alert and oriented 3 she states she continues to have a cough and shortness of breath. She also endorses some pain in her bottom. Telemetry reviewed patient sinus mechanism, no evidence of significant bradycardia. She is maintained on aspirin 80 mg daily, subcutaneous Lovenox, IV Lasix 20 mg twice a day, lisinopril 5 mg twice a day, Protonix, Zosyn, Flomax, Desyrel. Labs reviewed sodium 132, potassium 3.4, BUN 13, serum creatinine 0.5, magnesium 2.0. PHYSICAL EXAM GENERAL: In no acute distress. Physical examination was not performed to limit exposure. ASSESSMENT Hypoxic was draped failure with COVID-19 pneumonia Cardiomyopathy of unclear etiology, new since last year, COVID-19 related to infectious process. No evidence of acute ischemic event. Sinus bradycardia, resolvedand pauses. History of chronic autoimmune hepatitis History of irritable bowel syndrome History of fibromyalgia History of degenerative joint disease. PLAN We will start metoprolol tartrate 12.5 mg twice a day, continue aspirin, ACEI. Further recommendations based on clinical course Nurse Practitioner note has been reviewed, I agree with a documented findings and plan of care. Patient was seen and examined. Objective - Vital Signs Vital signs: Vital Signs Temp 98.3 F 12/28/20 08:45 Pulse 85 12/28/20 08:45 Resp 16 12/28/20 08:45 BP 101/56 12/28/20 08:45 Pulse Ox 99 12/28/20 08:45 Intake & Output 12/27/20 12/28/20 12/28/20 18:59 06:59 18:59 Intake Total 1430 300 Output Total 1974 2244 Balance -545 -1945 Weight 41.8 kg Intake: IV 850 300 Magnesium Sulfate-D5w Pmx 200 1 gm In Dextrose/Water 1 100ml.bag @ 100 mls/hr IVPB Q1H [facility] Rx#: [id number] Piperacillin-Tazobactam 3 75 25 .375 gm In Sodium Chloride 0.9% 100 ml @ 25 mls/hr IVPB Q8H [facility] Rx#: [id number] Potassium Cloride 10 meq 400 200 100ml bag @ 100 ml/hr Sodium Chloride 0.9% 1, 175 75 000 ml @ 25 mls/hr IV . Q24H [facility] Rx#:[id number] Oral 580 Output: Urine 1974 2244 Other: Voiding Method Indwelling Catheter Indwelling Catheter Indwelling Catheter # Bowel Movements 1 - Labs CBC & Chem 7: 12/27/20 12:13 12/28/20 07:35 Labs: Abnormal Lab Results - Last 24 Hours (Table) 12/27/20 12/27/20 12/28/20 Range/Units 16:40 21:09 07:35 Sodium 132 L (137-145) mmol/L Potassium 3.4 L (3.5-5.1) mmol/L Glucose 108 H (74-99) mg/dL POC Glucose (mg/dL) 132 H 133 H (75-99) mg/dL Calcium 8.0 L (8.4-10.2) mg/dL 12/28/20 Range/Units 11:32 Sodium (137-145) mmol/L Potassium (3.5-5.1) mmol/L Glucose (74-99) mg/dL POC Glucose (mg/dL) 150 H (75-99) mg/dL Calcium (8.4-10.2) mg/dL Microbiology - Last 24 Hours (Table) 12/26/20 05:08 Blood Culture - Preliminary Blood No Growth after 48 hours 12/21/20 14:57 Blood Culture - Final Blood No Growth after 144 hours 12/21/20 14:57 Blood Culture - Final Blood No Growth after 144 hours
--- NOTE | 2020-12-28 13:50 | P.PN ---
Subjective Progress Note Date: 12/28/20 Principal diagnosis: Acute hypoxic respiratory failure secondary to COVID-19 pneumonia This is a 80-year-old female with history of fibromyalgia, degenerative joint disease, autoimmune hepatitis, irritable bowel syndrome, patient was admitted to the hospital on 12/21/20 mostly with symptoms of weakness for the last couple of weeks prior to presentation. In addition to her weakness, patient was complaining of fever, chills, poor appetite, intermittent episodes of abdominal pain, nausea, and intermittent constipation. Upon her initial presentation she had a temp of 103.5, she was slightly hypoxic, and she was noted to have lymphopenia with normal WBC count. Elevated BUN and creatinine, and she was also noted to have positive PCR for COVID-19 infection. Chest x-ray on her initial admission showed mild patchy infiltrate in the left lower lobe with small pleural effusion, CT of the abdomen showed enteritis, with data titration of the hepatic biliary tree, soft capsular fluid collection in the liver, and there was evidence of left lower lobe pneumonia. Patient received monoclonal antibody infusion admitted to the hospital, and she has been seen by infectious disease on consultation. We were not asked to see the patient until today were in her oxygen requirement has increased from 2 L via nasal cannula up to 7 L today, and the patient is noted to have more and more shortness of breath. Over the last few days, since admission, her chest x-ray has shown worsening bilateral bibasilar infiltrates. Hence this consult was initiated. Patient is known to have history of paroxysmal atrial fibrillation, cardiology saw the patient on this admission for intermittent episodes of bradycardia and this was felt to be vasovagal. The cardiology recommendation was to start the patient on anticoagulation therapy, she was given prophylactic dose of Lovenox. She had an echocardiogram that showed severe LV dysfunction with ejection fraction of 30- 35%. And global hypokinesia. Again considering the worsening pneumonia we were asked to see this patient on consultation today although she has been admitted almost 4 days ago. Reevaluated today on 12/26/20, patient remains in the ICU, she is on 6 L nasal cannula, she is being treated for COVID-19 pneumonia possible aspiration pneumonia, and I believe the patient may have some component of acute systolic congestive heart failure. Patient remains on the COVID-19 cocktail treatment, remains on Zosyn, Decadron, and I cut down her IV fluid yesterday to 15 mL/h/KVO. Patient is supposed to undergo speech evaluation today, I suspected that there may be some component of aspiration pneumonia. Chest x-ray continues to show bibasilar infiltrates, clinically the patient is about the same, not much change in the last 24 hours. WBC count is 12.9, hemoglobin 11.5 electrolytes are normal except for low potassium of 3.1. BNP level yesterday was 24,300, and pro-calcitonin was 0.83. LDH is up to 882. And C-reactive protein is 20 patient was reevaluated today on 12/27/2020, patient remains in the ICU, remains on 6 L nasal cannula, remains on diuretics, remains on antibiotics, and she remains on the COVID-19 cocktail. Patient again my evaluation was basically unchanged, however later on the patient developed some garbled speech, and code stroke was called, patient underwent CT of the brain and CT angiogram which came back negative and nondiagnostic. During my evaluation, the patient was basically the same and unchanged from the day before. She does seem very frail, she does seem to be a bit tremulous, otherwise I haven't noticed any change in the last 24 hours. She is requiring less oxygen, and she is saturating better. Chest x-ray continues to show evidence of bilateral pneumonia. Possibly minimal improvement compared to the day before. WBC count is 11.1 hemoglobin is 10.9. Potassium is 2.7 being addressed as per protocol. Troponin is 0.464. The patient is seen today 12/28/2020 in follow-up on the selective care unit. She is currently resting fairly comfortably in bed. He is currently awake and alert. Speech clear. She is quite frail and cachectic. She is maintaining O2 saturations of 99% on 5 L nasal cannula. She's afebrile. Hemodynamically stable. Chest x-ray reveals persistent airspace infiltrates bilaterally more so on the right lung and left lower lung with some improvement. Sodium 132. Potassium 3.4. Bicarb 25. Creatinine 0.56. She is continued on Decadron Lovenox, vitamin supplements. She is on antibiotics in the form of Zosyn. She remains on IV diuretics. Objective - Vital Signs Vital signs: Vital Signs Temp 98.3 F 12/28/20 08:45 Pulse 85 12/28/20 08:45 Resp 16 12/28/20 08:45 BP 101/56 12/28/20 08:45 Pulse Ox 99 12/28/20 08:45 Intake & Output 12/27/20 12/28/20 12/28/20 18:59 06:59 18:59 Intake Total 1430 300 Output Total 1974 2244 Balance -545 -1945 Weight 41.8 kg Intake: IV 850 300 Magnesium Sulfate-D5w Pmx 200 1 gm In Dextrose/Water 1 100ml.bag @ 100 mls/hr IVPB Q1H [facility] Rx#: [id number] Piperacillin-Tazobactam 3 75 25 .375 gm In Sodium Chloride 0.9% 100 ml @ 25 mls/hr IVPB Q8H [facility] Rx#: [id number] Potassium Cloride 10 meq 400 200 100ml bag @ 100 ml/hr Sodium Chloride 0.9% 1, 175 75 000 ml @ 25 mls/hr IV . Q24H [facility] Rx#:[id number] Oral 580 Output: Urine 1974 2244 Other: Voiding Method Indwelling Catheter Indwelling Catheter Indwelling Catheter # Bowel Movements 1 - Exam GENERAL DESCRIPTION: Revealed 80-year-old female, frail, cachectic looking, on 5 L nasal cannula, in no distress. HEENT: [place], EOMI, nonicteric, no neck masses. NECK: Trachea central, no JVD, no neck masses, no stridor. LUNGS: Crackles and rhonchi noted bilaterally. Symmetrical chest expansion. HEART: S1, S2, regular rate and rhythm. ABDOMEN: Soft nontender no megaly no rebound no guarding. EXTREMITIES: No clubbing edema or cyanosis. SKIN: No rash NEUROLOGICAL: Alert and oriented 3 no focal neurologic deficit Psychiatric: Normal mood, affect and normal mental status examination. - Labs CBC & Chem 7: 12/27/20 12:13 12/28/20 07:35 Labs: Abnormal Lab Results - Last 24 Hours (Table) 12/27/20 12/27/20 12/28/20 Range/Units 16:40 21:09 07:35 Sodium 132 L (137-145) mmol/L Potassium 3.4 L (3.5-5.1) mmol/L Glucose 108 H (74-99) mg/dL POC Glucose (mg/dL) 132 H 133 H (75-99) mg/dL Calcium 8.0 L (8.4-10.2) mg/dL 12/28/20 Range/Units 11:32 Sodium (137-145) mmol/L Potassium (3.5-5.1) mmol/L Glucose (74-99) mg/dL POC Glucose (mg/dL) 150 H (75-99) mg/dL Calcium (8.4-10.2) mg/dL Microbiology - Last 24 Hours (Table) 12/26/20 05:08 Blood Culture - Preliminary Blood No Growth after 48 hours 12/21/20 14:57 Blood Culture - Final Blood No Growth after 144 hours 12/21/20 14:57 Blood Culture - Final Blood No Growth after 144 hours Assessment and Plan Assessment: 1 Acute hypoxic respiratory failure secondary to COVID-19 pneumonia, patient is status post monoclonal antibody given upon her initial admission. 2 Possible superimposed aspiration pneumonia 3 History of irritable bowel syndrome and intermittent abdominal pain. 4 Chronic autoimmune hepatitis 5 Intermittent bradycardia resolved. 6 Severe LV dysfunction, possible acute systolic congestive heart failure Plan: The patient was seen and evaluated by Dr. Butler Follow-up chest x-ray and labs reviewed Titrate the FiO2 as tolerated Remains on Zosyn, bronchodilators, IV diuretics Continues on Decadron, Lovenox, vitamin supplements We will continue to follow I, the cosigning physician, performed a history & physical examination of the patient. Lungs sounds with crackles in the bilateral posterior bases. Maintaining good O2 saturations in the 90s on 5 L/m per nasal cannula. I discussed the assessment and plan of care with my nurse practitioner, Delmi Samaniego. I attest to the above note as dictated by her.
--- NOTE | 2020-12-28 13:58 | P.PN ---
Subjective Progress Note Date: 12/27/20 This is a 80-year-old female with past medical history of autoimmune hepatitis C, IBS, cancers 2 and multiple other medical issues follows regularly with Dr. Gianna Sanchez, presented to the ER with complaints of suspected fevers for the last couple of days, constipation, nausea, abdominal pain and decreased oral intake. 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 On admission temperature 103.5, normal WBC ,maintaining O2 sats of mid 90s on room air. Positive for COVID-19. Received monoclonal antibodies. Chest x-ray reportedly mild patchy density left lower lobe with small effusion, improved aeration of right lung. Abdomen/pelvis CT reported persistent subcapsular hepatic fluid collection, persistent dilatation of the intrahepatic biliary tree, common bile duct and pancreatic duct, possible enteritis, fluid distended small bowel, stool throughout the colon a consistent hematuria within the right; likely from congestive products with no evidence of abscess or free air. EKG reportedly normal sinus rhythm, troponin negative 1. Denies chest pain, palpitations or increasing shortness of breath. The hemoglobin 10.4, platelets 140, sodium 138, potassium 3, bicarb 25, BUN 24, creatinine 0.79, glucose 109, magnesium 1.2. UA negative. IV fluids initiated. 12/23/2020: Patient remains in the high 90s on room air pulse oximetry. Blood pressure stable. Her a slightly bradycardic. MAXIMUM TEMPERATURE is 98.2. Nizoral she'll 6 bowel movements yesterday, 1 void. Weight is 40.8 EKG. La boratory studies showed WBC count 3.1 hemoglobin 9.3 platelets are 120 today. GFR is 70.6. Pro-calcitonin 0.18 LDH was 256. CRP was 3.6. These markers of inflammation are elevated. Blood cultures negative 224 hours. She continues on: Cocktail of dexamethasone, colchicine, cholecalciferol, magnesium replacement, vitamin C, zinc, and some of her home meds. She is complaining of some fatigue today. She otherwise has no other complaints this time. She denies any chest pains, pressures, or shortness breath. Denies any nausea or vomiting. Has chronic mild abdominal pain from her autoimmune hepatitis. Infectious disease is following as well. December 24, 2020: overnight patient had significant bradycardia. I was contacted that telemetry showed heart rate in the 30s and 40s. She had some nausea at that point and then Atrial fibrillation was noted. This will be new for her shes never had anything like this before. Shes not take any medications that may induce bradycardia either. Her heart rate went down in the upper 20s and an A team was called. Cardiology was consulted. She was transferred to the intensive care unit where she is now. Currently shes complaining of significant nausea. She has Zofran ordered for this, but it is minmmaly effective. Heart rate has remained in the 50s since transfer the ICU. She did receive one dose of atropine before transfer. She is now requiring oxygen with some a.m. hypoxia 86% shes on 4 L via nasal cannula. Blood pressures remain stable. She has been afebrile. She had emesis times two, and one void.Laboratory studies show hemoglobin 10.6. GFR is 62 glucose is 146. Calcium 7.9 magnesium 1.6 total proteins 4.9 albumin 2.6. TSH was normal troponin was normal.Event note from Dr. Wesley and cardiology consultation Dr. Joseph reviewed. She remains on Covid cocktail,klonopin for anxiety, colchicine and dexamethasone for inflammation, her Lovenox is been increase per Dr. Joseph, she continues on some of her home medication as well. Including Cellcept. bdominal pain minimal today. No chest pain, pressure. No SOB. 12/25/2020 echo completed, pending. Converted to sinus rhythm with first- degree AV block. Chest x-ray reporting significant interval progression of i nfiltrates with a large area of airspace consolidation right perihilar and right lower lobe as well as the left lower lobe and periphery of the left lung. Maintaining O2 sats in the 90s on 7 L high flow nasal cannula. Reglan initiated yesterday with no further nausea currently reported. Denies chest pain, palpitations. 12/26/2020 continues on Covid cocktail ,maintaining O2 sats of 87-90% on 6 L nasal cannula. Chest x-ray reporting bilateral multifocal mid to lower lung opacity is redemonstrated, more prominent in the left midlung compared to one day later, consistent with progression .Swallow evaluation pending.Sitting up in chair. Increasing inflammatory markers with the exception of ferritin, unchanged. Afebrile, WBC 12.9. Sodium decreased to 131, potassium 3.1, bicarb 21, renal function stable. Blood sugars ranging from 80-140. Echo reported EF of 30-35% with hypokinetic LV wall. Possible acute systolic CHF with TRINIDAD inhibitor, IV diuretics initiated. Yesterday afternoon patient had a large bilious emesis as well as bilious liquid diarrhea. KUB reported nonacute abdomen. 12/27/2020 Earlier this morning,", patient presented with slurred speech without asymmetric loss of strength or facial droop. Brain CT reported negative for acute intracranial process, CTA of head and neck reported no significant diameter reduction to account for symptoms, no significant abnormality. Evaluated by neurology, recommendations noted and appreciated. Patient's slurred speech appears to have resolved. Maintaining O2 sats of 90% on 6 L high flow nasal cannula. Chest x-ray reported bilateral confluent airspace disease consistent with pneumonia. Continues on Zosyn. Afebrile. Receiving supplements for potassium level 2.7, magnesium 1.5. Troponin pending. Diuresing well on L asix IV push with 24-hour I&O reflecting a negative fluid balance. Renal function stable. Objective - Vital Signs Vital signs: Vital Signs Temp 98.6 F 12/27/20 08:00 Pulse 81 12/27/20 10:00 Resp 25 H 12/27/20 10:00 BP 106/68 12/27/20 10:00 Pulse Ox 90 L 12/27/20 10:00 Intake & Output 12/26/20 12/27/20 12/27/20 18:59 06:59 18:59 Intake Total 180 200 300 Output Total 1125 1994 Balance -095 -8185 -150 Weight 41.8 kg Intake: IV 180 200 200 Potassium Cloride 10 meq 100 100ml bag @ 100 ml/hr Sodium Chloride 0.9% 1, 180 200 100 000 ml @ 25 mls/hr IV . Q24H [facility] Rx#:[id number] Oral 100 Output: Urine 1125 1994 Other: Voiding Method Indwelling Catheter Indwelling Catheter Indwelling Catheter - Exam - Exam GENERAL: Chronically Cachectic, sitting up in chair, NAD,weak appearing NECK: Supple, No JVD. CARDIOVASCULAR: S1, S2 regular. Systolic murmur RESPIRATION: Breath sounds diminished in the bases. Scattered rhonchi, bibasilar crackles. ABDOMEN: Soft, nondistended, epigastric tenderness, No guarding. no masses palpable.Bowel sounds heard. Extremities: No edema. no swelling PSYCHIATRY: Alert and oriented X3, mood and affect normal. NERVOUS SYSTEM: Cranial N 2-12 grossly normal. Moves all 4 limbs. No focal deficits. Strength and sensation grossly intact. Skin: Warm and dry, no rash - Labs CBC & Chem 7: 12/27/20 12:13 12/28/20 07:35 Labs: Abnormal Lab Results - Last 24 Hours (Table) 12/26/20 12/27/20 Range/Units 18:40 05:48 Sodium 132 L (137-145) mmol/L Potassium 3.1 L (3.5-5.1) mmol/L Glucose 71 L (74-99) mg/dL POC Glucose (mg/dL) 108 H (75-99) mg/dL Calcium 7.9 L (8.4-10.2) mg/dL Microbiology - Last 24 Hours (Table) 12/26/20 05:08 Blood Culture - Preliminary Blood No Growth after 24 hours 12/21/20 14:57 Blood Culture - Preliminary Blood No Growth after 120 hours 12/21/20 14:57 Blood Culture - Preliminary Blood No Growth after 120 hours Assessment and Plan Assessment: Acute COVID-19 pneumonia, status post monoclonal antibodies in the ER Possible aspiration pneumonia, swallow evaluation pending Possible component of acute CHF, systolic dysfunction, EF 30-35%, IV diuretics initiated Acute hypoxic respiratory failure secondary to the above Symptomatic sinus bradycardia, resolved Elevated troponin, cardiology following Epigastric abdominal pain secondary to constipation Chronic severe protein calorie malnutrition, BMI 16.1 Chronic left upper quadrant pain radiates to right upper quadrant. History of hepatic fluid collection, possibly pseudocyst or hepatic cyst, follows with GI outpatient Chronic Autoimmune Hepatitis C, Leukocytosis Hypomagnesemia Hypokalemia Dehydration History of IBS with chronic constipation History of rectal prolapse Plan: Continue on current medication regime, monitoring and symptomatically treatment. Troponin level pending. Potassium and magnesium supplementation as per replacement protocol previously ordered .follow closely with pulmonary and neurology Prognosis guarded given multiple complex medical issues. The impression and plan of care has been dictated as directed. : I performed a history and examination of this patient, discussed the same with the dictator. I agree with the dictator's note ,documented as a scribe. Any additional findings or plans will be noted.
--- NOTE | 2020-12-28 14:34 | P.PN ---
Subjective Progress Note Date: 12/28/20 This is a 80-year-old female with past medical history of autoimmune hepatitis C, IBS, cancers 2 and multiple other medical issues follows regularly with Dr. Gianna Sanchez, presented to the ER with complaints of suspected fevers for the last couple of days, constipation, nausea, abdominal pain and decreased oral intake. 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 On admission temperature 103.5, normal WBC ,maintaining O2 sats of mid 90s on room air. Positive for COVID-19. Received monoclonal antibodies. Chest x-ray reportedly mild patchy density left lower lobe with small effusion, improved aeration of right lung. Abdomen/pelvis CT reported persistent subcapsular hepatic fluid collection, persistent dilatation of the intrahepatic biliary tree, common bile duct and pancreatic duct, possible enteritis, fluid distended small bowel, stool throughout the colon a consistent hematuria within the right; likely from congestive products with no evidence of abscess or free air. EKG reportedly normal sinus rhythm, troponin negative 1. Denies chest pain, palpitations or increasing shortness of breath. The hemoglobin 10.4, platelets 140, sodium 138, potassium 3, bicarb 25, BUN 24, creatinine 0.79, glucose 109, magnesium 1.2. UA negative. IV fluids initiated. 12/23/2020: Patient remains in the high 90s on room air pulse oximetry. Blood pressure stable. Her a slightly bradycardic. MAXIMUM TEMPERATURE is 98.2. Nizoral she'll 6 bowel movements yesterday, 1 void. Weight is 40.8 EKG. La boratory studies showed WBC count 3.1 hemoglobin 9.3 platelets are 120 today. GFR is 70.6. Pro-calcitonin 0.18 LDH was 256. CRP was 3.6. These markers of inflammation are elevated. Blood cultures negative 224 hours. She continues on: Cocktail of dexamethasone, colchicine, cholecalciferol, magnesium replacement, vitamin C, zinc, and some of her home meds. She is complaining of some fatigue today. She otherwise has no other complaints this time. She denies any chest pains, pressures, or shortness breath. Denies any nausea or vomiting. Has chronic mild abdominal pain from her autoimmune hepatitis. Infectious disease is following as well. December 24, 2020: overnight patient had significant bradycardia. I was contacted that telemetry showed heart rate in the 30s and 40s. She had some nausea at that point and then Atrial fibrillation was noted. This will be new for her shes never had anything like this before. Shes not take any medications that may induce bradycardia either. Her heart rate went down in the upper 20s and an A team was called. Cardiology was consulted. She was transferred to the intensive care unit where she is now. Currently shes complaining of significant nausea. She has Zofran ordered for this, but it is minmmaly effective. Heart rate has remained in the 50s since transfer the ICU. She did receive one dose of atropine before transfer. She is now requiring oxygen with some a.m. hypoxia 86% shes on 4 L via nasal cannula. Blood pressures remain stable. She has been afebrile. She had emesis times two, and one void.Laboratory studies show hemoglobin 10.6. GFR is 62 glucose is 146. Calcium 7.9 magnesium 1.6 total proteins 4.9 albumin 2.6. TSH was normal troponin was normal.Event note from Dr. Wesley and cardiology consultation Dr. Joseph reviewed. She remains on Covid cocktail,klonopin for anxiety, colchicine and dexamethasone for inflammation, her Lovenox is been increase per Dr. Joseph, she continues on some of her home medication as well. Including Cellcept. bdominal pain minimal today. No chest pain, pressure. No SOB. 12/25/2020 echo completed, pending. Converted to sinus rhythm with first- degree AV block. Chest x-ray reporting significant interval progression of i nfiltrates with a large area of airspace consolidation right perihilar and right lower lobe as well as the left lower lobe and periphery of the left lung. Maintaining O2 sats in the 90s on 7 L high flow nasal cannula. Reglan initiated yesterday with no further nausea currently reported. Denies chest pain, palpitations. 12/26/2020 continues on Covid cocktail ,maintaining O2 sats of 87-90% on 6 L nasal cannula. Chest x-ray reporting bilateral multifocal mid to lower lung opacity is redemonstrated, more prominent in the left midlung compared to one day later, consistent with progression .Swallow evaluation pending.Sitting up in chair. Increasing inflammatory markers with the exception of ferritin, unchanged. Afebrile, WBC 12.9. Sodium decreased to 131, potassium 3.1, bicarb 21, renal function stable. Blood sugars ranging from 80-140. Echo reported EF of 30-35% with hypokinetic LV wall. Possible acute systolic CHF with TRINIDAD inhibitor, IV diuretics initiated. Yesterday afternoon patient had a large bilious emesis as well as bilious liquid diarrhea. KUB reported nonacute abdomen. 12/27/2020 Earlier this morning,", patient presented with slurred speech without asymmetric loss of strength or facial droop. Brain CT reported negative for acute intracranial process, CTA of head and neck reported no significant diameter reduction to account for symptoms, no significant abnormality. Evaluated by neurology, recommendations noted and appreciated. Patient's slurred speech appears to have resolved. Maintaining O2 sats of 90% on 6 L high flow nasal cannula. Chest x-ray reported bilateral confluent airspace disease consistent with pneumonia. Continues on Zosyn. Afebrile. Receiving supplements for potassium level 2.7, magnesium 1.5. Troponin pending. Diuresing well on L asix IV push with 24-hour I&O reflecting a negative fluid balance. Renal function stable. 12/28/2020 troponin increased to 0.464 yesterday, post ateam for neurological changes, beta danny added to med regimen as per cardiology today. Diuresing well on Lasix IV push, 24-hour I&O reflecting a negative fluid balance. Chest x- ray reporting persistent but improving airspace infiltrates throughout the right lung and left lower lobe. Oxygen weaned down to 4 L nasal cannula maintaining O2 sats in the low 90s. Denies any chest pain, palpitations or increase in shortness of breath. Renal function stable. Potassium 3.4. Objective - Vital Signs Vital signs: Vital Signs Temp 98.2 F 12/28/20 12:00 Pulse 82 12/28/20 12:00 Resp 16 12/28/20 12:00 BP 105/54 12/28/20 12:00 Pulse Ox 93 L 12/28/20 12:00 Intake & Output 12/27/20 12/28/20 12/28/20 18:59 06:59 18:59 Intake Total 1430 300 Output Total 5901 0865 Balance -545 1942 Weight 41.8 kg Intake: IV 850 300 Magnesium Sulfate-D5w Pmx 200 1 gm In Dextrose/Water 1 100ml.bag @ 100 mls/hr IVPB Q1H [facility] Rx#: [id number] Piperacillin-Tazobactam 3 75 25 .375 gm In Sodium Chloride 0.9% 100 ml @ 25 mls/hr IVPB Q8H [facility] Rx#: [id number] Potassium Cloride 10 meq 400 200 100ml bag @ 100 ml/hr Sodium Chloride 0.9% 1, 175 75 000 ml @ 25 mls/hr IV . Q24H [facility] Rx#:[id number] Oral 580 Output: Urine 1975 2245 Other: Voiding Method Indwelling Catheter Indwelling Catheter Indwelling Catheter # Bowel Movements 1 - Exam - Exam GENERAL: Chronically Cachectic, sitting up in chair, NAD NECK: Supple, No JVD. CARDIOVASCULAR: S1, S2 regular. Systolic murmur RESPIRATION: Breath sounds diminished. Scattered rhonchi, bibasilar crackles. ABDOMEN: Soft, nondistended, epigastric tenderness, No guarding. no masses palpable.Bowel sounds heard. Extremities: No edema. no swelling PSYCHIATRY: Alert and oriented X3, mood and affect normal. NERVOUS SYSTEM: Cranial N 2-12 grossly normal. Moves all 4 limbs. No focal deficits. Strength and sensation grossly intact. Skin: Warm and dry, no rash - Labs CBC & Chem 7: 12/27/20 12:13 12/28/20 07:35 Labs: Abnormal Lab Results - Last 24 Hours (Table) 12/27/20 12/27/20 12/28/20 Range/Units 16:40 21:09 07:35 Sodium 132 L (137-145) mmol/L Potassium 3.4 L (3.5-5.1) mmol/L Glucose 108 H (74-99) mg/dL POC Glucose (mg/dL) 132 H 133 H (75-99) mg/dL Calcium 8.0 L (8.4-10.2) mg/dL 12/28/20 Range/Units 11:32 Sodium (137-145) mmol/L Potassium (3.5-5.1) mmol/L Glucose (74-99) mg/dL POC Glucose (mg/dL) 150 H (75-99) mg/dL Calcium (8.4-10.2) mg/dL Microbiology - Last 24 Hours (Table) 12/26/20 05:08 Blood Culture - Preliminary Blood No Growth after 48 hours 12/21/20 14:57 Blood Culture - Final Blood No Growth after 144 hours 12/21/20 14:57 Blood Culture - Final Blood No Growth after 144 hours Assessment and Plan Assessment: Acute COVID-19 pneumonia, status post monoclonal antibodies in the ER Possible aspiration pneumonia, swallow evaluation pending Possible component of acute CHF, systolic dysfunction, EF 30-35%, IV diuretics initiated Acute hypoxic respiratory failure secondary to the above Symptomatic sinus bradycardia, resolved Elevated troponin, cardiology following Epigastric abdominal pain secondary to constipation Chronic severe protein calorie malnutrition, BMI 16.1 Chronic left upper quadrant pain radiates to right upper quadrant. History of hepatic fluid collection, possibly pseudocyst or hepatic cyst, follows with GI outpatient Chronic Autoimmune Hepatitis C, Leukocytosis Hypomagnesemia Hypokalemia Dehydration History of IBS with chronic constipation History of rectal prolapse Plan: Continue on current medication regime, monitoring and symptomatically treatment. Elevated Troponin level discussed with cardiology, not a cardiac event-they are attributing it to patient's hypoxia/covid; beta danny added to med regimen. Potassium and magnesium supplementation as per replacement protocol previously ordered .follow closely with pulmonary and neurology. Prognosis guarded given multiple complex medical issues. The impression and plan of care has been dictated as directed. : I performed a history and examination of this patient, discussed the same with the dictator. I agree with the dictator's note ,documented as a scribe. Any additional findings or plans will be noted.
[2020-12-28 16:34] LABS: Glucose,Whole Blood 153 mg/dL (75-99)
[2020-12-28] MEDS: POTASSIUM CHLORIDE ER 20 MEQ TAB.ER PO SCH (17:46)
--- NOTE | 2020-12-28 19:23 | PN ---
PROGRESS NOTE DATE OF SERVICE: 12/28/2020 REASON FOR FOLLOW UP: COVID pneumonia. INTERVAL HISTORY: The patient is afebrile. The patient is currently breathing slightly comfortably. She has been moved out of the ICU. She is on 4 L cannula. Denies any chest pain. Cough has decreased in intensity. No vomiting or diarrhea. PHYSICAL EXAMINATION: Blood pressure 92/55, pulse 69, temperature 98.4. She is 95% on 4 L nasal cannula. General description is an elderly female lying in bed in no distress. Respiratory system: Unlabored breathing, decreased intensity of breath sounds, no wheeze. Heart S1, S2. Regular rate and rhythm. Abdomen soft, no tenderness. LABS: BUN of 13, creatinine 0.56. Blood culture has been negative. DIAGNOSTIC IMPRESSION AND PLAN: Patient with acute COVID-19 pneumonia. Patient did initially well, however, had worsening respiratory symptoms. Also, the patient did have significant bradyarrhythmia, possible fluid overload. The patient is covered with dexamethasone, Lovenox, zinc, ascorbic acid, to continue along with respiratory support and monitor clinical course closely. MMODL / IJN: [id number] /
[2020-12-28] MEDS: traZODone HCL 100 MG TAB PO SCH (20:14)
[2020-12-28] MEDS: TAMSULOSIN 0.4 MG CAP.ER.24H PO SCH (20:14)
[2020-12-28 20:17] LABS: Glucose,Whole Blood 160 mg/dL (75-99)
[2020-12-28] MEDS: FLUORIDE MISCELLANE SCH (20:17)
[2020-12-28] MEDS: METOPROLOL TARTRATE 12.5 MG TAB PO SCH (21:29)
[2020-12-29] MEDS: SODIUM CHLORIDE 0.9% 1,000 ML IV SCH (02:08)
[2020-12-29] MEDS: PIPERACILLIN-TAZOBACTAM 3.375 GM in SODIUM CHLORIDE 0.9% 100 ML IVPB SCH ×2 (02:08→09:28)
[2020-12-29] MEDS: DICYCLOMINE 20 MG TAB PO SCH ×4 (06:43→23:14)
[2020-12-29] MEDS: INSULIN ASPART (NovoLOG) 100 UNIT/ML VIAL SQ SCH ×4 (06:43→23:16)
[2020-12-29] MEDS: HYDROcodone/APAP 10-325MG 1 EACH TAB PO PRN ×2 (06:43→12:54)
[2020-12-29] MEDS: LEVOTHYROXINE 125 MCG TAB PO SCH (06:43)
[2020-12-29] MEDS: PANTOPRAZOLE 40 MG TABLET PO SCH (06:43)
[2020-12-29 07:02] LABS: Glucose,Whole Blood 87 mg/dL (75-99)
[2020-12-29] MEDS: LIDOCAINE 5% PATCH TOPICAL SCH (09:20)
[2020-12-29] MEDS: ENOXAPARIN 40 MG/0.4 ML SYRINGE SQ SCH ×2 (09:20→23:15)
[2020-12-29] MEDS: CHOLECALCIFEROL 25 MCG (1000 IU) TABLET PO SCH (09:21)
[2020-12-29] MEDS: ESCITALOPRAM 20 MG TAB PO SCH (09:22)
[2020-12-29] MEDS: ASCORBIC ACID 500 MG TAB PO SCH ×2 (09:22→23:15)
[2020-12-29] MEDS: ZINC SULFATE 220 MG CAP PO SCH (09:22)
[2020-12-29] MEDS: ASPIRIN 81 MG PO SCH (09:22)
[2020-12-29] MEDS: FUROSEMIDE 10 MG/ML 2 ML VIAL IV SCH ×2 (09:23→23:15)
[2020-12-29] MEDS: DEXAMETHASONE SOD PHOSPHATE 10 MG/ML 1 ML VIAL IVP SCH (09:23)
[2020-12-29] MEDS: FLUTICASONE 50MCG/SPRAY NASAL 16GM EA NOSTRIL SCH ×2 (09:24→23:17)
[2020-12-29] MEDS: clonazePAM 1 MG TAB PO SCH (09:25)
[2020-12-29] MEDS: BUDESONIDE 3 MG PO SCH (09:25)
[2020-12-29] MEDS: METOPROLOL TARTRATE 12.5 MG TAB PO SCH ×2 (09:59→21:37)
[2020-12-29 11:33] LABS: Glucose,Whole Blood 103 mg/dL (75-99)
--- NOTE | 2020-12-29 11:57 | P.PN ---
Subjective Progress Note Date: 12/29/20 Patient seen at bedside and she feels about the same. No further neurological events. A shunt is hypoxic and that today got as low as 84% on 4 L. Objective - Vital Signs Vital signs: Vital Signs Temp 97.8 F 12/28/20 20:00 Pulse 71 12/29/20 04:00 Resp 18 12/29/20 10:27 BP 117/59 12/29/20 04:00 Pulse Ox 89 L 12/29/20 10:27 Intake & Output 12/28/20 12/29/20 12/29/20 18:59 06:59 18:59 Intake Total 0 0 120 Balance 0 0 120 Weight 41.8 kg Intake: Oral 0 0 120 Other: Voiding Method Indwelling Catheter Indwelling Catheter # Bowel Movements 1 1 1 - Exam GENERAL: The patient is lying in bed is cachectic and is in mild acute distress. NEUROLOGICAL: Higher mental function: The patient is awake, alert, oriented to self, place and time. Patient is able to name objects correctly (pen, watch and glasses). Patient is following simple commands. No aphasia and no neglect. Cranial nerves: The pupils are round, equal and reactive to light. Visual junior are full to confrontation throughout. Extraocular movement is intact no nystagmus is noted. Facial sensation is normal to touch throughout. The facial strength is normal throughout. Hearing is moderately decreased bilaterally to hand rub. Tongue is midline and moved [id number] without any difficulty. No dysarthria is noted. Shoulder shrug is normal bilaterally. Motor: Gait is deferred. The strength is 5 over 5 throughout uppers while lowers are 4+ to 5- and limited because of her pain. Normal tone. Decrease bulk throughout. Cerebellum: Normal finger to nose bilaterally. She has tremors throughout body. Sensation: Sensation is normal to touch throughout. Reflexes (right/left): 2+ throughout except ankles are 1+ bilaterally. Plantars are downgoing bilaterally. WORK-UP: TSH is 1.92 which is within normal limits Magnesium is 2.0. She had a CT of the head which is reported as age-related atrophy and chronic small vessel ischemic change without acute intracranial process seen at this time. CT angiography of the head and neck was reported as negative. Urinalysis negative for urinary tract infection. Coronavirus PCR is detected on 12/21/2020. 2-D echo was reported as left ventricular wall thickness is normal. Overall left ventricle systolic function is moderate to severely impaired with ejection fraction of 30-35%. Left atrium is mildly dilated. Left ventricle wall motion is hypokinetic at the anterior lateral inferior septal region. - Labs CBC & Chem 7: 12/29/20 15:07 12/28/20 07:35 Labs: Abnormal Lab Results - Last 24 Hours (Table) 12/28/20 12/28/20 12/29/20 Range/Units 16:32 20:16 11:31 POC Glucose (mg/dL) 153 H 160 H 103 H (75-99) mg/dL Microbiology - Last 24 Hours (Table) 12/26/20 05:08 Blood Culture - Preliminary Blood No Growth after 72 hours Assessment and Plan Assessment: * Questionable transient slurred speech, lethargy (noticed by nursing staff on 12/27/2020 but per ICU attending did not feel she was different compared to day prior). Does not seem like stroke or TIA. Possible due to her underlying condition of COVID-19 Pneumonia (got as low as 84% on 12/29/2020) * Acute hypoxic respiratory failure secondary to do COVID-19 pneumonia * Cardiomyopathy * Sinus bradycardia * Possible superimposed aspiration pneumonia * History of portable bowel syndrome * Chronic autoimmune hepatitis * Cachectic Plan: Since the patient is back to baseline and her episode was questionable (ICU attending did not feel there was any change compared to prior day), I will hold off on getting any further workup. If there is any further neurological complaints please notify neurology team. Her tremor is likely from steroids. Currently she is on aspirin 81 mg daily started by the cardiology team. Infection disease is on board as well as pulmonary team Cardiology team is on board. We'll defer the rest of the medical management to primary team. The plan is discussed with the patient's nurse. There is no further neurological work-up. Neurology will sign off. Please reconsult neurology if any concerns. Roque Gonzalez M.D. Neuro-hospitalist Time with Patient: Less than 30
--- NOTE | 2020-12-29 12:32 | P.PN ---
Subjective This is a 80-year-old female with a past medical history of chronic autoimmune hepatitis, irritable bowel syndrome, fibromyalgia, degenerative joint disease. Patient presented to the emergency department with progressive dyspnea secondary to COVID-19 pneumonia. Cardiology was consulted because of bradycardia and first-degree AV block. She has had no significant bradycardia. Echocardiogram revealed severely impaired left ventricular systolic function of 3035 percent, which is new compared to prior echocardiogram. On 12/27, ICU nurse noted patient was slurring her speech, confused and was more lethargic but was moving all extremities. As a result of code stroke was activated. She had a CT of the head which is reported as age-related atrophy and chronic small vessel ischemic change without acute intracranial process seen at this time. CT angiography of the head and neck was reported as negative. Neurology was consulted. Labs revealed, potassium 2.7, magnesium of 1.5. troponin was drawn is 0.46 Patient seen and examined at bedside, no acute distress. She is alert and oriented 3, she is lying flat in bed comfortable. She states she continues to have a cough and shortness of breath. She also endorses some pain in her bottom still. Telemetry reviewed patient sinus mechanism, no evidence of significant bradycardia. She is maintained on aspirin 81 mg daily, subcutaneous Lovenox, IV Lasix 20 mg twice a day, lisinopril 5 mg twice a day, Protonix, Zosyn, Flomax, Desyrel. Labs not resulted today. She was hypotensive overnight BP 87/52, HR 70s. She has not received a dose of metoprolol yet. Patient with increased urine output. PHYSICAL EXAM GENERAL: In no acute distress. Physical examination was not performed to limit exposure. ASSESSMENT Hypoxic respiratory failure with COVID-19 pneumonia Cardiomyopathy of unclear etiology, new since last year, COVID-19 related to infectious process. No evidence of acute ischemic event. Sinus bradycardia, resolved and no pauses noted History of chronic autoimmune hepatitis History of irritable bowel syndrome History of fibromyalgia History of degenerative joint disease. Hypokalemia Hyponatremia Hypomagnesia PLAN We will continue metoprolol tartrate 12.5 mg twice a day, lisinopril 5mg BID and adjust as tolerated Continue aspirin Replace electrolytes per protocol Monitor renal function and electrolytes Continue cardiac telemetry Further recommendations based on clinical course Nurse Practitioner note has been reviewed, I agree with a documented findings an d plan of care. Patient was seen and examined. Objective - Vital Signs Vital signs: Vital Signs Temp 97.8 F 12/28/20 20:00 Pulse 71 12/29/20 04:00 Resp 18 12/29/20 10:27 BP 117/59 12/29/20 04:00 Pulse Ox 89 L 12/29/20 10:27 Intake & Output 12/28/20 12/29/20 12/29/20 18:59 06:59 18:59 Intake Total 0 0 120 Balance 0 0 120 Weight 41.8 kg Intake: Oral 0 0 120 Other: Voiding Method Indwelling Catheter Indwelling Catheter # Bowel Movements 1 1 1 - Labs CBC & Chem 7: 12/27/20 12:13 12/28/20 07:35 Labs: Abnormal Lab Results - Last 24 Hours (Table) 12/28/20 12/28/20 12/29/20 Range/Units 16:32 20:16 11:31 POC Glucose (mg/dL) 153 H 160 H 103 H (75-99) mg/dL Microbiology - Last 24 Hours (Table) 12/26/20 05:08 Blood Culture - Preliminary Blood No Growth after 72 hours
[2020-12-29] MEDS ORDERED: LOPERAMIDE 2 MG CAP PO PRN (12:47)
[2020-12-29] MEDS ORDERED: LOPERAMIDE 2 MG CAP PO STA (12:47)
[2020-12-29] MEDS: lisinopriL 5 MG TAB PO SCH (12:51)
[2020-12-29] MEDS: ONDANSETRON 4 MG TAB PO PRN (12:53)
[2020-12-29] MEDS ORDERED: HYDROmorphone 2 MG TAB PO PRN (13:10)
--- NOTE | 2020-12-29 14:20 | P.PN ---
Subjective Progress Note Date: 12/29/20 Principal diagnosis: Acute hypoxic respiratory failure secondary to COVID-19 pneumonia This is a 80-year-old female with history of fibromyalgia, degenerative joint disease, autoimmune hepatitis, irritable bowel syndrome, patient was admitted to the hospital on 12/21/20 mostly with symptoms of weakness for the last couple of weeks prior to presentation. In addition to her weakness, patient was complaining of fever, chills, poor appetite, intermittent episodes of abdominal pain, nausea, and intermittent constipation. Upon her initial presentation she had a temp of 103.5, she was slightly hypoxic, and she was noted to have lymphopenia with normal WBC count. Elevated BUN and creatinine, and she was also noted to have positive PCR for COVID-19 infection. Chest x-ray on her initial admission showed mild patchy infiltrate in the left lower lobe with small pleural effusion, CT of the abdomen showed enteritis, with data titration of the hepatic biliary tree, soft capsular fluid collection in the liver, and there was evidence of left lower lobe pneumonia. Patient received monoclonal antibody infusion admitted to the hospital, and she has been seen by infectious disease on consultation. We were not asked to see the patient until today were in her oxygen requirement has increased from 2 L via nasal cannula up to 7 L today, and the patient is noted to have more and more shortness of breath. Over the last few days, since admission, her chest x-ray has shown worsening bilateral bibasilar infiltrates. Hence this consult was initiated. Patient is known to have history of paroxysmal atrial fibrillation, cardiology saw the patient on this admission for intermittent episodes of bradycardia and this was felt to be vasovagal. The cardiology recommendation was to start the patient on anticoagulation therapy, she was given prophylactic dose of Lovenox. She had an echocardiogram that showed severe LV dysfunction with ejection fraction of 30- 35%. And global hypokinesia. Again considering the worsening pneumonia we were asked to see this patient on consultation today although she has been admitted almost 4 days ago. Reevaluated today on 12/26/20, patient remains in the ICU, she is on 6 L nasal cannula, she is being treated for COVID-19 pneumonia possible aspiration pneumonia, and I believe the patient may have some component of acute systolic congestive heart failure. Patient remains on the COVID-19 cocktail treatment, remains on Zosyn, Decadron, and I cut down her IV fluid yesterday to 15 mL/h/KVO. Patient is supposed to undergo speech evaluation today, I suspected that there may be some component of aspiration pneumonia. Chest x-ray continues to show bibasilar infiltrates, clinically the patient is about the same, not much change in the last 24 hours. WBC count is 12.9, hemoglobin 11.5 electrolytes are normal except for low potassium of 3.1. BNP level yesterday was 24,300, and pro-calcitonin was 0.83. LDH is up to 882. And C-reactive protein is 20 patient was reevaluated today on 12/27/2020, patient remains in the ICU, remains on 6 L nasal cannula, remains on diuretics, remains on antibiotics, and she remains on the COVID-19 cocktail. Patient again my evaluation was basically unchanged, however later on the patient developed some garbled speech, and code stroke was called, patient underwent CT of the brain and CT angiogram which came back negative and nondiagnostic. During my evaluation, the patient was basically the same and unchanged from the day before. She does seem very frail, she does seem to be a bit tremulous, otherwise I haven't noticed any change in the last 24 hours. She is requiring less oxygen, and she is saturating better. Chest x-ray continues to show evidence of bilateral pneumonia. Possibly minimal improvement compared to the day before. WBC count is 11.1 hemoglobin is 10.9. Potassium is 2.7 being addressed as per protocol. Troponin is 0.464. The patient is seen today 12/28/2020 in follow-up on the selective care unit. She is currently resting fairly comfortably in bed. He is currently awake and alert. Speech clear. She is quite frail and cachectic. She is maintaining O2 saturations of 99% on 5 L nasal cannula. She's afebrile. Hemodynamically stable. Chest x-ray reveals persistent airspace infiltrates bilaterally more so on the right lung and left lower lung with some improvement. Sodium 132. Potassium 3.4. Bicarb 25. Creatinine 0.56. She is continued on Decadron Lovenox, vitamin supplements. She is on antibiotics in the form of Zosyn. She remains on IV diuretics. The patient is seen today 12/29/2020 in follow-up on the selective care unit. She is currently sitting up in bed. More awake and alert today. Speech is clear. She remains quite frail and cachectic. She is maintaining O2 saturations in the low 90s on 6 L high flow nasal cannula. She's been afebrile. Hemodynamically stable. She is continued on Decadron, Lovenox, vitamin supplements. Remains on IV Lasix. Antibiotics in the form of Zosyn. Objective - Vital Signs Vital signs: Vital Signs Temp 97.2 F L 12/29/20 11:35 Pulse 70 12/29/20 11:35 Resp 18 12/29/20 11:35 BP 103/52 12/29/20 11:35 Pulse Ox 95 12/29/20 11:35 Intake & Output 12/28/20 12/29/20 12/29/20 18:59 06:59 18:59 Intake Total 0 0 120 Balance 0 0 120 Weight 41.8 kg Intake: Oral 0 0 120 Other: Voiding Method Indwelling Catheter Indwelling Catheter # Bowel Movements 1 1 1 - Exam GENERAL DESCRIPTION: Revealed 80-year-old female, frail, cachectic looking, on 6 L nasal cannula, in no distress. HEENT: [place], EOMI, nonicteric, no neck masses. NECK: Trachea central, no JVD, no neck masses, no stridor. LUNGS: Crackles and rhonchi noted bilaterally. Symmetrical chest expansion. HEART: S1, S2, regular rate and rhythm. ABDOMEN: Soft nontender no megaly no rebound no guarding. EXTREMITIES: No clubbing edema or cyanosis. SKIN: No rash NEUROLOGICAL: Alert and oriented 3 no focal neurologic deficit Psychiatric: Normal mood, affect and normal mental status examination. - Labs CBC & Chem 7: 12/27/20 12:13 12/28/20 07:35 Labs: Abnormal Lab Results - Last 24 Hours (Table) 12/28/20 12/28/20 12/29/20 Range/Units 16:32 20:16 11:31 POC Glucose (mg/dL) 153 H 160 H 103 H (75-99) mg/dL Microbiology - Last 24 Hours (Table) 12/26/20 05:08 Blood Culture - Preliminary Blood No Growth after 72 hours Assessment and Plan Assessment: 1 Acute hypoxic respiratory failure secondary to COVID-19 pneumonia, patient is status post monoclonal antibody given upon her initial admission. 2 Possible superimposed aspiration pneumonia 3 History of irritable bowel syndrome and intermittent abdominal pain. 4 Chronic autoimmune hepatitis 5 Intermittent bradycardia resolved. 6 Severe LV dysfunction, possible acute systolic congestive heart failure Plan: The patient was seen and evaluated by Dr. Butler Titrate the FiO2 as tolerated Remains on Zosyn, bronchodilators, IV diuretics Continues on Decadron, Lovenox, vitamin supplements Increase her activity as tolerated We will continue to follow I, the cosigning physician, performed a history & physical examination of the patient. Lungs sounds with crackles in the bilateral posterior bases. Maintaining good O2 saturations in the 90s on 6 L/m per nasal cannula. I discussed the assessment and plan of care with my nurse practitioner, Delmi Samaniego. I attest to the above note as dictated by her.
[2020-12-29 15:29] LABS: Basophils % (A) 0 %; Eosinophils % (A) 0 %; HCT 32.9 % (34.0-46.0); HGB 10.5 gm/dL (11.4-16.0); Lymphocytes # (A) 0.2 k/uL (1.0-4.8); Lymphocytes % (A) 2 %; MCH 29.2 pg (25.0-35.0); MCHC 31.9 g/dL (31.0-37.0); MCV 91.7 fL (80.0-100.0); Mean Platelet Volume 9.4; Monocytes # (A) 0.3 k/uL (0-1.0); Monocytes % (A) 2 %; Neutrophils # (A) 10.9 k/uL (1.3-7.7); Neutrophils % (A) 95 %; Platelet Count 198 k/uL (150-450); RBC 3.59 m/uL (3.80-5.40); RDW 13.9 % (11.5-15.5); WBC 11.5 k/uL (3.8-10.6)
[2020-12-29 15:38] LABS: Albumin 2.7 g/dL (3.5-5.0); Calcium 7.8 mg/dL (8.4-10.2); Magnesium 1.6 mg/dL (1.6-2.3); Potassium 3.5 mmol/L (3.5-5.1); Total Bilirubin 0.4 mg/dL (0.2-1.3); Total Protein 5.2 g/dL (6.3-8.2)
[2020-12-29 16:25] LABS: Glucose,Whole Blood 157 mg/dL (75-99)
--- NOTE | 2020-12-29 16:44 | PN ---
PROGRESS NOTE DATE OF SERVICE: 12/29/2020 REASON FOR FOLLOWUP: 1. COVID-19 pneumonia. 2. Diarrhea, possibly antibiotic-associated. INTERVAL HISTORY: The patient is afebrile, has been transferred out of the ICU. The patient is currently down to 6 L nasal cannula. Patient not a very good historian. However, the nursing staff has reported multiple loose stools and significant excoriation of the perirectal area. PHYSICAL EXAMINATION: Blood pressure 102/52 with a pulse of 70, temperature 97.2. She is 95% on 8 L nasal cannula. General description is an elderly female lying in bed in no distress. RESPIRATORY SYSTEM: Unlabored breathing. Decreased intensity of breath sounds. No wheeze. HEART: S1, S2. Regular rate and rhythm. ABDOMEN: Soft. No tenderness. LABS: BUN of 20, creatinine 0.82, hemoglobin 10.5, white count 11.5. DIAGNOSTIC IMPRESSION AND PLAN: Patient with acute COVID-19 infection, subsequently worsening; could be related to cardiac etiology, as the patient did have significant bradyarrhythmia. Patient has shown some clinical improvement; to continue with the dexamethasone, Lovenox, zinc and ascorbic acid. Clinical suspicion low for secondary bacterial pneumonia with extensive diarrhea. I agree with discontinuation of the Zosyn. If the diarrhea persists, will check a stool for C difficile and treat if positive. MMODL / IJN: [id number] /
[2020-12-29] MEDS ORDERED: KETOROLAC 15 MG/ML 1 ML VIAL IVP STA (16:54)
--- NOTE | 2020-12-29 17:05 | P.PN ---
Subjective Progress Note Date: 12/29/20 This is a 80-year-old female with past medical history of autoimmune hepatitis C, IBS, cancers 2 and multiple other medical issues follows regularly with Dr. Gianna Sanchez, presented to the ER with complaints of suspected fevers for the last couple of days, constipation, nausea, abdominal pain and decreased oral intake. 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 On admission temperature 103.5, normal WBC ,maintaining O2 sats of mid 90s on room air. Positive for COVID-19. Received monoclonal antibodies. Chest x-ray reportedly mild patchy density left lower lobe with small effusion, improved aeration of right lung. Abdomen/pelvis CT reported persistent subcapsular hepatic fluid collection, persistent dilatation of the intrahepatic biliary tree, common bile duct and pancreatic duct, possible enteritis, fluid distended small bowel, stool throughout the colon a consistent hematuria within the right; likely from congestive products with no evidence of abscess or free air. EKG reportedly normal sinus rhythm, troponin negative 1. Denies chest pain, palpitations or increasing shortness of breath. The hemoglobin 10.4, platelets 140, sodium 138, potassium 3, bicarb 25, BUN 24, creatinine 0.79, glucose 109, magnesium 1.2. UA negative. IV fluids initiated. 12/23/2020: Patient remains in the high 90s on room air pulse oximetry. Blood pressure stable. Her a slightly bradycardic. MAXIMUM TEMPERATURE is 98.2. Nizoral she'll 6 bowel movements yesterday, 1 void. Weight is 40.8 EKG. La boratory studies showed WBC count 3.1 hemoglobin 9.3 platelets are 120 today. GFR is 70.6. Pro-calcitonin 0.18 LDH was 256. CRP was 3.6. These markers of inflammation are elevated. Blood cultures negative 224 hours. She continues on: Cocktail of dexamethasone, colchicine, cholecalciferol, magnesium replacement, vitamin C, zinc, and some of her home meds. She is complaining of some fatigue today. She otherwise has no other complaints this time. She denies any chest pains, pressures, or shortness breath. Denies any nausea or vomiting. Has chronic mild abdominal pain from her autoimmune hepatitis. Infectious disease is following as well. December 24, 2020: overnight patient had significant bradycardia. I was contacted that telemetry showed heart rate in the 30s and 40s. She had some nausea at that point and then Atrial fibrillation was noted. This will be new for her shes never had anything like this before. Shes not take any medications that may induce bradycardia either. Her heart rate went down in the upper 20s and an A team was called. Cardiology was consulted. She was transferred to the intensive care unit where she is now. Currently shes complaining of significant nausea. She has Zofran ordered for this, but it is minmmaly effective. Heart rate has remained in the 50s since transfer the ICU. She did receive one dose of atropine before transfer. She is now requiring oxygen with some a.m. hypoxia 86% shes on 4 L via nasal cannula. Blood pressures remain stable. She has been afebrile. She had emesis times two, and one void.Laboratory studies show hemoglobin 10.6. GFR is 62 glucose is 146. Calcium 7.9 magnesium 1.6 total proteins 4.9 albumin 2.6. TSH was normal troponin was normal.Event note from Dr. Wesley and cardiology consultation Dr. Joseph reviewed. She remains on Covid cocktail,klonopin for anxiety, colchicine and dexamethasone for inflammation, her Lovenox is been increase per Dr. Joseph, she continues on some of her home medication as well. Including Cellcept. bdominal pain minimal today. No chest pain, pressure. No SOB. 12/25/2020 echo completed, pending. Converted to sinus rhythm with first- degree AV block. Chest x-ray reporting significant interval progression of i nfiltrates with a large area of airspace consolidation right perihilar and right lower lobe as well as the left lower lobe and periphery of the left lung. Maintaining O2 sats in the 90s on 7 L high flow nasal cannula. Reglan initiated yesterday with no further nausea currently reported. Denies chest pain, palpitations. 12/26/2020 continues on Covid cocktail ,maintaining O2 sats of 87-90% on 6 L nasal cannula. Chest x-ray reporting bilateral multifocal mid to lower lung opacity is redemonstrated, more prominent in the left midlung compared to one day later, consistent with progression .Swallow evaluation pending.Sitting up in chair. Increasing inflammatory markers with the exception of ferritin, unchanged. Afebrile, WBC 12.9. Sodium decreased to 131, potassium 3.1, bicarb 21, renal function stable. Blood sugars ranging from 80-140. Echo reported EF of 30-35% with hypokinetic LV wall. Possible acute systolic CHF with TRINIDAD inhibitor, IV diuretics initiated. Yesterday afternoon patient had a large bilious emesis as well as bilious liquid diarrhea. KUB reported nonacute abdomen. 12/27/2020 Earlier this morning,", patient presented with slurred speech without asymmetric loss of strength or facial droop. Brain CT reported negative for acute intracranial process, CTA of head and neck reported no significant diameter reduction to account for symptoms, no significant abnormality. Evaluated by neurology, recommendations noted and appreciated. Patient's slurred speech appears to have resolved. Maintaining O2 sats of 90% on 6 L high flow nasal cannula. Chest x-ray reported bilateral confluent airspace disease consistent with pneumonia. Continues on Zosyn. Afebrile. Receiving supplements for potassium level 2.7, magnesium 1.5. Troponin pending. Diuresing well on L asix IV push with 24-hour I&O reflecting a negative fluid balance. Renal function stable. 12/28/2020 troponin increased to 0.464 yesterday, post ateam for neurological changes, beta danny added to med regimen as per cardiology today. Diuresing well on Lasix IV push, 24-hour I&O reflecting a negative fluid balance. Chest x- ray reporting persistent but improving airspace infiltrates throughout the right lung and left lower lobe. Oxygen weaned down to 4 L nasal cannula maintaining O2 sats in the low 90s. Denies any chest pain, palpitations or increase in shortness of breath. Renal function stable. Potassium 3.4. 12/29/2020 reports back pain worse. Pain management adjusted from [place] to Dilaudid 2 mg every 8 hours prn. Extremely weak, maintaining O2 sats in the 90s on 8 L. Continues on Zosyn, Covid regimen. Afebrile. Diuresing well on Lasix IV with 24-hour I&O reflecting a negative fluid balance. Objective - Vital Signs Vital signs: Vital Signs Temp 97.2 F L 12/29/20 11:35 Pulse 66 12/29/20 16:13 Resp 18 12/29/20 16:15 BP 88/50 12/29/20 16:13 Pulse Ox 98 12/29/20 16:13 Intake & Output 12/28/20 12/29/20 12/29/20 18:59 06:59 18:59 Intake Total 0 0 248 Output Total 825 Balance 0 0 -577 Weight 41.8 kg 42.2 kg Intake: IV 10 Invasive Line 4 10 Oral 0 0 238 Output: Urine 825 Other: Voiding Method Indwelling Catheter Indwelling Catheter Indwelling Catheter # Bowel Movements 1 1 1 - Exam - Exam GENERAL: Chronically Cachectic, sitting up in chair, NAD, extremely weak NECK: Supple, No JVD. CARDIOVASCULAR: S1, S2 regular. Systolic murmur RESPIRATION: Breath sounds diminished. Scattered rhonchi, bibasilar crackles. ABDOMEN: Soft, nondistended, epigastric tenderness, No guarding. no masses palpable.Bowel sounds heard. Extremities: No edema. no swelling PSYCHIATRY: Alert and oriented X3, mood and affect normal. NERVOUS SYSTEM: Cranial N 2-12 grossly normal. Moves all 4 limbs. No focal deficits. Strength and sensation grossly intact. Skin: Warm and dry, no rash - Labs CBC & Chem 7: 12/29/20 15:07 12/29/20 15:07 Labs: Abnormal Lab Results - Last 24 Hours (Table) 12/28/20 12/29/20 12/29/20 Range/Units 20:16 11:31 15:07 WBC 11.5 H (3.8-10.6) k/uL RBC 3.59 L (3.80-5.40) m/uL Hgb 10.5 L (11.4-16.0) gm/dL Hct 32.9 L (34.0-46.0) % Neutrophils # 10.9 H (1.3-7.7) k/uL Lymphocytes # 0.2 L (1.0-4.8) k/uL Sodium (137-145) mmol/L BUN (7-17) mg/dL Glucose (74-99) mg/dL POC Glucose (mg/dL) 160 H 103 H (75-99) mg/dL Calcium (8.4-10.2) mg/dL Total Protein (6.3-8.2) g/dL Albumin (3.5-5.0) g/dL 12/29/20 12/29/20 Range/Units 15:07 16:23 WBC (3.8-10.6) k/uL RBC (3.80-5.40) m/uL Hgb (11.4-16.0) gm/dL Hct (34.0-46.0) % Neutrophils # (1.3-7.7) k/uL Lymphocytes # (1.0-4.8) k/uL Sodium 133 L (137-145) mmol/L BUN 20 H (7-17) mg/dL Glucose 136 H (74-99) mg/dL POC Glucose (mg/dL) 157 H (75-99) mg/dL Calcium 7.8 L (8.4-10.2) mg/dL Total Protein 5.2 L (6.3-8.2) g/dL Albumin 2.7 L (3.5-5.0) g/dL Microbiology - Last 24 Hours (Table) 12/26/20 05:08 Blood Culture - Preliminary Blood No Growth after 72 hours Assessment and Plan Assessment: Acute COVID-19 pneumonia, status post monoclonal antibodies in the ER Possible aspiration pneumonia, swallow evaluation pending Possible component of acute CHF, systolic dysfunction, EF 30-35%, IV diuretics initiated Acute hypoxic respiratory failure secondary to the above Symptomatic sinus bradycardia, resolved Elevated troponin, cardiology following-reporting no acute ischemic event. Epigastric abdominal pain secondary to constipation Chronic severe protein calorie malnutrition, BMI 16.1 Chronic left upper quadrant pain radiates to right upper quadrant. History of hepatic fluid collection, possibly pseudocyst or hepatic cyst, follows with GI outpatient Chronic Autoimmune Hepatitis C, Leukocytosis Hypomagnesemia Hypokalemia Dehydration History of IBS with chronic constipation History of rectal prolapse Plan: Continue on current medication regime, monitoring and symptomatically treatment. Titrate O2 as tolerated. Maintain Covid cocktail, bronchodilators, Zosyn and diuretics. Pain management adjusted as directed by PCP .Prognosis guarded given multiple complex medical issues. The impression and plan of care has been dictated as directed. : I performed a history and examination of this patient, discussed the same with the dictator. I agree with the dictator's note ,documented as a scribe. Any additional findings or plans will be noted.
[2020-12-29] MEDS: BENZOCAINE/MENTHOL SPRAY 1 GM/SPRAY AEROSOL TOPICAL PRN (19:15)
[2020-12-29 20:40] LABS: Glucose,Whole Blood 146 mg/dL (75-99)
[2020-12-29] MEDS: TAMSULOSIN 0.4 MG CAP.ER.24H PO SCH (23:14)
[2020-12-29] MEDS: traZODone HCL 100 MG TAB PO SCH (23:14)
[2020-12-29] MEDS: FLUORIDE MISCELLANE SCH (23:19)
[2020-12-30 06:28] LABS: Glucose,Whole Blood 79 mg/dL (75-99)
[2020-12-30] MEDS: INSULIN ASPART (NovoLOG) 100 UNIT/ML VIAL SQ SCH ×4 (06:28→21:23)
[2020-12-30] MEDS: DICYCLOMINE 20 MG TAB PO SCH ×4 (06:36→21:24)
[2020-12-30] MEDS: PANTOPRAZOLE 40 MG TABLET PO SCH (06:36)
[2020-12-30] MEDS: LEVOTHYROXINE 125 MCG TAB PO SCH (06:36)
--- NOTE | 2020-12-30 07:18 | XR ---
EXAMINATION TYPE: XR chest 1V portable DATE OF EXAM: 12/30/2020 COMPARISON: Chest x-ray 12/28/2020 HISTORY: Covid pneumonia TECHNIQUE: Single frontal view of the chest is obtained. FINDINGS: There is some improvement in aeration as compared to prior exam. Cardiac mediastinal silho uette is stable. No pneumothorax or pleural effusion. Patient is rotated. There are overlying leads. Aorta is dense. IMPRESSION: Improvement in aeration.
--- NOTE | 2020-12-30 07:50 | P.PN ---
Subjective his is a 80-year-old female with past medical history of autoimmune hepatitis C, IBS, cancers 2 and multiple other medical issues follows regularly with Dr. Gianna Sanchez, presented to the ER with complaints of suspected fevers for the last couple of days, constipation, nausea, abdominal pain and decreased oral intake. 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 On admission temperature 103.5, normal WBC ,maintaining O2 sats of mid 90s on room air. Positive for COVID-19. Received monoclonal antibodies. Chest x-ray reportedly mild patchy density left lower lobe with small effusion, improved aeration of right lung. Abdomen/pelvis CT reported persistent subcapsular hepatic fluid collection, persistent dilatation of the intrahepatic biliary tree, common bile duct and pancreatic duct, possible enteritis, fluid distended small bowel, stool throughout the colon a consistent hematuria within the right; likely from congestive products with no evidence of abscess or free air. EKG reportedly normal sinus rhythm, troponin negative 1. Denies chest pain, palpitations or increasing shortness of breath. The hemoglobin 10.4, platelets 140, sodium 138, potassium 3, bicarb 25, BUN 24, creatinine 0.79, glucose 109, magnesium 1.2. UA negative. IV fluids initiated. 12/23/2020: Patient remains in the high 90s on room air pulse oximetry. Blood pressure stable. Her a slightly bradycardic. MAXIMUM TEMPERATURE is 98.2. [place] she'll 6 bowel movements yesterday, 1 void. Weight is 40.8 EKG. Laboratory studies showed WBC count 3.1 hemoglobin 9.3 platelets are 120 today. GFR is 70.6. Pro-calcitonin 0.18 LDH was 256. CRP was 3.6. These markers of inflammation are elevated. Blood cultures negative 224 hours. She continues on: Cocktail of dexamethasone, colchicine, cholecalciferol, magnesium replacement, vitamin C, zinc, and some of her home meds. She is complaining of some fatigue today. She otherwise has no other complaints this time. She denies any chest pains, pressures, or shortness breath. Denies any nausea or vomiting. Has chronic mild abdominal pain from her autoimmune hepatitis. Infectious disease is following as well. December 24, 2020: overnight patient had significant bradycardia. I was contacted that telemetry showed heart rate in the 30s and 40s. She had some nausea at that point and then Atrial fibrillation was noted. This will be new for her shes never had anything like this before. Shes not take any medications that may induce bradycardia either. Her heart rate went down in the upper 20s and an A team was called. Cardiology was consulted. She was transferred to the intensive care unit where she is now. Currently shes complaining of significant nausea. She has Zofran ordered for this, but it is minmmaly effective. Heart rate has remained in the 50s since transfer the ICU. She did receive one dose of atropine before transfer. She is now requiring oxygen with some a.m. hypoxia 86% shes on 4 L via nasal cannula. Blood pressures remain stable. She has been afebrile. She had emesis times two, and one void.Laboratory studies show hemoglobin 10.6. GFR is 62 glucose is 146. Calcium 7.9 magnesium 1.6 total proteins 4.9 albumin 2.6. TSH was normal troponin was normal.Event note from Dr. Wesley and cardiology consultation Dr. Joseph reviewed. She remains on Covid cocktail,klonopin for anxiety, colchicine and dexamethasone for inflammation, her Lovenox is been increase per Dr. Joseph, she continues on some of her home medication as well. Including Cellcept. bdominal pain minimal today. No chest pain, pressure. No SOB. 12/25/2020 echo completed, pending. Converted to sinus rhythm with first- degree AV block. Chest x-ray reporting significant interval progression of infiltrates with a large area of airspace consolidation right perihilar and right lower lobe as well as the left lower lobe and periphery of the left lung. Maintaining O2 sats in the 90s on 7 L high flow nasal cannula. Reglan initiated yesterday with no further nausea currently reported. Denies chest pain, palpitations. 12/26/2020 continues on Covid cocktail ,maintaining O2 sats of 87-90% on 6 L nasal cannula. Chest x-ray reporting bilateral multifocal mid to lower lung opacity is redemonstrated, more prominent in the left midlung compared to one day later, consistent with progression .Swallow evaluation pending.Sitting up in chair. Increasing inflammatory markers with the exception of ferritin, unchanged. Afebrile, WBC 12.9. Sodium decreased to 131, potassium 3.1, bicarb 21, renal function stable. Blood sugars ranging from 80-140. Echo reported EF of 30-35% with hypokinetic LV wall. Possible acute systolic CHF with TR[place] i nhibitor, IV diuretics initiated. Yesterday afternoon patient had a large bilious emesis as well as bilious liquid diarrhea. KUB reported nonacute abdomen. 12/27/2020 Earlier this morning,", patient presented with slurred speech without asymmetric loss of strength or facial droop. Brain CT reported negative for acute intracranial process, CTA of head and neck reported no significant diameter reduction to account for symptoms, no significant abnormality. Evaluated by neurology, recommendations noted and appreciated. Patient's slurred speech appears to have resolved. Maintaining O2 sats of 90% on 6 L high flow nasal cannula. Chest x-ray reported bilateral confluent airspace disease consistent with pneumonia. Continues on Zosyn. Afebrile. Receiving supplements for potassium level 2.7, magnesium 1.5. Troponin pending. Diuresing well on Lasix IV push with 24-hour I&O reflecting a negative fluid balance. Renal function stable. 12/28/2020 troponin increased to 0.464 yesterday, post ateam for neurological changes, beta danny added to med regimen as per cardiology today. Diuresing well on Lasix IV push, 24-hour I&O reflecting a negative fluid balance. Chest x- ray reporting persistent but improving airspace infiltrates throughout the right lung and left lower lobe. Oxygen weaned down to 4 L nasal cannula maintaining O2 sats in the low 90s. Denies any chest pain, palpitations or increase in shortness of breath. Renal function stable. Potassium 3.4. 12/29/2020 reports back pain worse. Pain management adjusted from [place] to Dilaudid 2 mg every 8 hours prn. Extremely weak, maintaining O2 sats in the 90s on 8 L. Continues on Zosyn, Covid regimen. Afebrile. Diuresing well on Lasix IV with 24-hour I&O reflecting a negative fluid balance. 12/30/2020 reports back pain continues. Dilaudid helps somewhat. She remains Extremely weak, maintaining O2 sats in the high 90s on 6 L. Continues on Zosyn, Covid regimen. Afebrile. Diuresing well on Lasix IV with 24-hour I&O reflecting a negative fluid balance. Objective Objective - Vital Signs Vital signs: Vital Signs Temp 97.0 F L 12/30/20 00:00 Pulse 66 12/30/20 00:00 Resp 22 12/30/20 02:00 BP 94/53 12/30/20 00:00 Pulse Ox 99 12/30/20 00:00 Intake & Output 12/29/20 12/30/20 12/30/20 18:59 06:59 18:59 Intake Total 328 Output Total 825 525 Balance -497 -525 Weight 42.2 kg Intake: IV 10 Invasive Line 4 10 Oral 318 Output: Urine 825 525 Other: Voiding Method Indwelling Catheter Indwelling Catheter # Bowel Movements 1 - Exam GENERAL: Chronically Cachectic, lying up in bed, mild acute distress, weak appearing, holding emesis basin NECK: No JVD. No thyroid enlargement. No LNs CARDIOVASCULAR: S1, S2 regular. Systolic murmur RESPIRATION: Breath sounds diminished in the bases. No rhonchi. improved ABDOMEN: Soft, nondistended, epigastric tenderness, No guarding. no masses palpable.Bowel sounds heard. Extremities: No edema. no swelling PSYCHIATRY: Alert and oriented X3, mood and affect normal. NERVOUS SYSTEM: Cranial N 2-12 grossly normal. Moves all 4 limbs. No focal deficits. Strength and sensation grossly intact. Skin: Warm and dry, no rash - Labs CBC & Chem 7: 12/29/20 15:07 12/29/20 15:07 Labs: Abnormal Lab Results - Last 24 Hours (Table) 12/29/20 12/29/20 12/29/20 Range/Units 11:31 15:07 15:07 WBC 11.5 H (3.8-10.6) k/uL RBC 3.59 L (3.80-5.40) m/uL Hgb 10.5 L (11.4-16.0) gm/dL Hct 32.9 L (34.0-46.0) % Neutrophils # 10.9 H (1.3-7.7) k/uL Lymphocytes # 0.2 L (1.0-4.8) k/uL Sodium 133 L (137-145) mmol/L BUN 20 H (7-17) mg/dL Glucose 136 H (74-99) mg/dL POC Glucose (mg/dL) 103 H (75-99) mg/dL Calcium 7.8 L (8.4-10.2) mg/dL Total Protein 5.2 L (6.3-8.2) g/dL Albumin 2.7 L (3.5-5.0) g/dL 12/29/20 12/29/20 Range/Units 16:23 20:39 WBC (3.8-10.6) k/uL RBC (3.80-5.40) m/uL Hgb (11.4-16.0) gm/dL Hct (34.0-46.0) % Neutrophils # (1.3-7.7) k/uL Lymphocytes # (1.0-4.8) k/uL Sodium (137-145) mmol/L BUN (7-17) mg/dL Glucose (74-99) mg/dL POC Glucose (mg/dL) 157 H 146 H (75-99) mg/dL Calcium (8.4-10.2) mg/dL Total Protein (6.3-8.2) g/dL Albumin (3.5-5.0) g/dL Microbiology - Last 24 Hours (Table) 12/26/20 05:08 Blood Culture - Preliminary Blood No Growth after 96 hours Assessment and Plan Plan: New Onset Atrial fibrillation acute systolic congestive heart failure Symptomatic bradycardia Acute COVID-19 pneumonia, status post monoclonal antibodies in the ER, mild Dehydration Epigastric abdominal pain secondary to constipation Chronic severe protein calorie malnutrition, BMI 16.1 Chronic left upper quadrant pain radiates to right upper quadrant. History of hepatic fluid collection, possibly pseudocyst or hepatic cyst, follows with GI outpatient Chronic Autoimmune Hepatitis C, Leukocytosis Hypomagnesemia Hypokalemia Dehydration History of IBS with chronic constipation Pubic [place] fractures ,Indeterminate age History of rectal prolapse wait on further recommendations from pulmonology, Cardiology and I.D. She'll continue her current medications and treatments. We'll repeat labs in a.m. She will be reevaluated in the next 24 hours
[2020-12-30] MEDS: SODIUM CHLORIDE 0.9% 1,000 ML IV SCH (08:47)
[2020-12-30] MEDS: ACETAMINOPHEN TAB 325 MG TAB PO PRN (08:48)
[2020-12-30] MEDS: DEXAMETHASONE SOD PHOSPHATE 10 MG/ML 1 ML VIAL IVP SCH (08:48)
[2020-12-30] MEDS: FUROSEMIDE 10 MG/ML 2 ML VIAL IV SCH ×2 (08:49→09:44)
[2020-12-30] MEDS: ENOXAPARIN 40 MG/0.4 ML SYRINGE SQ SCH ×2 (08:49→21:23)
[2020-12-30] MEDS: METOPROLOL TARTRATE 12.5 MG TAB PO SCH ×3 (08:49→21:23)
[2020-12-30] MEDS: lisinopriL 5 MG TAB PO SCH ×2 (08:49→09:44)
[2020-12-30] MEDS: ASPIRIN 81 MG PO SCH (08:49)
[2020-12-30] MEDS: ZINC SULFATE 220 MG CAP PO SCH (08:49)
[2020-12-30] MEDS: ESCITALOPRAM 20 MG TAB PO SCH (08:49)
[2020-12-30] MEDS: clonazePAM 1 MG TAB PO SCH (08:49)
[2020-12-30] MEDS: ASCORBIC ACID 500 MG TAB PO SCH ×2 (08:50→21:24)
[2020-12-30] MEDS: LIDOCAINE 5% PATCH TOPICAL SCH (08:51)
[2020-12-30] MEDS: FLUTICASONE 50MCG/SPRAY NASAL 16GM EA NOSTRIL SCH ×2 (09:44→20:55)
[2020-12-30] MEDS: BUDESONIDE 3 MG PO SCH (09:44)
[2020-12-30] MEDS: CHOLECALCIFEROL 25 MCG (1000 IU) TABLET PO SCH (09:44)
[2020-12-30 10:32] LABS: Calcium 8.2 mg/dL (8.4-10.2); Potassium 2.9 mmol/L (3.5-5.1)
[2020-12-30 11:51] LABS: Glucose,Whole Blood 146 mg/dL (75-99)
[2020-12-30] MEDS: POTASSIUM CHLORIDE ER 20 MEQ TAB.ER PO SCH ×2 (12:47→14:00)
[2020-12-30] MEDS ORDERED: HYDROmorphone 1 MG/ML 1 ML SYRINGE IVP PRN (13:02)
[2020-12-30] MEDS: hydrOXYzine pamoate 25 MG CAP PO PRN (13:59)
[2020-12-30] MEDS: HYDROmorphone 1 MG/ML 1 ML SYRINGE IVP PRN ×2 (15:35→21:34)
--- NOTE | 2020-12-30 16:50 | PN ---
PROGRESS NOTE Mrs. Kerr is a 80-year-old female who presented with COVID-19 infection. She was found to have severe cardiomyopathy. She continues to be dyspneic. She denies any symptoms of chest discomfort. She denies any dizziness. She is hypotensive at times. She continues to be in sinus mechanism. She has no nausea and no further sinus bradycardia. She continues to be on aspirin, furosemide 20 mg IV q.12 hours, lisinopril 5 mg daily, and metoprolol tartrate 12.5 mg twice a day. PHYSICAL EXAMINATION: Blood pressure running in the low 100s. Heart rate in the 70s. LUNGS: Bilateral rhonchi. HEART: Regular rate and rhythm. S1, S2. No S3. No rub. ABDOMEN: Soft, nontender. EXTREMITIES: No significant edema. IMPRESSION: 1. Acute hypoxic respiratory failure secondary to COVID-19 pneumonia. 2. Cardiomyopathy of unknown duration or etiology. 3. Chronic autoimmune hepatitis. 4. Bradycardia, resolved. RECOMMENDATIONS: I will stop her IV Lasix, switch her to oral, continue the rest of the medical regimen and follow her blood pressure. Depending on that, further recommendations will be made. MMODL / IJN: [id number] /
[2020-12-30 16:59] LABS: Glucose,Whole Blood 123 mg/dL (75-99)
--- NOTE | 2020-12-30 16:59 | P.PN ---
Subjective Progress Note Date: 12/30/20 Principal diagnosis: Acute hypoxic respiratory failure secondary to COVID-19 pneumonia, This is a 80-year-old female with history of fibromyalgia, degenerative joint disease, autoimmune hepatitis, irritable bowel syndrome, patient was admitted to the hospital on 12/21/20 mostly with symptoms of weakness for the last couple of weeks prior to presentation. In addition to her weakness, patient was complaining of fever, chills, poor appetite, intermittent episodes of abdominal pain, nausea, and intermittent constipation. Upon her initial presentation she had a temp of 103.5, she was slightly hypoxic, and she was noted to have lymphopenia with normal WBC count. Elevated BUN and creatinine, and she was also noted to have positive PCR for COVID-19 infection. Chest x-ray on her initial admission showed mild patchy infiltrate in the left lower lobe with small pleural effusion, CT of the abdomen showed enteritis, with data titration of the hepatic biliary tree, soft capsular fluid collection in the liver, and there was evidence of left lower lobe pneumonia. Patient received monoclonal antibody infusion admitted to the hospital, and she has been seen by infectious disease on consultation. We were not asked to see the patient until today were in her oxygen requirement has increased from 2 L via nasal cannula up to 7 L today, and the patient is noted to have more and more shortness of breath. Over the last few days, since admission, her chest x-ray has shown worsening bilateral bibasilar infiltrates. Hence this consult was initiated. Patient is known to have history of paroxysmal atrial fibrillation, cardiology saw the patient on this admission for intermittent episodes of bradycardia and this was felt to be vasovagal. The cardiology recommendation was to start the patient on anticoagulation therapy, she was given prophylactic dose of Lovenox. She had an echocardiogram that showed severe LV dysfunction with ejection fraction of 30- 35%. And global hypokinesia. Again considering the worsening pneumonia we were asked to see this patient on consultation today although she has been admitted almost 4 days ago. Reevaluated today on 12/26/20, patient remains in the ICU, she is on 6 L nasal cannula, she is being treated for COVID-19 pneumonia possible aspiration pneumonia, and I believe the patient may have some component of acute systolic congestive heart failure. Patient remains on the COVID-19 cocktail treatment, remains on Zosyn, Decadron, and I cut down her IV fluid yesterday to 15 mL/h/KVO. Patient is supposed to undergo speech evaluation today, I suspected that there may be some component of aspiration pneumonia. Chest x-ray continues to show bibasilar infiltrates, clinically the patient is about the same, not much change in the last 24 hours. WBC count is 12.9, hemoglobin 11.5 electrolytes are normal except for low potassium of 3.1. BNP level yesterday was 24,300, and pro-calcitonin was 0.83. LDH is up to 882. And C-reactive protein is 20 patient was reevaluated today on 12/27/2020, patient remains in the ICU, remains on 6 L nasal cannula, remains on diuretics, remains on antibiotics, and she remains on the COVID-19 cocktail. Patient again my evaluation was basically unchanged, however later on the patient developed some garbled speech, and code stroke was called, patient underwent CT of the brain and CT angiogram which came back negative and nondiagnostic. During my evaluation, the patient was basically the same and unchanged from the day before. She does seem very frail, she does seem to be a bit tremulous, otherwise I haven't noticed any change in the last 24 hours. She is requiring less oxygen, and she is saturating better. Chest x-ray continues to show evidence of bilateral pneumonia. Possibly minimal improvement compared to the day before. WBC count is 11.1 hemoglobin is 10.9. Potassium is 2.7 being addressed as per protocol. Troponin is 0.464. The patient is seen today 12/28/2020 in follow-up on the selective care unit. She is currently resting fairly comfortably in bed. He is currently awake and alert. Speech clear. She is quite frail and cachectic. She is maintaining O2 saturations of 99% on 5 L nasal cannula. She's afebrile. Hemodynamically stable. Chest x-ray reveals persistent airspace infiltrates bilaterally more so on the right lung and left lower lung with some improvement. Sodium 132. Potassium 3.4. Bicarb 25. Creatinine 0.56. She is continued on Decadron Lovenox, vitamin supplements. She is on antibiotics in the form of Zosyn. She remains on IV diuretics. The patient is seen today 12/29/2020 in follow-up on the selective care unit. She is currently sitting up in bed. More awake and alert today. Speech is clear. She remains quite frail and cachectic. She is maintaining O2 saturations in the low 90s on 6 L high flow nasal cannula. She's been afebrile. Hemodynamically stable. She is continued on Decadron, Lovenox, vitamin supplements. Remains on IV Lasix. Antibiotics in the form of Zosyn. Patient was reevaluated today on 12/30/20, patient is doing well, seems to be more comfortable, chest x-ray has shown a significant improvement in her bilateral pneumonia/pulmonary edema. Patient is now on 4 L nasal cannula, and her O2 sats is 97%. Remains on antibiotics and bronchodilators, however considering the infiltrates have cleared significantly within a short period of time, I believe the findings are mostly findings of pulmonary edema than true pneumonia. Although the patient did come in with COVID-19 infection. Objective - Vital Signs Vital signs: Vital Signs Temp 99 F 12/30/20 15:35 Pulse 71 12/30/20 15:35 Resp 22 12/30/20 15:35 BP 93/50 12/30/20 15:35 Pulse Ox 97 12/30/20 15:35 Intake & Output 12/29/20 12/30/20 12/30/20 18:59 06:59 18:59 Intake Total 328 480 Output Total 825 525 675 Balance -497 -525 -195 Weight 42.2 kg Intake: IV 10 Invasive Line 4 10 Oral 318 480 Output: Urine 825 525 675 Other: Voiding Method Indwelling Catheter Indwelling Catheter Indwelling Catheter # Bowel Movements 1 2 - Exam GENERAL DESCRIPTION: Revealed 80-year-old female, frail looking, on 4 L nasal cannula, in no distress. HEENT: [place], EOMI, nonicteric, no neck masses. NECK: Trachea central, no JVD, no neck masses, no stridor. LUNGS: Symmetrical chest expansion, minimal crackles at the bases. HEART: S1, S2, regular rate and rhythm. ABDOMEN: Soft nontender no megaly no rebound no guarding. EXTREMITIES: No clubbing edema or cyanosis. SKIN: No rash NEUROLOGICAL: Alert and oriented 3 focal neurologic deficit Psychiatric: Normal mood, affect and normal mental status examination. - Labs CBC & Chem 7: 12/29/20 15:07 12/30/20 09:30 Labs: Abnormal Lab Results - Last 24 Hours (Table) 12/29/20 12/30/20 12/30/20 Range/Units 20:39 09:30 09:30 Potassium 2.9 L (3.5-5.1) mmol/L Carbon Dioxide 31 H (22-30) mmol/L BUN 23 H (7-17) mg/dL Glucose 113 H (74-99) mg/dL POC Glucose (mg/dL) 146 H (75-99) mg/dL Calcium 8.2 L (8.4-10.2) mg/dL Magnesium 1.5 L (1.6-2.3) mg/dL 12/30/20 Range/Units 11:49 Potassium (3.5-5.1) mmol/L Carbon Dioxide (22-30) mmol/L BUN (7-17) mg/dL Glucose (74-99) mg/dL POC Glucose (mg/dL) 146 H (75-99) mg/dL Calcium (8.4-10.2) mg/dL Magnesium (1.6-2.3) mg/dL Microbiology - Last 24 Hours (Table) 12/26/20 05:08 Blood Culture - Preliminary Blood No Growth after 96 hours Assessment and Plan Assessment: Impression: Acute hypoxic respiratory failure secondary to COVID-19 pneumonia, patient is status post monoclonal antibody given upon her initial admission. And secondary to acute systolic congestive heart failure with possible aspiration pneumonia. History of irritable bowel syndrome and intermittent abdominal pain. Chronic autoimmune hepatitis Intermittent bradycardia resolved. Recommendation: Titrate oxygen accordingly and possibly discontinue if possible. Continue present supportive care measures. Continue COVID-19 cocktail. Continue diuretics. Patient is on Lasix 20 mg twice a day. Consider discharge planning early next week. Finished a course of Zosyn, presently off antibiotics Time with Patient: Less than 30
--- NOTE | 2020-12-30 17:36 | PN ---
PROGRESS NOTE DATE OF SERVICE: 12/30/2020 REASON FOR FOLLOWUP: COVID-19 infection. INTERVAL HISTORY: The patient is afebrile. The patient has been complaining of cough which is mostly dry not bringing up any sputum. No vomiting. No abdominal pain. She still has diarrhea, frequency has decreased per the nursing staff. PHYSICAL EXAMINATION: Blood pressure is 109/52 with a pulse of 74, temperature of 98. She is 96% on 6 L nasal cannula. General description is an elderly female lying in bed in no distress. RESPIRATORY SYSTEM: Unlabored breathing. Decreased intensity of breath sounds. No wheeze. HEART: S1, S2. Regular rate and rhythm. ABDOMEN: Soft. No tenderness. LABS: BUN of 23, creatinine 0.93. DIAGNOSTIC IMPRESSION AND PLAN: 1. Patient with acute COVID-19 infection. Respiratory status remains stable. Patient is covered with Lovenox, dexamethasone, zinc and ascorbic acid; to continue. 2. Patient with diarrhea, possibly antibiotic-associated, which has been discontinued. Will add Questran for symptomatic relief and monitor clinical course closely. MMODL / IJN: [id number] /
[2020-12-30 18:23] LABS: Magnesium 1.6 mg/dL (1.6-2.3); Potassium 4.6 mmol/L (3.5-5.1)
[2020-12-30] MEDS: CHOLESTYRAMINE (WITH SUGAR) 4 GM PACKET PO SCH (18:33)
[2020-12-30 20:44] LABS: Glucose,Whole Blood 219 mg/dL (75-99)
[2020-12-30] MEDS: FLUORIDE MISCELLANE SCH (20:55)
[2020-12-30 21:18] LABS: Glucose,Whole Blood 209 mg/dL (75-99)
[2020-12-30] MEDS: FUROSEMIDE 20 MG TAB PO SCH (21:23)
[2020-12-30] MEDS: traZODone HCL 100 MG TAB PO SCH (21:24)
[2020-12-30] MEDS: TAMSULOSIN 0.4 MG CAP.ER.24H PO SCH (21:24)
[2020-12-31 06:21] LABS: Glucose,Whole Blood 87 mg/dL (75-99)
[2020-12-31] MEDS: LEVOTHYROXINE 125 MCG TAB PO SCH (06:52)
[2020-12-31] MEDS: PANTOPRAZOLE 40 MG TABLET PO SCH (06:52)
[2020-12-31] MEDS: DICYCLOMINE 20 MG TAB PO SCH ×4 (06:52→22:03)
[2020-12-31] MEDS: HYDROmorphone 1 MG/ML 1 ML SYRINGE IVP PRN ×2 (06:53→17:27)
[2020-12-31] MEDS: INSULIN ASPART (NovoLOG) 100 UNIT/ML VIAL SQ SCH ×4 (07:08→20:41)
[2020-12-31] MEDS: clonazePAM 1 MG TAB PO SCH (09:01)
[2020-12-31] MEDS: ASPIRIN 81 MG PO SCH (09:01)
[2020-12-31] MEDS: ZINC SULFATE 220 MG CAP PO SCH (09:01)
[2020-12-31] MEDS: ENOXAPARIN 40 MG/0.4 ML SYRINGE SQ SCH ×2 (09:01→22:00)
[2020-12-31] MEDS: ASCORBIC ACID 500 MG TAB PO SCH ×2 (09:01→22:00)
[2020-12-31] MEDS: CHOLECALCIFEROL 25 MCG (1000 IU) TABLET PO SCH (09:01)
[2020-12-31] MEDS: ESCITALOPRAM 20 MG TAB PO SCH (09:01)
[2020-12-31] MEDS: ACETAMINOPHEN TAB 325 MG TAB PO PRN ×2 (09:05→21:59)
[2020-12-31] MEDS: LIDOCAINE 5% PATCH TOPICAL SCH (09:05)
[2020-12-31] MEDS ORDERED: SODIUM CHLORIDE 0.9% 500 ML 500 ML IV ONE (09:12)
[2020-12-31 09:23] LABS: African American GFR (CKD) >90 (>60 ml/min/1.73 sqM); Anion Gap 8 mmol/L; Blood Urea Nitrogen 28 mg/dL (7-17); Calcium 8.3 mg/dL (8.4-10.2); Carbon Dioxide 28 mmol/L (22-30); Chloride 102 mmol/L (98-107); Glucose 108 mg/dL (74-99); Non-African American GFR(CKD) 82 (>60 ml/min/1.73 sqM); Potassium 3.7 mmol/L (3.5-5.1); Sodium 138 mmol/L (137-145)
[2020-12-31] MEDS: DEXAMETHASONE SOD PHOSPHATE 10 MG/ML 1 ML VIAL IVP SCH (10:29)
[2020-12-31] MEDS: BUDESONIDE 3 MG PO SCH (10:29)
[2020-12-31] MEDS: FUROSEMIDE 20 MG TAB PO SCH ×2 (10:30→22:03)
[2020-12-31] MEDS: FLUTICASONE 50MCG/SPRAY NASAL 16GM EA NOSTRIL SCH ×2 (10:30→20:41)
[2020-12-31] MEDS: METOPROLOL TARTRATE 12.5 MG TAB PO SCH ×2 (10:30→22:01)
[2020-12-31] MEDS: SODIUM CHLORIDE 0.9% 1,000 ML IV SCH (10:34)
[2020-12-31] MEDS: lisinopriL 5 MG TAB PO SCH (11:05)
[2020-12-31 12:02] LABS: Glucose,Whole Blood 94 mg/dL (75-99)
--- NOTE | 2020-12-31 12:03 | P.PN ---
Subjective his is a 80-year-old female with past medical history of autoimmune hepatitis C, IBS, cancers 2 and multiple other medical issues follows regularly with Dr. Gianna Sanchez, presented to the ER with complaints of suspected fevers for the last couple of days, constipation, nausea, abdominal pain and decreased oral intake. 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 On admission temperature 103.5, normal WBC ,maintaining O2 sats of mid 90s on room air. Positive for COVID-19. Received monoclonal antibodies. Chest x-ray reportedly mild patchy density left lower lobe with small effusion, improved aeration of right lung. Abdomen/pelvis CT reported persistent subcapsular hepatic fluid collection, persistent dilatation of the intrahepatic biliary tree, common bile duct and pancreatic duct, possible enteritis, fluid distended small bowel, stool throughout the colon a consistent hematuria within the right; likely from congestive products with no evidence of abscess or free air. EKG reportedly normal sinus rhythm, troponin negative 1. Denies chest pain, palpitations or increasing shortness of breath. The hemoglobin 10.4, platelets 140, sodium 138, potassium 3, bicarb 25, BUN 24, creatinine 0.79, glucose 109, magnesium 1.2. UA negative. IV fluids initiated. 12/23/2020: Patient remains in the high 90s on room air pulse oximetry. Blood pressure stable. Her a slightly bradycardic. MAXIMUM TEMPERATURE is 98.2. Nizoral she'll 6 bowel movements yesterday, 1 void. Weight is 40.8 EKG. Laboratory studies showed WBC count 3.1 hemoglobin 9.3 platelets are 120 today. GFR is 70.6. Pro-calcitonin 0.18 LDH was 256. CRP was 3.6. These markers of inflammation are elevated. Blood cultures negative 224 hours. She continues on: Cocktail of dexamethasone, colchicine, cholecalciferol, magnesium replacement, vitamin C, zinc, and some of her home meds. She is complaining of some fatigue today. She otherwise has no other complaints this time. She denies any chest pains, pressures, or shortness breath. Denies any nausea or vomiting. Has chronic mild abdominal pain from her autoimmune hepatitis. Infectious disease is following as well. December 24, 2020: overnight patient had significant bradycardia. I was contacted that telemetry showed heart rate in the 30s and 40s. She had some nausea at that point and then Atrial fibrillation was noted. This will be new for her shes never had anything like this before. Shes not take any medications that may induce bradycardia either. Her heart rate went down in the upper 20s and an A team was called. Cardiology was consulted. She was transferred to the intensive care unit where she is now. Currently shes complaining of significant nausea. She has Zofran ordered for this, but it is minmmaly effective. Heart rate has remained in the 50s since transfer the ICU. She did receive one dose of atropine before transfer. She is now requiring oxygen with some a.m. hypoxia 86% shes on 4 L via nasal cannula. Blood pressures remain stable. She has been afebrile. She had emesis times two, and one void.Laboratory studies show hemoglobin 10.6. GFR is 62 glucose is 146. Calcium 7.9 magnesium 1.6 total proteins 4.9 albumin 2.6. TSH was normal troponin was normal.Event note from Dr. Wesley and cardiology consultation Dr. Joseph reviewed. She remains on Covid cocktail,klonopin for anxiety, colchicine and dexamethasone for inflammation, her Lovenox is been increase per Dr. Joseph, she continues on some of her home medication as well. Including Cellcept. bdominal pain minimal today. No chest pain, pressure. No SOB. 12/25/2020 echo completed, pending. Converted to sinus rhythm with first- degree AV block. Chest x-ray reporting significant interval progression of infiltrates with a large area of airspace consolidation right perihilar and right lower lobe as well as the left lower lobe and periphery of the left lung. Maintaining O2 sats in the 90s on 7 L high flow nasal cannula. Reglan initiated yesterday with no further nausea currently reported. Denies chest pain, palpitations. 12/26/2020 continues on Covid cocktail ,maintaining O2 sats of 87-90% on 6 L nasal cannula. Chest x-ray reporting bilateral multifocal mid to lower lung opacity is redemonstrated, more prominent in the left midlung compared to one day later, consistent with progression .Swallow evaluation pending.Sitting up in chair. Increasing inflammatory markers with the exception of ferritin, unchanged. Afebrile, WBC 12.9. Sodium decreased to 131, potassium 3.1, bicarb 21, renal function stable. Blood sugars ranging from 80-140. Echo reported EF of 30-35% with hypokinetic LV wall. Possible acute systolic CHF with TRINIDAD i nhibitor, IV diuretics initiated. Yesterday afternoon patient had a large bilious emesis as well as bilious liquid diarrhea. KUB reported nonacute abdomen. 12/27/2020 Earlier this morning,", patient presented with slurred speech without asymmetric loss of strength or facial droop. Brain CT reported negative for acute intracranial process, CTA of head and neck reported no significant diameter reduction to account for symptoms, no significant abnormality. Evaluated by neurology, recommendations noted and appreciated. Patient's slurred speech appears to have resolved. Maintaining O2 sats of 90% on 6 L high flow nasal cannula. Chest x-ray reported bilateral confluent airspace disease consistent with pneumonia. Continues on Zosyn. Afebrile. Receiving supplements for potassium level 2.7, magnesium 1.5. Troponin pending. Diuresing well on Lasix IV push with 24-hour I&O reflecting a negative fluid balance. Renal function stable. 12/28/2020 troponin increased to 0.464 yesterday, post ateam for neurological changes, beta danny added to med regimen as per cardiology today. Diuresing well on Lasix IV push, 24-hour I&O reflecting a negative fluid balance. Chest x- ray reporting persistent but improving airspace infiltrates throughout the right lung and left lower lobe. Oxygen weaned down to 4 L nasal cannula maintaining O2 sats in the low 90s. Denies any chest pain, palpitations or increase in shortness of breath. Renal function stable. Potassium 3.4. 12/29/2020 reports back pain worse. Pain management adjusted from Caspian to Dilaudid 2 mg every 8 hours prn. Extremely weak, maintaining O2 sats in the 90s on 8 L. Continues on Zosyn, Covid regimen. Afebrile. Diuresing well on Lasix IV with 24-hour I&O reflecting a negative fluid balance. 12/30/2020 reports back pain continues. Dilaudid helps somewhat. She remains Extremely weak, maintaining O2 sats in the high 90s on 6 L. Continues on Zosyn, Covid regimen. Afebrile. Diuresing well on Lasix IV with 24-hour I&O reflecting a negative fluid balance. 12/31/2020: Patient feels better today. Her back pain is slightly improved with increased frequency dose of Dilaudid in the adding of Vistaril. Staff reports she is not sleeping quite as much. We discussed an air mattress, up in chair and rehabilitation future. Her case was discussed with cardiology regarding her acute congestive heart failure. Discussed that it may be due to COVID-19. Vital signs are stable this morning with the normal heart rate, blood pressure remains on the lower side and normal. Oxygen saturation requires 4 L of oxygen via nasal cannula to maintain. Chemistries this morning show slight dehydration. GFR is greater than 90, BUN 20 creatinine 0.71. She remains on Covid cocktail. She is anticoagulated with Lovenox. He remains immunosuppressed on CellCept. Cardiology adjusting her metoprolol and lisinopril, to help avoid hypotension but to help with her congestive heart failure. Objective - Vital Signs Vital signs: Vital Signs Temp 97.8 F 12/30/20 20:00 Pulse 62 12/31/20 04:00 Resp 18 12/31/20 08:47 BP 104/58 12/31/20 09:55 Pulse Ox 96 12/31/20 04:00 Intake & Output 12/30/20 12/31/20 12/31/20 18:59 06:59 18:59 Intake Total 600 Output Total 675 800 Balance -75 -800 Intake: Oral 600 Output: Urine 675 800 Uretheral (Rogers) 350 Other: Voiding Method Indwelling Catheter Indwelling Catheter # Voids 1 # Bowel Movements 2 1 1 - Exam GENERAL: Chronically Cachectic, lying up in bed no distress, more alert today. NECK: No JVD. No thyroid enlargement. No LNs CARDIOVASCULAR: S1, S2 regular. Systolic murmur RESPIRATION: Breath sounds diminished in the bases. Noted fine crackles in the bases, ABDOMEN: Soft, nondistended, epigastric tenderness, No guarding. no masses palpable.Bowel sounds heard. Extremities: No edema. no swelling PSYCHIATRY: Alert and oriented X3, mood and affect normal. NERVOUS SYSTEM: Cranial N 2-12 grossly normal. Moves all 4 limbs. No focal deficits. Strength and sensation grossly intact. Skin: Warm and dry, no rash - Labs CBC & Chem 7: 12/29/20 15:07 12/31/20 08:29 Labs: Abnormal Lab Results - Last 24 Hours (Table) 12/30/20 12/30/2012/30/21 Range/Units 16:56 20:42 21:16 BUN (7-17) mg/dL Glucose (74-99) mg/dL POC Glucose (mg/dL) 123 H 219 H 209 H (75-99) mg/dL Calcium (8.4-10.2) mg/dL 12/31/20 Range/Units 08:29 BUN 28 H (7-17) mg/dL Glucose 108 H (74-99) mg/dL POC Glucose (mg/dL) (75-99) mg/dL Calcium 8.3 L (8.4-10.2) mg/dL Microbiology - Last 24 Hours (Table) 12/26/20 05:08 Blood Culture - Preliminary Blood No Growth after 120 hours Assessment and Plan Plan: New Onset Atrial fibrillation acute systolic congestive heart failure, most likely due to COVID-19 Symptomatic bradycardia Acute COVID-19 pneumonia, status post monoclonal antibodies in the ER, mild Dehydration Epigastric abdominal pain secondary to constipation Chronic severe protein calorie malnutrition, BMI 16.1 Chronic left upper quadrant pain radiates to right upper quadrant. History of hepatic fluid collection, possibly pseudocyst or hepatic cyst, follows with GI outpatient Chronic Autoimmune Hepatitis Leukocytosis Electrolyte abnormalities, resolving Dehydration, status post 500 mL fluid bolus, we'll monitor History of IBS with chronic constipation old Pubic [place] fractures History of rectal prolapse Instability wait on further recommendations from pulmonology, Cardiology and I.D. Investigate placement or Regency on the leg, She'll continue her current medications and treatments. We'll repeat labs in a.m. She will be reevaluated in the next 24 hours
[2020-12-31] MEDS: hydrOXYzine pamoate 25 MG CAP PO PRN (12:11)
[2020-12-31] MEDS: BENZOCAINE/MENTHOL SPRAY 1 GM/SPRAY AEROSOL TOPICAL PRN (12:15)
--- NOTE | 2020-12-31 13:29 | PN ---
PROGRESS NOTE Mrs. Kerr is a 80-year-old female who presented with symptoms of progressive dyspnea, had evidence of COVID-19 pneumonia. She also has evidence of severe cardiomyopathy of unknown etiology. She is feeling better overall. Her breathing is better. She had episode of bradycardia that resolved. She denies any dizziness or palpitation. She denies any nausea. She continues to be at this time on aspirin once a day, Lovenox subcu, furosemide 20 mg twice a day, lisinopril 2.5 mg daily and metoprolol tartrate 12.5 mg twice a day. PHYSICAL EXAMINATION: Blood pressure 104/50 with a heart rate in the 60s. LUNGS: With decreased air exchange, no wheezes. HEART: Regular rhythm S1, S2. No S3 with systolic murmur. No diastolic murmur, no rub. ABDOMEN: Soft, nontender. EXTREMITIES: No edema. LAB DATA: Revealed BUN and creatinine 28 and 0.7. Potassium 3.7. IMPRESSION: 1. COVID-19 pneumonia. 2. Severe cardiomyopathy of unknown etiology or duration. 3. Bradycardia, resolved. 4. Chronic autoimmune hepatitis. RECOMMENDATIONS: We will continue present therapy. Continue to follow her blood pressure and adjust the dose of TIRNIDAD inhibitor and beta danny accordingly. Down the road she will need to have a re-evaluation of her left ventricular systolic function to see if there is any changes with resolution of her infectious process. MMODL / IJN: [id number] /
[2020-12-31] MEDS: CHOLESTYRAMINE (WITH SUGAR) 4 GM PACKET PO SCH (16:11)
--- NOTE | 2020-12-31 16:14 | P.PN ---
Subjective Progress Note Date: 12/31/20 Principal diagnosis: Acute hypoxic respiratory failure secondary to COVID-19 pneumonia This is a 80-year-old female with history of fibromyalgia, degenerative joint disease, autoimmune hepatitis, irritable bowel syndrome, patient was admitted to the hospital on 12/21/20 mostly with symptoms of weakness for the last couple of weeks prior to presentation. In addition to her weakness, patient was complaining of fever, chills, poor appetite, intermittent episodes of abdominal pain, nausea, and intermittent constipation. Upon her initial presentation she had a temp of 103.5, she was slightly hypoxic, and she was noted to have lymphopenia with normal WBC count. Elevated BUN and creatinine, and she was also noted to have positive PCR for COVID-19 infection. Chest x-ray on her initial admission showed mild patchy infiltrate in the left lower lobe with small pleural effusion, CT of the abdomen showed enteritis, with data titration of the hepatic biliary tree, soft capsular fluid collection in the liver, and there was evidence of left lower lobe pneumonia. Patient received monoclonal antibody infusion admitted to the hospital, and she has been seen by infectious disease on consultation. We were not asked to see the patient until today were in her oxygen requirement has increased from 2 L via nasal cannula up to 7 L today, and the patient is noted to have more and more shortness of breath. Over the last few days, since admission, her chest x-ray has shown worsening bilateral bibasilar infiltrates. Hence this consult was initiated. Patient is known to have history of paroxysmal atrial fibrillation, cardiology saw the patient on this admission for intermittent episodes of bradycardia and this was felt to be vasovagal. The cardiology recommendation was to start the patient on anticoagulation therapy, she was given prophylactic dose of Lovenox. She had an echocardiogram that showed severe LV dysfunction with ejection fraction of 30- 35%. And global hypokinesia. Again considering the worsening pneumonia we were asked to see this patient on consultation today although she has been admitted almost 4 days ago. Reevaluated today on 12/26/20, patient remains in the ICU, she is on 6 L nasal cannula, she is being treated for COVID-19 pneumonia possible aspiration pneumonia, and I believe the patient may have some component of acute systolic congestive heart failure. Patient remains on the COVID-19 cocktail treatment, remains on Zosyn, Decadron, and I cut down her IV fluid yesterday to 15 mL/h/KVO. Patient is supposed to undergo speech evaluation today, I suspected that there may be some component of aspiration pneumonia. Chest x-ray continues to show bibasilar infiltrates, clinically the patient is about the same, not much change in the last 24 hours. WBC count is 12.9, hemoglobin 11.5 electrolytes are normal except for low potassium of 3.1. BNP level yesterday was 24,300, and pro-calcitonin was 0.83. LDH is up to 882. And C-reactive protein is 20 patient was reevaluated today on 12/27/2020, patient remains in the ICU, remains on 6 L nasal cannula, remains on diuretics, remains on antibiotics, and she remains on the COVID-19 cocktail. Patient again my evaluation was basically unchanged, however later on the patient developed some garbled speech, and code stroke was called, patient underwent CT of the brain and CT angiogram which came back negative and nondiagnostic. During my evaluation, the patient was basically the same and unchanged from the day before. She does seem very frail, she does seem to be a bit tremulous, otherwise I haven't noticed any change in the last 24 hours. She is requiring less oxygen, and she is saturating better. Chest x-ray continues to show evidence of bilateral pneumonia. Possibly minimal improvement compared to the day before. WBC count is 11.1 hemoglobin is 10.9. Potassium is 2.7 being addressed as per protocol. Troponin is 0.464. The patient is seen today 12/28/2020 in follow-up on the selective care unit. She is currently resting fairly comfortably in bed. He is currently awake and alert. Speech clear. She is quite frail and cachectic. She is maintaining O2 saturations of 99% on 5 L nasal cannula. She's afebrile. Hemodynamically stable. Chest x-ray reveals persistent airspace infiltrates bilaterally more so on the right lung and left lower lung with some improvement. Sodium 132. Potassium 3.4. Bicarb 25. Creatinine 0.56. She is continued on Decadron Lovenox, vitamin supplements. She is on antibiotics in the form of Zosyn. She remains on IV diuretics. The patient is seen today 12/29/2020 in follow-up on the selective care unit. She is currently sitting up in bed. More awake and alert today. Speech is clear. She remains quite frail and cachectic. She is maintaining O2 saturations in the low 90s on 6 L high flow nasal cannula. She's been afebrile. Hemodynamically stable. She is continued on Decadron, Lovenox, vitamin supplements. Remains on IV Lasix. Antibiotics in the form of Zosyn. Patient was reevaluated today on 12/30/20, patient is doing well, seems to be more comfortable, chest x-ray has shown a significant improvement in her bilateral pneumonia/pulmonary edema. Patient is now on 4 L nasal cannula, and her O2 sats is 97%. Remains on antibiotics and bronchodilators, however considering the infiltrates have cleared significantly within a short period of time, I believe the findings are mostly findings of pulmonary edema than true pneumonia. Although the patient did come in with COVID-19 infection. The patient is seen today 12/31/2020 in follow-up on the selective care unit. She is currently sitting up in a chair at the bedside. Awake and alert in no acute distress. Maintaining O2 saturations in the 90s on 4 L/m per nasal cannula. Sodium 138. Potassium 3.7. Creatinine 0.71. Glucose 108. Continued on Decadron, Lovenox, vitamin supplements. Remains on oral diuretics. Objective - Vital Signs Vital signs: Vital Signs Temp 97.9 F 12/31/20 12:10 Pulse 62 12/31/20 04:00 Resp 18 12/31/20 14:00 BP 88/41 12/31/20 12:10 Pulse Ox 91 L 12/31/20 12:10 Intake & Output 12/30/20 12/31/20 12/31/20 18:59 06:59 18:59 Intake Total 600 Output Total 675 800 Balance -75 -800 Intake: Oral 600 Output: Urine 675 800 Uretheral (Rogers) 350 Other: Voiding Method Indwelling Catheter Indwelling Catheter # Voids 1 # Bowel Movements 2 1 1 - Exam GENERAL DESCRIPTION: Revealed 80-year-old female, frail, cachectic looking, on 4 L nasal cannula, in no distress. HEENT: [place], EOMI, nonicteric, no neck masses. NECK: Trachea central, no JVD, no neck masses, no stridor. LUNGS: Crackles and rhonchi noted bilaterally. Symmetrical chest expansion. HEART: S1, S2, regular rate and rhythm. ABDOMEN: Soft nontender no megaly no rebound no guarding. EXTREMITIES: No clubbing edema or cyanosis. SKIN: No rash NEUROLOGICAL: Alert and oriented 3 no focal neurologic deficit Psychiatric: Normal mood, affect and normal mental status examination. - Labs CBC & Chem 7: 12/29/20 15:07 12/31/20 08:29 Labs: Abnormal Lab Results - Last 24 Hours (Table) 12/30/20 12/30/20 12/30/20 Range/Units 16:56 20:42 21:16 BUN (7-17) mg/dL Glucose (74-99) mg/dL POC Glucose (mg/dL) 123 H 219 H 209 H (75-99) mg/dL Calcium (8.4-10.2) mg/dL 12/31/20 Range/Units 08:29 BUN 28 H (7-17) mg/dL Glucose 108 H (74-99) mg/dL POC Glucose (mg/dL) (75-99) mg/dL Calcium 8.3 L (8.4-10.2) mg/dL Microbiology - Last 24 Hours (Table) 12/26/20 05:08 Blood Culture - Preliminary Blood No Growth after 120 hours Assessment and Plan Assessment: 1 Acute hypoxic respiratory failure secondary to COVID-19 pneumonia, patient is status post monoclonal antibody given upon her initial admission. 2 Possible superimposed aspiration pneumonia 3 History of irritable bowel syndrome and intermittent abdominal pain. 4 Chronic autoimmune hepatitis 5 Intermittent bradycardia resolved. 6 Severe LV dysfunction, possible acute systolic congestive heart failure Plan: The patient was seen and evaluated by Dr. Butler Continues on Decadron, Lovenox, vitamin supplements Increase her activity as tolerated May need subacute rehab We will continue to follow I, the cosigning physician, performed a history & physical examination of the patient. Lungs sounds with crackles in the bilateral posterior bases. Maintaining good O2 saturations in the 90s on 4 L/m per nasal cannula. I discussed the assessment and plan of care with my nurse practitioner, Delmi Samaniego. I attest to the above note as dictated by her.
[2020-12-31 16:49] LABS: Glucose,Whole Blood 95 mg/dL (75-99)
[2020-12-31 20:14] LABS: Glucose,Whole Blood 115 mg/dL (75-99)
[2020-12-31] MEDS: FLUORIDE MISCELLANE SCH (20:41)
[2020-12-31] MEDS: TAMSULOSIN 0.4 MG CAP.ER.24H PO SCH (22:01)
[2020-12-31] MEDS: traZODone HCL 100 MG TAB PO SCH (22:02)
--- NOTE | 2021-01-01 00:02 | PN ---
PROGRESS NOTE DATE OF SERVICE: 12/31/2020 REASON FOR FOLLOWUP: 1. COVID-19 pneumonia. 2. Diarrhea. INTERVAL HISTORY: The patient is afebrile. The patient is breathing more comfortably. The patient's cough has decreased in intensity. No chest pain, no abdominal pain, and diarrhea has slowed down. PHYSICAL EXAMINATION: Blood pressure is 99/55, pulse of 70, temperature 97.6. She is 95% on 4 L nasal cannula. General description is an elderly female lying in bed in no distress. RESPIRATORY SYSTEM: Unlabored breathing. Decreased intensity of breath sounds. No wheeze. HEART: S1, S2. Regular rate and rhythm. ABDOMEN: Soft. No tenderness. EXTREMITIES: No edema of the feet. LABS: BUN of 28, creatinine 0.71. DIAGNOSTIC IMPRESSION AND PLAN: 1. Patient with acute COVID-19 pneumonia and subsequent worsening, possibly due to underlying chronic condition. Patient did have some clinical improvement. To continue with Decadron, Lovenox, zinc and ascorbic acid. 2. Diarrhea, possibly antibiotic-associated. Responding to [facility]. Continue supportive care. MMODL / IJN: [id number] /
[2021-01-01 06:08] LABS: Glucose,Whole Blood 85 mg/dL (75-99)
[2021-01-01] MEDS: DICYCLOMINE 20 MG TAB PO SCH ×4 (06:12→20:08)
[2021-01-01] MEDS: INSULIN ASPART (NovoLOG) 100 UNIT/ML VIAL SQ SCH ×5 (06:12→21:22)
[2021-01-01] MEDS: LEVOTHYROXINE 125 MCG TAB PO SCH (06:12)
[2021-01-01] MEDS: PANTOPRAZOLE 40 MG TABLET PO SCH (06:12)
[2021-01-01] MEDS: HYDROmorphone 1 MG/ML 1 ML SYRINGE IVP PRN (06:13)
[2021-01-01 08:43] LABS: Basophils % (A) 0 %; Eosinophils # (A) 0.1 k/uL (0-0.7); Eosinophils % (A) 1 %; HCT 31.1 % (34.0-46.0); HGB 9.5 gm/dL (11.4-16.0); Hypochromasia Moderate; Lymphocytes # (A) 0.4 k/uL (1.0-4.8); Lymphocytes % (A) 5 %; MCH 29.4 pg (25.0-35.0); MCHC 30.7 g/dL (31.0-37.0); MCV 95.9 fL (80.0-100.0); Mean Platelet Volume 8.7; Monocytes # (A) 0.2 k/uL (0-1.0); Monocytes % (A) 3 %; Neutrophils # (A) 6.5 k/uL (1.3-7.7); Neutrophils % (A) 91 %; Platelet Count 194 k/uL (150-450); RBC 3.25 m/uL (3.80-5.40); WBC 7.2 k/uL (3.8-10.6)
[2021-01-01 09:01] LABS: Partial Thromboplastin Time 24.1 sec (22.0-30.0); Prothrombin Time 10.3 sec (9.0-12.0)
[2021-01-01 09:20] LABS: ALT 16 U/L (4-34); AST 25 U/L (14-36); African American GFR (CKD) >90 (>60 ml/min/1.73 sqM); Albumin 2.5 g/dL (3.5-5.0); Alkaline Phosphatase 66 U/L (38-126); Anion Gap 7 mmol/L; Blood Urea Nitrogen 23 mg/dL (7-17); Calcium 8.3 mg/dL (8.4-10.2); Carbon Dioxide 30 mmol/L (22-30); Chloride 100 mmol/L (98-107); Glucose 85 mg/dL (74-99); LDH 623 U/L (313-618); Magnesium 1.5 mg/dL (1.6-2.3); Non-African American GFR(CKD) 85 (>60 ml/min/1.73 sqM); Potassium 3.6 mmol/L (3.5-5.1); Sodium 137 mmol/L (137-145); Total Bilirubin 0.3 mg/dL (0.2-1.3)
[2021-01-01] MEDS: FUROSEMIDE 20 MG TAB PO SCH ×2 (10:03→20:08)
[2021-01-01] MEDS: METOPROLOL TARTRATE 12.5 MG TAB PO SCH ×2 (10:03→20:08)
[2021-01-01] MEDS: clonazePAM 1 MG TAB PO SCH (10:04)
[2021-01-01] MEDS: DEXAMETHASONE SOD PHOSPHATE 10 MG/ML 1 ML VIAL IVP SCH (10:23)
[2021-01-01] MEDS: LIDOCAINE 5% PATCH TOPICAL SCH (10:23)
[2021-01-01] MEDS: ASPIRIN 81 MG PO SCH (10:24)
[2021-01-01] MEDS: ASCORBIC ACID 500 MG TAB PO SCH ×2 (10:24→20:08)
[2021-01-01] MEDS: ESCITALOPRAM 20 MG TAB PO SCH (10:24)
[2021-01-01] MEDS: CHOLECALCIFEROL 25 MCG (1000 IU) TABLET PO SCH (10:25)
[2021-01-01] MEDS: ZINC SULFATE 220 MG CAP PO SCH (10:25)
[2021-01-01] MEDS: ENOXAPARIN 40 MG/0.4 ML SYRINGE SQ SCH ×2 (10:25→20:08)
[2021-01-01] MEDS: FLUTICASONE 50MCG/SPRAY NASAL 16GM EA NOSTRIL SCH ×2 (10:25→20:35)
[2021-01-01] MEDS: BUDESONIDE 3 MG PO SCH (10:42)
[2021-01-01 12:17] LABS: Glucose,Whole Blood 96 mg/dL (75-99)
[2021-01-01] MEDS: ACETAMINOPHEN TAB 325 MG TAB PO PRN (12:53)
[2021-01-01] MEDS: CHOLESTYRAMINE (WITH SUGAR) 4 GM PACKET PO SCH (12:54)
[2021-01-01] MEDS ORDERED: oxyCODONE-APAP 10-325MG 1 EACH TAB PO PRN (14:53)
--- NOTE | 2021-01-01 15:10 | P.PN ---
Subjective Progress Note Date: 01/01/21 CHIEF COMPLAINT: bradycardia HISTORY OF PRESENT ILLNESS: This is a 80-year-old female who is admitted to the hospital secondary to Covid. Echocardiogram completed revealing ejection fraction 3035% which is new compared to previous echocardiogram. Patient hypo tensive this morning with a systolic blood pressure in the 80s. She denies chest pain or pressure. She is on 4 L nasal cannula with oxygen saturations greater than 92%. Telemetry reveals sinus mechanism. PHYSICAL EXAM: Thorough physical exam not completed secondary to limited evaluation/examination and due to Covid19 ASSESSMENT: Covid pneumonia Cardiomyopathy, unclear etiology Sinus bradycardia Hypotension History of chronic autoimmune hepatitis History of irritable bowel syndrome History of fibromyalgia History of degenerative joint disease PLAN: Discontinue TRINIDAD inhibitor secondary to hypotension Continue metoprolol 12.5 mg twice a day. Hold for systolic blood pressure less than 90 Continue aspirin 81 mg daily and Lasix 20 mg twice a day No further troponins to be drawn Further management of hypotension will be defered to internal medicine We will follow on an as-needed basis Please call with questions or concerns Nurse practitioner note has been reviewed by physician. Signing provider agrees with the documented findings, assessment, and plan of care. Objective - Vital Signs Vital signs: Vital Signs Temp 97.1 F L 01/01/21 08:00 Pulse 85 01/01/21 14:00 Resp 18 01/01/21 14:00 BP 113/56 01/01/21 12:00 Pulse Ox 99 01/01/21 12:00 Intake & Output 12/31/20 01/01/21 01/01/21 18:59 06:59 18:59 Output Total 350 1200 Balance -350 -1200 Weight 42.2 kg Output: Urine 350 1200 Other: Voiding Method Indwelling Catheter Indwelling Catheter Indwelling Catheter # Voids 1 # Bowel Movements 1 - Labs CBC & Chem 7: 01/01/21 08:17 01/01/21 08:11 Labs: Abnormal Lab Results - Last 24 Hours (Table) 12/31/20 01/01/21 01/01/21 Range/Units 20:13 08:11 08:11 RBC (3.80-5.40) m/uL Hgb (11.4-16.0) gm/dL Hct (34.0-46.0) % MCHC (31.0-37.0) g/dL Lymphocytes # (1.0-4.8) k/uL Fibrinogen (200-500) mg/dL D-Dimer (<0.60) mg/L FEU BUN 23 H (7-17) mg/dL POC Glucose (mg/dL) 115 H (75-99) mg/dL Calcium 8.3 L (8.4-10.2) mg/dL Magnesium 1.5 L (1.6-2.3) mg/dL Lactate Dehydrogenase 623 H (313-618) U/L Troponin I 0.053 H* (0.000-0.034) ng/mL C-Reactive Protein 8.0 H (<1.0) mg/dL Total Protein 5.0 L (6.3-8.2) g/dL Albumin 2.5 L (3.5-5.0) g/dL 01/01/21 01/01/21 Range/Units 08:17 08:17 RBC 3.25 L (3.80-5.40) m/uL Hgb 9.5 L (11.4-16.0) gm/dL Hct 31.1 L (34.0-46.0) % MCHC 30.7 L (31.0-37.0) g/dL Lymphocytes # 0.4 L (1.0-4.8) k/uL Fibrinogen 585 H (200-500) mg/dL D-Dimer 1.00 H (<0.60) mg/L FEU BUN (7-17) mg/dL POC Glucose (mg/dL) (75-99) mg/dL Calcium (8.4-10.2) mg/dL Magnesium (1.6-2.3) mg/dL Lactate Dehydrogenase (313-618) U/L Troponin I (0.000-0.034) ng/mL C-Reactive Protein (<1.0) mg/dL Total Protein (6.3-8.2) g/dL Albumin (3.5-5.0) g/dL Microbiology - Last 24 Hours (Table) 12/26/20 05:08 Blood Culture - Final Blood No Growth after 144 hours
--- NOTE | 2021-01-01 15:36 | P.PN ---
Subjective Progress Note Date: 01/01/21 Principal diagnosis: Shortness of breath On 01/01/2021 patient seen in follow-up on selective care unit. She is currently on 4 L of oxygen, she looks weak, but fairly comfortable, does not appear to be in any acute distress. Her O2 saturations on 4 L are 99%, no fever or chills, vital signs have been stable, lung are positive for diminished breath sounds bilaterally, with scattered crackles. Her last chest x-ray from 12/30/2020 showed improving aeration. Patient currently remains on oral Lasix 20 mg twice daily, she is on bronchodilators, Decadron 6 mg daily, and Lovenox 40 mg twice a day. Today's labs have been reviewed, her white blood cell count is improving and is down to 7.2, hemoglobin is 9.5, d-dimer is down to 1, electrolytes are within normal limits, B1 is 23 creatinine 0.6. Troponin is 0.053, proBNP was significantly improved and was down to 1460 on today's labs. Patient is maintaining negative fluid balance, she is in -1.5 L over the last 24 hours. Objective - Vital Signs Vital signs: Vital Signs Temp 97.1 F L 01/01/21 08:00 Pulse 85 01/01/21 14:00 Resp 18 01/01/21 14:00 BP 113/56 01/01/21 12:00 Pulse Ox 99 01/01/21 12:00 Intake & Output 12/31/20 01/01/21 01/01/21 18:59 06:59 18:59 Output Total 350 1200 Balance -350 -1200 Weight 42.2 kg Output: Urine 350 1200 Other: Voiding Method Indwelling Catheter Indwelling Catheter Indwelling Catheter # Voids 1 # Bowel Movements 1 - Exam GENERAL EXAM: Alert, very pleasant, but very weak and frail looking 80-year-old white female, currently on 4 L of oxygen and the pulse ox of 99% comfortable in no apparent distress. HEAD: Normocephalic/atraumatic. EYES: Normal reaction of pupils, equal size. Conjunctiva pink, sclera white. NOSE: Clear with pink turbinates. THROAT: No erythema or exudates. NECK: No masses, no JVD, no thyroid enlargement, no adenopathy. CHEST: No chest wall deformity. Symmetrical expansion. LUNGS: Equal air entry with bilateral crackles CVS: Regular rate and rhythm, normal S1 and S2, no gallops, no murmurs, no rubs ABDOMEN: Soft, nontender. No hepatosplenomegaly, normal bowel sounds, no guarding or rigidity. EXTREMITIES: No clubbing, no edema, no cyanosis, 2+ pulses and upper and lower extremities. MUSCULOSKELETAL: Muscle strength and tone normal. SPINE: No scoliosis or deformity SKIN: No rashes CENTRAL NERVOUS SYSTEM: Alert and oriented -3. No focal deficits, tone is normal in all 4 extremities. PSYCHIATRIC: Alert and oriented -3. Appropriate affect. Intact judgment and insight. - Labs CBC & Chem 7: 01/01/21 08:17 01/01/21 08:11 Labs: Abnormal Lab Results - Last 24 Hours (Table) 12/31/20 01/01/21 01/01/21 Range/Units 20:13 08:11 08:11 RBC (3.80-5.40) m/uL Hgb (11.4-16.0) gm/dL Hct (34.0-46.0) % MCHC (31.0-37.0) g/dL Lymphocytes # (1.0-4.8) k/uL Fibrinogen (200-500) mg/dL D-Dimer (<0.60) mg/L FEU BUN 23 H (7-17) mg/dL POC Glucose (mg/dL) 115 H (75-99) mg/dL Calcium 8.3 L (8.4-10.2) mg/dL Magnesium 1.5 L (1.6-2.3) mg/dL Lactate Dehydrogenase 623 H (313-618) U/L Troponin I 0.053 H* (0.000-0.034) ng/mL C-Reactive Protein 8.0 H (<1.0) mg/dL Total Protein 5.0 L (6.3-8.2) g/dL Albumin 2.5 L (3.5-5.0) g/dL 01/01/21 01/01/21 Range/Units 08:17 08:17 RBC 3.25 L (3.80-5.40) m/uL Hgb 9.5 L (11.4-16.0) gm/dL Hct 31.1 L (34.0-46.0) % MCHC 30.7 L (31.0-37.0) g/dL Lymphocytes # 0.4 L (1.0-4.8) k/uL Fibrinogen 585 H (200-500) mg/dL D-Dimer 1.00 H (<0.60) mg/L FEU BUN (7-17) mg/dL POC Glucose (mg/dL) (75-99) mg/dL Calcium (8.4-10.2) mg/dL Magnesium (1.6-2.3) mg/dL Lactate Dehydrogenase (313-618) U/L Troponin I (0.000-0.034) ng/mL C-Reactive Protein (<1.0) mg/dL Total Protein (6.3-8.2) g/dL Albumin (3.5-5.0) g/dL Microbiology - Last 24 Hours (Table) 12/26/20 05:08 Blood Culture - Final Blood No Growth after 144 hours Assessment and Plan Plan: Assessment: #1. Acute hypoxic respiratory failure, multifactorial, related to acute COVID- 19 pneumonia, acute exacerbation of systolic CHF, and possible superimposed aspiration pneumonia. Patient did receive monoclonal antibody upon her initial admission #2. General medical debility #3. History of irritable bowel syndrome #4. Autoimmune hepatitis #5. Degenerative joint disease #6. Episode of intermittent bradycardia, resolved #7. Severe LV dysfunction Plan: Continue current medical treatment Continue Decadron Continue Lovenox, we'll drop the Lovenox dose to 40 mg once daily Follow-up chest x-ray tomorrow Continue oral Lasix Daily weights, adequate intake and output, follow up labs in the morning Maintain aspiration precautions Increase activity as tolerated Generally patient seems to be very debilitated We'll need to obtain physical therapy recommendations for possibility of post discharge to ECF placement I performed a history & physical examination of the patient and discussed their management with my nurse practitioner, Robina Brooke. I reviewed the nurse practitioner's note and agree with the documented findings and plan of care. Lung sounds are positive for diffuse crackles throughout the lung junior. The findings and the impression was discussed with the patient. I attest to the documentation by the nurse practitioner. Time with Patient: Less than 30
[2021-01-01 16:40] LABS: Glucose,Whole Blood 128 mg/dL (75-99)
[2021-01-01] MEDS: oxyCODONE-APAP 10-325MG 1 EACH TAB PO PRN (16:52)
[2021-01-01] MEDS ORDERED: Magnesium Replacement Protocol 1 EACH MISC MISCELLANE PRN (17:50)
--- NOTE | 2021-01-01 18:57 | PN ---
PROGRESS NOTE DATE OF SERVICE: 01/01/2021 REASON FOR FOLLOWUP: COVID-19 pneumonia. INTERVAL HISTORY: The patient is afebrile. The patient is slightly more awake and alert today. She is breathing more comfortably. The patient's cough has decreased in intensity. No chest pain. No vomiting. No abdominal pain. Diarrhea has slowed down. PHYSICAL EXAMINATION: Blood pressure 108/57, pulse of 71, temperature 97.1. She is 95% on 4 L nasal cannula. General description is an elderly female lying in bed in no distress. RESPIRATORY SYSTEM: Unlabored breathing. Coarse breath sounds bilaterally. No wheeze. HEART: S1, S2. Regular rate and rhythm. ABDOMEN: Soft. No tenderness. LABS: Hemoglobin is 9.5, white count 7.2, creatinine 0.66. DIAGNOSTIC IMPRESSION AND PLAN: 1. Patient with acute COVID-19 pneumonia in this patient who is slowly clinically improving. Patient is covered with dexamethasone, Lovenox, zinc and ascorbic acid. 2. Diarrhea, possibly antibiotic-associated. Responding to the and Questran will be put on hold if no bowel movement for 24 hours. Continue supportive care. MMODL / IJN: [id number] /
[2021-01-01] MEDS: TAMSULOSIN 0.4 MG CAP.ER.24H PO SCH (20:08)
[2021-01-01] MEDS: traZODone HCL 100 MG TAB PO SCH (20:08)
[2021-01-01] MEDS: SODIUM CHLORIDE 0.9% 1,000 ML IV SCH (20:10)
[2021-01-01 20:11] LABS: Glucose,Whole Blood 210 mg/dL (75-99)
[2021-01-01] MEDS: FLUORIDE MISCELLANE SCH (20:11)
[2021-01-02] MEDS: oxyCODONE-APAP 10-325MG 1 EACH TAB PO PRN ×3 (01:34→12:50)
[2021-01-02] MEDS: SODIUM CHLORIDE 0.9% 1,000 ML IV SCH (01:36)
[2021-01-02 06:34] LABS: Glucose,Whole Blood 90 mg/dL (75-99)
[2021-01-02] MEDS: INSULIN ASPART (NovoLOG) 100 UNIT/ML VIAL SQ SCH ×4 (06:46→21:37)
[2021-01-02] MEDS: PANTOPRAZOLE 40 MG TABLET PO SCH (06:50)
[2021-01-02] MEDS: DICYCLOMINE 20 MG TAB PO SCH ×4 (06:50→21:46)
[2021-01-02] MEDS: LEVOTHYROXINE 125 MCG TAB PO SCH (06:50)
[2021-01-02] MEDS: DEXAMETHASONE SOD PHOSPHATE 10 MG/ML 1 ML VIAL IVP SCH (09:32)
[2021-01-02] MEDS: CHOLECALCIFEROL 25 MCG (1000 IU) TABLET PO SCH (09:32)
[2021-01-02] MEDS: ASPIRIN 81 MG PO SCH (09:32)
[2021-01-02] MEDS: ASCORBIC ACID 500 MG TAB PO SCH ×2 (09:32→21:46)
[2021-01-02] MEDS: ESCITALOPRAM 20 MG TAB PO SCH (09:33)
[2021-01-02] MEDS: ENOXAPARIN 40 MG/0.4 ML SYRINGE SQ SCH (09:33)
[2021-01-02] MEDS: LIDOCAINE 5% PATCH TOPICAL SCH (09:35)
[2021-01-02] MEDS: ZINC SULFATE 220 MG CAP PO SCH (09:36)
[2021-01-02] MEDS: MAGNESIUM SULFATE-D5W PMX 1 GM in DEXTROSE/WATER 1 100ML.BAG IVPB SCH ×2 (10:40→12:48)
--- NOTE | 2021-01-02 10:58 | P.PN ---
Subjective Progress Note Date: 01/02/21 This is a 80-year-old female with past medical history of autoimmune hepatitis C, IBS, cancers 2 and multiple other medical issues follows regularly with Dr. Gianna Sanchez, presented to the ER with complaints of suspected fevers for the last couple of days, constipation, nausea, abdominal pain and decreased oral intake. 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 On admission temperature 103.5, normal WBC ,maintaining O2 sats of mid 90s on room air. Positive for COVID-19. Received monoclonal antibodies. Chest x-ray reportedly mild patchy density left lower lobe with small effusion, improved aeration of right lung. Abdomen/pelvis CT reported persistent subcapsular hepatic fluid collection, persistent dilatation of the intrahepatic biliary tree, common bile duct and pancreatic duct, possible enteritis, fluid distended small bowel, stool throughout the colon a consistent hematuria within the right; likely from congestive products with no evidence of abscess or free air. EKG reportedly normal sinus rhythm, troponin negative 1. Denies chest pain, palpitations or increasing shortness of breath. The hemoglobin 10.4, platelets 140, sodium 138, potassium 3, bicarb 25, BUN 24, creatinine 0.79, glucose 109, magnesium 1.2. UA negative. IV fluids initiated. 12/23/2020: Patient remains in the high 90s on room air pulse oximetry. Blood pressure stable. Her a slightly bradycardic. MAXIMUM TEMPERATURE is 98.2. Nizoral she'll 6 bowel movements yesterday, 1 void. Weight is 40.8 EKG. La boratory studies showed WBC count 3.1 hemoglobin 9.3 platelets are 120 today. GFR is 70.6. Pro-calcitonin 0.18 LDH was 256. CRP was 3.6. These markers of inflammation are elevated. Blood cultures negative 224 hours. She continues on: Cocktail of dexamethasone, colchicine, cholecalciferol, magnesium replacement, vitamin C, zinc, and some of her home meds. She is complaining of some fatigue today. She otherwise has no other complaints this time. She denies any chest pains, pressures, or shortness breath. Denies any nausea or vomiting. Has chronic mild abdominal pain from her autoimmune hepatitis. Infectious disease is following as well. December 24, 2020: overnight patient had significant bradycardia. I was contacted that telemetry showed heart rate in the 30s and 40s. She had some nausea at that point and then Atrial fibrillation was noted. This will be new for her shes never had anything like this before. Shes not take any medications that may induce bradycardia either. Her heart rate went down in the upper 20s and an A team was called. Cardiology was consulted. She was transferred to the intensive care unit where she is now. Currently shes complaining of significant nausea. She has Zofran ordered for this, but it is minmmaly effective. Heart rate has remained in the 50s since transfer the ICU. She did receive one dose of atropine before transfer. She is now requiring oxygen with some a.m. hypoxia 86% shes on 4 L via nasal cannula. Blood pressures remain stable. She has been afebrile. She had emesis times two, and one void.Laboratory studies show hemoglobin 10.6. GFR is 62 glucose is 146. Calcium 7.9 magnesium 1.6 total proteins 4.9 albumin 2.6. TSH was normal troponin was normal.Event note from Dr. Wesley and cardiology consultation Dr. Joseph reviewed. She remains on Covid cocktail,klonopin for anxiety, colchicine and dexamethasone for inflammation, her Lovenox is been increase per Dr. Joseph, she continues on some of her home medication as well. Including Cellcept. bdominal pain minimal today. No chest pain, pressure. No SOB. 12/25/2020 echo completed, pending. Converted to sinus rhythm with first- degree AV block. Chest x-ray reporting significant interval progression of i nfiltrates with a large area of airspace consolidation right perihilar and right lower lobe as well as the left lower lobe and periphery of the left lung. Maintaining O2 sats in the 90s on 7 L high flow nasal cannula. Reglan initiated yesterday with no further nausea currently reported. Denies chest pain, palpitations. 12/26/2020 continues on Covid cocktail ,maintaining O2 sats of 87-90% on 6 L nasal cannula. Chest x-ray reporting bilateral multifocal mid to lower lung opacity is redemonstrated, more prominent in the left midlung compared to one day later, consistent with progression .Swallow evaluation pending.Sitting up in chair. Increasing inflammatory markers with the exception of ferritin, unchanged. Afebrile, WBC 12.9. Sodium decreased to 131, potassium 3.1, bicarb 21, renal function stable. Blood sugars ranging from 80-140. Echo reported EF of 30-35% with hypokinetic LV wall. Possible acute systolic CHF with TRINIDAD inhibitor, IV diuretics initiated. Yesterday afternoon patient had a large bilious emesis as well as bilious liquid diarrhea. KUB reported nonacute abdomen. 12/27/2020 Earlier this morning,", patient presented with slurred speech without asymmetric loss of strength or facial droop. Brain CT reported negative for acute intracranial process, CTA of head and neck reported no significant diameter reduction to account for symptoms, no significant abnormality. Evaluated by neurology, recommendations noted and appreciated. Patient's slurred speech appears to have resolved. Maintaining O2 sats of 90% on 6 L high flow nasal cannula. Chest x-ray reported bilateral confluent airspace disease consistent with pneumonia. Continues on Zosyn. Afebrile. Receiving supplements for potassium level 2.7, magnesium 1.5. Troponin pending. Diuresing well on L asix IV push with 24-hour I&O reflecting a negative fluid balance. Renal function stable. 12/28/2020 troponin increased to 0.464 yesterday, post ateam for neurological changes, beta danny added to med regimen as per cardiology today. Diuresing well on Lasix IV push, 24-hour I&O reflecting a negative fluid balance. Chest x- ray reporting persistent but improving airspace infiltrates throughout the right lung and left lower lobe. Oxygen weaned down to 4 L nasal cannula maintaining O2 sats in the low 90s. Denies any chest pain, palpitations or increase in shortness of breath. Renal function stable. Potassium 3.4. 12/29/2020 reports back pain worse. Pain management adjusted from [place] to Dilaudid 2 mg every 8 hours prn. Extremely weak, maintaining O2 sats in the 90s on 8 L. Continues on Zosyn, Covid regimen. Afebrile. Diuresing well on Lasix IV with 24-hour I&O reflecting a negative fluid balance. 01/01/2021 Chronic back pain Over the weekend pain management extended to include Dilaudid IV push which appears to be contributing to hypotensive events. Dilaudid both po and IV push discontinued. Pain management will be adjusted to Percocet. Maintaining O2 sats in the high 90s on 4 L nasal cannula. Magnesium 1.5. Troponin 0.053 decreased from prior troponin 0.464, cardiology following, medications adjusted. Diuresing well on oral Lasix with 24-hour I&O reflecting a negative fluid balance. Renal function stable. Objective - Vital Signs Vital signs: Vital Signs Temp 98.0 F 01/02/21 04:00 Pulse 60 01/02/21 04:00 Resp 16 01/02/21 04:00 BP 96/50 01/02/21 04:00 Pulse Ox 97 01/02/21 08:42 Intake & Output 01/01/21 01/02/21 01/02/21 18:59 06:59 18:59 Intake Total 118 Output Total 675 1100 Balance -675 -982 Weight 42.2 kg 42.5 kg Intake: Oral 118 Output: Urine 675 1100 Uretheral ([place]ers) 100 Other: Voiding Method Indwelling Catheter Indwelling Catheter - Exam - Exam GENERAL: Chronically Cachectic, sitting up in chair, NAD NECK: Supple, No JVD. CARDIOVASCULAR: S1, S2 regular. Systolic murmur RESPIRATION: Breath sounds diminished. Scattered rhonchi, bibasilar crackles. ABDOMEN: Soft, nondistended, epigastric tenderness, No guarding. no masses p alpable.Bowel sounds heard. Extremities: No edema. no swelling PSYCHIATRY: Alert and oriented X3, mood and affect normal. NERVOUS SYSTEM: Cranial N 2-12 grossly normal. Moves all 4 limbs. No focal deficits. Strength and sensation grossly intact. Skin: Warm and dry, no rash - Labs CBC & Chem 7: 01/01/21 08:17 01/01/21 08:11 Labs: Abnormal Lab Results - Last 24 Hours (Table) 01/01/21 01/01/21 Range/Units 16:37 20:03 POC Glucose (mg/dL) 128 H 210 H (75-99) mg/dL Microbiology - Last 24 Hours (Table) 12/26/20 05:08 Blood Culture - Final Blood No Growth after 144 hours Assessment and Plan Assessment: Acute COVID-19 pneumonia, status post monoclonal antibodies in the ER Possible aspiration pneumonia, swallow evaluation pending Possible component of acute CHF, systolic dysfunction, EF 30-35% Acute hypoxic respiratory failure secondary to the above Symptomatic sinus bradycardia, resolved Elevated troponin, cardiology following-reporting no acute ischemic event. Epigastric abdominal pain secondary to constipation Chronic severe protein calorie malnutrition, BMI 16.1 Chronic left upper quadrant pain radiates to right upper quadrant. History of hepatic fluid collection, possibly pseudocyst or hepatic cyst, follows with GI outpatient Chronic Autoimmune Hepatitis C, Leukocytosis Hypomagnesemia Hypokalemia Dehydration History of IBS with chronic constipation History of rectal prolapse Plan: Continue on current medication regime, monitoring and symptomatically treatment. Pain management adjusted. PT re-consulted, discharge planning in progress. Maintain Covid cocktail, bronchodilators, Zosyn and oral diuretics. Further management adjustments per cardiology noted. Prognosis guarded given multiple complex medical issues. Discharge planning in progress for tomorrow pending final DC recommendations and clearance per cardiology and pulmonary. The impression and plan of care has been dictated as directed. : I performed a history and examination of this patient, discussed the same with the dictator. I agree with the dictator's note ,documented as a scribe. Any additional findings or plans will be noted.
--- NOTE | 2021-01-02 11:31 | P.PN ---
Subjective Progress Note Date: 01/01/21 This is a 80-year-old female with past medical history of autoimmune hepatitis C, IBS, cancers 2 and multiple other medical issues follows regularly with Dr. Gianna Sanchez, presented to the ER with complaints of suspected fevers for the last couple of days, constipation, nausea, abdominal pain and decreased oral intake. 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 On admission temperature 103.5, normal WBC ,maintaining O2 sats of mid 90s on room air. Positive for COVID-19. Received monoclonal antibodies. Chest x-ray reportedly mild patchy density left lower lobe with small effusion, improved aeration of right lung. Abdomen/pelvis CT reported persistent subcapsular hepatic fluid collection, persistent dilatation of the intrahepatic biliary tree, common bile duct and pancreatic duct, possible enteritis, fluid distended small bowel, stool throughout the colon a consistent hematuria within the right; likely from congestive products with no evidence of abscess or free air. EKG reportedly normal sinus rhythm, troponin negative 1. Denies chest pain, palpitations or increasing shortness of breath. The hemoglobin 10.4, platelets 140, sodium 138, potassium 3, bicarb 25, BUN 24, creatinine 0.79, glucose 109, magnesium 1.2. UA negative. IV fluids initiated. 12/23/2020: Patient remains in the high 90s on room air pulse oximetry. Blood pressure stable. Her a slightly bradycardic. MAXIMUM TEMPERATURE is 98.2. Nizoral she'll 6 bowel movements yesterday, 1 void. Weight is 40.8 EKG. La boratory studies showed WBC count 3.1 hemoglobin 9.3 platelets are 120 today. GFR is 70.6. Pro-calcitonin 0.18 LDH was 256. CRP was 3.6. These markers of inflammation are elevated. Blood cultures negative 224 hours. She continues on: Cocktail of dexamethasone, colchicine, cholecalciferol, magnesium replacement, vitamin C, zinc, and some of her home meds. She is complaining of some fatigue today. She otherwise has no other complaints this time. She denies any chest pains, pressures, or shortness breath. Denies any nausea or vomiting. Has chronic mild abdominal pain from her autoimmune hepatitis. Infectious disease is following as well. December 24, 2020: overnight patient had significant bradycardia. I was contacted that telemetry showed heart rate in the 30s and 40s. She had some nausea at that point and then Atrial fibrillation was noted. This will be new for her shes never had anything like this before. Shes not take any medications that may induce bradycardia either. Her heart rate went down in the upper 20s and an A team was called. Cardiology was consulted. She was transferred to the intensive care unit where she is now. Currently shes complaining of significant nausea. She has Zofran ordered for this, but it is minmmaly effective. Heart rate has remained in the 50s since transfer the ICU. She did receive one dose of atropine before transfer. She is now requiring oxygen with some a.m. hypoxia 86% shes on 4 L via nasal cannula. Blood pressures remain stable. She has been afebrile. She had emesis times two, and one void.Laboratory studies show hemoglobin 10.6. GFR is 62 glucose is 146. Calcium 7.9 magnesium 1.6 total proteins 4.9 albumin 2.6. TSH was normal troponin was normal.Event note from Dr. Wesley and cardiology consultation Dr. Joseph reviewed. She remains on Covid cocktail,klonopin for anxiety, colchicine and dexamethasone for inflammation, her Lovenox is been increase per Dr. Joseph, she continues on some of her home medication as well. Including Cellcept. bdominal pain minimal today. No chest pain, pressure. No SOB. 12/25/2020 echo completed, pending. Converted to sinus rhythm with first- degree AV block. Chest x-ray reporting significant interval progression of i nfiltrates with a large area of airspace consolidation right perihilar and right lower lobe as well as the left lower lobe and periphery of the left lung. Maintaining O2 sats in the 90s on 7 L high flow nasal cannula. Reglan initiated yesterday with no further nausea currently reported. Denies chest pain, palpitations. 12/26/2020 continues on Covid cocktail ,maintaining O2 sats of 87-90% on 6 L nasal cannula. Chest x-ray reporting bilateral multifocal mid to lower lung opacity is redemonstrated, more prominent in the left midlung compared to one day later, consistent with progression .Swallow evaluation pending.Sitting up in chair. Increasing inflammatory markers with the exception of ferritin, unchanged. Afebrile, WBC 12.9. Sodium decreased to 131, potassium 3.1, bicarb 21, renal function stable. Blood sugars ranging from 80-140. Echo reported EF of 30-35% with hypokinetic LV wall. Possible acute systolic CHF with TRINIDAD inhibitor, IV diuretics initiated. Yesterday afternoon patient had a large bilious emesis as well as bilious liquid diarrhea. KUB reported nonacute abdomen. 12/27/2020 Earlier this morning,", patient presented with slurred speech without asymmetric loss of strength or facial droop. Brain CT reported negative for acute intracranial process, CTA of head and neck reported no significant diameter reduction to account for symptoms, no significant abnormality. Evaluated by neurology, recommendations noted and appreciated. Patient's slurred speech appears to have resolved. Maintaining O2 sats of 90% on 6 L high flow nasal cannula. Chest x-ray reported bilateral confluent airspace disease consistent with pneumonia. Continues on Zosyn. Afebrile. Receiving supplements for potassium level 2.7, magnesium 1.5. Troponin pending. Diuresing well on L asix IV push with 24-hour I&O reflecting a negative fluid balance. Renal function stable. 12/28/2020 troponin increased to 0.464 yesterday, post ateam for neurological changes, beta danny added to med regimen as per cardiology today. Diuresing well on Lasix IV push, 24-hour I&O reflecting a negative fluid balance. Chest x- ray reporting persistent but improving airspace infiltrates throughout the right lung and left lower lobe. Oxygen weaned down to 4 L nasal cannula maintaining O2 sats in the low 90s. Denies any chest pain, palpitations or increase in shortness of breath. Renal function stable. Potassium 3.4. 12/29/2020 reports back pain worse. Pain management adjusted from Brogan to Dilaudid 2 mg every 8 hours prn. Extremely weak, maintaining O2 sats in the 90s on 8 L. Continues on Zosyn, Covid regimen. Afebrile. Diuresing well on Lasix IV with 24-hour I&O reflecting a negative fluid balance. 01/01/2021 Chronic back pain Over the weekend pain management extended to include Dilaudid IV push which appears to be contributing to hypotensive events. Dilaudid both po and IV push discontinued. Pain management will be adjusted to Percocet. Maintaining O2 sats in the high 90s on 4 L nasal cannula. Magnesium 1.5. Troponin 0.053 decreased from prior troponin 0.464, cardiology following, medications adjusted. Diuresing well on oral Lasix with 24-hour I&O reflecting a negative fluid balance. Renal function stable. 01/01/2021 Chronic back pain Over the weekend pain management extended to include Dilaudid IV push which appears to be contributing to hypotensive events. Dilaudid both po and IV push discontinued. Pain management will be adjusted to Percocet. Maintaining O2 sats in the high 90s on 4 L nasal cannula. Magnesium 1.5. Troponin 0.053 decreased from prior troponin 0.464, cardiology following, medications adjusted. Diuresing well on oral Lasix with 24-hour I&O reflecting a negative fluid balance. Renal function stable. Objective - Vital Signs Vital signs: Vital Signs Temp 97.1 F L 01/01/21 08:00 Pulse 71 01/01/21 16:00 Resp 20 01/01/21 16:00 BP 108/57 01/01/21 16:00 Pulse Ox 95 01/01/21 16:00 Intake & Output 12/31/20 01/01/21 01/01/21 18:59 06:59 18:59 Output Total 350 1200 550 Balance -350 -1200 -550 Weight 42.2 kg Output: Urine 350 1200 550 Other: Voiding Method Indwelling Catheter Indwelling Catheter Indwelling Catheter # Voids 1 # Bowel Movements 1 - Exam - Exam GENERAL: Chronically Cachectic, sitting up in chair, NAD NECK: Supple, No JVD. CARDIOVASCULAR: S1, S2 regular. Systolic murmur RESPIRATION: Breath sounds diminished. Scattered rhonchi, bibasilar crackles. ABDOMEN: Soft, nondistended, epigastric tenderness, No guarding. no masses palpable.Bowel sounds heard. Extremities: No edema. no swelling PSYCHIATRY: Alert and oriented X3, mood and affect normal. NERVOUS SYSTEM: Cranial N 2-12 grossly normal. Moves all 4 limbs. No focal deficits. Strength and sensation grossly intact. Skin: Warm and dry, no rash - Labs CBC & Chem 7: 01/01/21 08:17 01/01/21 08:11 Labs: Abnormal Lab Results - Last 24 Hours (Table) 12/31/20 01/01/21 01/01/21 Range/Units 20:13 08:11 08:11 RBC (3.80-5.40) m/uL Hgb (11.4-16.0) gm/dL Hct (34.0-46.0) % MCHC (31.0-37.0) g/dL Lymphocytes # (1.0-4.8) k/uL Fibrinogen (200-500) mg/dL D-Dimer (<0.60) mg/L FEU BUN 23 H (7-17) mg/dL POC Glucose (mg/dL) 115 H (75-99) mg/dL Calcium 8.3 L (8.4-10.2) mg/dL Magnesium 1.5 L (1.6-2.3) mg/dL Lactate Dehydrogenase 623 H (313-618) U/L Troponin I 0.053 H* (0.000-0.034) ng/mL C-Reactive Protein 8.0 H (<1.0) mg/dL Total Protein 5.0 L (6.3-8.2) g/dL Albumin 2.5 L (3.5-5.0) g/dL 01/01/21 01/01/21 01/01/21 Range/Units 08:17 08:17 16:37 RBC 3.25 L (3.80-5.40) m/uL Hgb 9.5 L (11.4-16.0) gm/dL Hct 31.1 L (34.0-46.0) % MCHC 30.7 L (31.0-37.0) g/dL Lymphocytes # 0.4 L (1.0-4.8) k/uL Fibrinogen 585 H (200-500) mg/dL D-Dimer 1.00 H (<0.60) mg/L FEU BUN (7-17) mg/dL POC Glucose (mg/dL) 128 H (75-99) mg/dL Calcium (8.4-10.2) mg/dL Magnesium (1.6-2.3) mg/dL Lactate Dehydrogenase (313-618) U/L Troponin I (0.000-0.034) ng/mL C-Reactive Protein (<1.0) mg/dL Total Protein (6.3-8.2) g/dL Albumin (3.5-5.0) g/dL Microbiology - Last 24 Hours (Table) 12/26/20 05:08 Blood Culture - Final Blood No Growth after 144 hours Assessment and Plan Assessment: Acute COVID-19 pneumonia, status post monoclonal antibodies in the ER Possible aspiration pneumonia, swallow evaluation pending Possible component of acute CHF, systolic dysfunction, EF 30-35% Acute hypoxic respiratory failure secondary to the above Symptomatic sinus bradycardia, resolved Elevated troponin, cardiology following-reporting no acute ischemic event. Epigastric abdominal pain secondary to constipation Chronic severe protein calorie malnutrition, BMI 16.1 Chronic left upper quadrant pain radiates to right upper quadrant. History of hepatic fluid collection, possibly pseudocyst or hepatic cyst, follows with GI outpatient Chronic Autoimmune Hepatitis C, Leukocytosis Hypomagnesemia Hypokalemia Dehydration History of IBS with chronic constipation History of rectal prolapse Plan: Continue on current medication regime, monitoring and symptomatically treatment.Pain management adjusted. PT re-consulted, discharge planning in progress. Maintain Covid cocktail, bronchodilators, Zosyn and oral diuretics. Further management adjustments per cardiology noted. Prognosis guarded given multiple complex medical issues. Discharge planning in progress for tomorrow pending final DC recommendations and clearance per cardiology and pulmonary. The impression and plan of care has been dictated as directed. : I performed a history and examination of this patient, discussed the same with the dictator. I agree with the dictator's note ,documented as a scribe. Any additional findings or plans will be noted.
--- NOTE | 2021-01-02 11:45 | P.DS ---
Providers Date of admission: 12/21/20 17:15 Expected date of discharge: 01/02/21 Attending physician: Zachary Ta Consults: 12/22/20 11:21 Consult Physician Routine Consulting Provider: Jacek Hendricks Consult Reason/Comments: Covid Do you want consulting provider notified?: Yes 12/25/20 13:09 Consult Physician Routine Consulting Provider: Melly Butler Consult Reason/Comments: icu management, worsening respiratory Do you want consulting provider notified?: Yes 12/27/20 15:46 Consult Physician Routine Consulting Provider: Roque Gonzalez Consult Reason/Comments: Code stroke mental status changes Do you want consulting provider notified?: Yes Primary care physician: Yash Umanzor Hospital Course: Final Diagnoses: Acute COVID-19 pneumonia, status post monoclonal antibodies in the ER Possible aspiration pneumonia Possible component of acute CHF, systolic dysfunction, EF 30-35% Acute hypoxic respiratory failure secondary to the above Symptomatic sinus bradycardia, resolved Elevated troponin, cardiology following-reporting no acute ischemic event. Epigastric abdominal pain secondary to constipation Chronic severe protein calorie malnutrition, BMI 16.1 Chronic left upper quadrant pain radiates to right upper quadrant. History of hepatic fluid collection, possibly pseudocyst or hepatic cyst, follows with GI outpatient Chronic Autoimmune Hepatitis C, Leukocytosis Hypomagnesemia Hypokalemia Dehydration History of IBS with chronic constipation History of rectal prolapse Hospital course:This is a 80-year-old female with past medical history of autoimmune hepatitis C, IBS, cancers 2 and multiple other medical issues follows regularly with Dr. Gianna Sanchez, presented to the ER with complaints of suspected fevers for the last couple of days, constipation, nausea, abdominal pain and decreased oral intake. 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 On admission temperature 103.5, normal WBC ,maintaining O2 sats of mid 90s on room air. Positive for COVID-19. Received monoclonal antibodies. Chest x-ray reportedly mild patchy density left lower lobe with small effusion, improved aeration of right lung. Abdomen/pelvis CT reported persistent subcapsular hepatic fluid collection, persistent dilatation of the intrahepatic biliary tree, common bile duct and pancreatic duct, possible enteritis, fluid distended small bowel, stool throughout the colon a consistent hematuria within the right; likely from congestive products with no evidence of abscess or free air. EKG reportedly normal sinus rhythm, troponin negative 1. Denies chest pain, palpi tations or increasing shortness of breath. The hemoglobin 10.4, platelets 140, sodium 138, potassium 3, bicarb 25, BUN 24, creatinine 0.79, glucose 109, magnesium 1.2. UA negative. IV fluids initiated. 12/23/2020: Patient remains in the high 90s on room air pulse oximetry. Blood pressure stable. Her a slightly bradycardic. MAXIMUM TEMPERATURE is 98.2. Nizoral she'll 6 bowel movements yesterday, 1 void. Weight is 40.8 EKG. Laboratory studies showed WBC count 3.1 hemoglobin 9.3 platelets are 120 today. GFR is 70.6. Pro-calcitonin 0.18 LDH was 256. CRP was 3.6. These markers of inflammation are elevated. Blood cultures negative 224 hours. She continues on: Cocktail of dexamethasone, colchicine, cholecalciferol, magnesium replacement, vitamin C, zinc, and some of her home meds. She is complaining of some fatigue today. She otherwise has no other complaints this time. She denies any chest pains, pressures, or shortness breath. Denies any nausea or vomiting. Has chronic mild abdominal pain from her autoimmune hepatitis. Infectious disease is following as well. December 24, 2020: overnight patient had significant bradycardia. I was contacted that telemetry showed heart rate in the 30s and 40s. She had some nausea at that point and then Atrial fibrillation was noted. This will be new for her shes never had anything like this before. Shes not take any medications that may induce bradycardia either. Her heart rate went down in the upper 20s and an A team was called. Cardiology was consulted. She was transferred to the intensive care unit where she is now. Currently shes complaining of significant nausea. She has Zofran ordered for this, but it is minmmaly effective. Heart rate has remained in the 50s since transfer the ICU. She did receive one dose of atropine before transfer. She is now requiring oxygen with some a.m. hypoxia 86% shes on 4 L via nasal cannula. Blood pressures remain stable. She has been afebrile. She had emesis times two, and one void.Laboratory studies show hemoglobin 10.6. GFR is 62 glucose is 146. Calcium 7.9 magnesium 1.6 total proteins 4.9 albumin 2.6. TSH was normal troponin was normal.Event note from Dr. Wesley and cardiology consultation Dr. Joseph reviewed. She remains on Covid cocktail,klonopin for anxiety, colchicine and dexamethasone for inflammation, her Lovenox is been increase per Dr. Joseph, she continues on some of her home medication as well. Including Cellcept. bdominal pain minimal today. No chest pain, pressure. No SOB. 12/25/2020 echo completed, pending. Converted to sinus rhythm with first- degree AV block. Chest x-ray reporting significant interval progression of infiltrates with a large area of airspace consolidation right perihilar and right lower lobe as well as the left lower lobe and periphery of the left lung. Maintaining O2 sats in the 90s on 7 L high flow nasal cannula. Reglan initiated yesterday with no further nausea currently reported. Denies chest pain, palpitations. 12/26/2020 continues on Covid cocktail ,maintaining O2 sats of 87-90% on 6 L nasal cannula. Chest x-ray reporting bilateral multifocal mid to lower lung opacity is redemonstrated, more prominent in the left midlung compared to one day later, consistent with progression .Swallow evaluation pending.Sitting up in chair. Increasing inflammatory markers with the exception of ferritin, unchanged. Afebrile, WBC 12.9. Sodium decreased to 131, potassium 3.1, bicarb 21, renal function stable. Blood sugars ranging from 80-140. Echo reported EF of 30-35% with hypokinetic LV wall. Possible acute systolic CHF with TRINIDAD inhibitor, IV diuretics initiated. Yesterday afternoon patient had a large bilious emesis as well as bilious liquid diarrhea. KUB reported nonacute abdomen. 12/27/2020 Earlier this morning,", patient presented with slurred speech without asymmetric loss of strength or facial droop. Brain CT reported negative for acute intracranial process, CTA of head and neck reported no significant diameter reduction to account for symptoms, no significant abnormality. Evaluated by neurology, recommendations noted and appreciated. Patient's slurred speech appears to have resolved. Maintaining O2 sats of 90% on 6 L high flow nasal cannula. Chest x-ray reported bilateral confluent airspace disease consistent with pneumonia. Continues on Zosyn. Afebrile. Receiving supplements for potassium level 2.7, magnesium 1.5. Troponin pending. Diuresing well on Lasix IV push with 24-hour I&O reflecting a negative fluid balance. Renal function stable. 12/28/2020 troponin increased to 0.464 yesterday, post ateam for neurological changes, beta danny added to med regimen as per cardiology today. Diuresing well on Lasix IV push, 24-hour I&O reflecting a negative fluid balance. Chest x- ray reporting persistent but improving airspace infiltrates throughout the right lung and left lower lobe. Oxygen weaned down to 4 L nasal cannula maintaining O2 sats in the low 90s. Denies any chest pain, palpitations or increase in shortness of breath. Renal function stable. Potassium 3.4. 12/29/2020 reports back pain worse. Pain management adjusted from [place] to Dilaudid 2 mg every 8 hours prn. Extremely weak, maintaining O2 sats in the 90s on 8 L. Continues on Zosyn, Covid regimen. Afebrile. Diuresing well on Lasix IV with 24-hour I&O reflecting a negative fluid balance. 01/01/2021 Chronic back pain Over the weekend pain management extended to include Dilaudid IV push which appears to be contributing to hypotensive events. Dilaudid both po and IV push discontinued. Pain management will be adjusted to Percocet. Maintaining O2 sats in the high 90s on 4 L nasal cannula. Magnesium 1.5. Troponin 0.053 decreased from prior troponin 0.464, cardiology following, medications adjusted. Diuresing well on oral Lasix with 24-hour I&O reflecting a negative fluid balance. Renal function stable. 01/01/2021 Chronic back pain Over the weekend pain management extended to include Dilaudid IV push which appears to be contributing to hypotensive events. Dilaudid both po and IV push discontinued. Pain management will be adjusted to Percocet. Maintaining O2 sats in the high 90s on 4 L nasal cannula. Magnesium 1.5. Troponin 0.053 decreased from prior troponin 0.464, cardiology following, medications adjusted. Diuresing well on oral Lasix with 24-hour I&O reflecting a negative fluid balance. Renal function stable. Significant clinical improvement. Patient currently maintaining O2 sats of 97% on 2 L nasal cannula O2. Magnesium 1.6, supplemented. Afebrile. Denies any chest pain, palpitations or increasing shortness of breath. Patient will be discharged to [facility] subacute rehab today pending final DC recommendations and clearance from both pulmonary and cardiology. The impression and plan of care has been dictated as directed. : I performed a history and examination of this patient, discussed the same with the dictator. I agree with the dictator's note ,documented as a scribe. Any additional findings or plans will be noted. Patient Condition at Discharge: Stable Plan - Discharge Summary Discharge Rx Participant: No New Discharge Prescriptions: New Loperamide [Imodium] 2 mg PO QID PRN cap PRN Reason: Diarrhea Furosemide [Lasix] 20 mg PO BID tab Zinc Sulfate [Orazinc] 220 mg PO DAILY cap Cholestyramine (with Sugar) [Questran Packet] 4 gm PO DAILY@1500 packet Acetaminophen Tab [Tylenol] 650 mg PO Q6HR PRN tab PRN Reason: Mild Pain Or Fever > 100.5 Cholecalciferol [Vitamin D3 (25 Mcg = 1000 Iu)] 25 mcg PO DAILY tablet Aspirin 81 mg PO DAILY tab INSULIN LISPRO (HumaLOG) [humaLOG] 0 unit SQ ACHS #10 ml Metoprolol Tartrate [Lopressor] 12.5 mg PO BID tab oxyCODONE-APAP 10-325MG [Percocet 10-325 mg] 2 each PO Q6HR PRN 3 Days #24 tab PRN Reason: Moderate To Severe Pain hydrOXYzine pamoate [Vistaril] 25 mg PO Q6HR PRN cap PRN Reason: pain, anxiety Ascorbic Acid [Vitamin C] 500 mg PO BID tab oxyCODONE-APAP 10-325MG [Percocet 10-325 mg] 1 each PO Q6HR PRN #12 tab PRN Reason: Pain Continue Levothyroxine Sodium [Synthroid] 125 mcg PO DAILY mycophenolate mofetiL [Cellcept] 1,000 mg PO BID Escitalopram Oxalate [Lexapro] 20 mg PO DAILY Dicyclomine [Bentyl] 20 mg PO ACHS Fluticasone Nasal [place] [Flonase Nasal [place]] 1 spr EA NOSTRIL BID Tamsulosin HCl [Flomax] 0.4 mg PO HS Omeprazole 40 mg PO DAILY clonazePAM [KlonoPIN] 1 mg PO DAILY Budesonide [Budesonide EC] 9 mg PO DAILY traZODone HCL 100 mg PO HS Fluoride (Sodium) [Sodium Fluoride 5000 Plus] 1 applic DENTAL HS Ondansetron [Zofran] 4 mg PO Q6H PRN PRN Reason: Nausea Lidocaine 5% Patch [Lidoderm 5% Patch] 1 patch TRANSDERM DAILY Discontinued HYDROmorphone HCL [Dilaudid] 8 mg PO Q6H valACYclovir HCL [Valtrex] 1,000 mg PO BID PRN PRN Reason: first sign of breakout Nystatin 100,000 Unit/gm Oint [Mycostatin Oint] 1 applic TOPICAL TID methylPREDNISolone [Medrol Dose Pack] See Taper PO DAILY dexAMETHasone [Decadron Elixir] 0.5 mg PO QID Discharge Medication List Levothyroxine Sodium [Synthroid] 125 mcg PO DAILY 12/21/13 [History] mycophenolate mofetiL [Cellcept] 1,000 mg PO BID 12/21/13 [History] Escitalopram Oxalate [Lexapro] 20 mg PO DAILY 04/26/19 [History] Dicyclomine [Bentyl] 20 mg PO ACHS 01/13/20 [History] Budesonide [Budesonide EC] 9 mg PO DAILY 08/21/20 [History] Omeprazole 40 mg PO DAILY 08/21/20 [History] Tamsulosin HCl [Flomax] 0.4 mg PO HS 08/21/20 [History] clonazePAM [KlonoPIN] 1 mg PO DAILY 08/21/20 [History] traZODone HCL 100 mg PO HS 08/21/20 [History] Fluoride (Sodium) [Sodium Fluoride 5000 Plus] 1 applic DENTAL HS 12/21/20 [History] Fluticasone Nasal [place] [Flonase Nasal [place]] 1 spr EA NOSTRIL BID 12/21/20 [History] Lidocaine 5% Patch [Lidoderm 5% Patch] 1 patch TRANSDERM DAILY 12/21/20 [History] Ondansetron [Zofran] 4 mg PO Q6H PRN 12/21/20 [History] Acetaminophen Tab [Tylenol] 650 mg PO Q6HR PRN tab 01/02/21 [Rx] Ascorbic Acid [Vitamin C] 500 mg PO BID tab 01/02/21 [Rx] Aspirin 81 mg PO DAILY tab 01/02/21 [Rx] Cholecalciferol [Vitamin D3 (25 Mcg = 1000 Iu)] 25 mcg PO DAILY tablet 01/02/21 [Rx] Cholestyramine (with Sugar) [Questran Packet] 4 gm PO DAILY@1500 packet 01/02/21 [Rx] Furosemide [Lasix] 20 mg PO BID tab 01/02/21 [Rx] INSULIN LISPRO (HumaLOG) [humaLOG] 0 unit SQ ACHS #10 ml 01/02/21 [Rx] Loperamide [Imodium] 2 mg PO QID PRN cap 01/02/21 [Rx] Metoprolol Tartrate [Lopressor] 12.5 mg PO BID tab 01/02/21 [Rx] Zinc Sulfate [Orazinc] 220 mg PO DAILY cap 01/02/21 [Rx] hydrOXYzine pamoate [Vistaril] 25 mg PO Q6HR PRN cap 01/02/21 [Rx] oxyCODONE-APAP 10-325MG [Percocet 10-325 mg] 1 each PO Q6HR PRN #12 tab 01/02/21 [Rx] oxyCODONE-APAP 10-325MG [Percocet 10-325 mg] 2 each PO Q6HR PRN 3 Days #24 tab 01/02/21 [Rx] Follow up Appointment(s)/Referral(s): Ailyn Charles MD [STAFF PHYSICIAN] - 3 Weeks Yash Umanzor MD [Primary Care Provider] - 3 Days () Activity/Diet/Wound Care/Special Instructions: Jay ST pending pulmonary and cardiology final dc rec. & clearance. cbc,bmp in 3 days
[2021-01-02 12:15] LABS: Glucose,Whole Blood 151 mg/dL (75-99)
[2021-01-02] MEDS: clonazePAM 1 MG TAB PO SCH (12:27)
[2021-01-02] MEDS: FUROSEMIDE 20 MG TAB PO SCH ×2 (12:27→21:37)
[2021-01-02] MEDS: METOPROLOL TARTRATE 12.5 MG TAB PO SCH ×2 (12:27→21:37)
--- NOTE | 2021-01-02 13:17 | P.PN ---
Subjective Progress Note Date: 01/02/21 Principal diagnosis: Shortness of breath On 01/01/2021 patient seen in follow-up on selective care unit. She is currently on 4 L of oxygen, she looks weak, but fairly comfortable, does not appear to be in any acute distress. Her O2 saturations on 4 L are 99%, no fever or chills, vital signs have been stable, lung are positive for diminished breath sounds bilaterally, with scattered crackles. Her last chest x-ray from 12/30/2020 showed improving aeration. Patient currently remains on oral Lasix 20 mg twice daily, she is on bronchodilators, Decadron 6 mg daily, and Lovenox 40 mg twice a day. Today's labs have been reviewed, her white blood cell count is improving and is down to 7.2, hemoglobin is 9.5, d-dimer is down to 1, electrolytes are within normal limits, B1 is 23 creatinine 0.6. Troponin is 0.053, proBNP was significantly improved and was down to 1460 on today's labs. Patient is maintaining negative fluid balance, she is in -1.5 L over the last 24 hours. On 01/02/2021 patient seen in follow-up on selective care unit, she is awake and alert, in no acute distress, she is currently down to 2 L of oxygen, breathing comfortably, pulse ox is 97%. Vital signs have been stable, no fever or chills, no complaints of chest pain, she does complain of some abdominal discomfort, but no nausea or vomiting, and abdomen is soft. She's been tolerating oral intake, she is generally weak, she was evaluated by physical therapy, recommendation was made for subacute rehab placement after discharge. No new chest x-rays, labs from yesterday were reviewed. She continues on oral Lasix, her BNP significantly improved on yesterday's labs, remains on Decadron 6 mg daily, and to Lovenox 40 mg twice daily. Objective - Vital Signs Vital signs: Vital Signs Temp 98.1 F 01/02/21 11:58 Pulse 70 01/02/21 11:58 Resp 18 01/02/21 11:58 BP 90/46 01/02/21 11:58 Pulse Ox 97 01/02/21 11:58 Intake & Output 01/01/21 01/02/21 01/02/21 18:59 06:59 18:59 Intake Total 118 Output Total 675 1100 Balance -635 -023 Weight 42.2 kg 42.5 kg Intake: Oral 118 Output: Urine 675 1100 Uretheral ([place]) 100 Other: Voiding Method Indwelling Catheter Indwelling Catheter Indwelling Catheter - Exam GENERAL EXAM: Alert, very pleasant, but very weak and frail looking 80-year-old white female, currently on 2 L of oxygen and the pulse ox of 99% comfortable in no apparent distress. HEAD: Normocephalic/atraumatic. EYES: Normal reaction of pupils, equal size. Conjunctiva pink, sclera white. NOSE: Clear with pink turbinates. THROAT: No erythema or exudates. NECK: No masses, no JVD, no thyroid enlargement, no adenopathy. CHEST: No chest wall deformity. Symmetrical expansion. LUNGS: Equal air entry with bilateral crackles CVS: Regular rate and rhythm, normal S1 and S2, no gallops, no murmurs, no rubs ABDOMEN: Soft, nontender. No hepatosplenomegaly, normal bowel sounds, no guarding or rigidity. EXTREMITIES: No clubbing, no edema, no cyanosis, 2+ pulses and upper and lower extremities. MUSCULOSKELETAL: Muscle strength and tone normal. SPINE: No scoliosis or deformity SKIN: No rashes CENTRAL NERVOUS SYSTEM: Alert and oriented -3. No focal deficits, tone is normal in all 4 extremities. PSYCHIATRIC: Alert and oriented -3. Appropriate affect. Intact judgment and insight. - Labs CBC & Chem 7: 01/01/21 08:17 01/01/21 08:11 Labs: Abnormal Lab Results - Last 24 Hours (Table) 01/01/21 01/01/21 01/02/21 Range/Units 16:37 20:03 12:14 POC Glucose (mg/dL) 128 H 210 H 151 H (75-99) mg/dL Assessment and Plan Plan: Assessment: #1. Acute hypoxic respiratory failure, multifactorial, related to acute COVID- 19 pneumonia, acute exacerbation of systolic CHF, and possible superimposed aspiration pneumonia. Patient did receive monoclonal antibody upon her initial admission #2. General medical debility #3. History of irritable bowel syndrome #4. Autoimmune hepatitis #5. Degenerative joint disease #6. Episode of intermittent bradycardia, resolved #7. Severe LV dysfunction Plan: Continue current medical treatment Continue Decadron Anticoagulation for paroxysmal atrial fibrillation per cardiology recommendations upon discharge Maintenance dose Lasix per cardiology Stable for discharge to ECF today from pulmonary perspective Outpatient follow-up with Dr. Butler in the office in 2 weeks I performed a history & physical examination of the patient and discussed their management with my nurse practitioner, Robina Brooke. I reviewed the nurse pr actitioner's note and agree with the documented findings and plan of care. Lung sounds are positive for diffuse crackles throughout the lung junior. The findings and the impression was discussed with the patient. I attest to the documentation by the nurse practitioner. Time with Patient: Less than 30
--- NOTE | 2021-01-02 14:40 | PN ---
PROGRESS NOTE DATE OF SERVICE: 01/02/2021 REASON FOR FOLLOWUP: 1. COVID-19 pneumonia. 2. Diarrhea. INTERVAL HISTORY: Patient is afebrile, breathing more comfortably. Denies any chest pain. Continues to have a cough, not bringing up any sputum. No abdominal pain. No nausea and no worsening diarrhea. PHYSICAL EXAMINATION: Blood pressure is 90/46, pulse of 78, temperature 98.1. She is 97% on 2 L nasal cannula. General description is an elderly female lying in bed in no distress. Respiratory system: Unlabored breathing, decreased intensity of breath sounds. No wheeze. Heart S1, S2. Regular rate and rhythm. Abdomen soft, no tenderness. LABS: No new labs have been obtained today. DIAGNOSTIC IMPRESSION AND PLAN: 1. Patient with acute COVID-19 infection in this patient with overall improvement. We will finish a short course of oral continue her anticoagulation. 2. Diarrhea seems to have resolved. Questran can be discontinued. MMODL / IJN: [id number] /
[2021-01-02] MEDS: FLUTICASONE 50MCG/SPRAY NASAL 16GM EA NOSTRIL SCH ×2 (14:54→21:46)
[2021-01-02] MEDS: BUDESONIDE 3 MG PO SCH (14:54)
[2021-01-02] MEDS: CHOLESTYRAMINE (WITH SUGAR) 4 GM PACKET PO SCH (16:14)
[2021-01-02 16:53] LABS: Glucose,Whole Blood 144 mg/dL (75-99)
[2021-01-02 20:50] LABS: Glucose,Whole Blood 202 mg/dL (75-99)
[2021-01-02] MEDS: FLUORIDE MISCELLANE SCH (21:36)
[2021-01-02] MEDS: traZODone HCL 100 MG TAB PO SCH (21:46)
[2021-01-02] MEDS: ARTIFICIAL TEARS-HYPROMELLOSE DROPS 15 ML BTL BOTH EYES PRN (21:46)
[2021-01-02] MEDS: TAMSULOSIN 0.4 MG CAP.ER.24H PO SCH (21:46)
[2021-01-03] MEDS: LEVOTHYROXINE 125 MCG TAB PO SCH (04:42)
[2021-01-03] MEDS: PANTOPRAZOLE 40 MG TABLET PO SCH (04:42)
[2021-01-03] MEDS: DICYCLOMINE 20 MG TAB PO SCH ×4 (04:42→20:52)
[2021-01-03 06:29] LABS: Glucose,Whole Blood 85 mg/dL (75-99)
[2021-01-03] MEDS: INSULIN ASPART (NovoLOG) 100 UNIT/ML VIAL SQ SCH ×4 (06:47→20:50)
[2021-01-03] MEDS: SODIUM CHLORIDE 0.9% 1,000 ML IV SCH (07:01)
[2021-01-03 09:02] LABS: INR 0.9 (<1.2); Prothrombin Time 10.1 sec (9.0-12.0)
[2021-01-03] MEDS: ZINC SULFATE 220 MG CAP PO SCH (09:03)
[2021-01-03] MEDS: ASCORBIC ACID 500 MG TAB PO SCH ×2 (09:03→20:52)
[2021-01-03] MEDS: METOPROLOL TARTRATE 12.5 MG TAB PO SCH ×2 (09:03→20:07)
[2021-01-03] MEDS: clonazePAM 1 MG TAB PO SCH (09:03)
[2021-01-03] MEDS: ESCITALOPRAM 20 MG TAB PO SCH (09:04)
[2021-01-03] MEDS: ENOXAPARIN 40 MG/0.4 ML SYRINGE SQ SCH (09:04)
[2021-01-03] MEDS: CHOLECALCIFEROL 25 MCG (1000 IU) TABLET PO SCH (09:04)
[2021-01-03] MEDS: FUROSEMIDE 20 MG TAB PO SCH ×2 (09:04→20:07)
[2021-01-03] MEDS: DEXAMETHASONE SOD PHOSPHATE 10 MG/ML 1 ML VIAL IVP SCH (09:04)
[2021-01-03] MEDS: oxyCODONE-APAP 10-325MG 1 EACH TAB PO PRN ×2 (09:04→15:13)
[2021-01-03] MEDS: ASPIRIN 81 MG PO SCH (09:04)
[2021-01-03 09:08] LABS: Partial Thromboplastin Time 21.9 sec (22.0-30.0)
[2021-01-03 09:48] LABS: ALT 15 U/L (4-34); AST 22 U/L (14-36); African American GFR (CKD) >90 (>60 ml/min/1.73 sqM); Albumin 2.7 g/dL (3.5-5.0); Alkaline Phosphatase 78 U/L (38-126); Anion Gap 4 mmol/L; Blood Urea Nitrogen 18 mg/dL (7-17); C Reactive Protein 4.4 mg/dL (<1.0); Calcium 8.5 mg/dL (8.4-10.2); Carbon Dioxide 31 mmol/L (22-30); Chloride 102 mmol/L (98-107); Glucose 89 mg/dL (74-99); LDH 486 U/L (313-618); Magnesium 2.1 mg/dL (1.6-2.3); Non-African American GFR(CKD) 89 (>60 ml/min/1.73 sqM); Potassium 3.7 mmol/L (3.5-5.1); Sodium 137 mmol/L (137-145); Total Bilirubin 0.2 mg/dL (0.2-1.3); Total Protein 5.4 g/dL (6.3-8.2)
[2021-01-03 11:59] LABS: Glucose,Whole Blood 120 mg/dL (75-99)
[2021-01-03] MEDS: LIDOCAINE 5% PATCH TOPICAL SCH (12:20)
[2021-01-03] MEDS: FLUTICASONE 50MCG/SPRAY NASAL 16GM EA NOSTRIL SCH ×2 (12:22→20:51)
--- NOTE | 2021-01-03 14:40 | P.PN ---
Subjective Progress Note Date: 01/03/21 Principal diagnosis: Shortness of breath On 01/01/2021 patient seen in follow-up on selective care unit. She is currently on 4 L of oxygen, she looks weak, but fairly comfortable, does not appear to be in any acute distress. Her O2 saturations on 4 L are 99%, no fever or chills, vital signs have been stable, lung are positive for diminished breath sounds bilaterally, with scattered crackles. Her last chest x-ray from 12/30/2020 showed improving aeration. Patient currently remains on oral Lasix 20 mg twice daily, she is on bronchodilators, Decadron 6 mg daily, and Lovenox 40 mg twice a day. Today's labs have been reviewed, her white blood cell count is improving and is down to 7.2, hemoglobin is 9.5, d-dimer is down to 1, electrolytes are within normal limits, B1 is 23 creatinine 0.6. Troponin is 0.053, proBNP was significantly improved and was down to 1460 on today's labs. Patient is maintaining negative fluid balance, she is in -1.5 L over the last 24 hours. On 01/02/2021 patient seen in follow-up on selective care unit, she is awake and alert, in no acute distress, she is currently down to 2 L of oxygen, breathing comfortably, pulse ox is 97%. Vital signs have been stable, no fever or chills, no complaints of chest pain, she does complain of some abdominal discomfort, but no nausea or vomiting, and abdomen is soft. She's been tolerating oral intake, she is generally weak, she was evaluated by physical therapy, recommendation was made for subacute rehab placement after discharge. No new chest x-rays, labs from yesterday were reviewed. She continues on oral Lasix, her BNP significantly improved on yesterday's labs, remains on Decadron 6 mg daily, and to Lovenox 40 mg twice daily. On 01/03/2021 patient seen in follow-up on selective care unit, she is awake and alert, in no acute distress, today she sitting up on the edge of the bed, she is feeding herself, she is breathing comfortably, she is on room air. Sounds are diminished, no crackles, no wheezing, patient is much more awake, she appears stronger on today's exam, although generally she still pretty weak, had no fever or chills overnight, no new chest x-ray today. His labs have been reviewed, d- dimer is improved and is down to 0.84, electrolytes and renal profile are unre markable, LDH is down to normal on today's labs at 486, CRP is improved and is down to 4.4. Patient is awaiting transfer to subacute rehab possibly this afternoon. Objective - Vital Signs Vital signs: Vital Signs Temp 98.7 F 01/03/21 00:00 Pulse 83 01/03/21 09:10 Resp 20 01/03/21 09:10 BP 101/49 01/03/21 09:10 Pulse Ox 96 01/03/21 09:10 Intake & Output 01/02/21 01/03/21 01/03/21 18:59 06:59 18:59 Intake Total 198 118 Output Total 1250 600 Balance -1052 -482 Weight 42.5 kg Intake: Oral 198 118 Output: Urine 1250 600 Uretheral (Rogers) 100 300 Other: Voiding Method Indwelling Catheter Indwelling Catheter Indwelling Catheter - Exam GENERAL EXAM: Alert, very pleasant, but very weak and frail looking 80-year-old white female, currently on room air with the pulse ox of 96% comfortable in no apparent distress. HEAD: Normocephalic/atraumatic. EYES: Normal reaction of pupils, equal size. Conjunctiva pink, sclera white. NOSE: Clear with pink turbinates. THROAT: No erythema or exudates. NECK: No masses, no JVD, no thyroid enlargement, no adenopathy. CHEST: No chest wall deformity. Symmetrical expansion. LUNGS: Equal air entry with bilateral crackles CVS: Regular rate and rhythm, normal S1 and S2, no gallops, no murmurs, no rubs ABDOMEN: Soft, nontender. No hepatosplenomegaly, normal bowel sounds, no gua rding or rigidity. EXTREMITIES: No clubbing, no edema, no cyanosis, 2+ pulses and upper and lower extremities. MUSCULOSKELETAL: Muscle strength and tone normal. SPINE: No scoliosis or deformity SKIN: No rashes CENTRAL NERVOUS SYSTEM: Alert and oriented -3. No focal deficits, tone is normal in all 4 extremities. PSYCHIATRIC: Alert and oriented -3. Appropriate affect. Intact judgment and insight. - Labs CBC & Chem 7: 01/01/21 08:17 01/03/21 08:03 Labs: Abnormal Lab Results - Last 24 Hours (Table) 01/02/21 01/02/21 01/03/21 Range/Units 16:52 20:49 08:03 APTT 21.9 L (22.0-30.0) sec Fibrinogen 606 H (200-500) mg/dL D-Dimer 0.84 H (<0.60) mg/L FEU Carbon Dioxide (22-30) mmol/L BUN (7-17) mg/dL POC Glucose (mg/dL) 144 H 202 H (75-99) mg/dL C-Reactive Protein (<1.0) mg/dL Total Protein (6.3-8.2) g/dL Albumin (3.5-5.0) g/dL 01/03/21 01/03/21 Range/Units 08:03 11:58 APTT (22.0-30.0) sec Fibrinogen (200-500) mg/dL D-Dimer (<0.60) mg/L FEU Carbon Dioxide 31 H (22-30) mmol/L BUN 18 H (7-17) mg/dL POC Glucose (mg/dL) 120 H (75-99) mg/dL C-Reactive Protein 4.4 H (<1.0) mg/dL Total Protein 5.4 L (6.3-8.2) g/dL Albumin 2.7 L (3.5-5.0) g/dL Assessment and Plan Plan: Assessment: #1. Acute hypoxic respiratory failure, multifactorial, related to acute COVID- 19 pneumonia, acute exacerbation of systolic CHF, and possible superimposed aspiration pneumonia. Patient did receive monoclonal antibody upon her initial admission. Patient's hypoxia has resolved, she is currently maintaining stable O2 saturations above 90% on room air. #2. General medical debility #3. History of irritable bowel syndrome #4. Autoimmune hepatitis #5. Degenerative joint disease #6. Episode of intermittent bradycardia, resolved #7. Severe LV dysfunction Plan: Patient has been stable the last 24 hours No acute events overnight Currently off all supplemental oxygen Breathing comfortably Vital signs are stable Awaiting transfer to subacute rehab today Patient will need patient follow-up with Dr. Barakat in the office in 2 weeks after discharge I performed a history & physical examination of the patient and discussed their management with my nurse practitioner, Robina Brooke. I reviewed the nurse practitioner's note and agree with the documented findings and plan of care. Lung sounds are positive for diffuse crackles throughout the lung junior. The findings and the impression was discussed with the patient. I attest to the documentation by the nurse practitioner. Time with Patient: Less than 30
[2021-01-03] MEDS: BUDESONIDE 3 MG PO SCH (14:43)
[2021-01-03] MEDS: CHOLESTYRAMINE (WITH SUGAR) 4 GM PACKET PO SCH (14:45)
[2021-01-03 16:46] LABS: Glucose,Whole Blood 125 mg/dL (75-99)
--- NOTE | 2021-01-03 17:20 | PN ---
PROGRESS NOTE DATE OF SERVICE: 01/03/2021 REASON FOR FOLLOWUP: Covid 19 infection. INTERVAL HISTORY: Patient is afebrile. The patient is currently breathing comfortably. The patient denies having any chest pain or worsening cough. Some abdominal discomfort but no nausea or vomiting and no worsening diarrhea. PHYSICAL EXAMINATION: Blood pressure 101/49, pulse of 83, temperature 98.7. She is 96% on 1 L nasal cannula. General description is an elderly female lying in bed in no distress. Respiratory system: Unlabored breathing, with few crackles in the bases bilaterally. Heart S1, S2. Regular rate and rhythm. Abdomen soft, no tenderness. LABS: D. dimer 0.84, creatinine 0.57. DIAGNOSTIC IMPRESSION AND PLAN: 1. Patient with acute COVID-19 pneumonia in this patient who has shown overall clinical improvement. Currently down to 1 L nasal cannula. On Dexamethasone, zinc and ascorbic acid. Continue along with respiratory support. 2. The patient with diarrhea, overall resolution. Questran will be discontinued and continue supportive care. MMODL / IJN: [id number] /
[2021-01-03] MEDS: FLUORIDE MISCELLANE SCH (20:32)
[2021-01-03] MEDS: traZODone HCL 100 MG TAB PO SCH (20:50)
[2021-01-03 20:51] LABS: Glucose,Whole Blood 161 mg/dL (75-99)
[2021-01-03] MEDS: ARTIFICIAL TEARS-HYPROMELLOSE DROPS 15 ML BTL BOTH EYES PRN (20:52)
[2021-01-03] MEDS: TAMSULOSIN 0.4 MG CAP.ER.24H PO SCH (20:52)
[2021-01-03 23:51] VITALS: RESP 16
[2021-01-04 06:30] LABS: Glucose,Whole Blood 88 mg/dL (75-99)
[2021-01-04] MEDS: PANTOPRAZOLE 40 MG TABLET PO SCH (06:34)
[2021-01-04] MEDS: DICYCLOMINE 20 MG TAB PO SCH ×3 (06:34→17:38)
[2021-01-04] MEDS: LEVOTHYROXINE 125 MCG TAB PO SCH (06:34)
[2021-01-04] MEDS: INSULIN ASPART (NovoLOG) 100 UNIT/ML VIAL SQ SCH ×3 (06:35→17:39)
[2021-01-04] MEDS: SODIUM CHLORIDE 0.9% 1,000 ML IV SCH (06:41)
[2021-01-04] MEDS: LIDOCAINE 5% PATCH TOPICAL SCH (08:35)
[2021-01-04] MEDS: ENOXAPARIN 40 MG/0.4 ML SYRINGE SQ SCH (08:36)
[2021-01-04] MEDS: oxyCODONE-APAP 10-325MG 1 EACH TAB PO PRN ×2 (08:37→17:38)
[2021-01-04] MEDS: DEXAMETHASONE SOD PHOSPHATE 10 MG/ML 1 ML VIAL IVP SCH (08:37)
[2021-01-04] MEDS: METOPROLOL TARTRATE 12.5 MG TAB PO SCH (08:38)
[2021-01-04] MEDS: ASCORBIC ACID 500 MG TAB PO SCH (08:38)
[2021-01-04] MEDS: clonazePAM 1 MG TAB PO SCH (08:38)
[2021-01-04] MEDS: ZINC SULFATE 220 MG CAP PO SCH (08:38)
[2021-01-04] MEDS: FUROSEMIDE 20 MG TAB PO SCH (08:38)
[2021-01-04] MEDS: ESCITALOPRAM 20 MG TAB PO SCH (08:38)
[2021-01-04] MEDS: ASPIRIN 81 MG PO SCH (08:38)
[2021-01-04] MEDS: CHOLECALCIFEROL 25 MCG (1000 IU) TABLET PO SCH (08:38)
[2021-01-04] MEDS: BUDESONIDE 3 MG PO SCH (08:39)
[2021-01-04] MEDS: FLUTICASONE 50MCG/SPRAY NASAL 16GM EA NOSTRIL SCH (08:39)
[2021-01-04] MEDS: ARTIFICIAL TEARS-HYPROMELLOSE DROPS 15 ML BTL BOTH EYES PRN (08:40)
[2021-01-04 12:00] LABS: Glucose,Whole Blood 161 mg/dL (75-99)
[2021-01-04 13:44] VITALS: BMI 17.1
[2021-01-04 14:27] VITALS: BP 90/41; PULSE 64; TEMP 96.8
--- NOTE | 2021-01-04 15:06 | P.PN ---
Subjective Progress Note Date: 01/04/21 Principal diagnosis: Shortness of breath On 01/01/2021 patient seen in follow-up on selective care unit. She is currently on 4 L of oxygen, she looks weak, but fairly comfortable, does not appear to be in any acute distress. Her O2 saturations on 4 L are 99%, no fever or chills, vital signs have been stable, lung are positive for diminished breath sounds bilaterally, with scattered crackles. Her last chest x-ray from 12/30/2020 showed improving aeration. Patient currently remains on oral Lasix 20 mg twice daily, she is on bronchodilators, Decadron 6 mg daily, and Lovenox 40 mg twice a day. Today's labs have been reviewed, her white blood cell count is improving and is down to 7.2, hemoglobin is 9.5, d-dimer is down to 1, electrolytes are within normal limits, B1 is 23 creatinine 0.6. Troponin is 0.053, proBNP was significantly improved and was down to 1460 on today's labs. Patient is maintaining negative fluid balance, she is in -1.5 L over the last 24 hours. On 01/02/2021 patient seen in follow-up on selective care unit, she is awake and alert, in no acute distress, she is currently down to 2 L of oxygen, breathing comfortably, pulse ox is 97%. Vital signs have been stable, no fever or chills, no complaints of chest pain, she does complain of some abdominal discomfort, but no nausea or vomiting, and abdomen is soft. She's been tolerating oral intake, she is generally weak, she was evaluated by physical therapy, recommendation was made for subacute rehab placement after discharge. No new chest x-rays, labs from yesterday were reviewed. She continues on oral Lasix, her BNP significantly improved on yesterday's labs, remains on Decadron 6 mg daily, and to Lovenox 40 mg twice daily. On 01/03/2021 patient seen in follow-up on selective care unit, she is awake and alert, in no acute distress, today she sitting up on the edge of the bed, she is feeding herself, she is breathing comfortably, she is on room air. Sounds are diminished, no crackles, no wheezing, patient is much more awake, she appears stronger on today's exam, although generally she still pretty weak, had no fever or chills overnight, no new chest x-ray today. His labs have been reviewed, d- dimer is improved and is down to 0.84, electrolytes and renal profile are unre markable, LDH is down to normal on today's labs at 486, CRP is improved and is down to 4.4. Patient is awaiting transfer to subacute rehab possibly this afternoon. on 01/04/2021 patient seen in follow-up on selective care unit, she is breathing comfortably, in no acute distress, she is on room air with a pulse ox of 96%, no fever or chills, vital signs have been stable, patient had some blood pressures in the 80s over 40s, she is having some intermittent diarrhea, she is on IV Imodium, and she has been receiving oral Lasix 20 mg twice daily, no wheezing, no rhonchi, no crackles, she has completed her Decadron, which included back to IV Lasix to once a day. Discharge planning is in progress for discharge to a [facility] Objective - Vital Signs Vital signs: Vital Signs Temp 96.8 F L 01/04/21 13:45 Pulse 64 01/04/21 13:45 Resp 16 01/04/21 13:45 BP 90/41 01/04/21 13:45 Pulse Ox 96 01/04/21 13:45 Intake & Output 01/03/21 01/04/21 01/04/21 18:59 06:59 18:59 Intake Total 118 240 Output Total 1300 500 Balance -1182 -500 240 Weight 42.5 kg Intake: Oral 118 240 Output: Urine 1300 500 Uretheral (Rogers) 300 Other: Voiding Method Indwelling Catheter Indwelling Catheter Indwelling Catheter # Bowel Movements 1 - Exam GENERAL EXAM: Alert, very pleasant, but very weak and frail looking 80-year-old white female, currently on room air with the pulse ox of 96% comfortable in no apparent distress. HEAD: Normocephalic/atraumatic. EYES: Normal reaction of pupils, equal size. Conjunctiva pink, sclera white. NOSE: Clear with pink turbinates. THROAT: No erythema or exudates. NECK: No masses, no JVD, no thyroid enlargement, no adenopathy. CHEST: No chest wall deformity. Symmetrical expansion. LUNGS: Equal air entry with bilateral crackles CVS: Regular rate and rhythm, normal S1 and S2, no gallops, no murmurs, no rubs ABDOMEN: Soft, nontender. No hepatosplenomegaly, normal bowel sounds, no guarding or rigidity. EXTREMITIES: No clubbing, no edema, no cyanosis, 2+ pulses and upper and lower extremities. MUSCULOSKELETAL: Muscle strength and tone normal. SPINE: No scoliosis or deformity SKIN: No rashes CENTRAL NERVOUS SYSTEM: Alert and oriented -3. No focal deficits, tone is normal in all 4 extremities. PSYCHIATRIC: Alert and oriented -3. Appropriate affect. Intact judgment and insight. - Labs CBC & Chem 7: 01/01/21 08:17 01/03/21 08:03 Labs: Abnormal Lab Results - Last 24 Hours (Table) 01/03/21 01/03/21 01/04/21 Range/Units 16:45 20:48 11:57 POC Glucose (mg/dL) 125 H 161 H 161 H (75-99) mg/dL Assessment and Plan Plan: Assessment: #1. Acute hypoxic respiratory failure, multifactorial, related to acute COVID- 19 pneumonia, acute exacerbation of systolic CHF, and possible superimposed aspiration pneumonia. Patient did receive monoclonal antibody upon her initial admission. Patient's hypoxia has resolved, she is currently maintaining stable O2 saturations above 90% on room air. #2. General medical debility #3. History of irritable bowel syndrome #4. Autoimmune hepatitis #5. Degenerative joint disease #6. Episode of intermittent bradycardia, resolved #7. Severe LV dysfunction Plan: No acute events overnight Currently off all supplemental oxygen Decadron has been DC'ed Breathing comfortably Vital signs are stable Cut back Lasix to once daily Awaiting transfer to subacute rehab today Patient will need patient follow-up with Dr. Barakat in the office in 2 weeks after discharge I performed a history & physical examination of the patient and discussed their management with my nurse practitioner, Robina Brooke. I reviewed the nurse practitioner's note and agree with the documented findings and plan of care. Lung sounds are positive for diffuse crackles throughout the lung junior. The findings and the impression was discussed with the patient. I attest to the documentation by the nurse practitioner. Time with Patient: Less than 30
[2021-01-04] MEDS: ONDANSETRON 4 MG TAB PO PRN (15:23)
--- NOTE | 2021-01-04 16:39 | PN ---
PROGRESS NOTE DATE OF SERVICE: 01/04/2021 REASON FOR FOLLOWUP: 1. COVID-19 pneumonia. 2. Diarrhea. INTERVAL HISTORY: The patient is afebrile. The patient is feeling better today. She is breathing comfortably. Denies having any chest pain. Cough has decreased in intensity. The patient is currently on room air. No vomiting. No abdominal pain. No diarrhea. Has been complaining of pain to the perirectal area from irritation. PHYSICAL EXAMINATION: Blood pressure is 90/41 with a pulse of 54, temperature 96.8. She is 96% on room air. General description is an elderly female lying in bed in no distress. RESPIRATORY SYSTEM: Unlabored breathing. Decreased intensity of breath sounds. No wheeze. HEART: S1, S2. Regular rate and rhythm. ABDOMEN: Soft. No tenderness. LABS: No new labs have been obtained today. DIAGNOSTIC IMPRESSION AND PLAN: 1. Patient with COVID-19 pneumonia in this patient who has shown overall clinical improvement. Patient is currently on room air. Treatment is mostly supportive. 2. Diarrhea, possibly antibiotic-associated, which was discontinued, and the patient's diarrhea has resolved. Now did have significant discoloration in the perirectal area. Continue local treatment dry and off pressure. MMODL / IJN: [id number] /
[2021-01-04 16:50] LABS: Glucose,Whole Blood 139 mg/dL (75-99)
[2021-01-05] MEDS ORDERED: FUROSEMIDE 20 MG TAB PO SCH (09:00)
== END 2021-01-04 18:24 | DRG 177 ==
LOC: EC 13:41 → 4SSUR 17:15 → 2SICU 12-24 02:28 → 3SCARD 12-27 23:35
PROVIDERS: ADMIT Family Medicine; ATTEND Family Medicine
DX: U07.1 COVID-19 (principal); J96.01 Acute respiratory failure with hypoxia; J69.0 Pneumonitis due to inhalation of food and vomit; J12.82 Pneumonia due to coronavirus disease 2019; I50.23 Acute on chronic systolic (congestive) heart failure; E43 Unspecified severe protein-calorie malnutrition; Z68.1 Body mass index [BMI] 19.9 or less, adult; R64 Cachexia; E87.1 Hypo-osmolality and hyponatremia; I42.9 Cardiomyopathy, unspecified; Z90.710 Acquired absence of both cervix and uterus; Z79.899 Other long term (current) drug therapy; Z79.890 Hormone replacement therapy; Z79.82 Long term (current) use of aspirin; K52.9 Noninfective gastroenteritis and colitis, unspecified; K75.4 Autoimmune hepatitis; B18.2 Chronic viral hepatitis C; D72.810 Lymphocytopenia; E83.42 Hypomagnesemia; E86.0 Dehydration; E87.6 Hypokalemia; F41.9 Anxiety disorder, unspecified; G89.29 Other chronic pain; M79.7 Fibromyalgia; M19.90 Unspecified osteoarthritis, unspecified site; I34.0 Nonrheumatic mitral (valve) insufficiency; I44.0 Atrioventricular block, first degree; I48.0 Paroxysmal atrial fibrillation; I49.8 Other specified cardiac arrhythmias; K83.8 Other specified diseases of biliary tract; K21.9 Gastro-esophageal reflux disease without esophagitis; R54 Age-related physical debility; I95.9 Hypotension, unspecified; M54.9 Dorsalgia, unspecified; G47.30 Sleep apnea, unspecified; K58.1 Irritable bowel syndrome with constipation
CPT/HCPCS: 36415; 70450; 70496; 70498; 71045; 71046; 74018; 74177; 80048; 80053; 81003; 82728; 83605; 83615; 83735; 83880; 84100; 84132; 84145; 84443; 84484; 85025; 85379; 85384; 85610; 85730; 86140; 87040; 87635; 93005; 93306; 94760; 96360; 96361; 99285

== ENCOUNTER → 2021-09-10 | Outpatient (CLI) | payer MEDICARE ==
--- NOTE | 2021-09-13 10:24 | MM ---
Reason for Exam: Screening (asymptomatic). Last mammogram was performed 3 year(s) and 4 month(s) ago. Patient History: Menarche at age 18. First Full-Term at age 20. Left ovary removed at age 42. Right ovary removed at age 40. Hysterectomy at age 38. Postmenopausal. Other cancer, age 60. Previous chest radiation therapy at age 60. Previous chemotherapy at age 60. Estrogen for 2 years from age 56 until age 59. 1989, Benign Excisional Biopsy on the right side. Risk Values: Elizabeth 5 year model risk: 1.3%. NCI Lifetime model risk: 2.2%. Prior Study Comparison: 03/21/2016 Bilateral Diagnostic Mammogram, [facility]. 03/25/2017 Bilateral Diagnostic Mammogram, [facility]. 05/12/2018 Bilateral Screening Mammogram, [facility]. Tissue Density: The breast tissue is heterogeneously dense. This may lower the sensitivity of mammography. Findings: Analyzed By CAD. There is no suspicious group of microcalcifications or new suspicious mass in either breast. Overall Assessment: Negative, BI-RAD 1 Management: Screening Mammogram of both breasts in 1 year. A clinical breast exam by your physician is recommended on an annual basis and results should be correlated with mammographic findings. Electronically signed and approved by: Jeet Wei DO
== END | disposition home or self-care (01) ==
LOC: RADMAMWWP 15:34
PROVIDERS: ATTEND Family Medicine
DX: Z12.31 Encounter for screening mammogram for malignant neoplasm of breast (principal); Z78.0 Asymptomatic menopausal state
CPT/HCPCS: 77063; 77067

== ENCOUNTER → 2021-12-25 | Outpatient (CLI) | payer MEDICARE ==
--- NOTE | 2021-12-26 07:33 | US ---
EXAMINATION TYPE: US venous doppler duplex LE DATE OF EXAM: 12/25/2021 4:34 PM COMPARISON: NONE CLINICAL HISTORY: M79.669 PAIN IN UNSPECIFIED LOWER LEG,R60.0 EDEMA. Pain, edema bilateral legs, wors e on the right SIDE PERFORMED: Bilateral TECHNIQUE: The lower extremity deep venous system is examined utilizing real time linear array sonog bryan with graded compression, doppler sonography and color-flow sonography. VESSELS IMAGED: Common Femoral Vein Deep Femoral Vein Greater Saphenous Vein * Femoral Vein Popliteal Vein Small Saphenous Vein * Proximal Calf Veins (* superficial vessels) Right Leg: no evidence of DVT Left Leg: no evidence of DVT Compressibility appears normal bilaterally and within the left lower extremity left femoral veins. IMPRESSION: 1. Bilateral lower extremity ultrasound negative for deep venous thrombosis.
== END | disposition home or self-care (01) ==
LOC: RADUSWWP 15:56
PROVIDERS: ATTEND Family Medicine
DX: M79.662 Pain in left lower leg (principal); M79.661 Pain in right lower leg; R60.0 Localized edema
CPT/HCPCS: 93970

== ENCOUNTER → 2021-12-27 | Outpatient (CLI) | payer MEDICARE ==
[2021-12-27 23:16] LABS: Basophils # (A) 0.08 X 10*3/uL (0.00-0.10); Eosinophils # (A) 0.06 X 10*3/uL (0.04-0.35); Eosinophils % (A) 0.7 %; HCT 35.6 % (37.2-46.3); HGB 10.5 g/dL (12.0-15.0); Immature Grans, Automated 0.2 %; Lymphocytes # (A) 0.65 X 10*3/uL (0.90-5.00); Lymphocytes % (A) 8.1 %; MCH 28.2 pg (27.0-32.0); MCHC 29.5 g/dL (32.0-37.0); MCV 95.4 fL (80.0-97.0); Mean Platelet Volume 11.5 fL (9.5-12.2); Monocytes # (A) 0.58 X 10*3/uL (0.20-1.00); Monocytes % (A) 7.2 %; NRBC Per 100 WBC 0 /100 WBCS (0.0-0.0); Neutrophils # (A) 6.65 X 10*3/uL (1.80-7.70); Neutrophils % (A) 82.8 %; Platelet Count 257 X 10*3/uL (140-440); RBC 3.73 X 10*6/uL (4.10-5.20); RDW 14.1 % (11.5-14.5); WBC 8.04 X 10*3/uL (4.50-10.00)
[2021-12-27 23:20] LABS: ALT 12 U/L (8-44); AST 25 U/L (13-35); African American GFR (CKD) 81.3 (60.0-200.0); Albumin 4.1 g/dL (3.8-4.9); Albumin/Globulin Ratio 1.52 (1.60-3.17); Alkaline Phosphatase 88 U/L (41-126); BUN/Creat Ratio 25.13 Ratio (12.00-20.00); Blood Urea Nitrogen 20.1 mg/dL (9.0-27.0); Calcium 8.9 mg/dL (8.7-10.3); Carbon Dioxide 26.7 mmol/L (20.0-27.5); Chloride 97 mmol/L (96-109); Globulin 2.7 g/dL (1.6-3.3); Glucose 71 mg/dL (70-110); Magnesium 2.1 mg/dL (1.5-2.4); Non-African American GFR(CKD) 70.1 (60.0-200.0); Potassium 4.3 mmol/L (3.5-5.5); Sodium 134 mmol/L (135-145); Total Bilirubin <0.15 mg/dL (0.30-1.20); Total Protein 6.8 g/dL (6.2-8.2)
== END | disposition home or self-care (01) ==
LOC: LABWHC1 14:32
PROVIDERS: ATTEND Family Medicine
DX: Z09 Encounter for follow-up examination after completed treatment for conditions other than malignant neoplasm (principal); E83.42 Hypomagnesemia; E78.6 Lipoprotein deficiency; D72.829 Elevated white blood cell count, unspecified; M79.669 Pain in unspecified lower leg; E46 Unspecified protein-calorie malnutrition; B37.9 Candidiasis, unspecified; R60.0 Localized edema
CPT/HCPCS: 36415; 80053; 83735; 85025

== ENCOUNTER → 2023-01-13 | Outpatient (CLI) | payer MEDICARE ==
[2023-01-14 02:57] LABS: ALT 20 U/L (8-44); AST 19 U/L (13-35); Albumin 4.1 g/dL (3.8-4.9); Albumin/Globulin Ratio 2.28 Ratio (1.60-3.17); Alkaline Phosphatase 79 U/L (41-126); BUN/Creat Ratio 41.75 Ratio (12.00-20.00); Blood Urea Nitrogen 33.4 mg/dL (9.0-27.0); Calcium 8.8 mg/dL (8.7-10.3); Carbon Dioxide 30.8 mmol/L (21.6-31.8); Chloride 102 mmol/L (96-109); Globulin 1.8 g/dL (1.6-3.3); Glucose 88 mg/dL (70-110); Potassium 4.8 mmol/L (3.5-5.5); Sodium 139 mmol/L (135-145); Total Bilirubin <0.2 mg/dL (0.3-1.2); Total Protein 5.9 g/dL (6.2-8.2)
[2023-01-14 03:31] LABS: Basophils # (A) 0.04 X 10*3/uL (0.00-0.10); Basophils % (A) 0.8 %; Eosinophils # (A) 0.11 X 10*3/uL (0.04-0.35); Eosinophils % (A) 2.2 %; HCT 34.6 % (37.2-46.3); HGB 10.1 g/dL (12.0-15.0); Lymphocytes # (A) 0.68 X 10*3/uL (0.90-5.00); Lymphocytes % (A) 13.8 %; MCH 28.5 pg (27.0-32.0); MCHC 29.2 g/dL (32.0-37.0); MCV 97.7 FL (80.0-97.0); Mean Platelet Volume 11.3 FL (9.5-12.2); Monocytes # (A) 0.51 X 10*3/uL (0.20-1.00); Monocytes % (A) 10.3 %; NRBC Per 100 WBC 0 X 10*3/uL (0.00-0.01); Neutrophils # (A) 3.59 X 10*3/uL (1.80-7.70); Neutrophils % (A) 72.7 %; Platelet Count 192 X 10*3/uL (140-440); RBC 3.54 X 10*6/uL (4.10-5.20); RDW 13.2 % (11.5-14.5); WBC 4.94 X 10*3/uL (4.50-10.00)
== END | disposition home or self-care (01) ==
LOC: LABWHC1 11:32
PROVIDERS: ATTEND Internal Medicine Gastroenterology
DX: K75.4 Autoimmune hepatitis (principal)
CPT/HCPCS: 36415; 80053; 85025

== ENCOUNTER → 2023-04-08 | Outpatient (CLI) | payer BC, MEDICARE ==
[2023-04-08 19:02] LABS: ALT 18 U/L (8-44); AST 21 U/L (13-35); Albumin 4.3 g/dL (3.8-4.9); Albumin/Globulin Ratio 2.26 Ratio (1.60-3.17); Alkaline Phosphatase 48 U/L (41-126); BUN/Creat Ratio 17.78 Ratio (12.00-20.00); Calcium 9.6 mg/dL (8.7-10.3); Carbon Dioxide 27.7 mmol/L (21.6-31.8); Chloride 101 mmol/L (96-109); Globulin 1.9 g/dL (1.6-3.3); Glucose 100 mg/dL (70-110); Potassium 4.6 mmol/L (3.5-5.5); Sodium 140 mmol/L (135-145); Total Bilirubin 0.3 mg/dL (0.3-1.2); Total Protein 6.2 g/dL (6.2-8.2)
[2023-04-08 19:15] LABS: Basophils # (A) 0.04 X 10*3/uL (0.00-0.10); Basophils % (A) 0.9 %; Eosinophils # (A) 0.01 X 10*3/uL (0.04-0.35); Eosinophils % (A) 0.2 %; HCT 33.9 % (37.2-46.3); HGB 10.1 g/dL (12.0-15.0); Lymphocytes # (A) 0.34 X 10*3/uL (0.90-5.00); Lymphocytes % (A) 7.3 %; MCH 28.5 pg (27.0-32.0); MCHC 29.8 g/dL (32.0-37.0); MCV 95.8 FL (80.0-97.0); Mean Platelet Volume 12.4 FL (9.5-12.2); Monocytes # (A) 0.17 X 10*3/uL (0.20-1.00); Monocytes % (A) 3.7 %; NRBC Per 100 WBC 0 X 10*3/uL (0.00-0.01); Neutrophils # (A) 4.06 X 10*3/uL (1.80-7.70); Neutrophils % (A) 87.7 %; Platelet Count 149 X 10*3/uL (140-440); RBC 3.54 X 10*6/uL (4.10-5.20); RDW 12.8 % (11.5-14.5); WBC 4.63 X 10*3/uL (4.50-10.00)
== END | disposition home or self-care (01) ==
LOC: LABWHC1 14:16
PROVIDERS: ATTEND Internal Medicine Gastroenterology
DX: K75.4 Autoimmune hepatitis (principal); R19.7 Diarrhea, unspecified
CPT/HCPCS: 36415; 80053; 85025

== ENCOUNTER 2023-05-29 10:58 | Day surgery (SDC) | payer MEDICARE ==
[~2023-05-29 10:58] MED LIST changes: +LACTATED RINGERS 1,000 ML IV SCH; -SODIUM CHLORIDE 0.9% 500 ML 500 ML in EMPTY BAG 1 BAG IV PRN; -ZOLEDRONIC ACID 5 MG in SODIUM CHLORIDE 0.9% 100 ML IV NR
--- NOTE | 2023-05-29 11:46 | CT ---
EXAMINATION TYPE: CT chest wo con CT DLP: 174.2 mGycm, Automated exposure control for dose reduction was used. DATE OF EXAM: 05/29/2023 11:26 AM COMPARISON: Chest radiograph from same day. Multiple CTs of the chest with most recent on . CLINICAL INDICATION:Female, 82 years old with history of R91.1 Solitary Pulmonary Nodule; PHH, pre-op bronch TECHNIQUE: Multiple axial images were obtained through the chest. Sagittal and coronal reformats were created for review. Contrast used: mL of (None if empty) Oral contrast used: (None if empty) FINDINGS: LUNGS/ PLEURA: Right base is a thick walled tiny cavitary nodule measuring approximately 14 mm minima l atelectasis is seen in the left lung base. Another millimeter nodule is identified acquisition # 3, image 156 in the right lower lobe laterally (other tiny 2 mm satellite nodule AIRWAY: Patent and unremarkable. HEART: Size within normal limits. MEDIASTINUM: No gross evidence of adenopathy. VASCULATURE: No aortic aneurysm. MUSCULOSKELETAL: No acute osseous abnormalities SOFT TISSUES/LYMPH NODES: Unremarkable. LOWER NECK: No significant findings. UPPER ABDOMEN: No significant findings. IMPRESSION: Pulmonary nodules. Minimal left base atelectasis
[2023-05-29] MEDS: LACTATED RINGERS 1,000 ML IV SCH (12:17)
[2023-05-29 12:18] LABS: Glucose,Whole Blood 93 mg/dL (70-110)
[2023-05-29] MEDS ORDERED: LIDOCAINE 1% INJ 10MG/ML (20 ML MDV) ONE (12:27)
[2023-05-29] MEDS ORDERED: ROCURONIUM 10 MG/ML (5 ML VIAL) IV ONE (12:27)
[2023-05-29] MEDS ORDERED: ONDANSETRON 4 MG/2 ML VIAL ONE (12:27)
[2023-05-29] MEDS ORDERED: SUCCINYLCHOLINE CHLORIDE 200 MG/10 ML VIAL IV ONE (12:27)
[2023-05-29] MEDS ORDERED: PHENYLEPHRINE 10 MG/ML VIAL ONE (12:27)
[2023-05-29] MEDS ORDERED: GLYCOPYRROLATE 0.2 MG/ML 2 ML VIAL ONE (12:27)
[2023-05-29] MEDS ORDERED: ePHEDrine 50 MG/ML 1 ML VIAL ONE (12:27)
[2023-05-29] MEDS ORDERED: DEXAMETHASONE SOD PHOSPHATE 10 MG/ML 1 ML VIAL ONE (12:27)
[2023-05-29] MEDS ORDERED: NEOSTIGMINE 1 MG/ML 10 ML VIAL ONE (12:27)
[2023-05-29] MEDS ORDERED: PROPOFOL 10 MG/ML 20 ML VIAL IV ONE (12:27)
--- NOTE | 2023-05-29 14:19 | P.PCN ---
Date of Procedure: 05/29/23 Operative Findings: Description of Procedure: Operative Findings: Preoperative Diagnosis: Left lower lobe nodule, 12 mm Postoperative Diagnosis: Left lower lobe nodule, 12 mm Procedure(s) Performed: Flexible bronchoscopy Robotic-assisted bronchoscopy and addition to radial ultrasound evaluation of the left lower lobe pulmonary nodule Robotic-assisted transbronchial needle aspirate, transbronchial biopsy, transbronchial brushing of the left lower lobe pulmonary nodule in addition to a bronchioloalveolar lavage Anesthesia: MAXIM Surgeon: Nayeli Steele Estimated Blood Loss (ml): 0 Pathology: other Condition: stable Disposition: same day Operative Findings: A physical exam was performed. Informed consent was obtained from the patient after explaining all the risks (pneumothorax, life threatening bleeding, infection and adverse effects due to medications), benefits and alternatives to the procedure which the patient appeared to understand and so stated. The patient was connected to the monitoring devices. General anesthesia was induced and the patient was intubated by anesthesia. A final timeout was performed and the procedure confirmed by the attending staff bronchoscopist. The bronchoscope was inserted and the airway examined. The airway examination was within normal limits. There was copious respiratory secretions that were suctioned out without any major difficulties. The flexible bronchoscope was removed and the robotic bronchoscope was inserted. Registration was completed. I next guided the robotic bronchoscope using the navigation system into the left lower lobe posterior segment. Once in proper position, the bronchoscope was frozen. The radial EBUS probe was placed through the bronchoscope and confirmed abnormal u/s images vs normal lung. U/S evaluation was then used to reconfirm location. Transbronchial needle aspirate of the left lower lobe pulmonary nodule was done initially using a 21- gauge needle and later on a 23-gauge needle with and a total of 3 passes was taken with each needle. Following that, forceps were next introduced through working channel and extended the appropriate distance and 2 transbronchial biopsies were performed using fluoroscopic guidance. The u/s probe was then reinserted to confirm location. When confirmed this process was repeated for a total of 10-12 transbronchial biopsies. After reassessment with EBUS, a brush was placed through the extendable working channel for 1 pass with fluoroscopic guidance. U/S evaluation was then used to confirm location. 40ml of saline was then instilled into the area of the lesion. The robotic bronchoscope was removed and the airway inspected with a flexible bronchoscope and 10 ml of effluent from the BAL was collected. The patient was then re-intubated with an Olympus IT bronchoscope without difficutly. The airways were inspected and cleared of secretions and blood. Fluoroscopic check for pneumothorax was negative upon completion of the procedure. There was 0 ml blood loss with the procedure. FINDINGS: 1.The airways significant amount of loose respiratory secretions scattered throughout the airways bilaterally. No evidence of endobronchial tumors or lesions. 2 Successful navigation, ultrasonographic identification, and biopsies of left lower lobe pulmonary nodule 3.The radial ultrasound view was initially eccentric and later on concentric RECOMMENDATIONS: Await pathology and cytology results The referring physician will be alerted to the results when available. The patient was advised to follow up with the referring physician with the biopsy results Patient will be called with results.
[2023-05-29 14:28] LABS: Glucose,Whole Blood 100 mg/dL (70-110)
[2023-05-29 14:52] VITALS: TEMP 97.6
--- NOTE | 2023-05-29 15:42 | XR ---
EXAMINATION TYPE: XR chest 1V DATE OF EXAM: 05/29/2023 2:47 PM CLINICAL INDICATION:Female, 82 years old with history of post bx; [facility] COMPARISON: Chest radiographs from 12/30/2020. TECHNIQUE: XR chest 1V Frontal view of the chest. FINDINGS: Lungs/Pleura: There is no evidence of pleural effusion, focal consolidation, or pneumothorax. Pulmonary vascularity: Unremarkable. Heart/mediastinum: Cardiomediastinal silhouette is prominent in size. Atherosclerotic calcifications are seen in the aorta. Musculoskeletal: No acute osseous pathology. IMPRESSION: Chronic changes without acute pulmonary process. No significant change from prior.
[2023-05-29 16:06] VITALS: BP 105/76; PULSE 71; RESP 18
--- NOTE | 2023-05-29 20:33 | FL ---
Fluoroscopy INDICATION: Pain FINDINGS: Fluoroscopy time: 3 minutes 5.5 seconds. Total dose area product (DAP) in uGy*m?, mGy*cm? (or similar): 6.5789 Images obtained: 2. IMPRESSION: 1. Documentation of fluoroscopy.
== END 2023-05-29 16:34 | disposition home or self-care (01) ==
LOC: ORWHC2ENDO 10:58
PROVIDERS: ATTEND Internal Medicine Critical Care Medicine
DX: J81.1 Chronic pulmonary edema (principal); I25.10 Atherosclerotic heart disease of native coronary artery without angina pectoris; E07.9 Disorder of thyroid, unspecified; M79.7 Fibromyalgia; M19.90 Unspecified osteoarthritis, unspecified site; F32.A Depression, unspecified; G47.33 Obstructive sleep apnea (adult) (pediatric); K58.9 Irritable bowel syndrome, unspecified; Z85.048 Personal history of other malignant neoplasm of rectum, rectosigmoid junction, and anus; Z85.118 Personal history of other malignant neoplasm of bronchus and lung; Z79.890 Hormone replacement therapy; Z79.899 Other long term (current) drug therapy; Z90.49 Acquired absence of other specified parts of digestive tract
CPT/HCPCS: 88108; 88305; 87070; 87205; 87116; 87102; 87206; 71045; 71250; 31628; 31629; 31623; 31624; J0330; J1100; J2710; J2405; J2001; J2704; J2371; S2900; 87496; 87498; 87502; 87529; 87634; 87635; 87798

== ENCOUNTER → 2023-07-04 | Outpatient (CLI) | payer MEDICARE ==
[2023-07-04 14:28] LABS: Basophils # (A) 0.04 X 10*3/uL (0.00-0.10); Basophils % (A) 0.4 %; Eosinophils # (A) 0.06 X 10*3/uL (0.04-0.35); Eosinophils % (A) 0.6 %; HCT 38.7 % (37.2-46.3); HGB 11.8 g/dL (12.0-15.0); Lymphocytes # (A) 0.73 X 10*3/uL (0.90-5.00); Lymphocytes % (A) 7.3 %; MCH 29.5 pg (27.0-32.0); MCHC 30.5 g/dL (32.0-37.0); MCV 96.8 FL (80.0-97.0); Mean Platelet Volume 11.8 FL (9.5-12.2); Monocytes # (A) 0.65 X 10*3/uL (0.20-1.00); Monocytes % (A) 6.5 %; NRBC Per 100 WBC 0 X 10*3/uL (0.00-0.01); Neutrophils # (A) 8.45 X 10*3/uL (1.80-7.70); Neutrophils % (A) 84.8 %; Platelet Count 234 X 10*3/uL (140-440); RDW 14.2 % (11.5-14.5); WBC 9.97 X 10*3/uL (4.50-10.00)
[2023-07-04 16:01] LABS: ALT 17 U/L (8-44); AST 20 U/L (13-35); Albumin 4.6 g/dL (3.8-4.9); Albumin/Globulin Ratio 2.09 Ratio (1.60-3.17); Alkaline Phosphatase 99 U/L (41-126); Blood Urea Nitrogen 29.6 mg/dL (9.0-27.0); Calcium 9.5 mg/dL (8.7-10.3); Carbon Dioxide 26.5 mmol/L (21.6-31.8); Chloride 105 mmol/L (96-109); Globulin 2.2 g/dL (1.6-3.3); Glucose 98 mg/dL (70-110); Potassium 4.2 mmol/L (3.5-5.5); Sodium 144 mmol/L (135-145); Total Bilirubin 0.3 mg/dL (0.3-1.2); Total Protein 6.8 g/dL (6.2-8.2)
== END | disposition home or self-care (01) ==
LOC: LABWHC1 11:20
PROVIDERS: ATTEND Internal Medicine Gastroenterology
DX: K75.4 Autoimmune hepatitis (principal)
CPT/HCPCS: 36415; 80053; 85025

== ENCOUNTER → 2023-10-09 | Outpatient (CLI) | payer MEDICARE | END | disposition home or self-care (01) | LOC: LABPRL 08:30 | PROVIDERS: ATTEND Family Medicine | DX: R19.7 Diarrhea, unspecified (principal) | CPT/HCPCS: 80053; 84439; 84443; 84481; 85025; 85652; 86140 ==